=== PATIENT | male | born 1950 | race Caucasian/White ===

== ENCOUNTER 2017-05-07 06:57 | Outpatient (RCR) | payer MEDICARE, OTHER, SELFPAY | END 2017-05-07 23:59 | LOC: PT.CARL 06:57 | PROVIDERS: Referring Provider Orthopaedic Surgery; Visit Provider Orthopaedic Surgery | DX: M75.101 Unspecified rotator cuff tear or rupture of right shoulder, not specified as traumatic (principal) | CPT/HCPCS: G8990; G8991; G8992; 97014; 97110; 97165; G0283 ==

== ENCOUNTER → 2017-06-09 09:39 | Outpatient (CLI) | payer MEDICARE, OTHER, SELFPAY ==
--- NOTE | 2017-06-09 09:45 | XR_ITS ---
XR shoulder RT min 2V HISTORY: ITS.REASON: postoperative RT shoulder sx/ dos- 03/23/17 ORDERING PHYSICIAN: Nazario Najera MD PATIENT AGE: 66 years COMPARISON: 02/08/2017 FINDINGS: There are 2 anchor screws in the humeral head. There has been an osteotomy of the acromioclavicular bony spurs with minimal fragmentation noted at the distal clavicle. No evidence of acute fracture or dislocation. IMPRESSION: Postsurgical changes with osteotomy at the acromioclavicular joint and anchor screws at the humeral head
== END ==
PROVIDERS: PCP Family Medicine; Visit Provider Orthopaedic Surgery
DX: Z48.89 Encounter for other specified surgical aftercare (principal); M75.121 Complete rotator cuff tear or rupture of right shoulder, not specified as traumatic; M75.51 Bursitis of right shoulder; M75.21 Bicipital tendinitis, right shoulder; M19.019 Primary osteoarthritis, unspecified shoulder
CPT/HCPCS: 73030

== ENCOUNTER 2017-08-30 08:00 | Outpatient (RCR) | payer MEDICARE, OTHER, SELFPAY ==
--- NOTE | 2017-06-30 08:51 | HMH.RHREAS ---
Rehab Reassessment Rehab OP Re-assessment Start: 06/30/17 07:56 Freq: Status: Active Protocol: Document 06/30/17 07:57 TFRY (Rec: 06/30/17 08:50 TFRY [id number]) Electronically Signed By Mercedes Ortega OT 06/30/17 07:57 Rehab Re-assessment Subjective Subjective I'M NOT REALLY HAVING NOT PAIN IN SHOULDER. Objective Objective Notes RIGHT SHOULDER AROM - FLEXION - 0-150 ABDUCTION - 0-150 EXTERNAL ROTATION - 0-60 INTERNAL ROTATION- 0-60 RIGHT SHOULDER STRENGTH - FLEXION - 4-/5 ABDUCTION - 4-/5 INTERNAL ROTATION - 4-/5 EXTERNAL ROTATION- 4-/5 PAIN - 1 PATIENT REPORTS ABLE TO PERFORM ALL ADL'S, HOME CARE ACTIVITIES. DEMONSTRATES ABILITY TO REACH BEHIND BACK AND OVERHEAD. REPORTS NORMAL SLEEP PATTERN. Assessment Progress Assessment Progressing as Expected Assessment Notes PATIENT HAS IMPROVED ROM AND STRENGTH. Patient goals met 8 OUT OF 9 STGS AND 7 OUT OF 9 LTGS Goals Not Met STRENGTH GOAL AND ADVANCED HEP . Revised Goals NONE CONTINUE ON WORKING TOWARD UNMET GOALS OF STRENGTH AND ADVANCED HEP. Plan Plan CONTINUE WORKING TOWARD UNMET GOALS. Frequency of Therapy 1X PER WEEK Duration of therapy 4 WEEKS Time and Billing Re-Eval Time 5 Re-Eval Billing Units 0 PHYSICIAN CERTIFICATION: I certify the specified therapy services for Lion Dennison are required, authorized, and reviewed every 30 days.
--- NOTE | 2017-08-09 09:08 | HMH.RHREAS ---
Rehab Reassessment Rehab OP Re-assessment Start: 06/30/17 07:56 Freq: Status: Active Protocol: Document 08/09/17 08:12 [email or web address] (Rec: 08/09/17 09:07 TFRY [id number]) Electronically Signed By Mercedes Ortega OT 08/09/17 08:12 Rehab Re-assessment Subjective Subjective I HAVE SOME PAIN WHEN LIFTING HEAVY OBJECTS. Objective Objective Notes RIGHT SHOULDER - AROM - WFL IN ALL PLANES - STRENGTH - FLEXION - 4-/4/5 ABDUCTION - 4-/4/5 INTERNAL ROTATION - 4/5 EXTERNAL ROTATION - 4/5 PAIN - 8 ON 0-10 SCALE IN ONE SPOT Assessment Progress Assessment Progressing as Expected Assessment Notes INCREASING WITH STRENGTHENING EXERCISES Patient goals met 1 OUT OF 2 GOALS Goals Not Met 1 OUT OF 2 GOALS - STRENGTH GOALS Plan Plan CONTINUE TO WORK IMPROVING RIGHT SHOULDER STRENGTH Frequency of Therapy 2 Duration of therapy 6 Time and Billing Re-Eval Time 2 Re-Eval Billing Units 0 PHYSICIAN CERTIFICATION: I certify the specified therapy services for Lion Dennison are required, authorized, and reviewed every 30 days.
== END 2017-08-30 11:35 | disposition home or self-care (01) ==
LOC: OT 08:00
PROVIDERS: Family Provider Family Medicine; Visit Provider Orthopaedic Surgery
DX: Z48.89 Encounter for other specified surgical aftercare (principal); M75.121 Complete rotator cuff tear or rupture of right shoulder, not specified as traumatic
CPT/HCPCS: 97014; 97033; 97110; 97140; 97164; G0283

== ENCOUNTER → 2017-09-27 16:51 | Outpatient (CLI) | payer MEDICARE, OTHER, SELFPAY ==
--- NOTE | 2017-09-27 17:01 | XR_ITS ---
XR hip RT 2-3V w/pelvis HISTORY: ITS.REASON: RT. HIP PAIN ORDERING PHYSICIAN: Declan Izquierdo MD PATIENT AGE: 67 years FINDINGS: No fracture or dislocation is evident. There are mild osteoarthritic changes of the hips. No fracture or dislocation. No lytic or blastic change. IMPRESSION: Mild osteoarthritis, no acute finding
== END ==
PROVIDERS: PCP Family Medicine; Visit Provider Family Medicine
DX: M25.551 Pain in right hip (principal)
CPT/HCPCS: 73502

== ENCOUNTER 2017-10-28 09:00 | Outpatient (RCR) | payer MEDICARE, OTHER, SELFPAY | END 2017-11-29 11:04 | disposition home or self-care (01) | LOC: PT 09:00 | PROVIDERS: Family Provider Family Medicine; PCP Family Medicine; Visit Provider Family Medicine | DX: M51.36 Other intervertebral disc degeneration, lumbar region (principal); M16.11 Unilateral primary osteoarthritis, right hip; M54.31 Sciatica, right side | CPT/HCPCS: 97012; 97014; 97035; 97110; 97163; G0283 ==

== ENCOUNTER → 2018-02-14 11:22 | Outpatient (POV) | payer MEDICARE, OTHER, SELFPAY ==
[2018-02-14 11:45] VITALS: BP 157/98; PULSE 97; RESP 18; O2SAT 98
--- NOTE | 2018-02-14 12:11 | HMH.PMCON ---
Assessment and Plan (1) Lumbar radiculopathy Current visit: No Status: Chronic Category: Medical Code(s): M54.16 - Radiculopathy, lumbar region - Assessment and plan all Dx Assessment and Plan for all problems:: We will schedule an MRI of the lumbar spine. We will start him on diclofenac 75 mg 1 p.o. twice daily. We will follow-up with the patient after his MRI to move forward with the plan. This note was dictated using voice recognition software and may contain errors or omissions HPI - Data of Consult Consult date: 02/14/18 Requesting Physician: Marylou Aranda APRN Primary Care Provider: Declan Izquierdo MD Family Provider: Declan Izquierdo MD - Consult Narrative Reason for consult: Back pain History of present illness: Mr. Dennison is a 67 year old male in today for consultation in regards to his back and leg pain. Patient states that he woke up in October with back pain. Patient went to the hospital where he got x-rays and a steroid Dosepak along with some muscle relaxers. Patient states that these have not helped. Patient then followed up with his primary care and was sent to [facility] for right hip pain. Patient had an injection in his hip however that was not beneficial. Patient is currently on meloxicam. Patient states it does not help much. Patient's tried and failed physical therapy along with hip injections. He rates his pain a 10 out of 10. Patient has weakness in his right leg. Patient states standing for long periods of time increases his pain. CC: Marylou Aranda APRN [facility] History I have reviewed the patient's past medical history: Yes Medical History: Reports:: Diabetes Mellitus Type 2, Gastroesophageal Reflux Disease(GERD), Hyperlipidemia, Kidney Stones Denies:: Cancer, Diabetes Mellitus Type 1, MRSA Other Medical History: Reports: Arthritis, Other Laterality Cases: Bilateral: Arthroscopy Shoulder Amputation: No Fractures: No - *Social History Smoking Status: Never smoker Alcohol Intake: never Alcohol Intake Frequency:: other Substance Use Type: denies use Occupational Status: other Housing: house - Psychiatric History Expresses thoughts of harming self/others: None Suicide Plan Description: No Plan *Family Hx:: No significant family history Review of Systems - Review of Systems ROS General: no recent weight change, no fever, no sleep disturbances Respiratory: no cough, no shortness of air, no recurring pulmonary infections Cardiovascular/Peripheral Vascular: No chest pain, No palpitations, no edema, no shortness of breath. Gastrointestinal: no incontinence, normal bowel movements reported Genitourinary: no incontinence Musculoskeletal: Back pain, right leg pain Psychiatric: normal mood/ affect, Neurological: Weakness in right leg, [denies balance issues] Meds Home Medications Medication Instructions Recorded Confirmed Type atorvastatin 10 mg tablet 10 mg PO QDAY 06/09/17 10/13/17 History canagliflozin 300 mg tablet 300 mg PO QAM 06/09/17 10/13/17 History fenofibrate 150 mg capsule 150 mg PO ONCE 06/09/17 10/13/17 History glimepiride 4 mg tablet 4 mg PO QAM 06/09/17 10/13/17 History lancets 26 gauge See Dose Instructions .ROUTE 06/09/17 10/13/17 History .MEDSUPPLY #50 each meloxicam 15 mg tablet 15 mg PO QDAY 06/09/17 10/13/17 History metformin 1,000 mg tablet 1,000 mg PO BID 06/09/17 10/13/17 History omeprazole 20 mg capsule,delayed 20 mg PO QDAY 06/09/17 10/13/17 History release Levothyroxine Sodium 50 mcg PO DAILY 10/13/17 10/13/17 History [Levothyroxine 50mcg (0.05mg) Tab] Sitagliptin Phosphate [Januvia] 1 tab PO DAILY 10/13/17 10/13/17 History Allergies Allergy/AdvReac Type Severity Reaction Status Date / Time No Known Allergies Allergy Verified 01/31/18 15:20 Objective Vital signs: Pulse Resp BP Pulse Ox 97 H 18 157/98 H 98 02/14/18 11:45 02/14/18 11:45 02/14/18 11:45 02/14/18 11:45 Narrative:
--- NOTE | 2018-02-14 12:31 | P.CONS_ITS ---
Assessment and Plan (1) Lumbar radiculopathy Current visit: No Status: Chronic Category: Medical Code(s): M54.16 - Radiculopathy, lumbar region - Assessment and plan all Dx Assessment and Plan for all problems:: We will schedule an MRI of the lumbar spine. We will start him on diclofenac 75 mg 1 p.o. twice daily. We will follow-up with the patient after his MRI to move forward with the plan. This note was dictated using voice recognition software and may contain errors or omissions HPI - Data of Consult Consult date: 02/14/18 Requesting Physician: Marylou Aranda APRN Primary Care Provider: Declan Izquierdo MD Family Provider: Declan Izquierdo MD - Consult Narrative Reason for consult: Back pain History of present illness: Mr. Dennison is a 67 year old male in today for consultation in regards to his back and leg pain. Patient states that he woke up in October with back pain. Patient went to the hospital where he got x-rays and a steroid Dosepak along with some muscle relaxers. Patient states that these have not helped. Patient then followed up with his primary care and was sent to [facility] for right hip pain. Patient had an injection in his hip however that was not beneficial. Patient is currently on meloxicam. Patient states it does not help much. Patient's tried and failed physical therapy along with hip injections. He rates his pain a 10 out of 10. Patient has weakness in his right leg. Patient states standing for long periods of time increases his pain. CC: Marylou Aranda APRN [facility] History I have reviewed the patient's past medical history: Yes Medical History: Reports:: Diabetes Mellitus Type 2, Gastroesophageal Reflux Disease(GERD), Hyperlipidemia, Kidney Stones Denies:: Cancer, Diabetes Mellitus Type 1, MRSA Other Medical History: Reports: Arthritis, Other Laterality Cases: Bilateral: Arthroscopy Shoulder Amputation: No Fractures: No - *Social History Smoking Status: Never smoker Alcohol Intake: never Alcohol Intake Frequency:: other Substance Use Type: denies use Occupational Status: other Housing: house - Psychiatric History Expresses thoughts of harming self/others: None Suicide Plan Description: No Plan *Family Hx:: No significant family history Review of Systems - Review of Systems ROS General: no recent weight change, no fever, no sleep disturbances Respiratory: no cough, no shortness of air, no recurring pulmonary infections Cardiovascular/Peripheral Vascular: No chest pain, No palpitations, no edema, no shortness of breath. Gastrointestinal: no incontinence, normal bowel movements reported Genitourinary: no incontinence Musculoskeletal: Back pain, right leg pain Psychiatric: normal mood/ affect, Neurological: Weakness in right leg, [denies balance issues] Meds Home Medications Medication Instructions Recorded Confirmed Type atorvastatin 10 mg tablet 10 mg PO QDAY 06/09/17 10/13/17 History canagliflozin 300 mg tablet 300 mg PO QAM 06/09/17 10/13/17 History fenofibrate 150 mg capsule 150 mg PO ONCE 06/09/17 10/13/17 History glimepiride 4 mg tablet 4 mg PO QAM 06/09/17 10/13/17 History lancets 26 gauge See Dose Instructions .ROUTE 06/09/17 10/13/17 History .MEDSUPPLY #50 each meloxicam 15 mg tablet 15 mg PO QDAY 06/09/17 10/13/17 History metformin 1,000 mg tablet 1,000 mg PO BID 06/09/17 10/13/17 History omeprazole 20 mg capsule,delayed 20 mg
== END ==
PROVIDERS: Family Provider Family Medicine; PCP Family Medicine; Visit Provider Clinical Nurse Specialist Family Health
DX: M54.16 Radiculopathy, lumbar region (principal)
CPT/HCPCS: 99202

== ENCOUNTER → 2018-02-17 10:59 | Outpatient (CLI) | payer MEDICARE, OTHER, SELFPAY ==
--- NOTE | 2018-02-17 11:01 | MR_ITS ---
MR lumbar spine wo con, MR 3-d myelogram/MRCP HISTORY: LBP with RT sided and LT pain and numbness. [id number]. weakness in RT leg. ITS.REASON: BACK PAIN ORDERING PHYSICIAN: Marylou Aranda PATIENT AGE: 67 years Comparison: X-RAY 10-13-17 TECHNIQUE: Standard multiplanar multiecho sequences are performed without contrast. 3-D MIP and myelographic images are also rendered and reviewed FINDINGS: There is normal alignment. The spinal cord ends at the T12-L1 level. L1-L2: Unremarkable. L2-L3: Mild degenerative disc disease with minimal bulging disc along with facet and ligamentum flavum hypertrophy with mild bilateral lateral recess narrowing. There is moderate bulging of the disc anteriorly with anterior disc osteophyte complex. L3-L4: Mild concentric bulging disc along with facet and ligamentum flavum hypertrophy. The disc is somewhat eccentric toward the left with bilateral lateral recess narrowing and bilateral foraminal narrowing greater on the left. There is also prominent anterior bulging of the disc with disc osteophyte complex anteriorly. L4-L5: Concentric bulging disc along with moderate facet and ligamentum flavum hypertrophy. There is a small right paracentral disc protrusion/herniation causing compression upon the right L5 nerve root with right lateral recess narrowing and right foraminal narrowing. L5-S1: Small concentric bulging disc with small posterior annular fissure. IMPRESSION: 1. Multilevel disc bulges with facet and ligamentum flavum hypertrophy with lateral recess and foraminal narrowing. Please see above for detailed description at each level. 2. Small right paracentral disc protrusion/herniation at L4-L5 causing compression upon the right L5 nerve root with severe right lateral recess narrowing from the disc and facet hypertrophy. Left-sided lateral recess and foraminal narrowing also noted from facet and ligamentum flavum hypertrophy
== END ==
PROVIDERS: Family Provider Family Medicine; PCP Family Medicine; Visit Provider Clinical Nurse Specialist Family Health
DX: M54.5 Low back pain (principal)
CPT/HCPCS: 72148; 76376

== ENCOUNTER → 2018-03-07 13:11 | Outpatient (POV) | payer MEDICARE, OTHER, SELFPAY ==
[2018-03-07 13:44] VITALS: BP 148/86; PULSE 87; RESP 18; O2SAT 98; BMI 32.4
--- NOTE | 2018-03-07 14:13 | HMH.PAINSOAP ---
[facility] Pain Management SOAP Note Subjective:: Patient is a pleasant 67-year-old white male who presents today for follow-up after his most recent MRI. I will disc bulge with facet and ligamentum flavum hypertrophy. Patient states most of his pain today is in his low back radiating into his groin. Patient is interested in injections. Patient is continuing a home stretching program. Patient is on anti-inflammatories. Patient rates his pain a 6 out of 10 today. ROS General: no recent weight change, no fever, no sleep disturbances Respiratory: no cough, no shortness of air, no recurring pulmonary infections Cardiovascular/Peripheral Vascular: No chest pain, No palpitations, no edema, no shortness of breath. Gastrointestinal: no incontinence, normal bowel movements reported Genitourinary: no incontinence Musculoskeletal: SI joint pain Psychiatric: normal mood/ affect Neurological: [denies weakness in extremities], [denies balance issues] Objective:: Physical Exam General: Alert and oriented x3, no acute distress, pleasant and cooperative, [on room air] Lungs: Resps E/U, Symmetrical chest expansion, Eyes: PERRL Musculoskeletal: Flexion and extension of lumbar spine somewhat guarded secondary to pain, deep tendon reflexes normal, strength in upper and lower extremities [5/5], slightly antalgic gait noted, positive Yeimy's test bilaterally Neurological: speech clear, engineering instructor equal, no gross sensory deficits Assessment:: Sacroiliitis Plan:: We will schedule bilateral SI joint injections for the patient. Patient can continue on his anti-inflammatories and home stretching regimen. I will follow-up with the patient after his injection. This note was dictated using voice recognition software and may contain errors or omissions
== END ==
PROVIDERS: Family Provider Family Medicine; PCP Family Medicine; Visit Provider Clinical Nurse Specialist Family Health
DX: M46.1 Sacroiliitis, not elsewhere classified (principal)
CPT/HCPCS: 99213

== ENCOUNTER → 2018-04-12 10:52 | Outpatient (POV) | payer MEDICARE, OTHER, SELFPAY ==
[2018-04-12 10:59] VITALS: BP 128/84; PULSE 80; RESP 18; O2SAT 98; BMI 33.1
--- NOTE | 2018-04-12 11:06 | HMH.PAINSOAP ---
[facility] Pain Management SOAP Note Subjective:: Patient is a pleasant 67-year-old white male who presents today for up after bilateral SI joint injections. He is 80% better. Patient is doing well. Patient is wanting to repeat the injections given the efficacy. Patient is continuing a home stretching program and is on antiinflammatories. ROS General: no recent weight change, no fever, no sleep disturbances Respiratory: no cough, no shortness of air, no recurring pulmonary infections Cardiovascular/Peripheral Vascular: No chest pain, No palpitations, no edema, no shortness of breath. Gastrointestinal: no incontinence, normal bowel movements reported Genitourinary: no incontinence Musculoskeletal: Bilateral SI joint pain Psychiatric: normal mood/ affect Neurological: [denies weakness in extremities], [denies balance issues] Objective:: Physical Exam General: Alert and oriented x3, no acute distress, pleasant and cooperative, [on room air] Lungs: Resps E/U, Symmetrical chest expansion, Eyes: PERRL Musculoskeletal: Flexion and extension of lumbar spine somewhat guarded secondary to pain, deep tendon reflexes normal, strength in upper and lower extremities [5/5], slightly antalgic gait noted, positive Yeimy's test bilaterally Neurological: speech clear, trolley worker equal, no gross sensory deficits Assessment:: Sacroiliitis Plan:: We will schedule him for repeat SI joint injections given the efficacy of his last round. I will follow-up with him after these injections. This note was dictated using voice recognition software and may contain errors or omissions
== END ==
PROVIDERS: PCP Family Medicine; Visit Provider Clinical Nurse Specialist Family Health
DX: M46.1 Sacroiliitis, not elsewhere classified (principal)
CPT/HCPCS: 99213

== ENCOUNTER → 2018-05-24 08:48 | Outpatient (POV) | payer MEDICARE, OTHER, SELFPAY ==
--- NOTE | 2018-05-24 09:01 | P.CONS_ITS ---
[facility] Pain Management SOAP Note Subjective:: Patient is a pleasant 67-year-old white male who presents today for follow-up after his second round of bilateral SI joint injections. Patient states he has 100% relief of his symptoms. Patient denies any pain at this time. Patient is doing well and would like to follow-up as needed. ROS General: no recent weight change, no fever, no sleep disturbances Respiratory: no cough, no shortness of air, no recurring pulmonary infections Cardiovascular/Peripheral Vascular: No chest pain, No palpitations, no edema, no shortness of breath. Gastrointestinal: no incontinence, normal bowel movements reported Genitourinary: no incontinence Musculoskeletal: Back pain at times Psychiatric: normal mood/ affect Neurological: [denies weakness in extremities], [denies balance issues] Objective:: Physical Exam General: Alert and oriented x3, no acute distress, pleasant and cooperative, [on room air] Lungs: Resps E/U, Symmetrical chest expansion, Eyes: PERRL Musculoskeletal: Flexion and extension of lumbar spine somewhat guarded secondary to pain, deep tendon reflexes normal, strength in upper and lower extremities [5/5], slightly antalgic gait noted Neurological: speech clear, lump machine operator equal, no gross sensory deficits Assessment:: Sacroiliitis Plan:: We will follow-up with the patient on an as-needed basis. Patient's been instructed to call the office if he has any issues. This note was dictated using voice recognition software and may contain errors or omissions
[2018-05-24 09:06] VITALS: BP 132/92; PULSE 89; RESP 18; O2SAT 98; BMI 33.1
== END ==
PROVIDERS: PCP Family Medicine; Visit Provider Clinical Nurse Specialist Family Health
DX: M46.1 Sacroiliitis, not elsewhere classified (principal)
CPT/HCPCS: 99213

== ENCOUNTER → 2018-07-11 15:04 | Outpatient (CLI) | payer MEDICARE, OTHER, SELFPAY ==
--- NOTE | 2018-07-11 15:16 | XR_ITS ---
XR shoulder RT min 2V HISTORY: ITS.REASON: SHANTE SHOULDER PAIN ORDERING PHYSICIAN: Declan Izquierdo MD PATIENT AGE: 68 years Comparison: None FINDINGS: There are 2 anchor screws in the humeral head. There has been an osteotomy of the acromioclavicular bony spurs with minimal fragmentation noted at the distal clavicle. There are mild hypertrophic changes of the greater tuberosity. There is subacromial stenosis. No evidence of acute fracture or dislocation. IMPRESSION: Postsurgical changes with osteotomy at the acromioclavicular joint and anchor screws at the humeral head with mild osteoarthritic change. Overall no significant change from 06/09/2017
--- NOTE | 2018-07-11 15:16 | XR_ITS ---
XR shoulder LT min 2V HISTORY: Left shoulder pain ITS.REASON: SHANTE SHOULDER PAIN ORDERING PHYSICIAN: Declan Izquierdo MD PATIENT AGE: 68 years Comparison: None FINDINGS: There is prominence of the acromioclavicular joint space. Has the patient had prior osteotomy at the AC joint?. A small screw is present in the humeral head at the greater tuberosity region. There is subacromial stenosis with hypertrophic change of the acromion laterally along with mild hypertrophy of the greater tuberosity humerus. There are mild osteoarthritic changes of the glenohumeral joint. No acute fracture or dislocation. No lytic or blastic change. IMPRESSION: Osteoarthritis with subacromial stenosis, postsurgical change with prominence of the AC joint space
== END ==
PROVIDERS: PCP Family Medicine; Visit Provider Family Medicine
DX: M25.511 Pain in right shoulder (principal); M25.512 Pain in left shoulder
CPT/HCPCS: 73030

== ENCOUNTER 2018-08-03 08:57 | Outpatient (RCR) | payer MEDICARE, OTHER, SELFPAY ==
--- NOTE | 2018-08-03 09:33 | HMH.OTOPEV ---
OT Inpatient Evaluation Rehab OT Outpatient Eval Start: 08/03/18 09:17 Freq: Status: Active Protocol: Document 08/03/18 09:18 TFRY (Rec: 08/03/18 09:32 TFRY [id number]) Electronically Signed By Mercedes Ortega, OT 08/03/18 09:18 Outpatient Therapy Subjective History Subjective History This is a 68 year old right handed male referred to occupational therapy for bilateral shoulder pain; s/p rotator cuff repair; early DJD . Patient reports that he had last RTC repair on March 2017 on right shoulder but continued to have pain even post surgery. Chief Complaint Pain Symptom Type Sharp Symptoms Relieved By Nothing Symptoms Aggravated By Physical Activity Lifting Prior Functional Limitations None Current Functional Limitations Reaching Lifting Housework Desk Work/Reading Driving Sleeping Recreation Activity Symptom Description Constant but Variable Level of pain today (0-10) 7 Pain scale - at its best (0-10) 4 Pain scale - at its worst (0-10) 10 Shoulder/Elbow Eval Shoulder Objective Measurements Palpation Tenderness tenderness shoulder exam standard bilateral Shoulder Palpation Findings Tenderness Shoulder ROM Bilateral Shoulder Abduction Active Range of WFL Motion (degrees) Shoulder Flexion Active Range of Motion WFL (degrees) Query Text: Shoulder External Rotation Active Range WFL of Motion (degrees) Shoulder Internal Rotation Active Range WFL of Motion (degrees) Shoulder Extension Active Range of WFL Motion (degrees) pain with active ROM shoulder exam bilateral standard pain with passive ROM shoulder exam bilateral standard full ROM shoulder exam standard bilateral Shoulder MMT Shoulder Abduction Strength Grade 5 Normal Shoulder Extension Strength Grade 5 Normal Shoulder Flexion Strength Grade 5 Normal Shoulder Horizontal Abduction Strength 5 Normal Grade Shoulder Horizontal Adduction Strength 5 Normal Grade Shoulder External Rotation Strength 4 Good Grade Shoulder Internal Rotation Strength 4 Good Grade
== END 2018-08-03 09:10 | disposition home or self-care (01) ==
LOC: OT 08:57
PROVIDERS: Visit Provider Orthopaedic Surgery
DX: M25.511 Pain in right shoulder (principal); M25.512 Pain in left shoulder
CPT/HCPCS: 97165

== ENCOUNTER → 2018-08-22 10:56 | Outpatient (POV) | payer MEDICARE, OTHER, SELFPAY ==
--- NOTE | 2018-08-22 11:51 | HMH.PAINSOAP ---
[facility] Pain Management SOAP Note Subjective:: Patient is a very pleasant 68-year-old white male who presents today for follow-up after bilateral SI joint injections. Patient is having some burning in his legs. Patient does have an abnormal MRI. Patient is not on any anticoagulation therapy we discussed epidural injections he is interested in proceeding with this. Patient is continuing a home stretching therapy. He is currently on anti-inflammatories. ROS General: no recent weight change, no fever, no sleep disturbances Respiratory: no cough, no shortness of air, no recurring pulmonary infections Cardiovascular/Peripheral Vascular: No chest pain, No palpitations, no edema, no shortness of breath. Gastrointestinal: no incontinence, normal bowel movements reported Genitourinary: no incontinence Musculoskeletal: Back pain, leg pain Psychiatric: normal mood/ affect Neurological: [denies weakness in extremities], [denies balance issues] Objective:: Physical Exam General: Alert and oriented x3, no acute distress, pleasant and cooperative, [on room air] Lungs: Resps E/U, Symmetrical chest expansion, Eyes: PERRL Musculoskeletal: Flexion and extension of lumbar spine somewhat guarded secondary to pain, deep tendon reflexes normal, strength in upper and lower extremities [5/5], [abnormal gait noted] Neurological: speech clear, senior medical billing specialist equal, no gross sensory deficits Assessment:: Degenerative disc disease lumbar spine with lumbar radiculopathy Plan:: We will plan L4-L5 lumbar epidural steroid injection for the patient. We will also start him on gabapentin 3 mg at nighttime. Patient is been instructed to call the office if he has any issues prior to his next appointment. Dr. Galo has reviewed this note and agrees with this plan of care. This note was dictated using voice recognition software and may contain errors or omissions
--- NOTE | 2018-08-22 11:55 | P.CONS_ITS ---
[facility] Pain Management SOAP Note Subjective:: Patient is a very pleasant 68-year-old white male who presents today for follow- up after bilateral SI joint injections. Patient is having some burning in his legs. Patient does have an abnormal MRI. Patient is not on any anticoagulation therapy we discussed epidural injections he is interested in proceeding with this. Patient is continuing a home stretching therapy. He is currently on anti-inflammatories. ROS General: no recent weight change, no fever, no sleep disturbances Respiratory: no cough, no shortness of air, no recurring pulmonary infections Cardiovascular/Peripheral Vascular: No chest pain, No palpitations, no edema, no shortness of breath. Gastrointestinal: no incontinence, normal bowel movements reported Genitourinary: no incontinence Musculoskeletal: Back pain, leg pain Psychiatric: normal mood/ affect Neurological: [denies weakness in extremities], [denies balance issues] Objective:: Physical Exam General: Alert and oriented x3, no acute distress, pleasant and cooperative, [on room air] Lungs: Resps E/U, Symmetrical chest expansion, Eyes: PERRL Musculoskeletal: Flexion and extension of lumbar spine somewhat guarded secondary to pain, deep tendon reflexes normal, strength in upper and lower extremities [5/5], [abnormal gait noted] Neurological: speech clear, embossing calender operator equal, no gross sensory deficits Assessment:: Degenerative disc disease lumbar spine with lumbar radiculopathy Plan:: We will plan L4-L5 lumbar epidural steroid injection for the patient. We will also start him on gabapentin 3 mg at nighttime. Patient is been instructed to call the office if he has any issues prior to his next appointment. Dr. Galo has reviewed this note and agrees with this plan of care. This note was dictated using voice recognition software and may contain errors or amrita ssions
[2018-08-22 12:13] VITALS: BP 155/91; PULSE 74; RESP 18; O2SAT 98; BMI 33.1
== END ==
PROVIDERS: PCP Family Medicine; Visit Provider Clinical Nurse Specialist Family Health
DX: M51.16 Intervertebral disc disorders with radiculopathy, lumbar region (principal)
CPT/HCPCS: 99212

== ENCOUNTER → 2018-08-29 08:39 | Outpatient (CLI) | payer MEDICARE, OTHER, SELFPAY ==
--- NOTE | 2018-08-29 08:43 | XR_ITS ---
XR calcaneus LT min 2V CLINICAL INDICATION: Planar fasciitis ITS.REASON: pain ORDERING PHYSICIAN: Margaret Newton DPM PATIENT AGE: 68 years Comparison: None FINDINGS: There is a small calcaneal spur without erosive change. No abnormal calcification evident of the plantar fascial region. There is generalized vascular calcification. No acute bony anomalies. IMPRESSION: Small calcaneal spur
--- NOTE | 2018-08-29 08:43 | XR_ITS ---
XR foot wt bearing LT 3V HISTORY: ITS.REASON: pain ORDERING PHYSICIAN: Margaret Newton DPM PATIENT AGE: 68 years COMPARISON: None FINDINGS: No fracture or dislocation. No lytic or blastic change. There is normal mineralization.. The joint spaces are well-preserved. No significant degenerative/arthritic changes. No erosive changes evident. Small calcaneal spur noted. Mild vascular calcification. IMPRESSION: Negative, no acute finding
== END ==
PROVIDERS: PCP Family Medicine; Visit Provider Podiatrist
DX: M72.2 Plantar fascial fibromatosis (principal); M79.672 Pain in left foot
CPT/HCPCS: 73630; 73650

== ENCOUNTER → 2018-09-22 09:45 | Outpatient (CLI) | payer MEDICARE, OTHER, SELFPAY ==
[2018-09-22 11:22] LABS: Blood Urea Nitrogen 23 mg/dL (7-18); Creatinine,Serum 1.07 mg/dL (0.70-1.30); Estimated Glomerular Filt Rate 69 ml/min (>60); GFR (African American) 83 ML/MIN (>60)
== END ==
PROVIDERS: Visit Provider Family Medicine
DX: M72.2 Plantar fascial fibromatosis (principal)
CPT/HCPCS: 36415; 82565; 84520

== ENCOUNTER → 2018-09-23 08:38 | Outpatient (CLI) | payer MEDICARE, OTHER, SELFPAY ==
--- NOTE | 2018-09-23 08:43 | CT_ITS ---
CT abdomen pelvis w con CLINICAL INDICATION: Right lower quadrant pain, history of diverticulitis ITS.REASON: RT SIDED ABD PAIN ORDERING PHYSICIAN: Declan Izquierdo MD PATIENT AGE: 68 years COMPARISON: None TECHNIQUE: Axial images obtained with sagittal and coronal reformats. All CT scans at the facility use one or more dose reduction, viz: automated exposure control, ma/kV adjustment per patient size (including targeted exams where dose is matched to indication, i.e. head), or iterative reconstruction technique. PROCEDURE: Oral Contrast: Redicat IV Contrast: 75 mL Omnipaque 350. FINDINGS: No acute finding in the lung bases. There are coronary artery calcifications. Diffuse hepatic steatosis. No radio opaque gallstones. The spleen, adrenal glands, and pancreas have an unremarkable appearance No renal or ureteral calculi. 1 cm isodensity left kidney laterally consistent with a renal cyst. No intestinal obstruction or free air. Unremarkable appendix. Scattered colonic diverticula. No evidence of diverticulitis. Prostate is enlarged at 5 cm. No acute bony findings. No pelvic mass abnormal fluid collection or focal inflammatory change. IMPRESSION: 1. No acute abdominal or pelvic findings. 2. Colonic diverticulosis without diverticulitis
== END ==
PROVIDERS: PCP Family Medicine; Visit Provider Family Medicine
DX: R10.9 Unspecified abdominal pain (principal)
CPT/HCPCS: 74177

== ENCOUNTER → 2018-09-26 13:17 | Outpatient (POV) | payer MEDICARE, OTHER, SELFPAY ==
[2018-09-26 13:32] VITALS: BP 124/97; PULSE 100; RESP 18; O2SAT 98; BMI 33.1
--- NOTE | 2018-09-26 13:41 | P.CONS_ITS ---
[facility] Pain Management SOAP Note Subjective:: Patient is a very pleasant 68-year-old white male who presents today for follow- up after lumbar epidural steroid injection. He states he got significant relief up to 80% of his pain. He rates his pain a 4 out of 10. He is much more functional. Patient would like to repeat this. Patient has tried and failed other conservative measures. He is continuing a home stretching program. Patient is on anti-inflammatories. ROS General: no recent weight change, no fever, no sleep disturbances Respiratory: no cough, no shortness of air, no recurring pulmonary infections Cardiovascular/Peripheral Vascular: No chest pain, No palpitations, no edema, no shortness of breath. Gastrointestinal: no incontinence, normal bowel movements reported Genitourinary: no incontinence Musculoskeletal: Back pain, leg pain Psychiatric: normal mood/ affect Neurological: [denies weakness in extremities], [denies balance issues] Objective:: Physical Exam General: Alert and oriented x3, no acute distress, pleasant and cooperative, [on room air] Lungs: Resps E/U, Symmetrical chest expansion, Eyes: PERRL Musculoskeletal: Flexion and extension of lumbar spine somewhat guarded secondary to pain, deep tendon reflexes normal, strength in upper and lower extremities [5/5], [abnormal gait noted] Neurological: speech clear, quality assurance lab technician equal, no gross sensory deficits Assessment:: Degenerative disc disease lumbar spine with lumbar radiculopathy symptoms Plan:: We will set the patient up for repeat L4-L5 lumbar epidural steroid injection given the efficacy of the last one. I believe it would be beneficial. I will follow-up with the patient after his injection reassess his symptoms at that time. Dr. Galo has reviewed this note and agrees with this plan of care. This note was dictated using voice recognition software and may contain errors or omissions
== END ==
PROVIDERS: PCP Family Medicine; Visit Provider Clinical Nurse Specialist Family Health
DX: M51.16 Intervertebral disc disorders with radiculopathy, lumbar region (principal)
CPT/HCPCS: 99212

== ENCOUNTER 2018-10-11 07:00 | Outpatient (RCR) | payer MEDICARE, OTHER, SELFPAY ==
--- NOTE | 2018-09-13 10:08 | HMH.PTOPEV ---
PT Outpatient Evaluation Rehab PT Outpatient Evaluation Start: 09/12/18 15:49 Freq: Status: Active Protocol: Document 09/12/18 15:40 PDESEROUX (Rec: 09/13/18 10:07 [email or web address] [id number]) Electronically Signed By Abdon Crowell, PT 09/12/18 15:40 Outpatient Therapy Subjective History Subjective History Pt. is a 68 year old male who presents to outpatient PT for complaints of bilateral chronic medial plantar calcaneal/arch pain(L> R) of insidious onset 2 years ago. Pt. reports, my MD wants me to wear this boot til I see her again. Pt. reports not being able to get injections in bilateral ft. during his most recent MD visit d/t hyperglycemia. Pt. does report having injections in bilateral feet for same pathology in the past that did provide some symptom relief . Recent diagnostic imaging negative for a fracture nor dislocation pt. reports. See chart for current medications. PMH includes hypercholesterolemia and diabetes. Chief Complaint Pain,Stiff Symptom Type Sharp,Stabbing Symptoms Relieved By Rest/Positioning,Ice,Brace/ Support Symptoms Aggravated By Standing,Physical Activity, Walking Prior Functional Limitations None Current Functional Limitations Housework,Driving,Standing, Squatting,Recreation Activity, Walking,Stairs,Balance Symptom Description Constant but Variable Level of pain today (0-10) 4 Pain scale - at its best (0-10) 3 Pain scale - at its worst (0-10) 10 Ankle/Foot Eval Gait Observation General Gait Pattern Observation Antalgic Gait,Decrease Weight Bear (L),Decrease Stride Lngth (R) Assistive Device Ambulation Assistive Device None Palpation Tenderness bilateral Ankle/Foot Palpation Findings Tenderness Ankle/Foot Palpation Overall Comment grade 3 +TTP bilateral medial plantar fascia aspect calcaneal origination ATF TTP negative PTF TTP
== END 2018-11-01 09:37 | disposition home or self-care (01) ==
LOC: PT.CARL 07:00
PROVIDERS: Visit Provider Podiatrist
DX: M72.2 Plantar fascial fibromatosis (principal)
CPT/HCPCS: 97010; 97014; 97033; 97035; 97110; 97140; 97163; G0283

== ENCOUNTER 2018-10-14 21:28 | Emergency (ER) | payer MEDICARE, OTHER, SELFPAY ==
--- NOTE | 2018-10-14 21:44 | HMH.EDGENADL ---
ED Disposition Clinical Impression: Abdominal pain, Constipation Disposition: Home, Self-Care Condition on Discharge: Good Instructions: DI for Constipation Referrals: Declan Izquierdo MD [Primary Care Provider] - Time of Disposition: 00:32 - Critical Care Critical Care Time: No Attestation: On , the high probability of a clinically significant, sudden or life threatening deterioration of the following system(s) required my full and direct attention, intervention and personal management. The time I documented below is in addition to time spent performing reported procedures but includes the following listed in this critical care notation. Medical Decision Making - Medical Records Medical records reviewed: Yes: I reviewed the patient's medical records. - Arron Inquiry Pt receiving controlled substance: No Arron was queried for this patient: No Vital Signs: 10/14/18 21:56 Temperature 97.9 F Temperature Source Oral Pulse Rate [Right] 95 H Respiratory Rate 16 Blood Pressure [Right Arm] 120/93 H Blood Pressure Mean [Right Arm] 102 Blood Pressure Source [Right Arm] Automatic Cuff Blood Pressure Position [Right Arm] Sitting 02 Sat by Pulse Oximetry 94 L Oxygen Delivery Method Room Air - Lab Data Lab results reviewed: Yes: I reviewed the patient's lab results. Lab Results 10/14/18 22:18: WBC 6.3, RBC 4.90, Hgb 15.2, Hct 42.9, MCV 87.5, MCH 30.9, MCHC 35.3, RDW 13.6, Plt Count 199, MPV 9.2, Neut % (Auto) 55.4, Lymph % (Auto) 36.3, [place] % (Auto) 6.8, Eos % (Auto) 1.0, Baso % (Auto) 0.4, Neut # (Auto) 3.5, Lymph # (Auto) 2.3, [place] # (Auto) 0.4, Eos # (Auto) 0.1, Baso # (Auto) 0.0 10/14/18 22:18: Sodium 136, Potassium 3.9, Chloride 100, Carbon Dioxide 25, Anion Gap 14.9, BUN 19 H, Creatinine 1.06, Estimated Creat Clear 83, Estimated GFR 69, Est GFR ( Amer) 84, Glucose 285 H, Calcium 9.8, Total Bilirubin 0.4, AST 28, ALT 56, Alkaline Phosphatase 43 L, Total Protein 7.6, Albumin 3.9, Globulin 3.7 H, Albumin/Globulin Ratio 1.1, Lipase 332 Result diagrams: 10/14/18 22:18 10/14/18 22:18 Orders (Tests/Meds): ED MEDICATIONS Generic Name Dose Route Start Last Admin Trade Name Peter PRN Reason Stop Dose Admin Sodium Chloride 1,000 mls @ 999 mls/hr 10/14/18 22:15 10/14/18 22:19 Sod Chlor 0.9% 1000ml Bag IV 10/14/18 23:15 999 mls/hr .Q1H1M SWATHI Administration Discontinued Medications Generic Name Dose Route Start Last Admin Trade Name Peter PRN Reason Stop Dose Admin Famotidine 20 mg 10/14/18 22:02 10/14/18 22:19 Pepcid 20mg/2ml Vial IV 10/14/18 22:03 20 mg ONCE ONE Administration Ioversol 75 ml 10/15/18 00:27 10/15/18 00:29 Rad-Optiray 350 100ml Vial IV 10/15/18 00:28 75 ml ONCE ONE Administration Protocol Ketorolac Tromethamine 30 mg 10/14/18 21:51 10/14/18 22:19 Toradol 30mg/Ml Vial IV 10/14/18 21:52 30 mg ONCE ONE Administration Metoclopramide HCl 10 mg 10/14/18 22:02 10/14/18 22:19 Reglan 10mg/2ml Vial IVP 10/14/18 22:03 10 mg ONCE ONE Administration Sodium Chloride 10 ml 10/15/18 00:27 10/15/18 00:29 Rad-Saline Flush 10ml Syringe IV 10/15/18 00:28 10 ml ONCE ONE Administration ORDERS Category Date Time Status CT abdomen pelvis w con Stat Cat Scan 10/14/18 21:51 Taken UA [Urinalysis and Microscopic] Stat Lab 10/14/18 21:50 Ordered General Adult HPI - General Stated complaint: lower abd pain Time Seen by Provider: 10/14/18 21:44 Mode of Arrival: Ambulatory Source of Information: Patient Limitations: No Limitations - History of Present Illness HPI narrative: rlq pain x two weeks plus. Previously evaluated with CT by Dr. Izquierdo... no findings - Related Data Home Medications Medication Instructions Recorded Confirmed atorvastatin 10 mg tablet 10 mg PO QDAY 06/09/17 09/26/18 glimepiride 4 mg tablet 4 mg PO QAM 06/09/17 09/26/18 metformin 1,000 mg tablet 1,000 mg PO BID 06/09/17 09/26/18
--- NOTE | 2018-10-14 21:48 | ED_ITS ---
ED Disposition Clinical Impression: Abdominal pain, Constipation Disposition: Home, Self-Care Condition on Discharge: Good Instructions: DI for Constipation Referrals: Declan Izquierdo MD [Primary Care Provider] - Time of Disposition: 00:32 - Critical Care Critical Care Time: No Attestation: On , the high probability of a clinically significant, sudden or life threatening deterioration of the following system(s) required my full and direct attention, intervention and personal management. The time I documented below is in addition to time spent performing reported procedures but includes the following listed in this critical care notation. Medical Decision Making - Medical Records Medical records reviewed: Yes: I reviewed the patient's medical records. - Arron Inquiry Pt receiving controlled substance: No Arron was queried for this patient: No Vital Signs: 10/14/18 21:56 Temperature 97.9 F Temperature Source Oral Pulse Rate [Right] 95 H Respiratory Rate 16 Blood Pressure [Right Arm] 120/93 H Blood Pressure Mean [Right Arm] 102 Blood Pressure Source [Right Arm] Automatic Cuff Blood Pressure Position [Right Arm] Sitting 02 Sat by Pulse Oximetry 94 L Oxygen Delivery Method Room Air - Lab Data Lab results reviewed: Yes: I reviewed the patient's lab results. Lab Results 10/14/18 22:18: WBC 6.3, RBC 4.90, Hgb 15.2, Hct 42.9, MCV 87.5, MCH 30.9, MCHC 35.3, RDW 13.6, Plt Count 199, MPV 9.2, Neut % (Auto) 55.4, Lymph % (Auto) 36.3, [place] % (Auto) 6.8, Eos % (Auto) 1.0, Baso % (Auto) 0.4, Neut # (Auto) 3.5, Lymph # (Auto) 2.3, [place] # (Auto) 0.4, Eos # (Auto) 0.1, Baso # (Auto) 0.0 10/14/18 22:18: Sodium 136, Potassium 3.9, Chloride 100, Carbon Dioxide 25, Anion Gap 14.9, BUN 19 H, Creatinine 1.06, Estimated Creat Clear 83, Estimated GFR 69, Est GFR ( Amer) 84, Glucose 285 H, Calcium 9.8, Total Bilirubin 0.4, AST 28, ALT 56, Alkaline Phosphatase 43 L, Total Protein 7.6, Albumin 3.9, Globulin 3.7 H, Albumin/Globulin Ratio 1.1, Lipase 332 Result diagrams: 10/14/18 22:18 10/14/18 22:18 Orders (Tests/Meds): ED MEDICATIONS Generic Name Dose Route Start Last Admin Trade Name Freq PRN Reason Stop Dose Admin Sodium Chloride 1,000 mls @ 999 mls/hr 10/14/18 22:15 10/14/18 22:19 Sod Chlor 0.9% 1000ml Bag IV 10/14/18 23:15 999 mls/hr .Q1H1M SWATHI Administration Discontinued Medications Generic Name Dose Route Start Last Admin Trade Name Luigiq PRN Reason Stop Dose Admin Famotidine 20 mg 10/14/18 22:02 10/14/18 22:19 Pepcid 20mg/2ml Vial IV 10/14/18 22:03 20 mg ONCE ONE Administration Ioversol 75 ml 10/15/18 00:27 10/15/18 00:29 Rad-Optiray 350 100ml Vial IV 10/15/18 00:28 75 ml ONCE ONE Administration Protocol Ketorolac Tromethamine 30 mg 10/14/18 21:51 10/14/18 22:19 Toradol 30mg/Ml Vial IV 10/14/18 21:52 30 mg ONCE ONE Administration Metoclopramide HCl 10 mg 10/14/18 22:02 10/14/18 22:19 Reglan 10mg/2ml Vial IVP 10/14/18 22:03 10 mg ONCE ONE Administration Sodium Chloride 10 ml 10/15/18 00:27 10/15/18 00:29 Rad-Saline Flush 10ml Syringe IV 10/15/18
--- NOTE | 2018-10-14 21:51 | CT_ITS ---
CT abdomen pelvis w con CLINICAL INDICATION: Right lower quadrant pain ITS.REASON: abdomen pain ORDERING PHYSICIAN: Iban Andrews MD PATIENT AGE: 68 years COMPARISON: 12/03/2013 TECHNIQUE: Axial images obtained with sagittal and coronal reformats. All CT scans at the facility use one or more dose reduction, viz: automated exposure control, ma/kV adjustment per patient size (including targeted exams where dose is matched to indication, i.e. head), or iterative reconstruction technique. PROCEDURE: Oral Contrast: None IV Contrast: 75 mL's Optiray 350. FINDINGS: Lower thorax: No acute finding Fatty liver infiltration. The gallbladder, spleen, adrenal glands, pancreas, and kidneys have an unremarkable appearance. There is a 12 mm left renal cyst. Unremarkable appendix. Colonic diverticulosis without diverticulitis. Mildly enlarged prostate at 5 cm. Urinary bladder slightly distended. No intestinal obstruction or free air. No acute bony anomalies. There are small bilateral inguinal hernias containing fat. IMPRESSION: No acute abdominal or pelvic findings.
[2018-10-14 21:56] VITALS: BP 120/93; PULSE 95; RESP 16; TEMP 36.6; O2SAT 94; BMI 33.1
[2018-10-14 22:32] LABS: Basophils % 0.4 % (0.1-2.0); Eosinophils # 0.1 K/mm3 (0.0-0.4); Hematocrit 42.9 % (42.0-52.0); Hemoglobin 15.2 g/dL (14.1-18.0); Lymphocytes # 2.3 K/mm3 (0.7-4.5); Lymphocytes % 36.3 % (10-50); Mean Corpuscular HGB Conc 35.3 g/dL (31.8-35.4); Mean Corpuscular Hemoglobin 30.9 pg (27.0-31.2); Mean Corpuscular Volume 87.5 fl (80-94); Mean Platelet Volume 9.2 fl (7.4-10.4); Monocytes # 0.4 K/mm3 (0.1-1.0); Monocytes % 6.8 % (1.7-9.3); Neutrophils # 3.5 K/mm3 (1.8-7.8); Neutrophils % 55.4 % (37.0-80.0); Platelet Count 199 K/mm3 (142-424); Red Cell Distribution Width 13.6 % (11.5-17.5); White Blood Count 6.3 K/mm3 (4.8-10.8)
[2018-10-14 22:41] LABS: Alanine Aminotransferase 56 U/L (12-78); Albumin Level 3.9 gm/dL (3.4-5.0); Albumin/Globulin Ratio 1.1 (1.1-1.8); Alkaline Phosphatase 43 U/L (46-116); Anion Gap 14.9 mEq/L (5-15); Aspartate Amino Transferase 28 U/L (15-37); Bilirubin,Total 0.4 mg/dL (0.2-1.0); Blood Urea Nitrogen 19 mg/dL (7-18); Calcium 9.8 mg/dL (8.5-10.1); Carbon Dioxide 25 mmol/L (21.0-32.0); Chloride 100 mmol/L (98-107); Creatinine Clearance Estimated 83 mL/min (50-200); Creatinine,Serum 1.06 mg/dL (0.70-1.30); Estimated Glomerular Filt Rate 69 ml/min (>60); GFR (African American) 84 ML/MIN (>60); Globulin 3.7 gm/dl (1.3-3.2); Glucose 285 mg/dL (74-106); Lipase 332 u/L (73-393); Potassium 3.9 mmoL/L (3.5-5.1); Sodium 136 mmol/L (136-145); Total Protein,Serum 7.6 gm/dL (6.4-8.2)
[2018-10-15 00:59] VITALS: BP 126/88; PULSE 92; RESP 16; TEMP 36.6; O2SAT 97
== END 2018-10-15 01:04 | disposition home or self-care (01) ==
PROVIDERS: Emergency Provider Emergency Medicine; PCP Family Medicine
DX: K59.00 Constipation, unspecified (principal); E11.65 Type 2 diabetes mellitus with hyperglycemia; Z79.84 Long term (current) use of oral hypoglycemic drugs; K21.9 Gastro-esophageal reflux disease without esophagitis; E78.5 Hyperlipidemia, unspecified; Z79.899 Other long term (current) drug therapy
CPT/HCPCS: 74177; 80053; 83690; 85025; 96365; 96375; 99283; Q9967

== ENCOUNTER 2018-10-20 07:00 | Outpatient (RCR) | payer MEDICARE, OTHER, SELFPAY | END 2018-11-15 13:57 | disposition home or self-care (01) | LOC: PT.CARL 07:00 | PROVIDERS: Visit Provider Clinical Nurse Specialist Family Health | DX: M54.5 Low back pain (principal) | CPT/HCPCS: 97014; 97110; 97140; 97163; G0283 ==

== ENCOUNTER → 2018-10-25 13:27 | Outpatient (CLI) | payer MEDICARE, OTHER, SELFPAY ==
--- NOTE | 2018-10-25 13:31 | XR_ITS ---
XR hip LT 2-3V w/pelvis HISTORY: ITS.REASON: LT HIP PAIN ORDERING PHYSICIAN: Declan Izquierdo MD PATIENT AGE: 68 years COMPARISON: None FINDINGS: No fracture or dislocation is evident. No significant degenerative change. No lytic or blastic change. Unremarkable soft tissues IMPRESSION: Negative hip
== END ==
PROVIDERS: PCP Family Medicine; Visit Provider Family Medicine
DX: M25.552 Pain in left hip (principal)
CPT/HCPCS: 73502

== ENCOUNTER → 2018-10-31 10:02 | Outpatient (POV) | payer MEDICARE, OTHER, SELFPAY ==
[2018-10-31 10:25] VITALS: BP 163/98; PULSE 77; RESP 18; O2SAT 98; BMI 33.1
--- NOTE | 2018-10-31 12:35 | HMH.PAINSOAP ---
[facility] Pain Management SOAP Note Subjective:: Patient is a pleasant 68year-old white male who presents today for low back pain with lumbar radiculopathy. He is following up after a lumbar epidural steroid injection at L4 and L5. Patient has had epidural steroid injections in the past and reports that he had 80% relief. He states that his last injection lasted for about 5 days before his symptoms returned. He rates his pain an 8 out of 10 today. The patient does feel that he is more functional after the injections. He is continuing a home stretching program and antiinflammatories. ROS General: no recent weight change, no fever, no sleep disturbances Respiratory: no cough, no shortness of air, no recurring pulmonary infections Cardiovascular/Peripheral Vascular: No chest pain, No palpitations, no edema, no shortness of breath. Gastrointestinal: no incontinence, normal bowel movements reported Genitourinary: no incontinence Musculoskeletal: Back pain Psychiatric: normal mood/ affect, [denies depression], [denies anxiety] Neurological: [denies weakness in extremities], [denies balance issues] Objective:: Physical Exam General: Alert and oriented x3, no acute distress, pleasant and cooperative, [on room air] Lungs: Resps E/U, Symmetrical chest expansion, [CTA bilateral] Eyes: PERRL Musculoskeletal: Flexion and extension of lumbar spine somewhat guarded secondary to pain, deep tendon reflexes normal, strength in upper and lower extremities [5/5], [abnormal gait noted] Neurological: speech clear, exploration geologist equal, no gross sensory deficits Assessment:: Degenerative disc disease lumbar spine with lumbar radiculopathy Plan:: Given the relief the patient was received in the past with the lumbar epidural steroid injections, I think he would benefit again with an injection at L4 and L5. We will follow-up with patient after his injection and reassess his symptoms at that time. He is been instructed to call the office prior to his next appointment. The patient is not on any anticoagulation therapy. Dr. Galo has reviewed this note and agrees with this plan of care. This note was dictated using voice recognition software and may contain errors or omissions
--- NOTE | 2019-02-06 10:41 | PC.NURSE ---
GABAPENTIN 300MG PO QHS WITH 2 REFILLS FAXED TO [facility]INIC [facility]ARM[facility] PER PROVIDER ORDER
== END ==
PROVIDERS: PCP Family Medicine; Visit Provider Clinical Nurse Specialist Family Health
DX: M51.16 Intervertebral disc disorders with radiculopathy, lumbar region (principal)
CPT/HCPCS: 99212

== ENCOUNTER 2019-02-24 10:42 | Outpatient (CLI) | payer MEDICARE, OTHER, SELFPAY ==
[2019-02-24 11:15] VITALS: BP 141/90; PULSE 82; RESP 20; O2SAT 97
[2019-02-24 11:45] VITALS: BP 138/76; PULSE 89; RESP 18
[2019-02-24 12:15] VITALS: BP 132/68; PULSE 88; RESP 18
[2019-02-24 12:45] VITALS: BP 139/70; PULSE 85; RESP 18
[2019-02-24 13:15] VITALS: BP 135/69; PULSE 86; RESP 18
== END 2019-02-24 13:30 | disposition home or self-care (01) ==
LOC: INF 10:44
PROVIDERS: PCP Family Medicine; Visit Provider Family Medicine
DX: L03.114 Cellulitis of left upper limb (principal)
CPT/HCPCS: 96365; 96366; J3370

== ENCOUNTER → 2019-06-13 09:58 | Outpatient (POV) | payer MEDICARE, OTHER, SELFPAY ==
[2019-06-13 10:19] VITALS: BP 168/98; PULSE 87; RESP 18; O2SAT 98; BMI 32.1
--- NOTE | 2019-06-13 10:36 | P.CONS_ITS ---
[facility] Pain Management SOAP Note Subjective:: Patient is a pleasant 68-year-old white male who presents today for follow-up. Patient had an epidural injection about 8 months ago and did extremely well with it. However his pain in the last 3 weeks have begun to return he rates his pain a 10 out of 10 and would like to move forward with an injection. Patient's not on any anticoagulation therapy. Patient is continuing a home stretching therapy and is able to work on his cars when he is doing well with his injections. ROS General: no recent weight change, no fever, no sleep disturbances Respiratory: no cough, no shortness of air, no recurring pulmonary infections Cardiovascular/Peripheral Vascular: No chest pain, No palpitations, no edema, no shortness of breath. Gastrointestinal: no new onset incontinence, normal bowel movements reported Genitourinary: no new onset incontinence Musculoskeletal: Back pain, leg pain Psychiatric: normal mood/ affect Neurological: [denies new onset weakness in extremities], [denies new onset balance issues] Objective:: Physical Exam General: Alert and oriented x3, no acute distress, pleasant and cooperative, [on room air] Lungs: Resps E/U, Symmetrical chest expansion, Eyes: PERRL Musculoskeletal: Flexion and extension of lumbar spine somewhat guarded se condary to pain, deep tendon reflexes normal, strength in upper and lower extremities [5/5], [abnormal gait noted] Neurological: speech clear, railroader equal, no gross sensory deficits Assessment:: Degenerative disc disease lumbar spine with lumbar radiculopathy Plan:: We will schedule patient for an L4-L5 lumbar epidural steroid injection. Mir torres's been instructed to call the office if he has any issues prior to his next appointment. I will follow-up with him after his injection reassess his symptoms at that time. Dr. Galo has reviewed this note and agrees with this plan of care. This note was dictated using voice recognition software and may contain errors or omissions [facility] History I have reviewed the patient's past medical history: Yes Medical History: Reports:: Diabetes Mellitus Type 2, Gastroesophageal Reflux Disease(GERD), Hyperlipidemia, Kidney Stones Denies:: Cancer, Diabetes Mellitus Type 1, Internal Pacemaker, Lung Disease, MRSA, Seizures *Have you ever received a pneumonia vaccine?: Yes *Have you received a flu vaccine this season?: Yes Other Medical History: Reports: Arthritis, Hypothyroidism, Other. Denies: Blood Transfusion Reaction Laterality Cases: Right: Other, Bilateral: Arthroscopy Shoulder Other Surgeries: Yes: Other. No: Pacemaker Amputation: No Fractures: No - *Social History Smoking Status: Former smoker Alcohol Intake: never Alcohol Intake Frequency:: other Substance Use Type: denies use *Occupational Status:: other Housing: house Household Members: none *Travel in the last 8 weeks: None Family Hx:: Cancer, Coronary Artery Disease, Diabetes, Heart Attack, Hyperlipidemia, Hypertension, Stroke, Alcoholism
== END ==
PROVIDERS: PCP Family Medicine; Visit Provider Clinical Nurse Specialist Family Health
DX: M51.16 Intervertebral disc disorders with radiculopathy, lumbar region (principal); E11.9 Type 2 diabetes mellitus without complications; K21.9 Gastro-esophageal reflux disease without esophagitis; E78.5 Hyperlipidemia, unspecified; Z87.442 Personal history of urinary calculi
CPT/HCPCS: 99212

== ENCOUNTER → 2019-07-10 09:29 | Outpatient (POV) | payer MEDICARE, OTHER, SELFPAY ==
--- NOTE | 2019-07-10 09:56 | P.CONS_ITS ---
[facility] Pain Management SOAP Note Subjective:: Patient is a pleasant 69-year-old white male who presents today for follow-up after epidural steroid injection patient states it is worked extremely well however he is having left-sided leg pain. Stemming from his back patient and I discussed a left transforaminal injection he is interested in pursuing this. He is not on any anticoagulation therapy. He has pain radiating from his back to his left foot. He rates his pain today an 8 out of 10. ROS General: no recent weight change, no fever, no sleep disturbances Respiratory: no cough, no shortness of air, no recurring pulmonary infections Cardiovascular/Peripheral Vascular: No chest pain, No palpitations, no edema, no shortness of breath. Gastrointestinal: no new onset incontinence, normal bowel movements reported Genitourinary: no new onset incontinence Musculoskeletal: Back pain, leg pain Psychiatric: normal mood/ affect Neurological: [denies new onset weakness in extremities], [denies new onset balance issues] Objective:: Physical Exam General: Alert and oriented x3, no acute distress, pleasant and cooperative, [on room air] Lungs: Resps E/U, Symmetrical chest expansion, Eyes: PERRL Musculoskeletal: Flexion and extension of lumbar spine somewhat guarded secondary to pain, deep tendon reflexes normal, strength in upper and lower extremities [5/5], [abnormal gait noted] Neurological: speech clear, flat surfacer jewel equal, no gross sensory deficits Assessment:: Degenerative disc disease lumbar spine with lumbar radiculopathy Plan:: We will schedule an L4-L5 lumbar transforaminal epidural steroid injection. I will follow-up with the patient after his injection reassess his symptoms at that time. He has been instructed to call the office if he has any issues prior to his next appointment. Dr. Galo has reviewed this note and agrees with this plan of care. This note was dictated using voice recognition software and may contain errors or omissions [facility] History I have reviewed the patient's past medical history: Yes Medical History: Reports:: Diabetes Mellitus Type 2, Gastroesophageal Reflux Disease(GERD), Hyperlipidemia, Kidney Stones Denies:: Cancer, Diabetes Mellitus Type 1, Internal Pacemaker, Lung Disease, MRSA, Seizures *Have you ever received a pneumonia vaccine?: No (states he had in the last 3-4 years) *Have you received a flu vaccine this season?: Yes Other Medical History: Reports: Arthritis, Hypothyroidism, Other. Denies: Blood Transfusion Reaction Laterality Cases: Right: Other, Bilateral: Arthroscopy Shoulder Other Surgeries: Yes: Other. No: Pacemaker Amputation: No Fractures: No - *Social History Smoking Status: Former smoker Alcohol Intake: never Alcohol Intake Frequency:: other Substance Use Type: denies use *Occupational Status:: other Housing: house Household Members: none *Travel in the last 8 weeks: None Family Hx:: Cancer, Coronary Artery Disease, Diabetes, Heart Attack, Hyperlipidemia, Hypertension, Stroke, Alcoholism
[2019-07-10 10:43] VITALS: BP 159/87; PULSE 83; RESP 18; O2SAT 99; BMI 32.1
== END ==
PROVIDERS: PCP Family Medicine; Visit Provider Clinical Nurse Specialist Family Health
DX: M51.16 Intervertebral disc disorders with radiculopathy, lumbar region (principal)
CPT/HCPCS: 99212

== ENCOUNTER → 2019-08-07 09:14 | Outpatient (POV) | payer MEDICARE, SELFPAY ==
[2019-08-07 09:31] VITALS: BP 159/89; PULSE 86; RESP 18; O2SAT 99; BMI 31.7
--- NOTE | 2019-08-07 09:34 | P.CONS_ITS ---
[facility] Pain Management SOAP Note Subjective:: Patient is a pleasant 69-year-old white male who presents today for follow-up after a transforaminal epidural steroid injection. Overall patient doing well rating his pain a 5 out of 10. Patient is doing well on his gabapentin and needs no changes. We will follow-up with him in 3 months. ROS General: no recent weight change, no fever, no sleep disturbances Respiratory: no cough, no shortness of air, no recurring pulmonary infections Cardiovascular/Peripheral Vascular: No chest pain, No palpitations, no edema, no shortness of breath. Gastrointestinal: no new onset incontinence, normal bowel movements reported Genitourinary: no new onset incontinence Musculoskeletal: Back pain, leg pain Psychiatric: normal mood/ affect, Neurological: [denies new onset weakness in extremities], [denies new onset balance issues] Objective:: Physical Exam General: Alert and oriented x3, no acute distress, pleasant and cooperative, [on room air] Lungs: Resps E/U, Symmetrical chest expansion, Eyes: PERRL Musculoskeletal: Flexion and extension of lumbar spine somewhat guarded secondary to pain, deep tendon reflexes normal, strength in upper and lower extremities [5/5], slightly antalgic gait noted Neurological: 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 Dr. Galo has reviewed this note and agrees with this plan of care. This note was dictated using voice recognition software and may contain errors or omissions [facility] History I have reviewed the patient's past medical history: Yes Medical History: Reports:: Diabetes Mellitus Type 2, Gastroesophageal Reflux Disease(GERD), Hyperlipidemia, Kidney Stones Denies:: Cancer, Diabetes Mellitus Type 1, Internal Pacemaker, Lung Disease, MRSA, Seizures *Have you ever received a pneumonia vaccine?: Yes *Have you received a flu vaccine this season?: Yes Other Medical History: Reports: Arthritis, Hypothyroidism, Other. Denies: Blood Transfusion Reaction Laterality Cases: Right: Other, Bilateral: Arthroscopy Shoulder Other Surgeries: Yes: Other. No: Pacemaker Amputation: No Fractures: No - *Social History Smoking Status: Former smoker Alcohol Intake: never Alcohol Intake Frequency:: other Substance Use Type: denies use *Occupational Status:: other Housing: house Household Members: none *Travel in the last 8 weeks: None Family Hx:: Cancer, Coronary Artery Disease, Diabetes, Heart Attack, Hyperlipidemia, Hypertension, Stroke, Alcoholism
== END ==
PROVIDERS: PCP Family Medicine; Visit Provider Clinical Nurse Specialist Family Health
DX: M51.16 Intervertebral disc disorders with radiculopathy, lumbar region (principal)
CPT/HCPCS: 99212

== ENCOUNTER → 2019-09-14 14:51 | Outpatient (CLI) | payer MEDICARE, SELFPAY ==
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
== END ==
PROVIDERS: PCP Family Medicine; Visit Provider Physician Assistant
DX: S69.91XA Unspecified injury of right wrist, hand and finger(s), initial encounter (principal)
CPT/HCPCS: 73130

== ENCOUNTER 2019-11-06 09:09 | Outpatient (POV) | payer MEDICARE, SELFPAY ==
[2019-11-06 09:47] VITALS: BP 152/88; PULSE 101; RESP 18; TEMP 36.8; O2SAT 99; BMI 31.8
--- NOTE | 2019-11-06 09:57 | P.CONS_ITS ---
[facility] Pain Management SOAP Note Subjective:: Patient is a pleasant 69-year-old white male who presents today for follow-up. Patient had a transforaminal epidural injection over 6 months ago. He is doing extremely well he rates his pain a 0 out of 10. He is here for gabapentin refills he is currently on gabapentin 300 mg 1 p.o. daily. [facility] [place] #[id number] reviewed and appropriate. Overall patient is very stable with this dose. ROS General: no recent weight change, no fever, no sleep disturbances Respiratory: no cough, no shortness of air, no recurring pulmonary infections Cardiovascular/Peripheral Vascular: No chest pain, No palpitations, no edema, no shortness of breath. Gastrointestinal: no new onset incontinence, normal bowel movements reported Genitourinary: no new onset incontinence Musculoskeletal: Back pain at times Psychiatric: normal mood/ affect, Neurological: [denies new onset weakness in extremities], [denies new onset balance issues] Objective:: Physical Exam General: Alert and oriented x3, no acute distress, pleasant and cooperative, Lungs: Resps E/U, Symmetrical chest expansion, Eyes: PERRL Musculoskeletal: Flexion and extension of lumbar spine somewhat guarded secondary to pain, deep tendon reflexes normal, strength in upper and lower extremities [5/5], [abnormal gait noted] Neurological: speech clear, 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 daily we will give him several refills. We will follow-up with him in 6 months reassess him at that time. If he is having any exacerbations of pain he has been instructed to call the office. Overall patient doing well and stable. Dr. Galo has reviewed this note and agrees with this plan of care. This note was dictated using voice crescencio gnition software and may contain errors or omissions [facility] History I have reviewed the patient's past medical history: Yes Medical History: Reports:: Diabetes Mellitus Type 2, Gastroesophageal Reflux Disease(GERD), Hyperlipidemia, Kidney Stones Denies:: Cancer, Diabetes Mellitus Type 1, Internal Pacemaker, Lung Disease, MRSA, Seizures *Have you ever received a pneumonia vaccine?: Yes *Have you received a flu vaccine this season?: Yes Other Medical History: Reports: Arthritis, Hypothyroidism, Other. Denies: Blood Transfusion Reaction Laterality Cases: Right: Other, Bilateral: Arthroscopy Shoulder Other Surgeries: Yes: Other. No: Pacemaker Amputation: No Fractures: No - *Social History Smoking Status: Former smoker Alcohol Intake: never Alcohol Intake Frequency:: other Substance Use Type: denies use *Occupational Status:: other Housing: house Household Members: none *Travel in the last 8 weeks: None Family Hx:: Cancer, Coronary Artery Disease, Diabetes, Heart Attack, Hyperlipidemia, Hypertension, Stroke, Alcoholism
[2019-11-06 11:30] VITALS: BP 137/94; PULSE 97; RESP 18; TEMP 36.5; O2SAT 97
[2019-11-06 12:06] VITALS: BP 140/88; PULSE 98; RESP 18; O2SAT 98
[2019-11-06 12:36] VITALS: BP 145/81; PULSE 95; RESP 18; O2SAT 98
[2019-11-06 13:06] VITALS: BP 148/80; PULSE 97; RESP 18; O2SAT 97
[2019-11-06 13:35] VITALS: BP 152/87; PULSE 91; RESP 18; O2SAT 98
== END 2019-11-06 13:35 | disposition home or self-care (01) ==
LOC: SC.PAIN 09:10 → INF 11:10
PROVIDERS: PCP Family Medicine; Visit Provider Clinical Nurse Specialist Family Health
DX: M51.16 Intervertebral disc disorders with radiculopathy, lumbar region (principal); L03.114 Cellulitis of left upper limb
CPT/HCPCS: 96365; 96366; 99212; J3370

== ENCOUNTER → 2019-11-22 08:44 | Outpatient (CLI) | payer MEDICARE, SELFPAY ==
--- NOTE | 2019-11-22 08:46 | XR_ITS ---
PROCEDURE: XR ELBOW LT MIN 3V CLINICAL INDICATION: left elbow pain Elbow pain and swelling COMPARISON: No exams were available for comparison FINDINGS: Hypertrophic change noted at the lateral epicondylar region at along coronoid process of the ulna. Mildly prominent soft tissue swelling noted at the olecranon. No fracture or dislocation. No lytic or blastic change. IMPRESSION: Mild degenerative changes with olecranon bursitis Dictated by: J Luis Ireland MD 11/22/2019 15:37 Electronically signed by J Luis Ireland MD in [place] 11/22/2019 15:37
== END ==
PROVIDERS: PCP Family Medicine; Visit Provider Orthopaedic Surgery
DX: M25.522 Pain in left elbow (principal)
CPT/HCPCS: 73080

== ENCOUNTER 2020-02-06 14:06 | Emergency (ER) | payer MEDICARE, SELFPAY ==
[2020-02-06] VITALS (8 sets, daily range): BP systolic 113–171; BP diastolic 63–101; PULSE 79–100; RESP 16–22; TEMP 36.7; O2SAT 94–98; BMI 32.5
--- NOTE | 2020-02-06 14:07 | PC.NURSE ---
ER at BS performing ultrasound fast exam upon pt arrival.
--- NOTE | 2020-02-06 14:12 | XR_ITS ---
PROCEDURE: XR CHEST PORTABLE CLINICAL HISTORY: soa, trauma COMPARISON: CR CXR CHEST(2 VIEWS-NOT PORTABLE) from 11/17/2014 CR CXR CHEST(2 VIEWS-NOT PORTABLE) from 03/04/2017 FINDINGS: The cardiomediastinal silhouette and pulmonary vascularity are within normal limits. The lungs are clear without infiltrates, suspicious nodules, or pleural effusions. No acute bony abnormalities. IMPRESSION: No acute findings. Dictated by: J Luis Ireland MD 02/06/2020 16:00 J Luis Ireland MD in [place] 02/06/2020 16:00
--- NOTE | 2020-02-06 14:13 | XR_ITS ---
PROCEDURE: XR HAND RT MIN 3V CLINICAL INDICATION: fall, pain COMPARISON: CR XR HAND RT MIN 3V from 09/14/2019 FINDINGS: No fracture or dislocation. No lytic or blastic change. There is normal mineralization. There are mild osteoarthritic changes. There is an old avulsion fracture at the dorsal and proximal aspect of the distal phalanx of the 4th digit Other findings:None. IMPRESSION: No acute findings. Dictated by: J Luis Ireland MD 02/06/2020 15:59 J Luis Ireland MD in [place] 02/06/2020 15:59
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
--- NOTE | 2020-02-06 14:22 | PC.NURSE ---
rad notified of CT orders, spoke with dominique
[2020-02-06 14:23] LABS: Basophils # 0.1 K/mm3 (0-0.2); Basophils % 0.7 % (0.1-2.0); Eosinophils # 0.1 K/mm3 (0.0-0.4); Eosinophils % 1.1 % (0.1-12.0); Hematocrit 45.9 % (42.0-52.0); Hemoglobin 15.8 g/dL (14.1-18.0); Lymphocytes % 40.6 % (10-50); Mean Corpuscular HGB Conc 34.5 g/dL (31.8-35.4); Mean Corpuscular Hemoglobin 31.7 pg (27.0-31.2); Mean Platelet Volume 9.4 fl (7.4-10.4); Monocytes # 0.5 K/mm3 (0.1-1.0); Monocytes % 6.6 % (1.7-9.3); Neutrophils # 3.8 K/mm3 (1.8-7.8); Neutrophils % 51.1 % (37.0-80.0); Platelet Count 202 K/mm3 (142-424); Red Blood Count 4.99 M/mm3 (4.60-6.20); White Blood Count 7.4 K/mm3 (4.8-10.8)
--- NOTE | 2020-02-06 14:23 | PC.NURSE ---
radiology notified ER MD wants pt scanned as a trauma protocol, not waiting on lab work spoke with Van.
[2020-02-06 14:26] LABS: Chloride 104 mmol/L (98-107); Potassium 4.1 mmoL/L (3.5-5.1); Sodium 139 mmol/L (136-145)
[2020-02-06 14:28] LABS: Lipase 261 U/L (23-300)
[2020-02-06 14:29] LABS: Alanine Aminotransferase 56 U/L (12-78); Albumin Level 4.5 g/dl (3.5-5.0); Albumin/Globulin Ratio 1.5 (1.1-1.8); Alkaline Phosphatase 51 U/L (38-126); Anion Gap 15.1 mEq/L (5-15); Aspartate Amino Transferase 50 U/L (17-59); Bilirubin,Total 0.7 mg/dl (0.2-1.3); Blood Urea Nitrogen 19 mg/dl (9-20); Calcium 10.3 mg/dl (8.4-10.2); Carbon Dioxide 24 mmol/L (22.0-30.0); Creatinine Clearance Estimated 77 mL/min (50-200); Estimated Glomerular Filt Rate 66 ml/min (>60); GFR (African American) 80 ML/MIN (>60); Globulin 3.1 g/dL (1.3-3.2); Glucose 290 mg/dl (74-100); Total Protein,Serum 7.6 g/dl (6.3-8.2)
[2020-02-06 14:33] LABS: Activated Partial Thrombo Time 22.3 seconds (23.6-34.0); INR 1.05 (0.9-1.1); Prothrombin Time 10.8 seconds (9.4-11.8)
--- NOTE | 2020-02-06 14:34 | PC.NURSE ---
pt to CT
[2020-02-06 14:50] LABS: Lactic Acid 2.2 mmol/L (0.7-2.1)
--- NOTE | 2020-02-06 15:06 | PC.NURSE ---
pt return from radiology
--- NOTE | 2020-02-06 16:07 | PC.NURSE ---
contacting MDs for seo coordinator per ER MD request.
--- NOTE | 2020-02-06 16:10 | PC.NURSE ---
TOMEKA COLLINS speaking with Dr Braga at this time.
--- NOTE | 2020-02-06 16:11 | PC.NURSE ---
Dr Braga accepted pt.
--- NOTE | 2020-02-06 16:23 | PC.NURSE ---
notified [facility] of transfer of pt.
--- NOTE | 2020-02-06 16:33 | PC.NURSE ---
report called to Marielle Garcia RN at ER at this time.
[2020-02-06 16:43] LABS: Microscopic, Urine URINE MICROSCOPIC (MICROSCOPIC)
[2020-02-06 16:44] LABS: Appearance,Urine CLEAR (Clear); Bilirubin,Urine Negative (Negative); Blood, Urine Negative (Negative); Color,Urine YELLOW (Yellow); Glucose,Urine (UA) 3+ (Negative); Ketones,Urine TRACE (Negative); Leukocyte Esterase,Urine Negative (Negative); Nitrate,Urine Negative (Negative); PH,Urine 5.5 (5.0-8.5); Protein,Urine 1+ (Negative); Urobilinogen,Urine 0.2 EU/dl (0.2)
--- NOTE | 2020-02-06 16:53 | PC.NURSE ---
Tre at bedside
[2020-02-06 16:58] LABS: Bacteria,Urine 1+ /lpf
--- NOTE | 2020-02-06 16:58 | PC.NURSE ---
report given to [facility] at this time
[2020-02-06 18:40] LABS: Reflex Lactic Add Lactic Reflex
[2020-02-13 10:41] LABS: POC Glucose,Bedside 242 (70-110)
== END 2020-02-06 16:58 | disposition short-term general hospital (02) ==
PROVIDERS: Emergency Provider Emergency Medicine
DX: S39.91XA Unspecified injury of abdomen, initial encounter (principal); S36.899A Unspecified injury of other intra-abdominal organs, initial encounter; W22.09XA Striking against other stationary object, initial encounter; Y92.79 Other farm location as the place of occurrence of the external cause; E11.9 Type 2 diabetes mellitus without complications; K21.9 Gastro-esophageal reflux disease without esophagitis; E78.5 Hyperlipidemia, unspecified; Z87.442 Personal history of urinary calculi; Z87.891 Personal history of nicotine dependence; Z79.899 Other long term (current) drug therapy
CPT/HCPCS: 36415; 71045; 73130; 74177; 80053; 81001; 82962; 83605; 83690; 85025; 85610; 85730; 86850; 96374; 96375; 99284; J2405; Q9967

== ENCOUNTER → 2020-05-02 09:22 | Outpatient (POV) | payer MEDICARE, SELFPAY ==
[2020-05-02 09:40] VITALS: BP 157/92; PULSE 83; RESP 20; TEMP 36.4; O2SAT 93; BMI 32.5
--- NOTE | 2020-05-02 09:47 | HMH.PAINSOAP ---
[facility] Pain Management SOAP Note Subjective:: Patient is a pleasant 69-year-old white male who presents today for medication refill. He has been treated for chronic low back pain with lumbar radiculopathy symptoms. Patient did undergo a transforaminal epidural steroid injection nearly a year ago for which he says he got about 90% relief up until recently. He says his pain is slowly returning. He has a 9 out of 10 pain today. Patient is also managed with gabapentin 300 mg 1 tablet p.o. daily. He says gabapentin is helping him, however, his pain is worse about 12 hours following taking the medication. He has asked for an increase in the medication as well. He is continue with home stretching program. Review of Systems General: No recent weight changes, no fever, no sleep disturbances Respiratory: No cough, no shortness of air, no recurring pulmonary infections Cardiovascular/peripheral vascular: No chest pain, no palpitations, no edema, no shortness of breath Gastrointestinal: No new onset incontinence, normal bowel movements reported Genitourinary: No new onset incontinence Musculoskeletal: Low back pain with radiation into left leg and groin. 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 He is not on any anticoagulation therapy. He has had an epidural steroid injection approximately a year ago for which she got about 90% relief until recently. We will also increase his gabapentin to 300 mg 1 tablet p.o. three times daily. We will give the patient 6 months worth of medications on his gabapentin. We will see the patient back following his injection to reassess his symptoms. He has been instructed to contact clinic for his next appointment if he has any problems. Risks and benefits of the injection have been explained in detail to the patient. The patient would like to proceed with the injection. The patient and I specifically discussed risk factors for COVID19. These risks include, but are not limited to age greater than 60, heart or lung disease, diabetes, immunosuppression, and travel. We also discussed NSAIDs may worsen COVID19 infection or symptoms. Patient should not use NSAIDs to treat COVID19 signs or symptoms. Patient was also informed that any type of corticosteroid of any form (oral or injection) will decrease the patient's immune system response and may increase the likelihood of COVID19 infection [address] symptoms[address]. Galo has reviewed this note and agrees with this plan of care. This note was dictated using voice recognition software and make contain errors or omissions. [facility] History I have reviewed the patient's past medical history: Yes Medical History: Reports:: Diabetes Mellitus Type 2, Gastroesophageal Reflux Disease(GERD), Hyperlipidemia, Kidney Stones Denies:: Cancer, Diabetes Mellitus Type 1, Internal Pacemaker, Lung Disease, MRSA, Seizures *Have you ever received a pneumonia vaccine?: No *Have you received a flu vaccine this season?: No Other Medical History: Reports: Arthritis, Hypothyroidism, Other. Denies: Blood Transfusion Reaction Laterality Cases: Right: Other, Bilateral: Arthroscopy Shoulder Other Surgeries: Yes: Other. No: Pacemaker Amputation: No Fractures: No - *Social History Smoking Status: Former smoker Alcohol Intake: never
== END ==
PROVIDERS: PCP Family Medicine; Visit Provider Clinical Nurse Specialist Family Health
DX: M51.16 Intervertebral disc disorders with radiculopathy, lumbar region (principal)
CPT/HCPCS: 99212

== ENCOUNTER 2020-05-15 12:03 | Day surgery (SDC) | payer MEDICARE, SELFPAY ==
[2020-05-15 12:31] VITALS: BP 142/82; PULSE 83; RESP 18; TEMP 36.8; O2SAT 98; BMI 33.0
[2020-05-15 12:37] VITALS: BP 165/78; PULSE 91; RESP 18; O2SAT 98
[2020-05-15 12:40] VITALS: BP 162/77; PULSE 89; RESP 18; O2SAT 98
--- NOTE | 2020-05-15 12:51 | HMH.PMPROC ---
- Procedure Date: 05/15/20 Time: 12:51 Anesthesiologist:: Zeke Galo MD Complications:: None Pre-procedure Diagnosis:: Degenerative disc disease of lumbar spine with lumbar radiculopathy symptoms Post-procedure Diagnosis:: Same Indications for Procedure:: This patient is a pleasant 69-year-old white male who we have been treating for low back pain with lumbar radiculopathy symptoms. He had a transforaminal epidural steroid injection a year ago he did get significant relief. Pain started to return his back and down his legs. We will do lumbar epidural steroid injection today to see if this helps with his pain symptoms. Procedure Details:: Lumbar epidural steroid injection under fluoroscopy Informed consent was obtained and the risk and benefits of the procedure was explained to the patient. The patient was taken to the procedure room. The patient was placed prone on the procedure table. The patient was prepped and draped in sterile fashion. C-arm fluoroscopy was used to view the lumbar spine. Skin and subcutaneous tissues were anesthetized using lidocaine. I placed an 18-gauge epidural needle and advanced into the L4-L5 interspace using fluoroscopic guidance and [id number] to air. After confirmation of needle placement in the epidural space with dye I injected 2 mL of lidocaine 1.5% with Depo-Medrol 80 mg. Patient tolerated the procedure well with no complications. Plan and Disposition:: We will follow-up with this patient in 2 weeks. Will reevaluate symptoms at that time. If he does not get adequate relief with this injection we will plan on a L4-L5 and L5-S1 transforaminal epidural steroid injection on the residual side where he has symptoms.
[2020-05-15 13:00] VITALS: BP 150/96; PULSE 80; RESP 18; O2SAT 98
== END 2020-05-15 13:00 | disposition home or self-care (01) ==
LOC: SC.PAINP 12:05
PROVIDERS: PCP Family Medicine; Visit Provider Anesthesiology
DX: M51.16 Intervertebral disc disorders with radiculopathy, lumbar region (principal); I10 Essential (primary) hypertension; E78.5 Hyperlipidemia, unspecified; I25.10 Atherosclerotic heart disease of native coronary artery without angina pectoris; E03.9 Hypothyroidism, unspecified; E11.9 Type 2 diabetes mellitus without complications
CPT/HCPCS: 62323; J1040; Q9966

== ENCOUNTER → 2020-06-06 09:21 | Outpatient (POV) | payer MEDICARE, OTHER, SELFPAY ==
[2020-06-06 10:22] VITALS: BP 133/78; PULSE 74; RESP 18; TEMP 36.8; O2SAT 98; BMI 32.9
--- NOTE | 2020-06-06 15:51 | P.CONS_ITS ---
[facility] Pain Management SOAP Note Subjective:: Patient is an 69-year-old white male who presents today for follow-up after lumbar epidural steroid injection. Patient has had good relief with injections in the past however he did not get any relief with this injection he states his pain is different and worsening. Most of it is in his back and down his legs. Patient states that prior to this he got 90% relief for up to almost a year with injection therapy. He rates his pain an 8 out of 10. ROS General: no recent weight change, no fever, no sleep disturbances Respiratory: no cough, no shortness of air, no recurring pulmonary infections Cardiovascular/Peripheral Vascular: No chest pain, No palpitations, no edema, no shortness of breath. Gastrointestinal: no new onset incontinence, normal bowel movements reported Genitourinary: no new onset incontinence Musculoskeletal: Back pain, leg pain Psychiatric: normal mood/ affect Neurological: [denies new onset weakness in extremities], [denies new onset balance issues] Objective:: Physical Exam General: Alert and oriented x3, no acute distress, pleasant and cooperative, [on room air] Lungs: Resps E/U, Symmetrical chest expansion, Eyes: PERRL Musculoskeletal: Flexion and extension of lumbar spine somewhat guarded secondary to pain, deep tendon reflexes normal, strength in upper and lower extremities [5/5], [abnormal gait noted] Neurological: speech clear, 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 I will follow-up with him after this reassess his symptoms. He may need a surgical consultation. Patient's been instructed to call the office if he has any issues prior to his next appointment. Dr. Gaol has reviewed this note and agrees with this plan of care. This note was dictated using voice recognition software and may contain errors or omissions [facility] History I have reviewed the patient's past medical history: Yes Medical History: Reports:: Diabetes Mellitus Type 2, Gastroesophageal Reflux Disease(GERD), Hyperlipidemia, Hypertension, Kidney Stones Denies:: Cancer, Diabetes Mellitus Type 1, Internal Pacemaker, Lung Disease, MRSA, Seizures *Have you ever received a pneumonia vaccine?: Yes *Have you received a flu vaccine this season?: Yes Other Medical History: Reports: Arthritis, Hypothyroidism, Thyroid Disease, Other. Denies: Blood Transfusion Reaction Laterality Cases: Right: Other, Bilateral: Arthroscopy Shoulder Other Surgeries: Yes: Other. No: Pacemaker Amputation: No Fractures: No - *Social History Smoking Status: Former smoker Alcohol Intake: never Alcohol Intake Frequency:: other Substance Use Type: denies use *Occupational Status:: other Housing: house Household Members: none *Travel in the last 8 weeks: None Family Hx:: Cancer, Coronary Artery Disease, Diabetes, Heart Attack, Hyperlipidemia, Hypertension, Stroke, Alcoholism
== END ==
PROVIDERS: PCP Family Medicine; Visit Provider Clinical Nurse Specialist Family Health
DX: M51.16 Intervertebral disc disorders with radiculopathy, lumbar region (principal)
CPT/HCPCS: 99212; G0463

== ENCOUNTER → 2020-06-10 09:39 | Outpatient (CLI) | payer MEDICARE, OTHER, SELFPAY ==
--- NOTE | 2020-06-10 09:42 | MR_ITS ---
PROCEDURE: MR LUMBAR SPINE WO CON CLINICAL INDICATION: BACK PAIN BILATERAL LEG PAIN. NUMBNESS IN LT LEG. XYRS. NO INJURY. PRIOR MRI 02-17-18 COMPARISON: MR SPLUMBWO MR lumbar spine wo con from 02/17/2018 CR XR pain mgt inj from 08/02/2018 TECHNIQUE: Standard multiplanar multiecho sequences are performed without contrast. 3-D MIP and myelographic images are also rendered and reviewed FINDINGS: There is normal alignment. Spinal cord ends at the T12-L1 level. L1-L2: Unremarkable. L2-L3: Minimal bulging disc with mild facet and ligamentum hypertrophy with mild bilateral lateral recess narrowing not significantly changed. L3-L4: Minimal bulging disc with mild facet and ligamentum hypertrophy with mild bilateral lateral recess narrowing and mild bilateral foraminal narrowing not significantly changed. L4-5: Mild concentric bulging disc. There is a small broad-based central disc protrusion.. The previously noted right paracentral disc protrusion/herniation is no longer apparent. There is facet and ligamentum hypertrophy with bilateral lateral recess and foraminal narrowing L5-S1: Degenerative disc disease with bulging disc with facet and ligamentum hypertrophy with mild bilateral foraminal narrowing not significantly changed. Anterior disc bulges once again noted at L2-L3 L3-L4 and L4-5. IMPRESSION: 1. Mild multilevel lumbar spondylosis with bulging discs along with facet and ligamentum hypertrophy with lateral recess and foraminal narrowing. Please see above for detailed description at each level. 2. Previously noted right paracentral disc protrusion/herniation at L4-5 is no longer apparent. There is however a small broad-based central disc protrusion at L4-5 which was not present on the previous exam along with facet and ligamentum hypertrophy causing bilateral lateral recess and foraminal narrowing with narrowing of the canal. Dictated by: J Luis Ireland MD 06/11/2020 13:54 J Luis Ireland MD in [place] 06/11/2020 13:54
== END ==
PROVIDERS: PCP Family Medicine; Visit Provider Clinical Nurse Specialist Family Health
DX: M54.5 Low back pain (principal)
CPT/HCPCS: 72148; 76376

== ENCOUNTER → 2020-06-17 09:40 | Outpatient (POV) | payer MEDICARE, OTHER, SELFPAY ==
[2020-06-17 10:07] VITALS: BP 140/76; PULSE 88; RESP 18; TEMP 36.8; O2SAT 99; BMI 33.1
--- NOTE | 2020-06-17 10:18 | HMH.PAINSOAP ---
[facility] Pain Management SOAP Note Subjective:: Patient is a pleasant 70-year-old white male who presents today for follow-up after MRI. Patient does have some worsening pathology. Patient has done well with epidurals in the past however they have not been as effective lately. We will send him for neurosurgical evaluation. We will send him to Dr. Cash. He rates his pain today an 8 out of 10. He has pain radiating down his bilateral lower extremities. ROS General: no recent weight change, no fever, no sleep disturbances Respiratory: no cough, no shortness of air, no recurring pulmonary infections Cardiovascular/Peripheral Vascular: No chest pain, No palpitations, no edema, no shortness of breath. Gastrointestinal: no new onset incontinence, normal bowel movements reported Genitourinary: no new onset incontinence Musculoskeletal: Back pain, leg pain Psychiatric: normal mood/ affect Neurological: [denies new onset weakness in extremities], [denies new onset balance issues] Objective:: Physical Exam General: Alert and oriented x3, no acute distress, pleasant and cooperative, [on room air] Lungs: Resps E/U, Symmetrical chest expansion, Eyes: PERRL Musculoskeletal: Flexion and extension of lumbar spine somewhat guarded secondary to pain, deep tendon reflexes normal, strength in upper and lower extremities [5/5], [abnormal gait noted] Neurological: speech clear, locomotive engineer electric equal, no gross sensory deficits Assessment:: Degenerative disc disease lumbar spine lumbar radiculopathy Plan:: We will schedule the patient for neurosurgical evaluation with Dr. Cash. While he is waiting we will schedule L4-L5 lumbar epidural steroid injection for him. He is not on any anticoagulation therapy. I will follow-up with him after this and reassess his symptoms at that time. Dr. Galo has reviewed this note and agrees with this plan of care. This note was dictated using voice recognition software and may contain errors or omissions [facility] History I have reviewed the patient's past medical history: Yes Medical History: Reports:: Diabetes Mellitus Type 2, Gastroesophageal Reflux Disease(GERD), Hyperlipidemia, Hypertension, Kidney Stones Denies:: Cancer, Diabetes Mellitus Type 1, Internal Pacemaker, Lung Disease, MRSA, Seizures *Have you ever received a pneumonia vaccine?: Yes *Have you received a flu vaccine this season?: Yes Other Medical History: Reports: Arthritis, Hypothyroidism, Thyroid Disease, Other. Denies: Blood Transfusion Reaction Laterality Cases: Right: Other, Bilateral: Arthroscopy Shoulder Other Surgeries: Yes: Other. No: Pacemaker Amputation: No Fractures: No - *Social History Smoking Status: Former smoker Alcohol Intake: never Alcohol Intake Frequency:: other Substance Use Type: denies use *Occupational Status:: other Housing: house Household Members: none *Travel in the last 8 weeks: None Family Hx:: Cancer, Coronary Artery Disease, Diabetes, Heart Attack, Hyperlipidemia, Hypertension, Stroke, Alcoholism
== END ==
PROVIDERS: PCP Family Medicine; Visit Provider Clinical Nurse Specialist Family Health
DX: M51.16 Intervertebral disc disorders with radiculopathy, lumbar region (principal)
CPT/HCPCS: 99212; G0463

== ENCOUNTER 2020-06-21 08:47 | Day surgery (SDC) | payer MEDICARE, OTHER, SELFPAY ==
[2020-06-21 09:25] VITALS: BP 153/93; PULSE 84; RESP 18; TEMP 36.7; O2SAT 97; BMI 32.9
[2020-06-21 09:55] VITALS: BP 135/65; PULSE 74; RESP 18
[2020-06-21 09:56] VITALS: BP 140/74; PULSE 69; RESP 18; O2SAT 99
[2020-06-21 10:06] VITALS: BP 147/86; PULSE 82; RESP 20; O2SAT 97
--- NOTE | 2020-06-21 10:09 | HMH.PMPROC ---
- Procedure Date: 06/21/20 Time: 10:09 Anesthesiologist:: Zeke Galo MD Complications:: None Pre-procedure Diagnosis:: Degenerative disc disease of lumbar spine with lumbar radiculopathy symptoms Post-procedure Diagnosis:: Same Indications for Procedure:: This patient is a pleasant 70-year-old white male who we are treating for low back pain with lumbar radiculopathy symptoms. He is awaiting neurosurgical evaluation for his pain symptoms. While he is awaiting neurosurgical evaluation we will plan on lumbar epidural steroid injection at L4-5 to help him with his pain symptoms. Procedure Details:: Lumbar epidural steroid injection under fluoroscopy Informed consent was obtained and the risk and benefits of the procedure was explained to the patient. The patient was taken to the procedure room. The patient was placed prone on the procedure table. The patient was prepped and draped in sterile fashion. C-arm fluoroscopy was used to view the lumbar spine. Skin and subcutaneous tissues were anesthetized using lidocaine. I placed an 18-gauge epidural needle and advanced into the L4-L5 interspace using fluoroscopic guidance and [id number] to air. After confirmation of needle placement in the epidural space with dye I injected 2 mL of lidocaine 1.5% with Depo-Medrol 80 mg. Patient tolerated the procedure well with no complications. Plan and Disposition:: We will follow-up with him in 2 weeks. Will reevaluate his symptoms at that time
== END 2020-06-21 10:07 | disposition home or self-care (01) ==
LOC: SC.PAINP 08:52
PROVIDERS: PCP Family Medicine; Visit Provider Anesthesiology
DX: M51.16 Intervertebral disc disorders with radiculopathy, lumbar region (principal); I10 Essential (primary) hypertension; E78.5 Hyperlipidemia, unspecified; K21.9 Gastro-esophageal reflux disease without esophagitis; Z82.49 Family history of ischemic heart disease and other diseases of the circulatory system; Z87.442 Personal history of urinary calculi; E11.9 Type 2 diabetes mellitus without complications; Z79.84 Long term (current) use of oral hypoglycemic drugs; Z79.899 Other long term (current) drug therapy
CPT/HCPCS: 62323; J1040; Q9966

== ENCOUNTER → 2020-07-22 12:25 | Outpatient (CLI) | payer MEDICARE, OTHER, SELFPAY ==
[2020-07-22 12:50] LABS: Basophils % 0.5 % (0.1-2.0); Eosinophils # 0.2 K/mm3 (0.0-0.4); Eosinophils % 2.6 % (0.1-12.0); Hematocrit 43.3 % (42.0-52.0); Hemoglobin 14.5 g/dL (14.1-18.0); Lymphocytes # 1.9 K/mm3 (0.7-4.5); Lymphocytes % 27.9 % (10-50); Mean Corpuscular HGB Conc 33.5 g/dL (31.8-35.4); Mean Corpuscular Hemoglobin 31.2 pg (27.0-31.2); Monocytes # 0.5 K/mm3 (0.1-1.0); Neutrophils # 4.2 K/mm3 (1.8-7.8); Neutrophils % 62.1 % (37.0-80.0); Platelet Count 165 K/mm3 (142-424); Red Blood Count 4.66 M/mm3 (4.60-6.20); Red Cell Distribution Width 14.5 % (11.5-17.5); White Blood Count 6.8 K/mm3 (4.8-10.8)
== END ==
PROVIDERS: PCP Family Medicine; Visit Provider Family Medicine
DX: Z20.822 Contact with and (suspected) exposure to COVID-19 (principal); E13.9 Other specified diabetes mellitus without complications
CPT/HCPCS: 85025; U0003

== ENCOUNTER 2020-12-03 08:00 | Outpatient (RCR) | payer MEDICARE, OTHER, SELFPAY | END 2020-12-31 15:08 | disposition home or self-care (01) | LOC: PT.CARL 08:00 | PROVIDERS: PCP Family Medicine; Visit Provider Neurological Surgery | DX: M54.5 Low back pain (principal) | CPT/HCPCS: 97110; 97163 ==

== ENCOUNTER 2021-04-30 16:03 | Emergency (ER) | payer MEDICARE, OTHER, SELFPAY ==
[2021-04-30 16:04] VITALS: BP 163/97; PULSE 98; RESP 16; TEMP 36.8; O2SAT 98; BMI 30.9
--- NOTE | 2021-04-30 16:17 | PC.NURSE ---
MD at bedside. No cinged nasal hairs, no issues with oral cavity. Pt denies any SOA.
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
[2021-04-30 16:30] VITALS: BP 155/94; PULSE 100; RESP 16; O2SAT 97
[2021-04-30 17:00] VITALS: BP 165/96; PULSE 94; RESP 16; O2SAT 97
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
[2021-04-30 17:33] VITALS: BP 171/82; PULSE 94; RESP 15; O2SAT 97
[2021-04-30 17:56] VITALS: BP 168/74; PULSE 79; RESP 16; TEMP 36.8; O2SAT 96
--- NOTE | 2021-04-30 17:58 | PC.NURSE ---
Placed Bacitracin on arm, dressed with non stick adhesive and wrapped in kerlix
== END 2021-04-30 17:58 | disposition home or self-care (01) ==
PROVIDERS: Emergency Provider Student in an Organized Health Care Education/Training Program; PCP Family Medicine
DX: T59.811A Toxic effect of smoke, accidental (unintentional), initial encounter (principal); T22.111A Burn of first degree of right forearm, initial encounter; T20.16XA Burn of first degree of forehead and cheek, initial encounter; T20.17XA Burn of first degree of neck, initial encounter; X03.1XXA Exposure to smoke in controlled fire, not in building or structure, initial encounter; Y92.89 Other specified places as the place of occurrence of the external cause; I10 Essential (primary) hypertension; K21.9 Gastro-esophageal reflux disease without esophagitis; E03.9 Hypothyroidism, unspecified
CPT/HCPCS: 71045; 99282

== ENCOUNTER 2021-06-05 13:55 | Inpatient (IN) | payer MEDICARE, OTHER, SELFPAY ==
[2021-06-05] VITALS (14 sets, daily range): BP systolic 113–179; BP diastolic 62–87; PULSE 78–104; RESP 16–22; TEMP 36.6–37.5; O2SAT 90–98; BMI 32.5; BMI 31.8
--- NOTE | 2021-06-05 14:10 | ECG_ITS ---
APPROVED REPORT Exam: Resting ECG HR:94 bpm ECG Measurements Heart Rate 94 AXES OK 153 P 47 QRSd 101 QRS 267 QT 353 T 35 QTc 405 Conclusion SINUS RHYTHM PATTERN CONSISTENT WITH PULMONARY DISEASE INCOMPLETE RIGHT BUNDLE BRANCH BLOCK [90+ ms QRS DURATION, TERMINAL R IN V1/V2, 40+ ms S IN I/aVL/V4/V5/V6] RIGHT VENTRICULAR HYPERTROPHY [SOME/ALL OF: PROMINENT R IN V1, LATE TRANSITION, RAD, MOIRA, SSS] MODERATE ST DEPRESSION [0.05+ mV ST DEPRESSION] ABNORMAL ECG UNCONFIRMED REPORT Electronically signed by : Armen Bacon MD 06/05/2021 21:12:47
--- NOTE | 2021-06-05 14:27 | HMH.EDGENADL ---
ED Disposition Clinical Impression: Non-ST elevated myocardial infarction, COVID-19, Pneumonia due to COVID-19 virus Disposition: Admitted As Inpatient Condition on Discharge: Serious - Critical Care Critical Care Time: No Attestation: On 06/05/21, the high probability of a clinically significant, sudden or life threatening deterioration of the following system(s) required my full and direct attention, intervention and personal management. The time I documented below is in addition to time spent performing reported procedures but includes the following listed in this critical care notation. Medical Decision Making - Arron Inquiry Pt receiving controlled substance: No Vital Signs: 06/05/21 13:57 06/05/21 14:35 06/05/21 15:24 Temperature 99.5 F Temperature Source Oral Pulse Rate 78 104 H Pulse Rate [Right] 95 H Respiratory Rate 16 19 22 Blood Pressure 179/79 H 143/80 H Blood Pressure [Right Arm] 179/79 H Blood Pressure Mean [Right Arm] 112 Blood Pressure Source [Right Arm] Automatic Cuff Blood Pressure Position [Right Arm] Sitting 02 Sat by Pulse Oximetry 98 93 L 94 L Oxygen Delivery Method Room Air 06/05/21 16:24 Temperature 99.0 F Temperature Source Pulse Rate 88 Pulse Rate [Right] Respiratory Rate 16 Blood Pressure 150/87 H Blood Pressure [Right Arm] Blood Pressure Mean [Right Arm] Blood Pressure Source [Right Arm] Blood Pressure Position [Right Arm] 02 Sat by Pulse Oximetry Oxygen Delivery Method Room Air - Lab Data Lab Results 06/05/21 14:39: WBC 3.8 L, RBC 4.85, Hgb 14.9, Hct 45.8, MCV 94.5 H, MCH 30.7, MCHC 32.5, RDW 14.1, Plt Count 146, MPV 9.7, Neut % (Auto) 58.7, Lymph % (Auto) 33.6, Bremer % (Auto) 7.4, Eos % (Auto) 0.2, Baso % (Auto) 4.7 H, Neut # (Auto) 2.2, Lymph # (Auto) 1.3, Bremer # (Auto) 0.3, Eos # (Auto) 0.0, Baso # (Auto) 0.2 06/05/21 14:39: Sodium 139, Potassium 3.9, Chloride 104, Carbon Dioxide 26, Anion Gap 12.9, BUN 14, Creatinine 1.10, Estimated GFR 66, Est GFR ( Amer) 80, Glucose 76, Calcium 9.1, Total Bilirubin 0.4, AST 63 H, ALT 30, Alkaline Phosphatase 38, Troponin I 2.23 H, NT-Pro-B Natriuret Pep 266 H, Total Protein 7.6, Albumin 4.3, Globulin 3.3 H, Albumin/Globulin Ratio 1.3, Lipase 118 06/05/21 14:39: Lactate 0.8 06/05/21 14:39: SARS-CoV-2 (PCR) Detected A, Influenza A Untype (PCR) Not detected, Influenza Type B (PCR) Not detected 06/05/21 14:46: NT-Pro-B Natriuret Pep 262 H Result diagrams: 06/05/21 14:39 06/05/21 14:39 Orders (Tests/Meds): ED MEDICATIONS Generic Name Dose Route Start Last Admin Trade Name Freq PRN Reason Stop Dose Admin Acetaminophen 325 mg 06/05/21 16:52 Acetaminophen 325mg Tab PO 07/05/21 16:51 Q4HP PRN Mild Pain Acetaminophen 650 mg 06/05/21 16:52 Acetaminophen 325mg Tab PO 07/05/21 16:51 Q4HP PRN Mild to Moderate Pain Aspirin 81 mg 06/06/21 09:00 Aspirin Ec 81mg Tablet PO 07/06/21 08:59 DAILY [facility] Atorvastatin Calcium 40 mg 06/05/21 21:00 Atorvastatin 40mg Tablet PO 07/05/21 20:59 HS [facility] Carvedilol 3.125 mg 06/05/21 21:00 Carvedilol 3.125mg Tablet PO 07/05/21 20:59 BID [facility] Dexamethasone Sodium Phosphate 6 mg 06/05/21 16:15 Dexamethasone 4mg/Ml 1ml Vial IV 07/05/21 16:14 DAILY [facility] Fenofibrate 134 mg 06/06/21 09:00 Fenofibrate 134mg Capsule PO 07/06/21 08:59 DAILY [facility] Fentanyl Citrate 25 mcg 06/05/21 15:51 Fentanyl 100mcg/2ml Vial IV 06/06/21 15:51 Q3MINP PRN Moderate to Severe Pain Fentanyl Citrate 50 mcg 06/05/21 15:51 06/05/21 16:38 Fentanyl 100mcg/2ml Vial IV 06/06/21 15:51 100 mcg Q3MINP PRN Administration Moderate to Severe Pain Fentanyl Citrate 25 mcg 06/05/21 15:51 Fentanyl 250mcg/5ml Vial IV 06/06/21 15:51 Q3MINP PRN Moderate to Severe Pain Fentanyl Citrate 50 mcg 06/05/21 15:51 Fentanyl 250mcg/5ml Vial IV 06/06/21 15:51 Q3MINP PRN Moder
--- NOTE | 2021-06-05 14:50 | XR_ITS ---
FINAL REPORT CLINICAL HISTORY: cough, soa COMPARISON: April 30, 2021 FINDINGS: Two views of the chest were obtained. The heart size and pulmonary vascularity are within normal limits. The mediastinum is normal. There are new patchy bilateral pulmonary opacities consistent with bilateral pneumonia. There is no pneumothorax. There are postoperative changes in the right shoulder. IMPRESSION: New patchy bilateral pulmonary opacities consistent with bilateral pneumonia. Reviewed, Interpreted and Dictated by Dany Wade III, MD Transcribed by Ofelia Schneider Authenticated by Dany Wade III, MD on 06/05/2021 04:12:01 PM [facility]
--- NOTE | 2021-06-05 14:50 | CT_ITS ---
FINAL REPORT CLINICAL HISTORY: abdominal pain, n/v COMPARISON: February 06, 2020 FINDINGS: Technique: The patient was injected with intravenous contrast. Axial images through the abdomen and pelvis were performed. Abdomen: There are patchy bibasilar pulmonary opacities consistent with bilateral pneumonia. The liver is fatty infiltrated. The gallbladder is present. The spleen is borderline in size at 12.6 cm. The adrenals are normal. The pancreas is unremarkable. There are several left renal cysts which are stable. The aorta is normal in caliber. There is no free fluid or adenopathy. There is a small umbilical hernia containing fat. Pelvis: The appendix is normal. There are multiple sigmoid diverticula. There are multiple fluid-filled bowel loops in a nonspecific pattern. The urinary bladder is unremarkable. The prostate is diffusely enlarged. There is no free fluid or adenopathy. There are postoperative changes in the lower lumbar spine. IMPRESSION: Borderline size spleen at 12.6 cm. Fatty infiltrated liver. Multiple sigmoid diverticula. Multiple fluid-filled bowel loops in nonspecific pattern. Diffusely enlarged prostate. Reviewed, Interpreted and Dictated by Dany Wade III, MD Transcribed by Ofelia Schneider Authenticated by Dany Wade III, MD on 06/05/2021 04:11:59 PM [facility]
[2021-06-05 14:55] LABS: Influenza A, PCR Not Detected (NotDetected); Influenza B, PCR Not Detected (NotDetected)
[2021-06-05 15:03] LABS: Basophils # 0.2 K/mm3 (0-0.2); Basophils % 4.7 % (0.1-2.0); Eosinophils % 0.2 % (0.1-12.0); Hematocrit 45.8 % (42.0-52.0); Hemoglobin 14.9 g/dL (14.1-18.0); Lymphocytes # 1.3 K/mm3 (0.7-4.5); Lymphocytes % 33.6 % (10-50); Mean Corpuscular HGB Conc 32.5 g/dL (31.8-35.4); Mean Corpuscular Hemoglobin 30.7 pg (27.0-31.2); Mean Corpuscular Volume 94.5 fl (80-94); Mean Platelet Volume 9.7 fl (7.4-10.4); Monocytes # 0.3 K/mm3 (0.1-1.0); Monocytes % 7.4 % (1.7-9.3); Neutrophils # 2.2 K/mm3 (1.8-7.8); Neutrophils % 58.7 % (37.0-80.0); Platelet Count 146 K/mm3 (142-424); Red Blood Count 4.85 M/mm3 (4.60-6.20); Red Cell Distribution Width 14.1 % (11.5-17.5); White Blood Count 3.8 K/mm3 (4.8-10.8)
[2021-06-05 15:08] LABS: Chloride 104 mmol/L (98-107)
[2021-06-05 15:09] LABS: Potassium 3.9 mmoL/L (3.5-5.1); Sodium 139 mmol/L (136-145)
[2021-06-05 15:11] LABS: Alanine Aminotransferase 30 U/L (12-78); Alkaline Phosphatase 38 U/L (38-126); Anion Gap 12.9 mEq/L (5-15); Aspartate Amino Transferase 63 U/L (17-59); Bilirubin,Total 0.4 mg/dl (0.2-1.3); Blood Urea Nitrogen 14 mg/dl (9-20); Carbon Dioxide 26 mmol/L (22.0-30.0); Estimated Glomerular Filt Rate 66 ml/min (>60); GFR (African American) 80 ML/MIN (>60); Lipase 118 U/L (23-300)
[2021-06-05 15:12] LABS: Albumin Level 4.3 g/dl (3.5-5.0); Albumin/Globulin Ratio 1.3 (1.1-1.8); Calcium 9.1 mg/dl (8.4-10.2); Globulin 3.3 g/dL (1.3-3.2); Glucose 76 mg/dl (74-100); Lactic Acid 0.8 mmol/L (0.7-2.1); Total Protein,Serum 7.6 g/dl (6.3-8.2)
[2021-06-05 15:21] LABS: NT Pro Brain Natriuretic Pep. 266 pg/mL (0-125)
[2021-06-05 15:28] LABS: Troponin I 2.23 ng/ml (0.00-0.034)
--- NOTE | 2021-06-05 15:28 | PC.NURSE ---
Critical Trop called to ROJELIO Pringle is notified
--- NOTE | 2021-06-05 15:34 | PC.NURSE ---
and Leandro Shearer discussing patient at this time
--- NOTE | 2021-06-05 15:34 | PC.NURSE ---
Pt going over to rad
--- NOTE | 2021-06-05 15:47 | HMH.CNCARD ---
History of Present Illness Consult date: 06/05/21 Consult reason: chest pain Chief complaint: Abdominal pain, Abnormal EKG, elevated troponin Additional Medical History:: 1. T2DM, treated for 40 yrs 2. Remote tobacco use, stopped 50 yrs ago 3. Meniere's disease 4. COVID pneumonia, 06/05/21 5. GERD 6. HTN 7. HLD 8. History of pancreatitis History of present illness: Patient with multiple complaints. States that for the past 4 to 5 days his blood sugar has been dropping low, as low as 49. He has not had this problem before. He says that he called Dr. Izquierdo this morning and was advised to back off on his insulin and stop taking glimepiride. Also states that since yesterday he has abdominal pain, cough and congestion, shortness of breath, low-grade fever. Denies vomiting or diarrhea. No known exposure to any illnesses. States that he has been vaccinated against COVID-19. The above per Dr. Jordan Contacted due to elevated troponin of 2.23. In conjunction with ST abnormalities in the anterolateral leads on EKG, concerned for acute LA. Pt relates 2 days of intermittent bilateral arm pain in association with cough. No vomiting or diarrhea. Type 2 DM for 40 yrs Stopped smoking 50 yrs [address] Francois. Will take to nursery laborer for C urgently. [facility] History Medical History: Reports:: Diabetes Mellitus Type 2, Gastroesophageal Reflux Disease(GERD), Hyperlipidemia, Hypertension, Kidney Stones, Seizures Denies:: Cancer, Diabetes Mellitus Type 1, Internal Pacemaker, Lung Disease, MRSA *Have you ever received a pneumonia vaccine?: Yes *Have you received a flu vaccine this season?: Yes Other Medical History: Reports: Arthritis, Hypothyroidism, Thyroid Disease, Other. Denies: Blood Transfusion Reaction Laterality Cases: Right: Other, Bilateral: Arthroscopy Shoulder Other Surgeries: Yes: Other. No: Pacemaker Amputation: No Fractures: No - *Social History Smoking Status: Former smoker Alcohol Intake: never Alcohol Intake Frequency:: other Substance Use Type: denies use *Occupational Status:: retired Housing: house Household Members: none *Travel in the last 8 weeks: Inside the [facility] Family Hx:: Cancer, Coronary Artery Disease, Diabetes, Heart Attack, Hyperlipidemia, Hypertension, Stroke, Alcoholism Meds Home Medications Medication Instructions Recorded Confirmed Type atorvastatin 10 mg tablet 10 mg PO QDAY 06/09/17 06/05/21 History glimepiride 4 mg tablet 4 mg PO QAM 06/09/17 06/05/21 History omeprazole 20 mg capsule,delayed 20 mg PO QDAY 06/09/17 06/05/21 History release fenofibrate micronized 134 mg 134 mg PO DAILY 30 Days cap 08/29/18 06/05/21 History capsule Pioglitazone HCl 30 mg PO DAILY 06/13/19 06/05/21 History canagliflozin 300 mg tablet 300 mg PO DAILY 11/22/19 06/05/21 History lancets 30 gauge See Rx Instructions .ROUTE 11/22/19 06/05/21 History .MEDSUPPLY #25 each nabumetone 500 mg tablet 500 mg PO BID 11/22/19 06/05/21 History empagliflozin 25 mg tablet 25 mg PO DAILY tab 11/19/20 06/05/21 History levothyroxine 75 mcg tablet 75 mcg PO DAILY tab 11/19/20 06/05/21 History metformin 500 mg tablet,extended 500 mg PO DAILY tab 11/19/20 06/05/21 History release 24 hr Bacitracin [Bacitracin Opth] 1 gm OP Q8 06/05/21 06/05/21 History Allergies Allergy/AdvReac Type Severity Reaction Status Date / Time No Known Allergies Allergy Verified 02/26/21 08:16 Exam Vital signs and Labs for Last 24 Hours: Temp Pulse Resp BP Pulse Ox 99.5 F 104 H 22 143/80 H 94 L 06/05/21 13:57 06/05/21 15:24 06/05/21 15:24 06/05/21 15:24 06/05/21 15:24 Laboratory Results - last 24 hr 06/05/21 14:39: WBC 3.8 L, RBC 4.85, Hgb 14.9, Hct 45.8, MCV 94.5 H, MCH 30.7, MCHC 32.5, RDW 14.1, Plt Count 146, MPV 9.7, Neut % (Auto) 58.7, Lymph % (Auto) 33.6, [place] % (Auto) 7.4, Eos % (Auto) 0.2, Baso % (Auto) 4.7 H, Neut # (Auto) 2.2, Lymph # (Auto) 1.3, [place] # (Auto) 0.3, Eos # (Aut
[2021-06-05 15:54] LABS: NT Pro Brain Natriuretic Pep. 262 pg/mL (0-125)
[2021-06-05 15:57] LABS: Coronavirus 19, PCR Detected (NotDetected)
--- NOTE | 2021-06-05 16:10 | IR_ITS ---
APPROVED REPORT Patient Location: Emergent Tumbler Operator: MITCH Carrizales RT (R) PROCEDURES Selective coronary angiogram Drug-eluting stent deployment to the first obtuse marginal artery off the dominant circumflex artery Drug-eluting stent deployment to the second obtuse marginal artery of the dominant circumflex artery Drug-eluting stent placed to the distal LAD INDICATION Acute lateral ST elevation myocardial infarction, Coronary artery disease Informed consent was obtained prior to the procedure. COMPLICATIONS NONE Estimated Blood Loss: LESS THAN 10 ML TECHNIQUE One percent lidocaine used to anesthetize the right anterior aspect of the wrist. The right radial artery was accessed via the Seldinger technique. A 6 Tamazight sheath was placed in the right radial artery. 2.5 mg of verapamil, 800 mcg of nitroglycerin, 1mg Lidocaine and 5000 U Heparin were given through the arterial sheath. The Poppa catheter catheter followed by an EBU 3.75 guide catheter was also used to perform l selective coronary angiogram. Following the diagnostic angiogram therapeutic heparin was administered and a Choice PT extra-support wire was placed into the first obtuse marginal artery which was occluded. A 2.5 x 18 mm resolute Juvencio stent was deployed at 16 rosas reducing the 100% occlusion to 0%. GORAN I flow was present at the beginning of the procedure with GORAN-3 flow at the end of the procedure. Following this the wire was placed into the LAD where a 2.25 x 34 mm resolute Monroe stent was deployed at 20 rosas reducing this severe to critical stenosis to 0%. GORAN-3 flow was present before and after the procedure. Following this the wire was placed back into the second obtuse marginal artery where a 2.25 x 22 mm resolute Monroe stent was deployed at 20 rosas reducing the stenosis to 0%. GORAN-3 flow was present before and after the procedure patient had an extremely tortuous brachiocephalic artery where there was significant difficulty in traversing these vessels which required wire support a lot of manipulation in order to cannulate the left main artery. Because of the complexity of patient's anatomy it was felt complete revascularization involving the dominant vessels was most warranted at this time. At the end of the procedure the apparatus was removed the sheath was removed good hemostasis was achieved using TR banding patient was transferred to the postop putting in stable condition ANGIOGRAPHIC RESULTS The left main artery Normal The left anterior descending artery Has proximal 10 to 20% stenosis with a mid vessel to distal tandem 80 to 90% stenoses. The first diagonal artery is small to moderate and has proximal 50 to 60% stenosis The circumflex artery Is a dominant vessel and has proximal 10 to 20% stenoses with a 100% occlusion in the proximal large first obtuse marginal artery. Following stenting the vessel is widely patent. The second obtuse marginal artery which functions as a posterior descending artery has proximal tandem 80% stenoses The right coronary artery Is a nondominant vessel and has proximal 80 and mid vessel 90% stenosis The GALE ventriculogram reveals Not performed The left ventricular end-diastolic pressure Not measured IMPRESSION Acute lateral ST elevation myocardial infarction as described above with successful stenting of the first obtuse marginal artery 100% occlusion reduced to 0% with 1 drug-eluting stent Severe stenosis in the mid to distal LAD followed by drug-eluting stenting reducing the severe to critical disease to 0% Severe stenosis in a large second obtuse marginal artery functioning is a posterior descending artery reducing the severe stenosis to 0% Persistent severe stenosis
--- NOTE | 2021-06-05 16:15 | PC.NURSE ---
1540-Leandro reviewed EKG and called Dr. Francois. Dr. Francois advised he wanted to take the patient to catheter builder immediately and to notify the team. and go ahead and call PCP for admission 154-Notified House that I needed the cath team for an urgent patient in the ED 1547-MD spoke with Dr. Dorman for admission. agreeable for admission at this time 1600- Pt given 324mg of ASA per MD orders. Leandro advised no other medicines at this time. He went in and spoke with patient about condition. Pt understood POC and agreeable. Clothing removed, pt placed on zoll monitor, and groins were shaved. 1601-Consent explained to patient and signed at this time with myself as witness. 1610-Daughter at bedside. Explained POC to her. 1615- David from catheter builder arrived, report given and pt taken to cath, reported patient was covid positive. 1557-Covid swab positive. notified Leandro Shearer, and warehouse attendant.
[2021-06-05 17:49] LABS: CATHL Activated Clotting Time > 400 SEC (74-125)
[2021-06-05 17:49] LABS: CATHL Activated Clotting Time 237 SEC (74-125)
--- NOTE | 2021-06-05 17:50 | PC.NURSE ---
Pt arrived to the floor at this time
[2021-06-06] VITALS (9 sets, daily range): BP systolic 129–155; BP diastolic 64–84; PULSE 90–102; RESP 16–20; TEMP 36.8–37.5; O2SAT 93–97; BMI 31.6
--- NOTE | 2021-06-06 00:49 | PC.NURSE ---
1920 - pt sitting up in bed on the phone 1925 - removed 3ml of air from tracelet, no s/s of bleeding noted. 15ml of air remaining 1944 - removed 3ml of air from tracelet, no s/s of bleeding noted. 12ml of air remaining 2004 - removed 3ml of air from tracelet, no s/s of bleeding noted. 9ml of air remaining 2099 - removed 3ml of air from tracelet, no s/s of bleeding noted. 6ml of air remaining 2129 - removed 3ml of air from tracelet, no s/s of bleeding noted. 3ml of air remaining 2199 - removed 3ml of air from tracelet, no s/s of bleeding noted. 0ml of air remaining. Tracelet left in place incase bleeding starts at this time. 0 - tracelet removed at this time and t/t dressing applied. No s/s of hematoma or bleeding noted.
--- NOTE | 2021-06-06 01:09 | PC.NURSE ---
2099 - pt had a severe coughing fit. reported he was having trouble breathing afterwards, and can't quit coughing longing enough to catch my breath . Dr. Izquierdo paged at this time. pt also placed on 2l per nc of oxygen. 2109 - telephone orders per Dr. Izquierdo: Robitussin DM 1tsp PO Q4h PRN for cough, Tessalon Pearls 200mg PO Q8H prn for cough. Verbalized and read back. 2117 - both prn cough meds given at this time. pt states the oxygen is helping. 2199 - pt states his cough is slightly better, and the oxygen has definitely helped . will continue to monitor.
--- NOTE | 2021-06-06 03:42 | PC.NURSE ---
Addendum entered by Lily Patterson RN 06/06/21 03:49: Remains in airborne/contact isolation Original Note: Pt has rested off and on throughout the shift. C/o frequent coughing spells and shortness of air around 2100, was medication with robitussin dm and tessalon pearls, which he states has helped quite a bit. Pt also placed on 2LNC. Informed patient that he still needed to take big deep breaths, and move around in the room or use the IS. Pt is s/p heart cath, with stenting. Has denied any cp. LS with scattered rhonchi and diminished bases. ABD soft and non tender. NSR on telemery. Voids per bathroom with standby assistance with ambulating. T/T dressing to the right radial cath site, no s/s of bleeding or hematoma visible. VSS. No acute changes noted, will continue to monitor.
[2021-06-06 06:07] LABS: POC Glucose,Bedside 116 (70-110)
--- NOTE | 2021-06-06 07:11 | CA_ITS ---
APPROVED REPORT EXAM: Comprehensive 2D, Doppler, and color-flow Echocardiogram Rope Maker: Kady Villagran RT(R) Ht: 5 ft 4 in Wt: 190lbs BSA: 1.91 BP: 143/80 mmHg Indications: NSTEMI, GERD, COVID pneumonia, cardiac cath 06/05/21 with cardiac stents placed, HTN, hyperlipidemia, ex smoker, SOB, DM 2D Dimensions LVOT 2.02 cm (M/F) 1.5-2.5 LVEF (Long's) 49.40 % M: 52 - 72 LV Volume 77.50 mL M: 62 - 150 LV Volume Index 40.57 mL/m2 M: 34 - 74 LA Volume 13.50 mL LA Volume Index 7.06 mL/m2 (M/F) 16-34 M-Mode Dimensions RVDd 2.78 cm (0.9-2.6) LA Diam 3.09 cm (1.9-4.0) LVDd 4.82 cm (3.5-5.7) Ao Diam 2.62 cm (2.0-3.7) LVDs 3.92 cm (3.5-5.7) IVSd 0.64 cm (0.6-1.1) PWd 0.86 cm (0.6-1.1) EF (Teich) 38.60% FS 18.70% EDV (Teich) 108.60 mL ESV (Teich) 66.70 mL LV Diastology E Decel Time 173.00 (160-240 msec) E/A Ratio 0.7 MED E' 6.00 (< 7 cm/sec) E'/MED E' Ratio 12.15 (>14) LAT E' 6.50 (<10 cm/sec) E/LAT E' Ratio 11.22 (>14) Aortic Valve LVOT Max 121.00 (70-110 cm/s) LVOT VTI 19.15 cm AoV Peak Holger. 148.00 (50-130 cm/s) AO Peak GR. 8.80 mmHg AO Mean GR. 4.30 (<5 mmHg) AO VTI 23.07 (18-25 cm) MATT (VTI) 2.66 (2.5-4.5 cm2) Mitral Valve MV E Max Holger. 73.00 (40-130 cm/s) MV A Velocity 101.00 (40-130 cm/s) E/A Ratio 0.72 MV Decel. Time 173.00 (160-240 ms) MV PHT 51.00 ms Left Ventricle Atrium is mildly enlarged, left ventricle is normal size, mild concentric left ventricular hypertrophy, visually estimated ejection fraction 55% with no regional wall motion abnormality, grade 1 diastolic dysfunction seen without tissue Doppler evidence of raise left atrial pressure. Right Ventricle Right atrium and right ventricle are normal size and contractility. Aortic Valve Aortic valve is thickened and calcified morphology is not well visualized, aortic Doppler is not indicated valve aortic stenosis or aortic insufficiency. Mitral Valve Mitral valve leaflets are minimally thickened, there is mild mitral regurgitation. Tricuspid Valve Tricuspid valve grossly normal, there is mild tricuspid regurgitation, tricuspid regurgitation jet velocity is inadequate for calculation of the right ventricular systolic pressure. Pulmonic Valve Pulmonic valve is poorly visualized. Great Vessels Aortic root is normal size. Inferior vena cava is normal 7 normal inspiratory collapse. Pericardium No significant pericardial effusion noted. Conclusion 1. Mildly enlarged left atrium, normal left ventricular size, mild concentric left ventricular hypertrophy, visually estimated ejection fraction 55% with no regional wall motion abnormality, grade 1 diastolic dysfunction seen without tissue Doppler evidence of late left atrial pressure. 2. Thickened and calcified aortic valve without aortic stenosis or aortic insufficiency. 3. Mild mitral and tricuspid regurgitation. 4. No significant pericardial effusion. 5. Inferior vena cava is normal size with normal inspiratory collapse. Electronically signed by : German Woodruff MD 06/06/2021 13:14:44
--- NOTE | 2021-06-06 07:26 | HMH.PHAVTE ---
[facility] Pharmacy VTE Monitoring - Patient Demographics Admission date: 06/05/21 Report Date: 06/06/21 Time: 07:26 Allergies/Adverse Reactions: Patient Allergies No Known Allergies Allergy (Verified 02/26/21 08:16) Height: 1.63 m Weight: 84.028 kg Patient Problems: Current Active Problems Abdominal pain (Acute) Non-ST elevated myocardial infarction (Acute) Hyperlipidemia associated with type 2 diabetes mellitus (Acute) COVID-19 (Acute) Pneumonia due to COVID-19 virus (Acute) Diabetes mellitus (Acute) - VTE Risk Labs: VTE Related Lab Results Hgb 14.9 g/dL (14.1-18.0) 06/05/21 14:39 Hct 45.8 % (42.0-52.0) 06/05/21 14:39 Plt Count 146 K/mm3 (142-424) 06/05/21 14:39 BUN 14 mg/dl (9-20) 06/05/21 14:39 Creatinine 1.10 mg/dl (0.66-1.25) 06/05/21 14:39 Was VTE Risk Assessment Performed: Yes VTE Score: 4 VTE Risk Level: Low Risk - Prophylaxis VTE Prophylaxis Ordered?: Yes Types of VTE Prophylaxis: TEDS Knee High Location of Applied Device: Bilateral Lower Extremeties
[2021-06-06 07:52] LABS: POC Glucose,Bedside 67 (70-110)
--- NOTE | 2021-06-06 09:00 | HMH.HP ---
*Admission Date: 06/05/21 <Alice Doll 06/06/21 09:13> *Chief complaint: arm pain, cough, congestion <Alice Doll 06/06/21 09:13> *History of present illness: Mr. Dennison is a 70-year-old male who began having some pain down both arms last week with mild chest pain. He states this went away until a few days ago when he developed fever, cough, shortness of breath, and congestion. The pain in his arms then returned, but he never had further chest pain. He had also had episodes of blood sugar dropping as low as [address] Izquierdo had advised him to decrease his insulin and stop taking his glimepiride. He presented to the ER yesterday and his troponin was elevated at 2.23. He also had ST abnormalities on EKG and there was concern for acute MA. He also was COVID-positive. He was taken emergently to the [facility] and 3 stents were placed. This morning he has no further arm pain but has coughed all night and feels terrible. He did get the J&J vaccine in September but has not had a booster. <Alice Doll 06/06/21 09:13> [facility] History I have reviewed the patient's past medical history: Yes <Alice Doll 06/06/21 09:13> Medical History: Reports:: Diabetes Mellitus Type 2, Gastroesophageal Reflux Disease(GERD), Hyperlipidemia, Hypertension, Kidney Stones, Seizures Denies:: Cancer, Diabetes Mellitus Type 1, Internal Pacemaker, Lung Disease, MRSA <Alice Doll 06/06/21 09:13> *Have you ever received a pneumonia vaccine?: Yes <Alice Doll 06/06/21 09:13> *Have you received a flu vaccine this season?: Yes <Alice Doll 06/06/21 09:13> Other Medical History: Reports: Arthritis, Hypothyroidism, Thyroid Disease, Other (Gout, M?ni?re's disease, kidney stones). Denies: Blood Transfusion Reaction <Alice Doll 06/06/21 09:13> Laterality Cases: Right: Other, Bilateral: Arthroscopy Shoulder, Cataract <Alice Doll 06/06/21 09:13> Other Surgeries: Yes: Colonoscopy, Other (Bilateral ankle, left ring finger reattached, kidney stones removed). No: Pacemaker <Alice Doll 06/06/21 09:13> Amputation: No <Alice Doll 06/06/21 09:13> Fractures: No <Alice Doll 06/06/21 09:13> - *Social History Last grade of school completed: 7th or 8th <Alice Doll 06/06/21 09:13> Smoking Status: Former smoker <Alice Doll 06/06/21 09:13> Tobacco Type: cigarettes <Alice Doll 06/06/21 09:13> # Packs/Day (cigarettes): 1 <Alice Doll 06/06/21 09:13> Alcohol Intake: never <Alice Doll 06/06/21 09:13> Alcohol Intake Frequency:: other <Alice Doll 06/06/21 09:13> Substance Use Type: denies use <Alice Doll 06/06/21 09:13> *Occupational Status:: retired <Alice Doll 06/06/21 09:13> Housing: house <Alice Doll 06/06/21 09:13> Household Members: none <Alice Doll 06/06/21 09:13> *Travel in the last 8 weeks: Inside the [place] <Alice Doll 06/06/21 09:13> Family Hx:: Cancer, Coronary Artery Disease, Diabetes, Heart Attack, Hypertension, Stroke <Alice Doll 06/06/21 09:13> Review of Systems - Constitutional Reports chills, Reports fatigue, Reports fever(s), Reports weakness <Alice Doll 06/06/21 09:13> - Eyes Denies blurry vision, Denies double vision <Alice Doll 06/06/21 09:13> - ENT Reports nasal congestion, Reports sore throat <Alice Doll 06/06/21 09:13> - *Cardiovascular Reports chest pain, Reports shortness of breath <Alice Doll 06/06/21 09:13> - *Respiratory Reports chest congestion, Reports cough, Reports shortness of breath <Alice Doll 06/06/21 09:13> - *Gastrointestinal Reports abdominal pain, Denies loose stools, Denies nausea, Denies vomiting <Alice Doll 06/06/21 09:13> - *Genitourinary Denies difficulty urinating, Denies painful urination <Alice Doll 06/06/21 09:13> - *Musculoskeletal Reports body aches <Alice Doll 06/06/21 09:13> - *Neurologic Reports headache(s), Reports dizziness, Re
--- NOTE | 2021-06-06 10:39 | P.PN_ITS ---
Subjective Date: 06/06/21 Time: 10:39 Principal diagnosis: NSTEMI Interval history: 70-year-old white male in bed in no acute distress. Denies any chest pain, pressure or tightness. States he is feeling much better. Just trying to get over this COVID now . Results of cardiac cath including stenting discussed with the patient. Preliminary echocardiogram appears to show near normal EF. No arrhythmias noted on telemetry. Exam Vital signs and Labs for Last 24 Hours: Temp Pulse Resp BP Pulse Ox 98.2 F 99 H 18 133/84 94 L 06/06/21 07:57 06/06/21 07:57 06/06/21 07:57 06/06/21 07:57 06/06/21 07:57 Laboratory Results - last 24 hr 06/05/21 14:39: WBC 3.8 L, RBC 4.85, Hgb 14.9, Hct 45.8, MCV 94.5 H, MCH 30.7, MCHC 32.5, RDW 14.1, Plt Count 146, MPV 9.7, Neut % (Auto) 58.7, Lymph % (Auto) 33.6, [place] % (Auto) 7.4, Eos % (Auto) 0.2, Baso % (Auto) 4.7 H, Neut # (Auto) 2.2, Lymph # (Auto) 1.3, [place] # (Auto) 0.3, Eos # (Auto) 0.0, Baso # (Auto) 0.2 06/05/21 14:39: Sodium 139, Potassium 3.9, Chloride 104, Carbon Dioxide 26, Anion Gap 12.9, BUN 14, Creatinine 1.10, Estimated GFR 66, Est GFR ( A maria antonia) 80, Glucose 76, Calcium 9.1, Total Bilirubin 0.4, AST 63 H, ALT 30, Alkaline Phosphatase 38, Troponin I 2.23 H, NT-Pro-B Natriuret Pep 266 H, Total Protein 7.6, Albumin 4.3, Globulin 3.3 H, Albumin/Globulin Ratio 1.3, Lipase 118 06/05/21 14:39: Lactate 0.8 06/05/21 14:39: SARS-CoV-2 (PCR) Detected A, Influenza A Untype (PCR) Not detected, Influenza Type B (PCR) Not detected 06/05/21 14:46: NT-Pro-B Natriuret Pep 262 H 06/05/21 17:32: Activated Clotting Time > 400 H* 06/05/21 18:03: Activated Clotting Time 237 H* D 06/05/21 21:17: POC Glucose 116 H 06/06/21 06:02: POC Glucose 67 L I & O for Last 24 hours: Intake & Output 06/03/21 06/04/21 06/05/21 06/06/21 11:59 11:59 11:59 11:59 Intake Total 520 / 520 Output Total 500 / 500 Balance Weight 185 lb 4 oz - Constitutional no acute distress - *Routine Respiratory Exam Present: rhonchi, wheezes - *Routine Cardiovascular Exam Present: RRR Progress Note: A&P (1) Pneumonia due to COVID-19 virus Status: Acute (2) COVID-19 Status: Acute (3) Non-ST elevated myocardial infarction Status: Acute (4) Abdominal pain Status: Acute (5) Hyperlipidemia associated with type 2 diabetes mellitus Status: Acute (6) Type 2 diabetes mellitus Status: Chronic (7) Hypertension Status: Chronic (8) Hyperlipidemia Status: Chronic Assessment and Plan for All Diagnoses:: 1. COVID-pneumonia, per PCP 2. Non-ST elevation ID, status post coronary stenting to first and second OM along with LAD. Residual RCA disease in a small nondominant vessel to be treated medically. Continue aspirin 81 mg daily and Brilinta 90 mg twice daily. Continue to monitor for full 48 hours. Patient should be able to discharge from a cardiac standpoint tomorrow evening if he remains stable. 3. Hypertension, controlled on Coreg 6.25 mg BID and irbesartan 150 mg daily. 4. Hyperlipidemia, on atorvastatin 40 mg daily. 5. Type 2 diabetes mellitus, per PCP
--- NOTE | 2021-06-06 10:58 | HMH.PHAINT ---
MEDICATION RECONCILIATION COMPLETED ON PATIENT USING EXTERNAL FILL HISTORY FROM PHARMACY. -AHSAN MANJARREZ, LAURYND
[2021-06-06 11:50] LABS: POC Glucose,Bedside 125 (70-110)
[2021-06-06 11:54] LABS: Chol/HDL Ratio 5.2 (1-3.5); Cholesterol 161 mg/dl (140-200); HDL Cholesterol 31 mg/dl (40-60); Triglycerides 130 mg/dl (30-150); VLDL Cholesterol 26 mg/dL (0-40)
[2021-06-06 12:06] LABS: Direct LDL Cholesterol 100.59 mg/dL (100-129)
[2021-06-06 12:56] LABS: POC Glucose,Bedside 194 (70-110)
--- NOTE | 2021-06-06 17:03 | PC.NURSE ---
sptum cup at bedside, pt instructed how to use and cough.
--- NOTE | 2021-06-06 17:05 | PC.NURSE ---
pt instructed to cough and use sputum cup. sputum cup left at bedside.
[2021-06-06 20:47] LABS: POC Glucose,Bedside 303 (70-110)
[2021-06-06 21:21] LABS: POC Glucose,Bedside 251 (70-110)
[2021-06-07] VITALS: BP 123/64; PULSE 70; PULSE 82; RESP 20; TEMP 36.5; O2SAT 93
[2021-06-07 04:00] VITALS: BP 98/64; PULSE 70; PULSE 83; RESP 20; TEMP 36.7; O2SAT 96
--- NOTE | 2021-06-07 05:08 | PC.NURSE ---
Pt has slept well this shift. No acute changes from initial assessment. Has not requested any medication for cough this shift- cough noted to be less frequent. Remains on 2LNC. VSS. Right radial cath site shows no s/s of redness, bruising, or bleeding. Has voiced no complaints or concerns, no acute distress noted, will continue to monitor.
[2021-06-07 05:56] VITALS: BMI 31.1
[2021-06-07 06:54] LABS: Alanine Aminotransferase 28 U/L (12-78); Albumin Level 4.1 g/dl (3.5-5.0); Albumin/Globulin Ratio 1.4 (1.1-1.8); Alkaline Phosphatase 35 U/L (38-126); Anion Gap 11.8 mEq/L (5-15); Aspartate Amino Transferase 59 U/L (17-59); Bilirubin,Total 0.5 mg/dl (0.2-1.3); Blood Urea Nitrogen 19 mg/dl (9-20); Calcium 9.1 mg/dl (8.4-10.2); Carbon Dioxide 26 mmol/L (22.0-30.0); Chloride 105 mmol/L (98-107); Creatinine Clearance Estimated 80 mL/min (50-200); Estimated Glomerular Filt Rate 74 ml/min (>60); GFR (African American) 89 ML/MIN (>60); Glucose 124 mg/dl (74-100); Potassium 3.8 mmoL/L (3.5-5.1); Sodium 139 mmol/L (136-145); Total Protein,Serum 7.1 g/dl (6.3-8.2)
--- NOTE | 2021-06-07 07:41 | HMH.ACPN2 ---
Internal Medicine - PN: Subj *Date: 06/07/21 *Time: 07:41 Interval history: Patient feels a little better this morning. Cough has improved, he ate most of his breakfast. He is still receiving supplemental O2 per NC. Exam Vital signs and Labs for Last 24 Hours: Temp Pulse Resp BP Pulse Ox 98.1 F 83 20 98/64 L 96 06/07/21 04:00 06/07/21 04:00 06/07/21 04:00 06/07/21 04:00 06/07/21 04:00 Laboratory Results - last 24 hr 06/06/21 06:02: POC Glucose 67 L 06/06/21 08:31: POC Glucose 125 H 06/06/21 11:25: Triglycerides 130, Cholesterol 161, LDL Cholesterol Direct 100.59, VLDL Cholesterol 26, HDL Cholesterol 31 L, Cholesterol/HDL Ratio 5.2 H 06/06/21 12:24: POC Glucose 194 H 06/06/21 17:21: POC Glucose 303 H* 06/06/21 20:45: POC Glucose 251 H 06/07/21 06:26: Sodium 139, Potassium 3.8, Chloride 105, Carbon Dioxide 26, Anion Gap 11.8, BUN 19 D, Creatinine 1.00, Estimated Creat Clear 80, Estimated GFR 74, Est GFR ( Amer) 89, Glucose 124 H, Calcium 9.1, Total Bilirubin 0.5, AST 59, ALT 28, Alkaline Phosphatase 35 L, Total Protein 7.1, Albumin 4.1, Globulin 3.0, Albumin/Globulin Ratio 1.4 Vital Signs - 24 hr 06/06/21 07:57 06/06/21 08:00 06/06/21 11:29 Temperature 98.2 F 98.5 F Pulse Rate 102 H Pulse Rate [Right] 99 H 96 H 96 H Respiratory Rate 18 18 Blood Pressure [Left Arm] 155/82 H Blood Pressure [Right Arm] 133/84 02 Sat by Pulse Oximetry 94 L 94 L 94 L 06/06/21 12:00 06/06/21 14:59 06/06/21 16:00 Temperature 99.1 F Pulse Rate 97 H 91 H Pulse Rate [Right] 92 H Respiratory Rate 16 Blood Pressure [Left Arm] 131/64 Blood Pressure [Right Arm] 02 Sat by Pulse Oximetry 95 06/06/21 20:00 06/07/21 00:00 06/07/21 04:00 Temperature 98.3 F 97.7 F 98.1 F Pulse Rate 100 H 70 70 Pulse Rate [Right] 91 H 82 83 Respiratory Rate 19 20 20 Blood Pressure [Left Arm] 129/83 123/64 98/64 L Blood Pressure [Right Arm] 02 Sat by Pulse Oximetry 97 93 L 96 I & O for Last 24 hours: Intake & Output 06/04/21 06/05/21 06/06/21 06/07/21 23:59 23:59 23:59 23:59 Intake Total 280 / 280 840 / 840 Output Total 500 / 500 Balance 280 / -220 340 / 340 Weight 185 lb 4 oz 185 lb 3.013 oz 182 lb 6.4 oz - Constitutional no acute distress - *Routine HEENT Exam Head: Present: normocephalic Eye: Present: EOMI, PERRL ENT: Present: mucous membranes moist - *Routine Neck Exam Present: supple. Absent: lymphadenopathy - *Routine Respiratory Exam Present: crackles (rare, good air movement). Absent: wheezes - *Routine Cardiovascular Exam Present: RRR - *Routine Abdominal Exam Present: soft, normoactive bowel sounds. Absent: tenderness - *Routine Extremities Exam Absent: cyanosis, clubbing, edema - *Routine Skin Exam Present: warm. Absent: rash - *Routine Neurological Exam Present: alert, oriented X3 Assessment and Plan (1) Pneumonia due to COVID-19 virus Status: Acute Category: Medical Code(s): U07.1 - COVID-19; J12.82 - Pneumonia due to coronavirus disease 2019 (2) COVID-19 Status: Acute Category: Medical Code(s): U07.1 - COVID-19 (3) Non-ST elevated myocardial infarction Status: Acute Category: Medical Code(s): I21.4 - Non-ST elevation (NSTEMI) myocardial infarction (4) Abdominal pain Status: Acute Category: Medical Code(s): R10.9 - Unspecified abdominal pain (5) Hyperlipidemia associated with type 2 diabetes mellitus Status: Acute Category: Medical Code(s): E11.69 - Type 2 diabetes mellitus with other specified complication; E78.5 - Hyperlipidemia, unspecified (6) Type 2 diabetes mellitus Status: Chronic Category: Medical Code(s): E11.9 - Type 2 diabetes mellitus without complications (7) Hypertension Status: Chronic Category: Medical Code(s): I10 - Essential (primary) hypertension (8) Hyperlipidemia Status: Chronic Category: Medical Code(s): E78.5 - Hyperlipidemia, unspecified - Assessment a
--- NOTE | 2021-06-07 07:57 | PC.NURSE ---
Report given to Lux Lai RN
[2021-06-07 08:00] VITALS: BP 110/67; BP 112/68; PULSE 102; PULSE 82; PULSE 89; RESP 24; RESP 26; TEMP 36.3; TEMP 37.1; O2SAT 84; O2SAT 96
--- NOTE | 2021-06-07 08:02 | PC.NURSE ---
Report given to Lux Lai RN
[2021-06-07 16:00] VITALS: BP 119/72; BP 139/76; PULSE 102; PULSE 84; PULSE 88; RESP 20; RESP 22; TEMP 36.1; TEMP 37.2; O2SAT 84; O2SAT 95
--- NOTE | 2021-06-07 18:53 | PC.NURSE ---
Patient has been with no oxygen from 5436-5465 with O2 Sats 88% and above showing no s/s of respiratory distress. Will continue to monitor.
[2021-06-07 20:00] VITALS: BP 111/63; PULSE 80; PULSE 83; RESP 20; TEMP 36.6; O2SAT 93
[2021-06-08] VITALS: BP 102/56; PULSE 66; PULSE 80; RESP 20; TEMP 36.6; O2SAT 99
[2021-06-08 04:00] VITALS: BP 100/60; PULSE 68; PULSE 70; RESP 18; TEMP 36.5; O2SAT 94
[2021-06-08 05:00] VITALS: BMI 31.4
[2021-06-08 06:17] LABS: POC Glucose,Bedside 324 (70-110)
[2021-06-08 06:40] LABS: POC Glucose,Bedside 146 (70-110)
[2021-06-08 06:40] LABS: POC Glucose,Bedside 96 (70-110)
[2021-06-08 06:40] LABS: POC Glucose,Bedside 147 (70-110)
[2021-06-08 06:40] LABS: POC Glucose,Bedside 259 (70-110)
[2021-06-08 08:00] VITALS: BP 122/70; PULSE 78; PULSE 80; RESP 18; TEMP 36.6; O2SAT 93; O2SAT 94
[2021-06-08 09:07] LABS: Chloride 109 mmol/L (98-107); Potassium 3.5 mmoL/L (3.5-5.1); Sodium 140 mmol/L (136-145)
[2021-06-08 09:10] LABS: Alanine Aminotransferase 26 U/L (12-78); Albumin Level 3.4 g/dl (3.5-5.0); Albumin/Globulin Ratio 1.2 (1.1-1.8); Alkaline Phosphatase 35 U/L (38-126); Anion Gap 10.5 mEq/L (5-15); Aspartate Amino Transferase 43 U/L (17-59); Bilirubin,Total 0.3 mg/dl (0.2-1.3); Blood Urea Nitrogen 18 mg/dl (9-20); Carbon Dioxide 24 mmol/L (22.0-30.0); Creatinine Clearance Estimated 81 mL/min (50-200); Estimated Glomerular Filt Rate 83 ml/min (>60); GFR (African American) 101 ML/MIN (>60); Globulin 2.9 g/dL (1.3-3.2); Total Protein,Serum 6.3 g/dl (6.3-8.2)
[2021-06-08 09:11] LABS: Calcium 8.3 mg/dl (8.4-10.2); Glucose 218 mg/dl (74-100)
--- NOTE | 2021-06-08 10:17 | HMH.ACPN2 ---
Internal Medicine - PN: Subj *Date: 06/08/21 *Time: 10:19 Interval history: Patient feels better, no new complaints, cough has improved, he is anxious to go home. Exam Vital signs and Labs for Last 24 Hours: Temp Pulse Resp BP Pulse Ox 97.9 F 78 18 122/70 94 L 06/08/21 08:00 06/08/21 08:00 06/08/21 08:00 06/08/21 08:00 06/08/21 08:00 Laboratory Results - last 24 hr 06/07/21 06:04: POC Glucose 96 06/07/21 11:38: POC Glucose 147 H 06/07/21 16:53: POC Glucose 259 H 06/07/21 21:38: POC Glucose 324 H* 06/08/21 06:26: POC Glucose 146 H 06/08/21 08:35: Sodium 140, Potassium 3.5, Chloride 109 H, Carbon Dioxide 24, Anion Gap 10.5, BUN 18, Creatinine 0.90, Estimated Creat Clear 81, Estimated GFR 83, Est GFR ( Amer) 101, Glucose 218 H, Calcium 8.3 L, Total Bilirubin 0.3, AST 43 D, ALT 26, Alkaline Phosphatase 35 L, Total Protein 6.3, Albumin 3.4 L D, Globulin 2.9, Albumin/Globulin Ratio 1.2 Vital Signs - 24 hr 06/07/21 16:00 06/07/21 20:00 06/08/21 00:00 Temperature 98.9 F 97.9 F 97.8 F Pulse Rate 84 80 80 Pulse Rate [Right] 88 83 66 Respiratory Rate 20 20 20 Blood Pressure [Left Arm] 139/76 111/63 102/56 L 02 Sat by Pulse Oximetry 95 93 L 99 06/08/21 04:00 06/08/21 08:00 Temperature 97.7 F 97.9 F Pulse Rate 68 Pulse Rate [Right] 70 78 Respiratory Rate 18 18 Blood Pressure [Left Arm] 100/60 L 122/70 02 Sat by Pulse Oximetry 94 L 94 L I & O for Last 24 hours: Intake & Output 06/05/21 06/06/21 06/07/21 06/08/21 23:59 23:59 23:59 23:59 Intake Total 280 / 280 840 / 840 720 / 960 240 / 240 Output Total 500 / 500 Balance 280 / -220 340 / 340 720 / 960 240 / 240 Weight 185 lb 4 oz 185 lb 3.013 oz 182 lb 6.4 oz 184 lb 3.2 oz Microbiology Reports for the Last 24 Hours: Microbiology 06/05/21 14:39 Blood Blood Culture - Preliminary NO GROWTH AFTER 48 HOURS 06/05/21 14:39 Blood Blood Culture - Preliminary NO GROWTH AFTER 48 HOURS - Constitutional no acute distress - *Routine HEENT Exam Head: Present: normocephalic Eye: Present: EOMI, PERRL ENT: Present: mucous membranes moist - *Routine Neck Exam Present: supple. Absent: lymphadenopathy - *Routine Respiratory Exam Present: CTA bilaterally - *Routine Cardiovascular Exam Present: RRR - *Routine Abdominal Exam Present: soft, normoactive bowel sounds. Absent: tenderness - *Routine Extremities Exam Absent: cyanosis, clubbing, edema - *Routine Skin Exam Present: warm. Absent: rash - *Routine Neurological Exam Present: alert, oriented X3 Assessment and Plan (1) Pneumonia due to COVID-19 virus Status: Acute Category: Medical Code(s): U07.1 - COVID-19; J12.82 - Pneumonia due to coronavirus disease 2019 (2) COVID-19 Status: Acute Category: Medical Code(s): U07.1 - COVID-19 (3) Non-ST elevated myocardial infarction Status: Acute Category: Medical Code(s): I21.4 - Non-ST elevation (NSTEMI) myocardial infarction (4) Abdominal pain Status: Acute Category: Medical Code(s): R10.9 - Unspecified abdominal pain (5) Hyperlipidemia associated with type 2 diabetes mellitus Status: Acute Category: Medical Code(s): E11.69 - Type 2 diabetes mellitus with other specified complication; E78.5 - Hyperlipidemia, unspecified (6) Type 2 diabetes mellitus Status: Chronic Category: Medical Code(s): E11.9 - Type 2 diabetes mellitus without complications (7) Hypertension Status: Chronic Category: Medical Code(s): I10 - Essential (primary) hypertension (8) Hyperlipidemia Status: Chronic Category: Medical Code(s): E78.5 - Hyperlipidemia, unspecified - Assessment and plan all Dx Assessment and Plan for all problems:: OK for discharge today. See orders.
--- NOTE | 2021-06-08 11:09 | HMH.PHACLD ---
Lion Dennison has received discharge medication counseling on the following medications: BRILINTA (NEW) ASPIRIN (NEW) IRBESARTAN (NEW) CARVEDILOL (NEW) ATORVASTATIN ALL NEW PRESCRIPTIONS SENT TO [facility] [place]. -AHSAN MANJARREZ, PHARMD
[2021-06-08 12:00] VITALS: PULSE 70
--- NOTE | 2021-06-08 12:28 | PC.NURSE ---
patient given discharge instructions, stated understanding.
--- NOTE | 2021-06-09 15:56 | HMH.DCSUM ---
General - General Admission date:: 06/05/21 Discharge date: 06/08/21 HPI HPI: Mr. Dennison is a 70-year-old male who began having some pain down both arms last week with mild chest pain. He states this went away until a few days ago when he developed fever, cough, shortness of breath, and congestion. The pain in his arms then returned, but he never had further chest pain. He had also had episodes of blood sugar dropping as low as [address] Izquierdo had advised him to decrease his insulin and stop taking his glimepiride. He presented to the ER yesterday and his troponin was elevated at 2.23. He also had ST abnormalities on EKG and there was concern for acute MA. He also was COVID-positive. He was taken emergently to the [facility] and 3 stents were placed. The following morning he had experienced no further arm pain but had coughed all night and felt terrible. He did get the J&J vaccine in September but had not had a booster. Hospital Course Hospital Course: Patient was taken emergently to the [facility] with the following results: ANGIOGRAPHIC RESULTS The left main artery Normal The left anterior descending artery Has proximal 10 to 20% stenosis with a mid vessel to distal tandem 80 to 90% stenoses. The first diagonal artery is small to moderate and has proximal 50 to 60% stenosis The circumflex artery Is a dominant vessel and has proximal 10 to 20% stenoses with a 100% occlusion in the proximal large first obtuse marginal artery. Following stenting the vessel is widely patent. The second obtuse marginal artery which functions as a posterior descending artery has proximal tandem 80% stenoses The right coronary artery Is a nondominant vessel and has proximal 80 and mid vessel 90% stenosis The GALE ventriculogram reveals Not performed The left ventricular end-diastolic pressure Not measured IMPRESSION Acute lateral ST elevation myocardial infarction as described above with successful stenting of the first obtuse marginal artery 100% occlusion reduced to 0% with 1 drug-eluting stent Severe stenosis in the mid to distal LAD followed by drug-eluting stenting reducing the severe to critical disease to 0% Severe stenosis in a large second obtuse marginal artery functioning is a posterior descending artery reducing the severe stenosis to 0% Persistent severe stenosis in a small to medium size nondominant right coronary PLAN 1. Brilinta 90 twice daily plus aspirin 81 mg daily 2. LDL less than 55 3. Carvedilol and REED inhibitor's once hemodynamically stable 4. Supportive care for the next 48 hours with continuous telemetry monitoring 5. Avoidance of tobacco products 6. Medical management for the nondominant right coronary Electronically signed by : Lenin Francois MD 06/05/2021 17:20:10 He was noted to be Covid positive. He had a frequent cough and was felt to have a pneumonia. He was started on Covid protocol for the pneumonia. He gradually became better with cough improvement and was able to eat. Initially he had supplemental oxygen. By 06/08/2021 he had improved and was anxious to go home. His O2 sats were satisfactory on room air. He was to follow-up with Dr. Francois on 06/16/[address] Izquierdo in 2 weeks. Meds to include Brilinta and Covid meds. He was also to continue with carvedilol. See med reconciliation sheet. On this date he was discharged home. Objective Vital signs: Temp Pulse Resp BP Pulse Ox 97.9 F 70 18 122/70 93 L 06/08/21 08:00 06/08/21 12:00 06/08/21 08:00 06/08/21 08:00 06/08/21 08:00 Narrative: Exam Vital signs and Labs for Last 24 Hours: Temp Pulse Resp BP Pulse Ox 97.9 F 78 18 122/70 94 L 06/08/21 08:00 06/08/21 08:00 06/08/21 08:00 06/08/21 08:00 06/08/21 08:00 Laboratory Results - last 24 hr 06/07/21 06:04: POC Glucose 96 06/07/21 11:38: POC Glucose 147 H 06/07/21 16:53: POC Glucose 259 H 06/07/21 21:38: POC Glucose
== END 2021-06-08 12:34 | disposition home or self-care (01) | DRG 246 ==
LOC: ER 15:51 → CATHLAB 16:15 → 2ND 16:27
PROVIDERS: Internal Medicine; Physician Assistant; Admitting Provider Family Medicine; Emergency Provider Emergency Medicine; PCP Family Medicine; Visit Provider Family Medicine
PROC: 027236Z Dilation of Coronary Artery, Three Arteries with Three Drug-eluting Intraluminal Devices, Percutaneous Approach (ICD-10-PCS; principal; 2021-06-05 16:00)
DX: I21.4 Non-ST elevation (NSTEMI) myocardial infarction (principal); I25.10 Atherosclerotic heart disease of native coronary artery without angina pectoris; U07.1 COVID-19; J12.82 Pneumonia due to coronavirus disease 2019; Z87.891 Personal history of nicotine dependence; H81.09 Meniere's disease, unspecified ear; K21.9 Gastro-esophageal reflux disease without esophagitis; I10 Essential (primary) hypertension; Z87.442 Personal history of urinary calculi; R56.9 Unspecified convulsions; E11.69 Type 2 diabetes mellitus with other specified complication; E78.5 Hyperlipidemia, unspecified; Z71.6 Tobacco abuse counseling; E03.9 Hypothyroidism, unspecified
CPT/HCPCS: 36415; 71046; 74177; 80053; 80061; 82962; 83605; 83690; 83880; 84484; 85025; 85347; 87040; 92929; 92943; 93005; 93306; 93458; 99152; 99153; 99285; C1725; C1769; C1876; C9601; C9607; C9803; J0456; J0696; J1644; Q9967; U0003; U0005

== ENCOUNTER → 2021-06-16 09:35 | Outpatient (CLI) | payer MEDICARE, OTHER, SELFPAY ==
[2021-06-16 10:20] LABS: Basophils # 0.2 K/mm3 (0-0.2); Basophils % 3.1 % (0.1-2.0); Eosinophils # 0.1 K/mm3 (0.0-0.4); Eosinophils % 1.7 % (0.1-12.0); Hematocrit 44.5 % (42.0-52.0); Hemoglobin 14.6 g/dL (14.1-18.0); Lymphocytes # 2.1 K/mm3 (0.7-4.5); Lymphocytes % 32.5 % (10-50); Mean Corpuscular HGB Conc 32.8 g/dL (31.8-35.4); Mean Corpuscular Hemoglobin 30.4 pg (27.0-31.2); Mean Corpuscular Volume 92.9 fl (80-94); Mean Platelet Volume 8.4 fl (7.4-10.4); Monocytes # 0.4 K/mm3 (0.1-1.0); Monocytes % 6.7 % (1.7-9.3); Neutrophils # 3.5 K/mm3 (1.8-7.8); Platelet Count 391 K/mm3 (142-424); Red Blood Count 4.79 M/mm3 (4.60-6.20); Red Cell Distribution Width 13.9 % (11.5-17.5); White Blood Count 6.3 K/mm3 (4.8-10.8)
[2021-06-16 11:10] LABS: Anion Gap 13.3 mEq/L (5-15); Blood Urea Nitrogen 22 mg/dl (9-20); Calcium 9.5 mg/dl (8.4-10.2); Carbon Dioxide 26 mmol/L (22.0-30.0); Chloride 107 mmol/L (98-107); Estimated Glomerular Filt Rate 83 ml/min (>60); GFR (African American) 101 ML/MIN (>60); Glucose 192 mg/dl (74-100); Potassium 4.3 mmoL/L (3.5-5.1); Sodium 142 mmol/L (136-145)
== END ==
PROVIDERS: PCP Family Medicine; Visit Provider Internal Medicine
DX: I25.10 Atherosclerotic heart disease of native coronary artery without angina pectoris (principal)
CPT/HCPCS: 36415; 80048; 85025

== ENCOUNTER 2021-06-23 09:42 | Outpatient (RCR) | payer MEDICARE, OTHER, SELFPAY | END 2021-06-23 09:45 | disposition home or self-care (01) | LOC: PT 09:42 | PROVIDERS: Visit Provider Internal Medicine | DX: I25.10 Atherosclerotic heart disease of native coronary artery without angina pectoris (principal); Z95.5 Presence of coronary angioplasty implant and graft | CPT/HCPCS: 93798 ==

== ENCOUNTER 2021-07-26 22:51 | Observation (INO) | payer MEDICARE, OTHER, SELFPAY ==
[2021-07-26 22:51] VITALS: BP 179/94; PULSE 73; RESP 16; TEMP 36.7; O2SAT 99; BMI 32.1
--- NOTE | 2021-07-26 23:06 | XR_ITS ---
PROCEDURE INFORMATION: Exam: XR Chest Exam date and time: 07/26/2021 11:06 PM Age: 71 years old Clinical indication: Sternal or substernal pain; Additional info: Chest pain TECHNIQUE: Imaging protocol: XR of the chest. Views: 1 view. COMPARISON: CR XR CHEST 2V 06/05/2021 3:27 PM FINDINGS: Lungs: Patchy mid to lower lung opacities are favored to represent pulmonary scars. Stigmata of old granulomatous disease. Pleural spaces: Unremarkable. No pleural effusion. No pneumothorax. Heart/Mediastinum: Borderline cardiomegaly. Bones/joints: Bilateral humeral head bone anchors. IMPRESSION: Patchy mid to lower lung opacities are favored to represent pulmonary scars. Atypical infection is less likely, but possible in the appropriate clinical setting.
--- NOTE | 2021-07-26 23:06 | ECG_ITS ---
APPROVED REPORT Exam: Resting ECG HR:73 bpm ECG Measurements Heart Rate 73 AXES MN 159 P 57 QRSd 106 QRS -62 QT 416 T 32 QTc 442 Conclusion SINUS RHYTHM LEFT ANTERIOR FASCICULAR BLOCK [QRS AXIS <= -45, QR IN I, RS IN II] ABNORMAL ECG UNCONFIRMED REPORT Electronically signed by : Armen Bacon MD 07/27/2021 13:48:27
[2021-07-26 23:18] LABS: Basophils # 0.1 K/mm3 (0-0.2); Basophils % 1.1 % (0.1-2.0); Eosinophils # 0.1 K/mm3 (0.0-0.4); Eosinophils % 2.6 % (0.1-12.0); Hematocrit 44.3 % (42.0-52.0); Hemoglobin 13.9 g/dL (14.1-18.0); Lymphocytes # 2.4 K/mm3 (0.7-4.5); Lymphocytes % 47.4 % (10-50); Mean Corpuscular HGB Conc 31.5 g/dL (31.8-35.4); Mean Corpuscular Hemoglobin 30.1 pg (27.0-31.2); Mean Corpuscular Volume 95.5 fl (80-94); Mean Platelet Volume 9.7 fl (7.4-10.4); Monocytes # 0.3 K/mm3 (0.1-1.0); Monocytes % 6.7 % (1.7-9.3); Neutrophils # 2.2 K/mm3 (1.8-7.8); Neutrophils % 42.1 % (37.0-80.0); Platelet Count 206 K/mm3 (142-424); Red Blood Count 4.64 M/mm3 (4.60-6.20); Red Cell Distribution Width 14.6 % (11.5-17.5); White Blood Count 5.1 K/mm3 (4.8-10.8)
[2021-07-26 23:21] LABS: Alanine Aminotransferase 26 U/L (12-78); Albumin Level 4.4 g/dl (3.5-5.0); Albumin/Globulin Ratio 1.6 (1.1-1.8); Alkaline Phosphatase 34 U/L (38-126); Anion Gap 10.9 mEq/L (5-15); Aspartate Amino Transferase 36 U/L (17-59); Bilirubin,Total 0.5 mg/dl (0.2-1.3); Blood Urea Nitrogen 22 mg/dl (9-20); Calcium 9.6 mg/dl (8.4-10.2); Carbon Dioxide 26 mmol/L (22.0-30.0); Chloride 105 mmol/L (98-107); Creatinine Clearance Estimated 74 mL/min (50-200); Estimated Glomerular Filt Rate 66 ml/min (>60); GFR (African American) 80 ML/MIN (>60); Globulin 2.7 g/dL (1.3-3.2); Glucose 167 mg/dl (74-100); Potassium 3.9 mmoL/L (3.5-5.1); Sodium 138 mmol/L (136-145); Total Protein,Serum 7.1 g/dl (6.3-8.2)
[2021-07-26 23:38] LABS: Procalcitonin 0.052 ng/mL (0.0-2.0)
[2021-07-26 23:39] LABS: Troponin I < 0.01 ng/ml (0.00-0.034)
[2021-07-27] VITALS (12 sets, daily range): BP systolic 128–148; BP diastolic 61–86; PULSE 68–80; RESP 16–19; TEMP 36.4–36.9; O2SAT 94–97; BMI 31.3
--- NOTE | 2021-07-27 00:16 | PC.NURSE ---
COVID SWAB OBTAINED AND SENT TO LAB.
[2021-07-27 00:21] LABS: Coronavirus 19, PCR Not Detected (NotDetected); Influenza A, PCR Not Detected (NotDetected); Influenza B, PCR Not Detected (NotDetected)
--- NOTE | 2021-07-27 00:48 | HMH.EDGENADL ---
ED Disposition Clinical Impression: Chest pain Disposition: Admitted As Inpatient Condition on Discharge: Good - Critical Care Critical Care Time: Yes Attestation: On 07/26/21, the high probability of a clinically significant, sudden or life threatening deterioration of the following system(s) required my full and direct attention, intervention and personal management. The time I documented below is in addition to time spent performing reported procedures but includes the following listed in this critical care notation. Total Critical Care Time: 30 Vital system(s) involved:: Circulatory Failure My critical care processes included: Assessment & monitoring of V/S, Initial and Re-exams, Data Review/Interpretation, Coordinating Care Medical Decision Making - Medical Records Medical records reviewed: Yes: I reviewed the patient's medical records. - Arron Inquiry Pt receiving controlled substance: No Vital Signs: 07/26/21 22:51 Temperature 98.1 F Temperature Source Oral Pulse Rate [Left] 73 Respiratory Rate 16 Blood Pressure [Right Arm] 179/94 H Blood Pressure Mean [Right Arm] 122 02 Sat by Pulse Oximetry 99 Oxygen Delivery Method Room Air - Lab Data Lab results reviewed: Yes: I reviewed the patient's lab results. Lab Results 07/26/21 22:52: WBC 5.1, RBC 4.64, Hgb 13.9 L, Hct 44.3, MCV 95.5 H, MCH 30.1, MCHC 31.5 L, RDW 14.6, Plt Count 206, MPV 9.7, Neut % (Auto) 42.1, Lymph % (Auto) 47.4, Hettinger % (Auto) 6.7, Eos % (Auto) 2.6, Baso % (Auto) 1.1, Neut # (Auto) 2.2, Lymph # (Auto) 2.4, Hettinger # (Auto) 0.3, Eos # (Auto) 0.1, Baso # (Auto) 0.1 07/26/21 22:52: Sodium 138, Potassium 3.9, Chloride 105, Carbon Dioxide 26, Anion Gap 10.9, BUN 22 H, Creatinine 1.10, Estimated Creat Clear 74, Estimated GFR 66, Est GFR ( Amer) 80, Glucose 167 H, Calcium 9.6, Total Bilirubin 0.5, AST 36, ALT 26, Alkaline Phosphatase 34 L, Troponin I < 0.01, Total Protein 7.1, Albumin 4.4, Globulin 2.7, Albumin/Globulin Ratio 1.6 07/26/21 22:52: Procalcitonin 0.052 07/27/21 00:14: SARS-CoV-2 (PCR) Not detected, Influenza A Untype (PCR) Not detected, Influenza Type B (PCR) Not detected Result diagrams: 07/26/21 22:52 07/26/21 22:52 Orders (Tests/Meds): ED MEDICATIONS Generic Name Dose Route Start Last Admin Trade Name Freq PRN Reason Stop Dose Admin Sodium Chloride 1,000 mls @ 999 mls/hr 07/26/21 23:15 07/26/21 23:15 Sod Chlor 0.9% 1000ml Bag IV 07/27/21 00:15 999 mls/hr .Q1H1M SWATHI Administration Discontinued Medications Generic Name Dose Route Start Last Admin Trade Name Freq PRN Reason Stop Dose Admin Aspirin 243 mg 07/26/21 23:06 07/26/21 23:15 Aspirin 81mg Chewable Tablet PO 07/26/21 23:07 243 mg ONCE ONE Administration Heparin Sodium (Porcine) 5,000 unit 07/27/21 00:11 07/27/21 00:19 Heparin Sodium 5,000 Unit/Ml Vial IV 07/27/21 00:12 5,000 unit ONCE ONE Administration Morphine Sulfate 2 mg 07/26/21 23:06 07/26/21 23:14 Morphine 2mg/Ml Syringe IV 07/26/21 23:07 2 mg ONCE ONE Administration Ondansetron HCl 4 mg 07/26/21 23:06 07/26/21 23:14 Ondansetron 4mg/2ml Vial IV 07/26/21 23:07 4 mg ONCE ONE Administration ORDERS Category Date Time Status Troponin I Q3H Lab 07/27/21 03:15 Ordered Troponin I Q3H Lab 07/27/21 06:15 Ordered Urinalysis and Microscopic Routine Lab 07/27/21 Ordered Medical Decision Narrative: Mr. Dennison is a 71 yo male w/ PMH for multivessel stents 4 weeks prior and ECHO 55% (05/2021) and T2DM non insulin dependent, who presents to the ED for chest pain. Patient is afebrile and hemodynamically stable on arrival. Physical exam patient is well appearing systolic 150/80, HR 72. Patient given ASA on arrival. Differentials to consider but not limited to include: [place]/CAD, low suspicion for infectious as patient has no respiratory sx, low suspicion for PE given current clinical picture. Bedside ECG shows low voltage, but no obvious signs of
--- NOTE | 2021-07-27 03:25 | PC.NURSE ---
PT TRANSFER TO ROOM 1 AND A HOSPITAL BED WHILE HE WAITS FOR BED ON THE FLOOR. PT AWARE OF NPO STATUS UNTIL LABS ARE COMPLETE. FAMILY AT BEDSIDE. STACEY.
[2021-07-27 04:28] LABS: Troponin I < 0.01 ng/ml (0.00-0.034)
--- NOTE | 2021-07-27 04:54 | PC.NURSE ---
NO ACUTE DISTRESS NOTED. FAMILY AT BEDSIDE. WILL CONTINUE TO MONITOR.
--- NOTE | 2021-07-27 06:21 | PC.NURSE ---
BLOOD DRAWN. PT TOLERATED WELL. NO COMPLAINTS VOICED. DENIES PAIN. WCM.
[2021-07-27 06:51] LABS: Troponin I < 0.01 ng/ml (0.00-0.034)
--- NOTE | 2021-07-27 07:36 | PC.NURSE ---
report called to floor
[2021-07-27 08:36] LABS: Chloride 108 mmol/L (98-107); Sodium 135 mmol/L (136-145)
[2021-07-27 08:39] LABS: Blood Urea Nitrogen 20 mg/dl (9-20); Calcium 8.1 mg/dl (8.4-10.2); Carbon Dioxide 24 mmol/L (22.0-30.0); Creatinine Clearance Estimated 74 mL/min (50-200); Estimated Glomerular Filt Rate 66 ml/min (>60); GFR (African American) 80 ML/MIN (>60); Glucose 91 mg/dl (74-100)
[2021-07-27 08:41] LABS: Basophils % 0.9 % (0.1-2.0); Eosinophils # 0.1 K/mm3 (0.0-0.4); Eosinophils % 2.9 % (0.1-12.0); Hematocrit 41.9 % (42.0-52.0); Hemoglobin 13.4 g/dL (14.1-18.0); Lymphocytes # 1.9 K/mm3 (0.7-4.5); Lymphocytes % 40.5 % (10-50); Mean Corpuscular HGB Conc 31.9 g/dL (31.8-35.4); Mean Corpuscular Hemoglobin 30.5 pg (27.0-31.2); Mean Corpuscular Volume 95.6 fl (80-94); Monocytes # 0.4 K/mm3 (0.1-1.0); Neutrophils # 2.3 K/mm3 (1.8-7.8); Neutrophils % 47.8 % (37.0-80.0); Platelet Count 189 K/mm3 (142-424); Red Blood Count 4.39 M/mm3 (4.60-6.20); Red Cell Distribution Width 14.6 % (11.5-17.5); White Blood Count 4.8 K/mm3 (4.8-10.8)
[2021-07-27 08:54] LABS: Troponin I < 0.01 ng/ml (0.00-0.034)
--- NOTE | 2021-07-27 10:12 | HMH.HP ---
*Admission Date: 07/27/21 *Chief complaint: Chest pain *History of present illness: 71 year old male with a history of CAD and recent left heart cath with stents placed x 3, presented to [facility] ER last night complaining of a 9 hour history of non exertional left anterior chest pain that radiated to his left arm. Patient reported some dyspnea as well. He was unable to get relief from the pain, which he rated at 8/10 in intensity. He states this pain is similar to the pain he had prior to his recent heart attack. He denies PND, orthopnea and lower extremity edema. He states he has been taking his medication as prescribed and his diabetes has been under good control. [facility] History Medical History: Reports:: Coronary Artery Disease, Diabetes Mellitus Type 2, Gastroesophageal Reflux Disease(GERD), Hyperlipidemia, Hypertension, Kidney Stones, Myocardial Infarction, Seizures Denies:: Cancer, Diabetes Mellitus Type 1, Internal Pacemaker, Lung Disease, MRSA *Have you ever received a pneumonia vaccine?: No *Have you received a flu vaccine this season?: Yes Other Medical History: Reports: Arthritis, Hypothyroidism. Denies: Blood Transfusion Reaction Laterality Cases: Right: Other, Bilateral: Arthroscopy Shoulder Other Surgeries: Yes: Cardiac Catheterization, Colonoscopy, Other. No: Pacemaker Amputation: No Fractures: No Comment: Bilateral ankle, left ring finger reattached, kidney stones removed, Exp. laparotomy at after blunt force abd trauma. - *Social History Smoking Status: Former smoker Tobacco Type: cigarettes # Packs/Day (cigarettes): 1 Alcohol Intake: never Alcohol Intake Frequency:: other Substance Use Type: denies use *Occupational Status:: retired Housing: house Household Members: none *Travel in the last 8 weeks: None Family Hx:: Cancer, Coronary Artery Disease, Diabetes, Heart Attack, Hypertension, Stroke Review of Systems - Constitutional Denies chills, Denies fever(s) - Eyes Denies blurry vision - ENT Denies change in voice - *Cardiovascular Denies generalized swelling - *Respiratory Denies cough - *Gastrointestinal Denies bloating - *Genitourinary Denies painful urination - *Musculoskeletal Denies joint pain - Integumentary/Breasts Denies rash - *Neurologic Denies confusion - Psychiatric Denies anxiety - Endocrine Denies excessive sweating, Denies flushing Meds Home Medications Medication Instructions Recorded Confirmed Type fenofibrate micronized 134 mg 134 mg PO DAILY 30 Days cap 04/15/19 03/13/22 History capsule Pioglitazone HCl 30 mg PO DAILY 06/13/19 07/27/21 History empagliflozin 25 mg tablet 25 mg PO DAILY tab 11/19/20 07/27/21 History levothyroxine 75 mcg tablet 75 mcg PO DAILY tab 11/19/20 07/27/21 History metformin 500 mg tablet,extended 1,000 mg PO BID tab 11/19/20 07/27/21 History release 24 hr Insulin Glargine,Hum.rec.anlog 22 units SQ DAILY 06/06/21 07/27/21 History [Lantus Solostar 100 Units/mL 3mL flexpen] atorvastatin 10 mg tablet 10 mg PO HS #90 tab 06/16/21 07/27/21 Rx omeprazole 20 mg capsule,delayed 20 mg PO DAILY #90 cap 06/16/21 07/27/21 Rx release Aspirin [Aspirin 81mg EC Tab] 81 mg PO DAILY 07/27/21 07/27/21 History Irbesartan 75 mg PO DAILY 07/27/21 07/27/21 History Ticagrelor [Brilinta 90mg 90 mg PO BID 07/27/21 07/27/21 History Tablet] carvediloL [Carvedilol 6.25mg Tab] 6.25 mg PO BID 07/27/21 07/27/21 History Allergies Allergy/AdvReac Type Severity Reaction Status Date / Time No Known Allergies Allergy Verified 02/26/21 08:16 Exam Vital signs and Labs for Last 24 Hours: Temp Pulse Resp BP Pulse Ox 98 F 74 16 130/74 96 07/27/21 08:03 07/27/21 08:03 07/27/21 08:03 07/27/21 08:03 07/27/21 07:53 Laboratory Results - last 24 hr 07/26/21 22:52: WBC 5.1, RBC 4.64, Hgb 13.9 L, Hct 44.3, MCV 95.5 H, MCH 30.1, MCHC 31.5 L, RDW 14.6, Plt Count 206, MPV 9.7, Neut % (Auto) 42.1, Lymph % (Auto) 47.
--- NOTE | 2021-07-27 10:29 | CT_ITS ---
PROCEDURE INFORMATION: Exam: CTA Chest With Contrast Exam date and time: 07/27/2021 10:29 AM Age: 71 years old Clinical indication: Pain; Angina pectoris; Prior surgery; Surgery date: 1-6 months; Surgery type: Had heart attack and stents placed 5 weeks ago; Additional info: Chest pain// TECHNIQUE: Imaging protocol: Computed tomographic angiography of the chest with contrast. 3D rendering (Not supervised by radiologist): MIP and/or 3D reconstructed images were created by the technologist. Radiation optimization: All CT scans at this facility use at least one of these dose optimization techniques: automated exposure control; mA and/or kV adjustment per patient size (includes targeted exams where dose is matched to clinical indication); or iterative reconstruction. Contrast material: ISOVUE 370; Contrast volume: 70 ml; Contrast route: INTRAVENOUS (IV); COMPARISON: CR XR CHEST PORTABLE 07/26/2021 11:56 PM FINDINGS: Pulmonary arteries: Normal. No pulmonary emboli. Aorta: Unremarkable. No aortic aneurysm. No aortic dissection. Lungs: Patchy ground-glass opacities are noted in the lungs bilaterally in a subpleural location. Pleural spaces: Unremarkable. No pneumothorax. No pleural effusion. Heart: Heavy coronary artery calcification. Lymph nodes: Mildly prominent mediastinal lymph nodes are seen. Calcified right hilar lymph nodes. Spleen: Calcified splenic granulomas. Kidneys and ureters: Left renal cyst. Bones/joints: Unremarkable. No acute fracture. Soft tissues: Unremarkable. IMPRESSION: 1. No pulmonary emboli identified. 2. Patchy ground-glass opacities in the lungs bilaterally is suggestive of pneumonia. COMMENTS: Consistent with the [employer]'s Incidental Findings Committee white paper (J Am Bindu Radiol 2018): Any incidental renal lesion less than 1 cm or classified as too small to characterize, or any incidental cystic renal lesion characterized as simple-appearing, is likely benign. No follow-up imaging is recommended for these lesions per consensus recommendations based on imaging criteria.
[2021-07-27 10:54] LABS: PTT Heparin (inpatient only) 25.6 Seconds (23.6-34.0)
--- NOTE | 2021-07-27 10:57 | HMH.PHAHEP ---
[facility] Pharmacy Heparin Dosing - Demographic Data Admission date:: 07/27/21 Date: 07/27/21 Time: 10:57 Allergies/Adverse Reactions: Allergies Allergy/AdvReac Type Severity Reaction Status Date / Time No Known Allergies Allergy Verified 02/26/21 08:16 Height: 1.65 m Weight: 85.389 kg - Indication Medication therapy:: Heparin Current Indications:: UNSTABLE ANGINA Patient Problems: Current Active Problems Type 2 diabetes mellitus (Chronic) Hypertension (Chronic) Hyperlipidemia (Chronic) Chest pain (Acute) Unstable angina (Acute) Coronary artery disease (Chronic) Obesity, Class I, BMI 30-34.9 (Acute) CVA?: No Bleeding problem?: No Kidney disease?: No [place]?: Yes Desired PTT range:: Other (50-75 SECONDS) - Labs Anticoagulation Lab Results:: 07/26/21 07/27/21 22:52 08:19 Hgb 13.9 L 13.4 L Hct 44.3 41.9 L Plt Count 206 189 - Monitoring Dose Monitor 1 Date: 07/27/21 Time: 10:58 PTT Result:: BASELINE PTT: 25.6 Infusion Rate:: INITIATE HEPARIN DRIP AT A RATE OF 1000 UNITS/HOUR. PATIENT RECEIVED A ONE-TIME BOLUS DOSE IN THE ER OF 5000 UNITS HEPARIN IV. Dose Monitor 2 Date: 07/27/21 Time: 16:45 Infusion Rate:: 31.0 Comment:: INCREASE RATE BY 4 UNITS/KG/HOUR TO 1350 UNITS/HOUR = 27 ML/HOUR Dose Monitor 3 Date: 07/27/21 Time: 22:10 PTT Result:: 57.2 Infusion Rate:: CONTINUED CURRENT RATE OF 1350 UNITS/HOUR = 27 ML/HR Dose Monitor 4 Date: 07/28/21 Time: 05:15 PTT Result:: 50.8 Infusion Rate:: CONTINUED CURRENT RATE OF 1350 UNITS/HOUR = 27 ML/HR Dose Monitor 5 Date: 07/28/21 Time: 11:00 PTT Result:: 32.5 Infusion Rate:: PATIENT TAKEN TO LANDSCAPER, DRIP STOPPED. - Core Measures Is INR > or = 2 at discharge?: No Most Recent Labs:: Laboratory Results - last 24 hr 07/26/21 22:52: WBC 5.1, RBC 4.64, Hgb 13.9 L, Hct 44.3, MCV 95.5 H, MCH 30.1, MCHC 31.5 L, RDW 14.6, Plt Count 206, MPV 9.7, Neut % (Auto) 42.1, Lymph % (Auto) 47.4, [place] % (Auto) 6.7, Eos % (Auto) 2.6, Baso % (Auto) 1.1, Neut # (Auto) 2.2, Lymph # (Auto) 2.4, [place] # (Auto) 0.3, Eos # (Auto) 0.1, Baso # (Auto) 0.1 07/26/21 22:52: Sodium 138, Potassium 3.9, Chloride 105, Carbon Dioxide 26, Anion Gap 10.9, BUN 22 H, Creatinine 1.10, Estimated Creat Clear 74, Estimated GFR 66, Est GFR ( Amer) 80, Glucose 167 H, Calcium 9.6, Total Bilirubin 0.5, AST 36, ALT 26, Alkaline Phosphatase 34 L, Troponin I < 0.01, Total Protein 7.1, Albumin 4.4, Globulin 2.7, Albumin/Globulin Ratio 1.6 07/26/21 22:52: Procalcitonin 0.052 07/27/21 00:14: SARS-CoV-2 (PCR) Not detected, Influenza A Untype (PCR) Not detected, Influenza Type B (PCR) Not detected 07/27/21 03:18: Troponin I < 0.01 07/27/21 06:18: Troponin I < 0.01 07/27/21 08:19: WBC 4.8, RBC 4.39 L, Hgb 13.4 L, Hct 41.9 L, MCV 95.6 H, MCH 30.5, MCHC 31.9, RDW 14.6, Plt Count 189, MPV 10.0, Neut % (Auto) 47.8, Lymph % (Auto) 40.5, [place] % (Auto) 8.0, Eos % (Auto) 2.9, Baso % (Auto) 0.9, Neut # (Auto) 2.3, Lymph # (Auto) 1.9, [place] # (Auto) 0.4, Eos # (Auto) 0.1, Baso # (Auto) 0.0 07/27/21 08:19: Sodium 135 L, Potassium 4.0, Chloride 108 H, Carbon Dioxide 24, Anion Gap 7.0, BUN 20, Creatinine 1.10, Estimated Creat Clear 74, Estimated GFR 66, Est GFR ( Amer) 80, Glucose 91 D, Calcium 8.1 L 07/27/21 08:19: Troponin I < 0.01 07/27/21 10:30: APTT 25.6 Were Heparin and Warfarin started on the same day?: No If not, why?: ASPIRIN AND BRILINTA RESTARTED FROM HOME
--- NOTE | 2021-07-27 11:00 | HMH.PHAVTE ---
[facility] Pharmacy VTE Monitoring - Patient Demographics Admission date: 07/27/21 Report Date: 07/27/21 Time: 11:01 Allergies/Adverse Reactions: Patient Allergies No Known Allergies Allergy (Verified 02/26/21 08:16) Height: 1.65 m Weight: 85.389 kg Patient Problems: Current Active Problems Type 2 diabetes mellitus (Chronic) Hypertension (Chronic) Hyperlipidemia (Chronic) Chest pain (Acute) Coronary artery disease (Chronic) Obesity, Class I, BMI 30-34.9 (Acute) Diabetes mellitus (Acute) - VTE Risk Labs: VTE Related Lab Results Hgb 13.4 g/dL (14.1-18.0) L 07/27/21 08:19 Hct 41.9 % (42.0-52.0) L 07/27/21 08:19 Plt Count 189 K/mm3 (142-424) 07/27/21 08:19 APTT 25.6 Seconds (23.6-34.0) 07/27/21 10:30 BUN 20 mg/dl (9-20) 07/27/21 08:19 Creatinine 1.10 mg/dl (0.66-1.25) 07/27/21 08:19 Estimated Creat Clear 74 mL/min (50-200) 07/27/21 08:19 Was VTE Risk Assessment Performed: Yes VTE Score: 4 VTE Risk Level: Low Risk Clinical Trial Participant: No - Prophylaxis VTE Prophylaxis Ordered?: Yes Types of VTE Prophylaxis: TEDS Knee High, Pharmacological Location of Applied Device: Bilateral Lower Extremeties Pharmacologic Type: Heparin (STARTED ON HEPARIN DRIP FOR ACS/UNSTABLE ANGINA)
--- NOTE | 2021-07-27 11:09 | HMH.PHAINT ---
MEDICATION RECONCILIATION COMPLETE USING LIST FROM MOST RECENT CARDIOLOGY OFFICE VISIT AND EXTERNAL PHARMACY FILL HISTORY. PATIENT STATES HE TAKES 10 MG OF ATORVASTATIN, NOT 40 MG.
[2021-07-27 11:13] LABS: Troponin I < 0.01 ng/ml (0.00-0.034)
[2021-07-27 11:43] LABS: POC Glucose,Bedside 100 (70-110)
[2021-07-27 16:55] LABS: POC Glucose,Bedside 268 (70-110)
--- NOTE | 2021-07-27 21:29 | PC.NURSE ---
Contacted [facility] and Dr. Dorman about pts scheduled brillinta while on heparin gtt. Both pharmacist and MD recommend holding brillinta at this time. Brillinta held.
[2021-07-27 22:40] LABS: PTT Heparin (inpatient only) 57.2 Seconds (23.6-34.0)
--- NOTE | 2021-07-27 22:56 | PC.NURSE ---
Contacted Mala. Pharmacist at [facility] for heparin gtt and ptt results. Pts ptt is 57.2. No dosage change needed for heparin gtt at this time per pharmacist, order ptt draw at 0500.
[2021-07-28] VITALS (23 sets, daily range): BP systolic 110–184; BP diastolic 71–97; PULSE 66–90; RESP 12–21; TEMP 36.3–36.9; O2SAT 90–100; BMI 31.1
--- NOTE | 2021-07-28 | IR_ITS ---
APPROVED REPORT Patient Location: Inpatient PROCEDURES Left heart catheterization Left ventriculogram Selective coronary angiogram Drug-eluting stent deployment to the proximal mid and distal left anterior descending artery Attempted FFR to the LAD INDICATION Coronary artery disease, Recalcitrant angina pectoris Informed consent was obtained prior to the procedure. COMPLICATIONS None Estimated Blood Loss: Less than 10 ML TECHNIQUE One percent lidocaine used to anesthetize the right anterior aspect of the wrist. The right radial artery was accessed via the Seldinger technique. A 6 [place] sheath was placed in the right radial artery. 2.5 mg of verapamil, 800 mcg of nitroglycerin, 1mg Lidocaine and 5000 U Heparin were given through the arterial sheath. The papa catheter was also used to perform left heart catheterization, left ventriculogram and selective coronary angiogram. At the end the diagnostic angiogram therapeutic heparin was administered giving a therapeutic ACT. A nevus FFR wire was removed from the case and an attempted equalizing pressure was made. There were problems with the device therefore the transducer was changed out on the manifold. Despite changing of the transducer we were unable to equalize the FFR catheter. While I strongly believe this was an ischemic LAD I still wanted confirmatory FFR interrogation in the event someone else or an external reviewer questioned the severity of the stenosis. Despite all efforts of trying to perform an FFR it was decided to stent the vessel. 3 mm x 38 mm resolute Juvencio stent was placed proximally with some difficulty. There was difficulty in getting the stent in presumably due to the intravascular obstruction. Eventually the guide was deep-seated in the stent was advanced and deployed at 20 rosas. An additional 2.5 x 38 mm resolute Juvencio stent was placed distal to the first stent yet still overlapping it and then deployed at 20 rosas. The balloon was brought back and deployed at 28 rosas to mesh the stents. The balloon was then advanced further and deployed at 20 rosas. After achieving excellent angiographic results apparatus was removed the sheath was removed and hemostasis achieved using TR banding patient was transferred to the postop holding area stable condition. GORAN-3 flow was present before and after the procedure ANGIOGRAPHIC RESULTS The left main artery Normal The left anterior descending artery Has proximal 50 to 70% stenoses followed by stents in the distal portion of the mid segment and extending into the distal LAD. The stents are widely patent. First diagonal artery is moderate in size and has ostial 80% followed by a proximal 90% stenosis The circumflex artery Is a dominant vessel and is proximally normal. Stents in the first and second obtuse marginal artery are widely patent. There is excellent GORAN-3 flow down the widely patent stents within the circumflex artery and obtuse marginal artery The right coronary artery Is a nondominant vessel but does supply a scant amount of blood to the inferior wall. The vessel is proximally 2 mm to 2.25 mm in diameter. There is proximal and mid vessel 90% stenoses still accompanied by GORAN-3 flow The GALE ventriculogram reveals Not performed The left ventricular end-diastolic pressure Not measured IMPRESSION Severe disease in the LAD with successful percutaneous revascularization of the proximal to mid LAD as described above Persistent moderate to severe stenosis in the moderate sized first diagonal artery Persistent severe stenoses in a small nondominant right coronary PLAN 1. Dual antiplatelet therapy 2. Medical management for the diagonal artery and right coronary 3. Maximize antiangin
[2021-07-28 05:30] LABS: Basophils # 0.1 K/mm3 (0-0.2); Basophils % 1.8 % (0.1-2.0); Eosinophils # 0.1 K/mm3 (0.0-0.4); Hematocrit 39.2 % (42.0-52.0); Lymphocytes # 2.2 K/mm3 (0.7-4.5); Lymphocytes % 46.7 % (10-50); Mean Corpuscular HGB Conc 33.1 g/dL (31.8-35.4); Mean Corpuscular Volume 93.7 fl (80-94); Mean Platelet Volume 9.9 fl (7.4-10.4); Monocytes # 0.4 K/mm3 (0.1-1.0); Neutrophils # 1.9 K/mm3 (1.8-7.8); Neutrophils % 40.5 % (37.0-80.0); Platelet Count 173 K/mm3 (142-424); Red Blood Count 4.18 M/mm3 (4.60-6.20); Red Cell Distribution Width 14.6 % (11.5-17.5); White Blood Count 4.7 K/mm3 (4.8-10.8)
[2021-07-28 05:49] LABS: PTT Heparin (inpatient only) 50.8 Seconds (23.6-34.0)
--- NOTE | 2021-07-28 05:55 | PC.NURSE ---
Talked to Enrrique [facility]ist [facility] regarding pts PTT results. No dosage change needed at this time. According to [facility], since pt has had two PTTs in a row within therapeutic range, next PTT should be done tomorrow morning. Pharmacist states he will leave a note for pharmacy to follow up as well. Heparin still infusing at 1350 units/hr (27mls/hr).
[2021-07-28 06:19] LABS: POC Glucose,Bedside 105 (70-110)
[2021-07-28 06:19] LABS: POC Glucose,Bedside 85 (70-110)
[2021-07-28 07:46] LABS: Anion Gap 9.2 mEq/L (5-15); Blood Urea Nitrogen 16 mg/dl (9-20); Calcium 9.1 mg/dl (8.4-10.2); Carbon Dioxide 26 mmol/L (22.0-30.0); Chloride 105 mmol/L (98-107); Creatinine Clearance Estimated 81 mL/min (50-200); Estimated Glomerular Filt Rate 74 ml/min (>60); GFR (African American) 89 ML/MIN (>60); Glucose 83 mg/dl (74-100); Potassium 4.2 mmoL/L (3.5-5.1); Sodium 136 mmol/L (136-145)
--- NOTE | 2021-07-28 08:23 | HMH.ACPN2 ---
<Corin Kraft - Last Filed: 07/28/21 08:23> Internal Medicine - PN: Subj *Date: 07/28/21 *Time: 08:23 Interval history: Patient states he is better this morning. He does continue to have some left arm discomfort. He is eating without difficulty. He has been up to the bathroom without problems. He denies shortness of breath. Troponins have been negative. Blood chemistries are normal this morning. CBC with a hemoglobin of 13 and hematocrit of 39.2. White blood cell count is 4700. CTA of the chest shows no pulmonary emboli; Patchy groundglass opacities in the lungs bilaterally suggesting pneumonia. Exam Vital signs and Labs for Last 24 Hours: Temp Pulse Resp BP Pulse Ox 97.4 F L 73 16 126/76 98 07/28/21 04:00 07/28/21 04:00 07/28/21 04:00 07/28/21 04:00 07/28/21 04:00 Laboratory Results - last 24 hr 07/27/21 08:19: WBC 4.8, RBC 4.39 L, Hgb 13.4 L, Hct 41.9 L, MCV 95.6 H, MCH 30.5, MCHC 31.9, RDW 14.6, Plt Count 189, MPV 10.0, Neut % (Auto) 47.8, Lymph % (Auto) 40.5, [place] % (Auto) 8.0, Eos % (Auto) 2.9, Baso % (Auto) 0.9, Neut # (Auto) 2.3, Lymph # (Auto) 1.9, [place] # (Auto) 0.4, Eos # (Auto) 0.1, Baso # (Auto) 0.0 07/27/21 08:19: Sodium 135 L, Potassium 4.0, Chloride 108 H, Carbon Dioxide 24, Anion Gap 7.0, BUN 20, Creatinine 1.10, Estimated Creat Clear 74, Estimated GFR 66, Est GFR ( Amer) 80, Glucose 91 D, Calcium 8.1 L 07/27/21 08:19: Troponin I < 0.01 07/27/21 08:47: POC Glucose 100 07/27/21 10:30: Troponin I < 0.01 07/27/21 10:30: APTT 25.6 07/27/21 16:28: POC Glucose 268 H 07/27/21 16:45: APTT 31.0 07/27/21 21:32: POC Glucose 105 07/27/21 22:10: APTT 57.2 H* 07/28/21 05:15: WBC 4.7 L, RBC 4.18 L, Hgb 13.0 L, Hct 39.2 L, MCV 93.7, MCH 31.0, MCHC 33.1, RDW 14.6, Plt Count 173, MPV 9.9, Neut % (Auto) 40.5, Lymph % (Auto) 46.7, [place] % (Auto) 8.0, Eos % (Auto) 3.0, Baso % (Auto) 1.8, Neut # (Auto) 1.9, Lymph # (Auto) 2.2, [place] # (Auto) 0.4, Eos # (Auto) 0.1, Baso # (Auto) 0.1 07/28/21 05:15: Sodium 136, Potassium 4.2, Chloride 105, Carbon Dioxide 26, Anion Gap 9.2, BUN 16, Creatinine 1.00, Estimated Creat Clear 81, Estimated GFR 74, Est GFR ( Amer) 89, Glucose 83, Calcium 9.1 07/28/21 05:15: APTT 50.8 H* 07/28/21 06:12: POC Glucose 85 I & O for Last 24 hours: Intake & Output 07/25/21 07/26/21 07/27/21 07/28/21 10:59 10:59 11:59 11:59 Intake Total 840 / 840 Balance 840 / 840 Weight 187 lb 4.8 oz - Constitutional no acute distress Comments: Sitting up in the bed and appears comfortable - *Routine Respiratory Exam Present: CTA bilaterally (Anteriorly and posteriorly) - *Routine Cardiovascular Exam Present: RRR (Monitor showing sinus rhythm) - *Routine Abdominal Exam Present: soft, normoactive bowel sounds. Absent: tenderness, distended - *Routine Extremities Exam Absent: edema, calf tenderness - *Routine Neurological Exam Present: alert, oriented X3 Assessment and Plan (1) Chest pain Status: Acute Category: Medical Code(s): R07.9 - Chest pain, unspecified (2) Diabetes mellitus Status: Acute Qualifiers: Diabetes mellitus type: type 2 Diabetes mellitus custodial insulin use: without lobsterman use Diabetes mellitus complication status: with neurologic complications Diabetes mellitus complication detail: with polyneuropathy Qualified Code(s): E11.42 - Type 2 diabetes mellitus with diabetic polyneuropathy Category: Medical Code(s): E11.9 - Type 2 diabetes mellitus without complications (3) Obesity, Class I, BMI 30-34.9 Status: Acute Category: Medical Code(s): E66.9 - Obesity, unspecified (4) Coronary artery disease Status: Chronic Qualifiers: Coronary Disease-Associated Artery/Lesion type: [place] artery [place] vs. transplanted heart: [place] heart Associated angina: without angina Qualified Code(s): I25.10 - Atherosclerotic heart disease of [place] coronary artery without angina pectoris Category: Medical C
--- NOTE | 2021-07-28 10:06 | HMH.CNCARD ---
<Ruth Foster - Last Filed: 07/28/21 10:06> History of Present Illness Consult date: 07/28/21 Requesting physician: Declan Izquierdo Consult reason: chest pain Chief complaint: chest pain History of present illness: This is a 71-year-old white gentleman who admitted to the hospital for chest pain. The patient has a history of recent stenting to his coronary arteries with 3 stents placed in May 2021. The patient presented to the emergency department with a 9-hour history of left-sided chest pain. He states that this radiates to his left arm. The patient states that this is a pressure type sensation and is associated with shortness of breath and diaphoresis. He states that the pain is an 8 out of 10 in intensity. He states that this feels exactly like it did when he had his previous heart attack. It is worse with exertion and nothing was seeming to help improve the chest pain at home. It did improve once he got here to the hospital and was given medications. The patient states that the chest pain has improved since being in the hospital but has not resolved. He states that he is still having a lot of left arm pain this morning. His chest pain has eased up some but is still present. He denies any nausea or vomiting. The patient denies any fever, chills, nausea, vomiting, diarrhea, PND or orthopnea. [facility] History I have reviewed the patient's past medical history: Yes Medical History: Reports:: Atherosclerotic Heart Disease, Coronary Artery Disease, Diabetes Mellitus Type 2, Gastroesophageal Reflux Disease(GERD), Hyperlipidemia, Hypertension, Kidney Stones, Myocardial Infarction, Seizures Denies:: Cancer, Diabetes Mellitus Type 1, Internal Pacemaker, Lung Disease, MRSA *Have you ever received a pneumonia vaccine?: No *Have you received a flu vaccine this season?: Yes Other Medical History: Reports: Arthritis, Hypothyroidism, Thyroid Disease, Other. Denies: Blood Transfusion Reaction Laterality Cases: Right: Other, Bilateral: Arthroscopy Shoulder Other Surgeries: Yes: Cardiac Catheterization, Colonoscopy, Other. No: Pacemaker Amputation: No Fractures: No - *Social History Smoking Status: Former smoker Tobacco Type: cigarettes # Packs/Day (cigarettes): 1 Alcohol Intake: never Alcohol Intake Frequency:: other Substance Use Type: denies use *Occupational Status:: retired Housing: house Household Members: none *Travel in the last 8 weeks: None Family Hx:: Cancer, Coronary Artery Disease, Diabetes, Heart Attack, Hypertension, Stroke Meds Home Medications Medication Instructions Recorded Confirmed Type fenofibrate micronized 134 mg 134 mg PO DAILY 30 Days cap 08/29/18 07/27/21 History capsule Pioglitazone HCl 30 mg PO DAILYDM 06/13/19 07/27/21 History empagliflozin 25 mg tablet 25 mg PO DAILYDM tab 11/19/20 07/27/21 History levothyroxine 75 mcg tablet 75 mcg PO DAILYDM tab 11/19/20 07/27/21 History metformin 500 mg tablet,extended 1,000 mg PO BIDWMEAL tab 11/19/20 07/27/21 History release 24 hr Insulin Glargine,Hum.rec.anlog 22 units SQ DAILY 06/06/21 07/27/21 History [Lantus Solostar 100 Units/mL 3mL flexpen] atorvastatin 10 mg tablet 10 mg PO HS #90 tab 06/16/21 07/27/21 Rx omeprazole 20 mg capsule,delayed 20 mg PO DAILY #90 cap 06/16/21 07/27/21 Rx release Aspirin [Aspirin 81mg EC Tab] 81 mg PO DAILY 07/27/21 07/27/21 History Irbesartan 75 mg PO DAILY 07/27/21 07/27/21 History Ticagrelor [Brilinta 90mg 90 mg PO BID 07/27/21 07/27/21 History Tablet] carvediloL [Carvedilol 6.25mg Tab] 6.25 mg PO BID 07/27/21 07/27/21 History Allergies Allergy/AdvReac Type Severity Reaction Status Date / Time No Known Allergies Allergy Verified 02/26/21 08:16 Exam Vital signs and Labs for Last 24 Hours: Temp Pulse Resp BP Pulse Ox 97.9 F 84 16 154/77 H 95 07/28/21 08:00 07/28/21 08:00 07/28/21 08:00 07/28/21 08:00 07/28/21 08:00 Laboratory Results - last 24 hr 07/27/21 08:47
--- NOTE | 2021-07-28 10:29 | CA_ITS ---
APPROVED REPORT EXAM: Comprehensive 2D, Doppler, and color-flow Echocardiogram Container Crane Operator: Juliana Bishop CRT Ht: 5 ft 5 in Wt: 185lbs BSA: 1.91 BP: 130/74 mmHg Indications: Chest Pain R07.89, EF check 55% 06/05/21 and stents, ex smoker, HTN, DM,HLD, SOB, DNI, COVID M-Mode Dimensions RVDd 3.18 cm (0.9-2.6) LVDd 4.42 cm (3.5-5.7) LVDs 2.84 cm (3.5-5.7) IVSd 2.24 cm (0.6-1.1) PWd 0.57 cm (0.6-1.1) EF (Teich) 65.50% FS 35.70% EDV (Teich) 88.60 mL ESV (Teich) 30.60 mL Conclusion 1. Limited echocardiogram was obtained to evaluate left ventricular systolic function. 2. Normal left ventricular size, mild concentric left ventricular hypertrophy, estimated ejection fraction 55% with no regional wall motion abnormality. 3. No significant pericardial effusion noted. Electronically signed by : German Woodruff MD 07/28/2021 20:14:13
[2021-07-28 11:11] LABS: PTT Heparin (inpatient only) 32.5 Seconds (23.6-34.0)
[2021-07-28 11:16] LABS: POC Glucose,Bedside 167 (70-110)
[2021-07-28 15:29] LABS: CATHL Activated Clotting Time 264 SEC (74-125)
[2021-07-28 17:36] LABS: POC Glucose,Bedside 79 (70-110)
[2021-07-28 20:54] LABS: POC Glucose,Bedside 171 (70-110)
[2021-07-29] VITALS: BP 132/70; PULSE 80; PULSE 89; RESP 16; TEMP 36.4; O2SAT 94
[2021-07-29 04:00] VITALS: BP 143/79; PULSE 80; RESP 16; TEMP 36.8; O2SAT 97
[2021-07-29 04:37] VITALS: BMI 30.5
[2021-07-29 06:37] LABS: POC Glucose,Bedside 123 (70-110)
[2021-07-29 07:08] LABS: Alanine Aminotransferase 31 U/L (12-78); Albumin Level 4.3 g/dl (3.5-5.0); Alkaline Phosphatase 34 U/L (38-126); Anion Gap 10.9 mEq/L (5-15); Aspartate Amino Transferase 44 U/L (17-59); Bilirubin,Direct 0.1 mg/dl (0.0-0.4); Bilirubin,Indirect 0.4 mg/dL (0.0-0.9); Bilirubin,Total 0.5 mg/dl (0.2-1.3); Bilirubin,Unconjugated 0.4 mg/dL (0.0-1.1); Blood Urea Nitrogen 13 mg/dl (9-20); Calcium 8.9 mg/dl (8.4-10.2); Carbon Dioxide 24 mmol/L (22.0-30.0); Chloride 107 mmol/L (98-107); Chol/HDL Ratio 3.8 (1-3.5); Cholesterol 202 mg/dl (140-200); Creatinine Clearance Estimated 80 mL/min (50-200); Estimated Glomerular Filt Rate 83 ml/min (>60); GFR (African American) 101 ML/MIN (>60); Glucose 120 mg/dl (74-100); HDL Cholesterol 53 mg/dl (40-60); Potassium 3.9 mmoL/L (3.5-5.1); Sodium 138 mmol/L (136-145); Total Protein,Serum 7.1 g/dl (6.3-8.2); Triglycerides 149 mg/dl (30-150); VLDL Cholesterol 30 mg/dL (0-40)
[2021-07-29 07:10] LABS: Basophils % 0.5 % (0.1-2.0); Eosinophils # 0.1 K/mm3 (0.0-0.4); Eosinophils % 1.9 % (0.1-12.0); Hematocrit 43.5 % (42.0-52.0); Lymphocytes # 1.8 K/mm3 (0.7-4.5); Mean Corpuscular HGB Conc 32.3 g/dL (31.8-35.4); Mean Corpuscular Hemoglobin 30.5 pg (27.0-31.2); Mean Corpuscular Volume 94.4 fl (80-94); Mean Platelet Volume 9.4 fl (7.4-10.4); Monocytes # 0.5 K/mm3 (0.1-1.0); Monocytes % 8.6 % (1.7-9.3); Neutrophils # 3.7 K/mm3 (1.8-7.8); Neutrophils % 59.9 % (37.0-80.0); Platelet Count 193 K/mm3 (142-424); Red Cell Distribution Width 14.6 % (11.5-17.5); White Blood Count 6.2 K/mm3 (4.8-10.8)
[2021-07-29 07:19] LABS: Direct LDL Cholesterol 97.07 mg/dL (100-129)
--- NOTE | 2021-07-29 07:45 | HMH.ACPN2 ---
<Corin Kraft - Last Filed: 07/29/21 07:50> Internal Medicine - PN: Subj *Date: 07/29/21 *Time: 07:50 Interval history: Patient is feeling better this a.m. He has no further left arm pain and no chest pain or shortness of breath... He did sleep some during the night. He is eating without difficulty. He had a cardiac cath yesterday with the following results.: IMPRESSION Severe disease in the LAD with successful percutaneous revascularization of the proximal to mid LAD as described above Persistent moderate to severe stenosis in the moderate sized first diagonal artery Persistent severe stenoses in a small nondominant right coronary Exam Vital signs and Labs for Last 24 Hours: Temp Pulse Resp BP Pulse Ox 98.2 F 80 16 143/79 H 97 07/29/21 04:00 07/29/21 04:00 07/29/21 04:00 07/29/21 04:00 07/29/21 04:00 Laboratory Results - last 24 hr 07/28/21 05:15: Sodium 136, Potassium 4.2, Chloride 105, Carbon Dioxide 26, Anion Gap 9.2, BUN 16, Creatinine 1.00, Estimated Creat Clear 81, Estimated GFR 74, Est GFR ( Amer) 89, Glucose 83, Calcium 9.1 07/28/21 10:55: APTT 32.5 07/28/21 10:57: POC Glucose 167 H 07/28/21 13:42: Activated Clotting Time 264 H* 07/28/21 17:24: POC Glucose 79 07/28/21 19:45: POC Glucose 171 H 07/29/21 06:17: WBC 6.2 D, RBC 4.60, Hgb 14.0 L, Hct 43.5, MCV 94.4 H, MCH 30.5, MCHC 32.3, RDW 14.6, Plt Count 193, MPV 9.4, Neut % (Auto) 59.9, Lymph % (Auto) 29.0, [place] % (Auto) 8.6, Eos % (Auto) 1.9, Baso % (Auto) 0.5, Neut # (Auto) 3.7, Lymph # (Auto) 1.8, [place] # (Auto) 0.5, Eos # (Auto) 0.1, Baso # (Auto) 0.0 07/29/21 06:17: Sodium 138, Potassium 3.9, Chloride 107, Carbon Dioxide 24, Anion Gap 10.9, BUN 13, Creatinine 0.90, Estimated Creat Clear 80, Estimated GFR 83, Est GFR ( Amer) 101, Glucose 120 H, Calcium 8.9, Total Bilirubin 0.5, Direct Bilirubin 0.1, Conjugated Bilirubin 0.0, Indirect Bilirubin 0.4, Unconjugated Bilirubin 0.4, AST 44, ALT 31, Alkaline Phosphatase 34 L, Total Protein 7.1, Albumin 4.3, Triglycerides 149, Cholesterol 202 H, LDL Cholesterol Direct 97.07 L, VLDL Cholesterol 30, HDL Cholesterol 53, Cholesterol/HDL Ratio 3.8 H 07/29/21 06:30: POC Glucose 123 H I & O for Last 24 hours: Intake & Output 07/26/21 07/27/21 07/28/21 07/29/21 10:59 11:59 11:59 11:59 Intake Total 840 / 840 Output Total 600 / 600 Balance 240 / 240 Weight 187 lb 4.876 oz 183 lb 5 oz - Constitutional no acute distress - *Routine Respiratory Exam Present: CTA bilaterally (Anteriorly and posteriorly) - *Routine Cardiovascular Exam Present: RRR - *Routine Abdominal Exam Present: soft, normoactive bowel sounds. Absent: tenderness, distended - *Routine Extremities Exam Absent: edema - *Routine Neurological Exam Present: alert, oriented X3 Assessment and Plan (1) Coronary artery disease Status: Chronic Qualifiers: Coronary Disease-Associated Artery/Lesion type: [place] artery [place] vs. transplanted heart: [place] heart Associated angina: without angina Qualified Code(s): I25.10 - Atherosclerotic heart disease of [place] coronary artery without angina pectoris Category: Medical Code(s): I25.10 - Atherosclerotic heart disease of [place] coronary artery without angina pectoris (2) Hyperlipidemia Status: Chronic Qualifiers: Hyperlipidemia type: mixed hyperlipidemia Qualified Code(s): E78.2 - Mixed hyperlipidemia Category: Medical Code(s): E78.5 - Hyperlipidemia, unspecified (3) Hypertension Status: Chronic Qualifiers: Hypertension type: primary hypertension Qualified Code(s): I10 - Essential (primary) hypertension Category: Medical Code(s): I10 - Essential (primary) hypertension (4) Type 2 diabetes mellitus Status: Chronic Category: Medical Code(s): E11.9 - Type 2 diabetes mellitus without complications (5) Obesity, Class I, BMI 30-34.9 Status: Acute Category: Medical Code(s): E66.9 - Obesity, unspe
[2021-07-29 08:00] VITALS: BP 149/85; PULSE 80; PULSE 81; RESP 18; RESP 19; TEMP 36.7; O2SAT 96; O2SAT 97
--- NOTE | 2021-07-29 09:05 | HMH.PNCARD ---
Subjective Date: 07/29/21 Time: 08:15 Principal diagnosis: angina, CAD Interval history: This is a 71-year-old white gentleman who was admitted to the hospital for chest pain and angina. The patient was felt to have unstable angina underwent left cardiac catheterization yesterday. The patient had revascularization to the LAD with drug-eluting stents. He had persistent moderate to severe's disease noted to the first diagonal artery and nondominant right coronary artery. The patient will remain on Brilinta and aspirin for dual antiplatelet therapy. This morning the patient states that his chest pain and pressure have resolved. He states that his left arm pain has also resolved. He states that he is feeling much better. He denies any shortness of breath or edema. He denies any fever, chills, nausea, vomiting, diarrhea, PND or orthopnea. Exam Vital signs and Labs for Last 24 Hours: Temp Pulse Resp BP Pulse Ox 98.1 F 81 19 149/85 H 96 07/29/21 08:00 07/29/21 08:00 07/29/21 08:00 07/29/21 08:00 07/29/21 08:00 Laboratory Results - last 24 hr 07/28/21 10:55: APTT 32.5 07/28/21 10:57: POC Glucose 167 H 07/28/21 13:42: Activated Clotting Time 264 H* 07/28/21 17:24: POC Glucose 79 07/28/21 19:45: POC Glucose 171 H 07/29/21 06:17: WBC 6.2 D, RBC 4.60, Hgb 14.0 L, Hct 43.5, MCV 94.4 H, MCH 30.5, MCHC 32.3, RDW 14.6, Plt Count 193, MPV 9.4, Neut % (Auto) 59.9, Lymph % (Auto) 29.0, [place] % (Auto) 8.6, Eos % (Auto) 1.9, Baso % (Auto) 0.5, Neut # (Auto) 3.7, Lymph # (Auto) 1.8, [place] # (Auto) 0.5, Eos # (Auto) 0.1, Baso # (Auto) 0.0 07/29/21 06:17: Sodium 138, Potassium 3.9, Chloride 107, Carbon Dioxide 24, Anion Gap 10.9, BUN 13, Creatinine 0.90, Estimated Creat Clear 80, Estimated GFR 83, Est GFR ( Amer) 101, Glucose 120 H, Calcium 8.9, Total Bilirubin 0.5, Direct Bilirubin 0.1, Conjugated Bilirubin 0.0, Indirect Bilirubin 0.4, Unconjugated Bilirubin 0.4, AST 44, ALT 31, Alkaline Phosphatase 34 L, Total Protein 7.1, Albumin 4.3, Triglycerides 149, Cholesterol 202 H, LDL Cholesterol Direct 97.07 L, VLDL Cholesterol 30, HDL Cholesterol 53, Cholesterol/HDL Ratio 3.8 H 07/29/21 06:30: POC Glucose 123 H I & O for Last 24 hours: Intake & Output 07/26/21 07/27/21 07/28/21 07/29/21 22:59 23:59 23:59 23:59 Intake Total 240 / 240 Output Total 600 / 600 0 / 0 Balance -600 / -600 240 / 240 Weight 187 lb 4.876 oz 183 lb 5 oz Narrative: [facility] shows: The left main artery Normal The left anterior descending artery Has proximal 50 to 70% stenoses followed by stents in the distal portion of the mid segment and extending into the distal LAD. The stents are widely patent. First diagonal artery is moderate in size and has ostial 80% followed by a proximal 90% stenosis The circumflex artery Is a dominant vessel and is proximally normal. Stents in the first and second obtuse marginal artery are widely patent. There is excellent GORAN-3 flow down the widely patent stents within the circumflex artery and obtuse marginal artery The right coronary artery Is a nondominant vessel but does supply a scant amount of blood to the inferior wall. The vessel is proximally 2 mm to 2.25 mm in diameter. There is proximal and mid vessel 90% stenoses still accompanied by GORAN-3 flow The GALE ventriculogram reveals Not performed The left ventricular end-diastolic pressure Not measured IMPRESSION Severe disease in the LAD with successful percutaneous revascularization of the proximal to mid LAD as described above Persistent moderate to severe stenosis in the moderate sized first diagonal artery Persistent severe stenoses in a small nondominant right coronary PLAN 1. Dual antiplatelet therapy 2. Medical management for the diagonal artery and right coronary 3. Maximize antianginal medication 4. Should patient experience recalcitrant angina only then would I consider revascularizing the first diagonal artery and right coronary artery
--- NOTE | 2021-07-29 10:18 | HMH.PHACLD ---
Lion Dennison has received discharge medication counseling on the following medications: Aspirin, Atorvastatin, Carvedilol, Irbesartan, Brilinta, Isosorbide
--- NOTE | 2021-07-30 08:20 | HMH.DCSUM ---
General - General Admission date:: 07/27/21 <Declan Izquierdo - 07/30/21 08:43> 07/27/21 <SharmilaAlice - 07/30/21 08:26> Discharge date: 07/29/21 <SharmilaAlice - 07/30/21 08:26> HPI HPI: 71 year old male with a history of CAD and recent left heart cath with stents placed x 3, presented to [facility] ER last night complaining of a 9 hour history of non exertional left anterior chest pain that radiated to his left arm. Patient reported some dyspnea as well. He was unable to get relief from the pain, which he rated at 8/10 in intensity. He states this pain is similar to the pain he had prior to his recent heart attack. He denies PND, orthopnea and lower extremity edema. He states he has been taking his medication as prescribed and his diabetes has been under good control. <Alice Doll - 07/30/21 08:26> Hospital Course Hospital Course: The patient was admitted for further evaluation and treatment. He was given 1 dose of heparin in the ER but was not started on a continuous infusion. His troponins were negative x4. A CTA of the chest was ordered to evaluate for PE and he was started on IV heparin drip. An echo was ordered as well. His chest CTA showed no pulmonary emboli but did show patchy groundglass opacities in the lungs suggesting pneumonia. The patient was taken to the [facility] and had severe disease in the LAD with successful revascularization of the proximal to mid LAD. There was persistent moderate to severe stenosis in the moderate-sized first diagonal artery and persistent severe stenosis in a small nondominant right coronary. The patient was started on dual antiplatelet therapy and his antianginal medication was maximized. The patient's echo showed an EF of 55%. By 07/29/2021, he did begin feeling better and had no further left arm pain and no chest pain. He was able to sleep and eat without difficulty. Cardiology felt he was stable to discharge home. They increased his irbesartan to 250 mg daily for better blood pressure control and his carvedilol was increased the day prior. He will follow-up with cardiology in 1 to 2 weeks. <Alice Doll - 07/30/21 08:26> Objective Vital signs: Temp Pulse Resp BP Pulse Ox 98.1 F 80 18 149/85 H 97 07/29/21 08:00 07/29/21 08:00 07/29/21 08:00 07/29/21 08:00 07/29/21 08:00 <Declan Izquierdo - 07/30/21 08:43> Temp Pulse Resp BP Pulse Ox 98.1 F 80 18 149/85 H 97 07/29/21 08:00 07/29/21 08:00 07/29/21 08:00 07/29/21 08:00 07/29/21 08:00 <Alice Doll - 07/30/21 08:26> Narrative: - Constitutional no acute distress - *Routine HEENT Exam Head: Present: normocephalic Eye: Present: EOMI, PERRL ENT: Present: mucous membranes moist - *Routine Neck Exam Present: supple. Absent: lymphadenopathy - *Routine Respiratory Exam Present: CTA bilaterally - *Routine Cardiovascular Exam Present: RRR - *Routine Abdominal Exam Present: soft, normoactive bowel sounds. Absent: tenderness - *Routine Rectal Exam Rectal:: deferred - *Routine Genitalia Exam Genitalia:: deferred - *Routine Extremities Exam Absent: cyanosis, clubbing, edema - *Routine Skin Exam Present: warm. Absent: rash - *Routine Neurological Exam Present: alert, oriented X3 <Alice Doll - 07/30/21 08:26> DS: Diagnosis - Discharge Diagnosis (1) Coronary artery disease Status: Chronic (2) Hyperlipidemia Status: Chronic (3) Hypertension Status: Chronic (4) Type 2 diabetes mellitus Status: Chronic (5) Obesity, Class I, BMI 30-34.9 Status: Acute (6) Unstable angina Status: Resolved (7) Stented coronary artery Status: Acute <Declan Izquierdo - 07/30/21 08:43> (1) Coronary artery disease Status: Chronic (2) Hyperlipidemia Status: Chronic (3) Hypertension Status: Chronic (4) Type 2 diabetes mellitus Status: Chronic (5) Obesity, Class I, BMI 30-34.9 Status: Acute (6) Unsta
--- NOTE | 2021-07-30 14:56 | CARE MANAGER ---
CM spoke with patient to discuss post discharge status. Patient stated that he was having a little pain r/t the air in his abdomen due to appendectomy. Patient was able to pickling grader pain medication from pharmacy and states that he has been ambulating to try and reduce the air. He had some questions r/t bathing, and was advised to not soak in a tub and to keep incisions clean and dry. No known needs at this time.
--- NOTE | 2021-07-30 15:03 | CARE MANAGER ---
CM called and spoke with patient to discuss post discharge status. Patient states that he is taking medication as prescribed and is feeling well. He has no known needs at this time.
== END 2021-07-29 11:08 | disposition home or self-care (01) ==
LOC: ER 22:57 → 2ND 07-27 00:26
PROVIDERS: Internal Medicine; Nurse Practitioner Family; Admitting Provider Family Medicine; Emergency Provider Student in an Organized Health Care Education/Training Program; PCP Family Medicine; Visit Provider Family Medicine
DX: I25.110 Atherosclerotic heart disease of native coronary artery with unstable angina pectoris (principal); E11.9 Type 2 diabetes mellitus without complications; Z79.4 Long term (current) use of insulin; E03.9 Hypothyroidism, unspecified; Z79.899 Other long term (current) drug therapy; Z20.822 Contact with and (suspected) exposure to COVID-19; I10 Essential (primary) hypertension; K21.9 Gastro-esophageal reflux disease without esophagitis; I25.2 Old myocardial infarction; Z79.01 Long term (current) use of anticoagulants
CPT/HCPCS: G0378; 36415; 71045; 71275; 80048; 80053; 80061; 80076; 82962; 84145; 84484; 85025; 85347; 85730; 92928; 93005; 93308; 93458; 96365; 96375; 99152; 99153; 99285; C1725; C1769; C1876; C9600; C9803; J1644; J2405; Q9967; U0003; U0005

== ENCOUNTER → 2021-08-05 08:30 | Outpatient (CLI) | payer MEDICARE, OTHER, SELFPAY ==
[2021-08-05 08:53] LABS: Hematocrit 43.9 % (42.0-52.0); Hemoglobin 14.2 g/dL (14.1-18.0)
[2021-08-05 09:01] LABS: Blood Urea Nitrogen 19 mg/dl (9-20); Estimated Glomerular Filt Rate 74 ml/min (>60); GFR (African American) 89 ML/MIN (>60)
== END ==
PROVIDERS: Visit Provider Internal Medicine
DX: I10 Essential (primary) hypertension (principal)
CPT/HCPCS: 36415; 82565; 84520; 85014; 85018

== ENCOUNTER → 2021-08-21 08:20 | Outpatient (CLI) | payer MEDICARE, OTHER, SELFPAY ==
[2021-08-21 09:25] LABS: Troponin I < 0.01 ng/ml (0.00-0.034)
== END ==
PROVIDERS: Visit Provider Family Medicine
DX: R06.02 Shortness of breath (principal); I25.10 Atherosclerotic heart disease of native coronary artery without angina pectoris
CPT/HCPCS: 36415; 84484

== ENCOUNTER → 2021-11-13 06:09 | Outpatient (CLI) | payer MEDICARE, OTHER, SELFPAY ==
--- NOTE | 2021-11-13 06:10 | CA_ITS ---
APPROVED REPORT Exam: Exercise Treadmill Technologist: Claudia Negrete, Ht: 5 ft 4 in Wt: 194 lbs BSA: 1.93 m2 HR: 68 bpm BP: 131/70 mmHg Rhythm: NSR, CANNOT R/O OLD INFERIOR CO Medical History Medical History: HTN, Hyperlipidemia, Diabetes Medications: Amlodipine,,,,, Omeprazole,,,,, Irbesartan,,,,, Levothyroxine,,,,, Aspirin,,,,, Metformin,,,,, Pioglitazone,,,,, INSULIN,,,,, Lipitor,,,,, CloPIdogrel,,,,, BisOPROLOL Fumerate,,,,, SarDIANCE,,,,, Allergies: ISOSORBIDE Cardiac Risk Factors: HTN, Hyperlipidemia, Diabetes Stress Test Details Test: Manual Treadmill, Exercise stress testing was performed using a Stone protocol. HR Resting HR: 73 bpm Max Heart Rate (APMHR): 149.105536 bpm Max HR Achieved: 119 bpm Target HR (85% APMHR): 126.189733 bpm % of APMHR: 79.87 Recovery HR: 78 bpm BP Resting BP: 131/70 mmHg Max BP: 154/72 mmHg Recovery BP: 140.0/75.0 mmHg ECG Resting ECG: NSR, CANNOT R/O OLD INFERIOR CO Clinical Exercise duration: 07:01 min Highest Stage Achieved: Exercise capacity: 7.7 METs Stress ECG Conclusion MAX HR: 115 % OF PM: 77% MAX BP: 154/72 METS: 7.7 TEST STOPPED DUE TO: SOA, FATIGUE PT EXERCISED 7:00 COMPLETING 2 STAGES OF STONE PROTOCOL PLUS ONE ADDITIONAL MINUTE IN MANUAL PROTOCOL. MAX SPEED 3 MPH AND MAX GRADE 12%. PT HAD DYSPNEA, AND MILD CHEST TIGHTNESS. NO ARM/PAIN DISCOMFORT. OCC FUSION BEAT. NS T WAVE CHANGES NOTED IN THE ANTERIOR LEADS IN STAGE I. 0.[address] DEPRESSION IN LATERAL LEADS IS NOTED IN EARLY RECOVERY. WITHIN NORMAL STRESS EKGS WITH MILD CHEST TIGHTNESS FOR THE HR ACHIEVED. BLUNTED HR RESPONSE ON BETA BARBARA. Test Summary REST . . . . . . . Standing REST . . . . . . . Sitting REST 06:02 0.0 0.0 73 . 131/ 70 . . Stage 1 01:00 10.0 1.7 86 . . . . Stage 1 02:00 10.0 1.7 93 . . . . Stage 1 03:00 10.0 1.7 99 . 140/ 60 . . Stage 2 01:00 12.0 2.5 103 . . . . Stage 2 02:00 12.0 2.5 108 . . . . Stage 2 . . . . . . . Stage held Stage 2 03:00 12.0 2.5 111 . 150/ 60 . . Stage 2 . . . . . . . Protocol changed to Manual Treadmill Stage 2 04:00 12.0 3.0 118 . 150/ 60 . . Stage 2 . . . . . . . Stage resumed Stage 2 04:01 12.0 3.0 119 . 150/ 60 . Stop exercise at 07:01 RECOVERY 01:00 0.0 0.0 104 . . . . RECOVERY 02:00 0.0 0.0 88 . . . . RECOVERY 03:00 0.0 0.0 85 . 154/ 72 . . RECOVERY 04:00 0.0 0.0 80 . 138/ 72 . . RECOVERY 05:00 0.0 0.0 77 . 140/ 75 . . RECOVERY 05:15 0.0 0.0 78 . 140/ 75 . . Electronically signed by : German Woodruff MD 11/14/2021 09:19:32
--- NOTE | 2021-11-13 06:10 | NM_ITS ---
APPROVED REPORT Exam: Nuclear Stress Test Indication: chest pain..short of breath..fatigue Patient Location: Outpatient Stress Tech: Claudia Negrete MI Tech:MITCH Newberry RT(R)(N) Ht: 5 ft 4 in Wt: 190 lbs HR: 73 bpm BP: 131/70 mmHg BSA: 1.91 m2 TID: 1.12 BMI: 32.6 History: chest pain..short of breath..fatigue Procedure: Patient exercised on Stone protocol 7:01 minutes and sec, resting heart rate 73 bpm, resting blood pressure 131/70 mmHg, with exercise maximum heart rate achived was 119 bpm which is 80 % of the maximum predicted heart rate and blood pressure was 154/72 mmHg. Test was stopped due to fatigue. Patient denied any complaint of chest pain. Patient has Adequate exercise capacity, achieved 7.7 METs of workload on treadmill, the blood pressure response to exercise was Adequate. Electrocardiogram Resting electrocardiogram shows sinus rhythm, with exercise there is less than 1.[address] segment depression noted from the baseline EKG. The EKG portion of the exercise Myoview is nondiagnostic as patient did not achieve the target heart rate. Cardiac Stress and Resting SPECT Images: Cardiac Stress and Resting SPECT images were obtained using technetium 99m Myoview 31.3 mCi stress and 10.08 mCi at rest. Gated SPECT for analysis of segmental wall motion and calculation of the ejection fraction also done. Prone images were also obtained. Cardiac stress and resting SPECT images show uniform myocardial activity without segmental perfusion abnormality, computer derived ejection fraction is 66% with no regional wall motion abnormality, right ventricle is normal size and contractility. Conclusion: 1. The EKG portion of the exercise Myoview is nondiagnostic as patient did not achieve the target heart rate, the patient has adequate exercise capacity achieved 7.7 METS of workload on treadmill, the blood pressure response to exercise was adequate, patient complained of chest tightness with exercise. 2. No scintigraphic evidence of reversible ischemia seen at this level of exercise, compared to ejection fraction is 66% with no regional wall motion abnormality, right ventricle is normal size and contractility. Electronically signed by : German Woodruff MD 11/14/2021 09:30:54
== END ==
PROVIDERS: PCP Family Medicine; Visit Provider Nurse Practitioner Family
DX: E11.69 Type 2 diabetes mellitus with other specified complication (principal); E78.2 Mixed hyperlipidemia; I10 Essential (primary) hypertension; I25.10 Atherosclerotic heart disease of native coronary artery without angina pectoris; R07.89 Other chest pain; Z95.5 Presence of coronary angioplasty implant and graft; Z79.4 Long term (current) use of insulin
CPT/HCPCS: 78452; 93017; A9502

== ENCOUNTER → 2021-11-24 09:08 | Outpatient (CLI) | payer MEDICARE, OTHER, SELFPAY ==
[2021-11-24 09:45] LABS: Basophils # 0.1 K/mm3 (0-0.2); Basophils % 1.4 % (0.1-2.0); Eosinophils # 0.1 K/mm3 (0.0-0.4); Eosinophils % 1.8 % (0.1-12.0); Hematocrit 43.9 % (42.0-52.0); Hemoglobin 14.3 g/dL (14.1-18.0); Lymphocytes # 1.9 K/mm3 (0.7-4.5); Lymphocytes % 37.9 % (10-50); Mean Corpuscular HGB Conc 32.5 g/dL (31.8-35.4); Mean Corpuscular Hemoglobin 31.6 pg (27.0-31.2); Mean Corpuscular Volume 97.3 fl (80-94); Mean Platelet Volume 9.6 fl (7.4-10.4); Monocytes # 0.4 K/mm3 (0.1-1.0); Monocytes % 7.3 % (1.7-9.3); Neutrophils # 2.5 K/mm3 (1.8-7.8); Neutrophils % 51.6 % (37.0-80.0); Platelet Count 199 K/mm3 (142-424); Red Blood Count 4.51 M/mm3 (4.60-6.20); Red Cell Distribution Width 14.3 % (11.5-17.5); White Blood Count 4.9 K/mm3 (4.8-10.8)
[2021-11-24 10:13] LABS: Blood Urea Nitrogen 22 mg/dl (9-20); Calcium 9.8 mg/dl (8.4-10.2); Carbon Dioxide 24 mmol/L (22.0-30.0); Chloride 102 mmol/L (98-107); Estimated Glomerular Filt Rate 60 ml/min (>60); GFR (African American) 72 ML/MIN (>60); Glucose 223 mg/dl (74-100); Sodium 136 mmol/L (136-145)
== END ==
PROVIDERS: PCP Family Medicine; Visit Provider Nurse Practitioner Family
DX: Z01.812 Encounter for preprocedural laboratory examination; Z20.822 Contact with and (suspected) exposure to COVID-19; I20.8 Other forms of angina pectoris; I10 Essential (primary) hypertension; E11.69 Type 2 diabetes mellitus with other specified complication; E66.9 Obesity, unspecified; E78.2 Mixed hyperlipidemia; E78.5 Hyperlipidemia, unspecified; Z95.5 Presence of coronary angioplasty implant and graft; Z79.4 Long term (current) use of insulin
CPT/HCPCS: 36415; 80048; 85025; C9803; U0003; U0005

== ENCOUNTER 2021-11-25 08:39 | Day surgery (SDC) | payer MEDICARE, OTHER, SELFPAY ==
[2021-11-25] VITALS (14 sets, daily range): BP systolic 91–162; BP diastolic 59–89; PULSE 59–67; RESP 18; O2SAT 92–98; BMI 33.1
--- NOTE | 2021-11-25 07:07 | IR_ITS ---
APPROVED REPORT Patient Location: Outpatient PROCEDURES Left heart catheterization Left ventriculogram Selective coronary angiogram FFR to the LAD Drug-eluting stent deployment to the mid LAD Drug-eluting stent deployment to the left main artery extending into the proximal LAD in a noncontiguous manner Drug-eluting stent deployment to the ostial proximal circumflex artery INDICATION Coronary artery disease, Accelerated angina pectoris, Incongruence between angiography and clinical symptoms, Informed consent was obtained prior to the procedure. COMPLICATIONS NONE Estimated Blood Loss: LESS THAN 10 ML TECHNIQUE One percent lidocaine used to anesthetize the right anterior aspect of the wrist. The right radial artery was accessed via the Seldinger technique. A 6 Romanian sheath was placed in the right radial artery. 2.5 mg of verapamil, 800 mcg of nitroglycerin, 1mg Lidocaine and 5000 U Heparin were given through the arterial sheath. The papa catheter was also used to perform left heart catheterization, left ventriculogram and selective coronary angiogram. At the end the diagnostic angiogram therapeutic heparin was administered giving a therapeutic ACT and the guide catheter was placed in the left main artery followed by wire was placed into the LAD. Intravascular ultrasound probe was used due to GORAN II flow down the LAD. Of interest the intravascular ultrasound probe was getting snagged at the very proximal portion of the LAD. The images which were obtained did demonstrate a severe stenosis. At this point predilatation was made with multiple balloons which allowed passage of a 3 mm x 38 mm resolute Juvencio stent to be deployed in the mid LAD at 24 rosas reducing multiple stenoses. Eventually a 4 mm x 22 mm resolute [place] stent was placed in the mid left main artery extending the proximal LAD and deployed at 20 and then 24 rosas. Repeat IVUS demonstrated there were residual stenotic lesions. Additional balloons were used to dilate the mid LAD in the proximal LAD up to 24 rosas each time using intravascular ultrasound to verify appropriate dilatation and expansion. A 4.5 x 15 mm noncompliant balloon was deployed at 24 rosas in the left main artery as well as the proximal LAD. Excellent angiographic results were eventually obtained where there was easy passage of balloons and stents throughout the left main artery proximal LAD and mid LAD. A guide liner was used for support and delivery of the above stents and balloons repeat angiography demonstrated there was significant jailing and calcification of the circumflex artery. A Choice PT extra-support wire was placed in the circumflex artery where a 2.5 x 12 mm balloon was used to predilate the stenosis followed by a 3 mm balloon used to predilate the stenosis. A 4 mm x 12 mm resolute Juvencio stent was then placed in the ostial portion of the circumflex artery and deployed at 20 and then 24 rosas giving excellent angiographic results. At the end of the procedure there was wide patency of the left main artery LAD and circumflex artery with GORAN-3 flow down all 3 vessels at the end of the procedure. In the procedure the apparatus was removed the sheath was removed and hemostasis was achieved using TR banding patient was transferred to the postop putting in stable addition ANGIOGRAPHIC RESULTS The left main artery Is widely patent with a stent in the mid segment which extends into the LAD The left anterior descending artery Is ostially patent with stents of the left main artery. The stents are angiographically wide open. The mid LAD then has what appears to be an eccentric possible thrombus versus eccentric stenosis followed by additional 40 and 50% stenoses. The circumf
--- NOTE | 2021-11-25 14:17 | HMH.PHACLD ---
Lion Dennison has received discharge medication counseling on the following medications: -PLAVIX - ALREADY TAKING -ASPIRIN - ALREADY TAKING -BISOPROLOL - ALREADY TAKING -ATORVASTATIN - ALREADY TAKING -IRBESARTAN - ALREADY TAKING -METFORMIN - HOLD UNTIL WEDNESDAY -IMDUR - FOR CHEST PAIN, TAKE AT BEDTIME, MAY CAUSE DIZZINESS, LIGHTHEADEDNESS, LOW BLOOD PRESSURE, HEADACHE.
[2021-11-25 15:26] LABS: CATHL Activated Clotting Time 268 SEC (74-125)
[2021-11-25 15:26] LABS: CATHL Activated Clotting Time > 400 SEC (74-125)
== END 2021-11-25 15:35 | disposition home or self-care (01) ==
LOC: CATHLAB 08:41
PROVIDERS: PCP Family Medicine; Visit Provider Internal Medicine
DX: E11.69 Type 2 diabetes mellitus with other specified complication (principal); E66.01 Morbid (severe) obesity due to excess calories; E78.2 Mixed hyperlipidemia; E78.5 Hyperlipidemia, unspecified; I10 Essential (primary) hypertension; I25.118 Atherosclerotic heart disease of native coronary artery with other forms of angina pectoris; Z95.5 Presence of coronary angioplasty implant and graft; Z79.4 Long term (current) use of insulin; E03.9 Hypothyroidism, unspecified; Z87.891 Personal history of nicotine dependence; Z68.33 Body mass index [BMI] 33.0-33.9, adult; Z79.899 Other long term (current) drug therapy
CPT/HCPCS: 85347; 92928; 92978; 93458; 93571; 99152; 99153; C1725; C1769; C1874; C1876; C9600; J1644; J2405; Q9967

== ENCOUNTER → 2021-12-03 08:21 | Outpatient (CLI) | payer MEDICARE, OTHER, SELFPAY ==
[2021-12-03 09:12] LABS: Basophils % 0.4 % (0.1-2.0); Eosinophils # 0.1 K/mm3 (0.0-0.4); Eosinophils % 2.1 % (0.1-12.0); Hematocrit 36.1 % (42.0-52.0); Lymphocytes # 1.8 K/mm3 (0.7-4.5); Lymphocytes % 33.4 % (10-50); Mean Corpuscular HGB Conc 33.2 g/dL (31.8-35.4); Mean Corpuscular Volume 93.4 fl (80-94); Mean Platelet Volume 9.2 fl (7.4-10.4); Monocytes # 0.3 K/mm3 (0.1-1.0); Monocytes % 6.3 % (1.7-9.3); Neutrophils # 3.1 K/mm3 (1.8-7.8); Neutrophils % 57.7 % (37.0-80.0); Platelet Count 186 K/mm3 (142-424); Red Blood Count 3.86 M/mm3 (4.60-6.20); Red Cell Distribution Width 14.1 % (11.5-17.5); White Blood Count 5.4 K/mm3 (4.8-10.8)
[2021-12-03 09:49] LABS: Anion Gap 13.1 mEq/L (5-15); Blood Urea Nitrogen 19 mg/dl (9-20); Calcium 9.2 mg/dl (8.4-10.2); Carbon Dioxide 24 mmol/L (22.0-30.0); Chloride 106 mmol/L (98-107); Estimated Glomerular Filt Rate 66 ml/min (>60); GFR (African American) 80 ML/MIN (>60); Glucose 130 mg/dl (74-100); Potassium 4.1 mmoL/L (3.5-5.1); Sodium 139 mmol/L (136-145)
== END ==
PROVIDERS: PCP Family Medicine; Visit Provider Internal Medicine
DX: Z48.812 Encounter for surgical aftercare following surgery on the circulatory system (principal)
CPT/HCPCS: 36415; 80048; 85025

== ENCOUNTER → 2021-12-09 08:24 | Outpatient (CLI) | payer MEDICARE, OTHER, SELFPAY ==
[2021-12-09 09:40] LABS: Anion Gap 8.2 mEq/L (5-15); Blood Urea Nitrogen 16 mg/dl (9-20); Calcium 9.6 mg/dl (8.4-10.2); Carbon Dioxide 29 mmol/L (22.0-30.0); Chloride 103 mmol/L (98-107); Estimated Glomerular Filt Rate 74 ml/min (>60); GFR (African American) 89 ML/MIN (>60); Glucose 143 mg/dl (74-100); Potassium 4.2 mmoL/L (3.5-5.1); Sodium 136 mmol/L (136-145)
== END ==
PROVIDERS: PCP Family Medicine; Visit Provider Physician Assistant
DX: E11.69 Type 2 diabetes mellitus with other specified complication (principal); E78.2 Mixed hyperlipidemia; I10 Essential (primary) hypertension; I25.118 Atherosclerotic heart disease of native coronary artery with other forms of angina pectoris; R06.00 Dyspnea, unspecified; R07.89 Other chest pain; Z95.5 Presence of coronary angioplasty implant and graft; Z79.84 Long term (current) use of oral hypoglycemic drugs
CPT/HCPCS: 36415; 80048

== ENCOUNTER 2021-12-10 10:37 | Outpatient (RCR) | payer MEDICARE, OTHER, SELFPAY | END 2022-01-30 12:00 | disposition home or self-care (01) | LOC: PT 10:37 | PROVIDERS: Visit Provider Internal Medicine | DX: I25.10 Atherosclerotic heart disease of native coronary artery without angina pectoris (principal); Z95.5 Presence of coronary angioplasty implant and graft | CPT/HCPCS: 93798 ==

== ENCOUNTER → 2022-01-23 13:57 | Outpatient (CLI) | payer MEDICARE, OTHER, SELFPAY ==
--- NOTE | 2022-01-23 14:04 | CA_ITS ---
FINAL REPORT TECHNIQUE: Color Doppler, duplex Doppler and compression sonography of the left lower extremity deep venous systems was performed. CLINICAL HISTORY: SWELLING LLE X 1 WEEK,PT DROVE TO [place] AND BACK LAST WEEK,PT ON BLOODTHINER,DM FINDINGS: There is no evidence of deep venous thrombosis from the level of the groin to the calf. The veins are patent and compressible. IMPRESSION: No evidence of deep venous thrombosis left lower extremity. Reviewed, Interpreted and Dictated by Dany Wade III, MD Transcribed by Sully Mondragon Authenticated and . [facility]
== END ==
PROVIDERS: PCP Family Medicine; Visit Provider Family Medicine
DX: R60.0 Localized edema (principal); M79.662 Pain in left lower leg
CPT/HCPCS: 93971

== ENCOUNTER → 2022-05-22 12:32 | Outpatient (CLI) | payer MEDICARE, OTHER, SELFPAY ==
[2022-05-22 14:02] LABS: Blood Urea Nitrogen 35 mg/dl (9-20); Estimated Glomerular Filt Rate 46 ml/min (>60); GFR (African American) 56 ML/MIN (>60)
== END ==
PROVIDERS: Physician Assistant; PCP Family Medicine; Visit Provider Internal Medicine
DX: I25.118 Atherosclerotic heart disease of native coronary artery with other forms of angina pectoris (principal); R06.09 Other forms of dyspnea; Z95.5 Presence of coronary angioplasty implant and graft
CPT/HCPCS: 36415; 82565; 84520

== ENCOUNTER → 2022-05-25 12:45 | Outpatient (CLI) | payer MEDICARE, OTHER, SELFPAY ==
[2022-05-25 13:25] VITALS: PULSE 88; PULSE 90
--- NOTE | 2022-05-25 13:53 | CT_ITS ---
FINAL REPORT TECHNIQUE: Thin section axial CT images were obtained from the lung apices to the upper abdomen. IV contrast was administered. MIP 3-D reformats were obtained. This study was performed with techniques to keep radiation doses as low as reasonably achievable (ALARA). Individualized dose reduction techniques using automated exposure control or adjustment of mA and/or kV according to the patient's size were employed. CLINICAL HISTORY: dyspnea FINDINGS: There is suboptimal contrast bolus timing. There is no large or central pulmonary embolism. The heart size is normal. There is no adenopathy. There is no aortic aneurysm or dissection. There is no pericardial effusion. There are several calcified granulomas. There is mild scarring in the lungs. There is right posterior pleural calcifications. No pleural effusion. Limited images of the upper abdomen demonstrate mild fatty infiltration of the liver. IMPRESSION: Suboptimal contrast bolus timing. No large or central pulmonary embolism. Reviewed, Interpreted and Dictated by Dany Wdae III, MD Transcribed by Forrest Strauss Authenticated and [facility]
== END ==
PROVIDERS: PCP Family Medicine; Visit Provider Nurse Practitioner Family
DX: I25.118 Atherosclerotic heart disease of native coronary artery with other forms of angina pectoris (principal); R06.09 Other forms of dyspnea
CPT/HCPCS: 71275; 94060; 94640; 94727; 94729; Q9967

== ENCOUNTER → 2022-06-03 08:51 | Outpatient (CLI) | payer MEDICARE, OTHER, SELFPAY ==
--- NOTE | 2022-06-03 08:55 | CT_ITS ---
FINAL REPORT TECHNIQUE: Thin section axial images were obtained through the abdomen after intravenous contrast. Reconstruction images were obtained from the axial data. Exam was performed using dose reduction techniques. CLINICAL HISTORY: lower ABDOMINAL PAIN COMPARISON: 06/05/2021 FINDINGS: The lung bases are clear. There is a diffuse fatty liver with no focal lesion identified. There may be small layering stones within the gallbladder. The spleen, adrenal glands, and pancreas are unremarkable. There is a stable left renal cyst. There is no hydronephrosis. There is stable nonspecific perinephric stranding. Abdominal GI tract is without acute abnormality. There is no evidence of small-bowel obstruction or focal small bowel wall thickening. There is no abdominal lymphadenopathy or ascites. The prostate is enlarged. There is a moderate-large amount of retained stool. The pelvic portions of the GI tract, including the appendix, are without acute abnormality. There is no pelvic lymphadenopathy or ascites. No acute osseous abnormalities identified. IMPRESSION: 1. No acute intra-abdominal or intrapelvic abnormality. 2. Fatty liver. 3. Constipation. 4. Enlarged prostate. Reviewed, Interpreted and Dictated by Chela Blanco MD Transcribed by Ofelia Schneider Authenticated and [facility]
== END ==
PROVIDERS: PCP Family Medicine; Visit Provider Family Medicine
DX: R10.84 Generalized abdominal pain (principal)
CPT/HCPCS: 74177; Q9967

== ENCOUNTER 2022-06-17 10:20 | Emergency (ER) | payer MEDICARE, OTHER, SELFPAY ==
[2022-06-17 10:40] VITALS: BP 120/67; PULSE 107; RESP 20; TEMP 36.7; O2SAT 99; BMI 34.3
--- NOTE | 2022-06-17 10:48 | EXP.UTC ---
Discharge Plan Disposition Patient Disposition: Home, Self-Care Condition: Good Prescriptions Prescriptions: New azithromycin [Zithromax] 250 mg tablet 250 mg PO UD DOSE PK Qty: 6 0RF Rx Instructions: Take two (2) tablets today, then one (1) tablet days #2 thru #5 benzonatate [benzonatate] 100 mg capsule 100 mg PO TIDP PRN (Reason: Cough) Qty: 30 0RF methylprednisolone 4 mg Tablets,Dose Pack 4 mg PO DIRECTED Qty: 21 0RF Paxlovid (EUA) 300 mg (150 mg x 2)-100 mg tablet See Rx Instructions .ROUTE .COMPLEX Qty: 30 0RF Rx Instructions: take TWO 150 mg tablets of nirmatrelvir with ONE 100 mg tablet of ritonavir twice daily for 5 days No Action metformin 500 mg tablet extended release 24 hr 1,000 mg PO BIDWMEAL levothyroxine 75 mcg tablet 75 mcg PO DAILYDM Jardiance 25 mg tablet 25 mg PO DAILYDM Label Comments: TAKE ONE TABLET BY MOUTH EVERY DAY IN THE MORNING isosorbide mononitrate 60 mg tablet extended release 24 hr 60 mg PO DAILY Qty: 30 5RF rosuvastatin 40 mg tablet 40 mg PO DAILY irbesartan 150 mg tablet 150 mg PO DAILY Qty: 30 2RF amlodipine [Norvasc] 10 mg tablet 10 mg PO DAILY Qty: 30 2RF fenofibrate micronized 134 mg capsule 134 mg PO DAILY 30 Days Label Comments: TAKE 1 CAPSULE BY MOUTH EVERY DAY aspirin 81 mg tablet,delayed release (DR/EC) 81 mg PO DAILY Qty: 90 3RF clopidogrel 75 mg tablet 75 mg PO DAILY glimepiride 4 mg tablet 4 mg PO DAILY nitroglycerin 0.4 mg tablet, sublingual 0.4 mg sublingual Q5M PRN (Reason: chest pain) Qty: 25 0RF Rx Instructions: do not exceed 3 doses per episode pantoprazole [Protonix] 40 mg tablet,delayed release (DR/EC) 40 mg PO DAILY Qty: 90 3RF hydrochlorothiazide 25 mg tablet 25 mg PO DAILY Qty: 90 3RF ranolazine 1,000 mg tablet extended release 12 hr See Rx Instructions .ROUTE .COMPLEX Qty: 60 5RF Dose Instruction: TAKE ONE TABLET BY MOUTH TWICE DAILY Rx Instructions: TAKE ONE TABLET BY MOUTH TWICE DAILY atorvastatin 40 MG tablet 40 mg PO DAILY bisoprolol fumarate 10 MG tablet 10 mg PO DAILY pioglitazone 30 MG tablet 30 mg PO DAILYDM Label Comments: TAKE ONE TABLET BY MOUTH EVERY DAY insulin glargine 100 UNIT/ML insulin pen 22 units SQ DAILY Label Comments: INJECT 22 units SUBCUTANEOUSLY ONCE daily Referrals Follow up/Referrals: Declan Izquierdo MD [Primary Care Provider] - See instructions Activity Restrictions/Add. Instructions Additional Instructions/Restrictions: Drink plenty of fluids. Take tylenol or ibuprofen for pain or fever. Take the medications as directed. Follow up with your regular doctor. GO TO THE ER FOR ANY WORSENING SYMPTOMS Clinical Impressions Clinical Impression: Acute viral syndrome, Exposure to 2019 novel coronavirus, Bronchitis Instructions Patient Instructions: DI for Acute Bronchitis, Coronavirus Disease 2019, Preventing the Spread of Coronavirus Discharge Instructions Discharge ED Provider: Ho Amaro [facility] General Stated complaint: Cough drainage flu/covid test Time Seen by Provider: 06/17/22 10:48 History of Present Illness Provider Complaint: He states that for the past 2 days he has felt bad. He has had a productive cough and sinus congestion. His tested positive for covid-19 3 days ago. Related Data Home Medications Medication Instructions Recorded Confirmed fenofibrate micronized 134 mg 134 mg PO DAILY Cholesterol 30 days 08/29/18 05/21/22 capsule pioglitazone 30 mg tablet 30 mg PO DAILYDM Diabetes 06/13/19 05/21/22 empagliflozin 25 mg tablet 25 mg PO DAILYDM Diabetes 11/19/20 05/21/22 (Jardiance) levothyroxine 75 mcg tablet 75 mcg PO DAILYDM thyroid 11/19/20 05/21/22 metformin 500 mg tablet,extended 1,000 mg PO BIDWMEAL Diabetes 11/19/20 05/21/22 release 24 hr insulin glargine 100 u
[2022-06-17 11:20] VITALS: BP 120/67; PULSE 107; RESP 20; TEMP 36.7; O2SAT 99
== END 2022-06-17 11:20 | disposition home or self-care (01) ==
PROVIDERS: Emergency Provider Nurse Practitioner Family; PCP Family Medicine
DX: J20.9 Acute bronchitis, unspecified (principal)
CPT/HCPCS: 99212; 99213; C9803; G0463; U0003; U0005

== ENCOUNTER → 2022-07-23 09:18 | Outpatient (CLI) | payer MEDICARE, OTHER, SELFPAY | PROVIDERS: PCP Family Medicine; Visit Provider Nurse Practitioner Family | DX: I25.118 Atherosclerotic heart disease of native coronary artery with other forms of angina pectoris (principal); R00.0 Tachycardia, unspecified; R06.09 Other forms of dyspnea; R94.31 Abnormal electrocardiogram [ECG] [EKG] | CPT/HCPCS: 93270 ==

== ENCOUNTER → 2022-08-27 09:10 | Outpatient (CLI) | payer MEDICARE, OTHER, SELFPAY ==
[2022-08-27 10:04] LABS: Basophils % 0.5 % (0.1-2.0); Eosinophils # 0.1 K/mm3 (0.0-0.4); Hematocrit 40.5 % (42.0-52.0); Hemoglobin 13.8 g/dL (14.1-18.0); Lymphocytes % 35.3 % (10-50); Mean Corpuscular Hemoglobin 30.9 pg (27.0-31.2); Mean Corpuscular Volume 90.9 fl (80-94); Mean Platelet Volume 10.3 fl (7.4-10.4); Monocytes # 0.5 K/mm3 (0.1-1.0); Monocytes % 9.5 % (1.7-9.3); Neutrophils % 53.6 % (37.0-80.0); Platelet Count 175 K/mm3 (142-424); Red Blood Count 4.45 M/mm3 (4.60-6.20); Red Cell Distribution Width 14.1 % (11.5-17.5); White Blood Count 5.5 K/mm3 (4.8-10.8)
[2022-08-27 10:50] LABS: Alanine Aminotransferase 47 U/L (12-78); Albumin Level 4.1 g/dl (3.5-5.0); Alkaline Phosphatase 41 U/L (38-126); Anion Gap 6.3 mEq/L (5-15); Aspartate Amino Transferase 41 U/L (17-59); Bilirubin,Indirect 0.5 mg/dL (0.0-0.9); Bilirubin,Total 0.5 mg/dl (0.2-1.3); Bilirubin,Unconjugated 0.5 mg/dL (0.0-1.1); Blood Urea Nitrogen 22 mg/dl (9-20); Calcium 9.3 mg/dl (8.4-10.2); Carbon Dioxide 28 mmol/L (22.0-30.0); Chloride 102 mmol/L (98-107); Chol/HDL Ratio 3.8 (1-3.5); Cholesterol 149 mg/dl (140-200); Estimated Glomerular Filt Rate 83 ml/min (>60); GFR (African American) 100 ML/MIN (>60); Glucose 147 mg/dl (74-100); HDL Cholesterol 39 mg/dl (40-60); Magnesium 1.4 mg/dl (1.6-2.3); Potassium 4.3 mmoL/L (3.5-5.1); Sodium 132 mmol/L (136-145); Total Protein,Serum 6.5 g/dl (6.3-8.2); Triglycerides 231 mg/dl (30-150); VLDL Cholesterol 46 mg/dL (0-40)
[2022-08-27 11:06] LABS: Free T4 (Free Thyroxine) 2.39 ng/dl (0.78-2.19)
[2022-08-27 11:21] LABS: Thyroid Stimulating Hormone < 0.02 uIU/mL (0.465-4.68)
== END ==
PROVIDERS: PCP Family Medicine; Visit Provider Physician Assistant
DX: I20.8 Other forms of angina pectoris; E78.2 Mixed hyperlipidemia; I10 Essential (primary) hypertension; I51.89 Other ill-defined heart diseases; R00.2 Palpitations; Z95.5 Presence of coronary angioplasty implant and graft
CPT/HCPCS: 36415; 80048; 80061; 80076; 83735; 84439; 84443; 85025

== ENCOUNTER 2022-08-27 16:29 | Observation (INO) | payer MEDICARE, OTHER, SELFPAY ==
[2022-08-27] VITALS (17 sets, daily range): BP systolic 98–138; BP diastolic 61–89; PULSE 63–75; RESP 16–18; TEMP 36.5–36.6; O2SAT 90–97; BMI 33.1; BMI 31.9
--- NOTE | 2022-08-27 | IR_ITS ---
APPROVED REPORT Patient Location: Outpatient PROCEDURES Left heart catheterization Left ventriculogram Selective coronary angiogram Bilateral nonselective renal angiography INDICATION Coronary artery disease, Unstable angina, Malignant hypertension, SPECT renovascular hypertension, Informed consent was obtained prior to the procedure. COMPLICATIONS NONE Estimated Blood Loss: LESS THAN 10 ML TECHNIQUE One percent lidocaine used to anesthetize the right anterior aspect of the wrist. The right radial artery was accessed via the Seldinger technique. A 6 Kiswahili sheath was placed in the right radial artery. 150 mg magnesium sulfate, 800 mcg of nitroglycerin, 1mg Lidocaine and 5000 U Heparin were given through the arterial sheath. The papa catheter was also used to perform left heart catheterization, left ventriculogram and selective coronary angiogram. The same catheter was used to perform nonselective bilateral renal angiography. At the end of procedure the apparatus was removed the sheath was removed good hemostasis was achieved using TR banding patient was transferred to the postop already in stable condition ANGIOGRAPHIC RESULTS The left main artery Has a stent in the mid to distal segment which has severe concentric in-stent restenosis in the distal portion The left anterior descending artery Has ostial proximal mid and distal stents. The proximal portion has mild in-stent restenosis while the mid vessels have 3 tandem 80% concentric stenoses The circumflex artery Large dominant with an ostial 30 to 40% stenosis and diffuse 10% luminal irregularities The right coronary artery Small nondominant with severe calcified 80 to 90% proximal and mid vessel stenoses. The GALE ventriculogram reveals Normal 65% The left ventricular end-diastolic pressure Severely elevated at 35 to 40 mmHg Left renal artery singular normal Right renal artery singular with proximal concentric 10 to 20% stenosis IMPRESSION Severe to critical coronary artery disease as described above Normal ejection fraction Severely elevated LVEDP consistent with diastolic dysfunction likely ischemic in etiology Nonflow limiting renal artery stenosis Incidental finding is hyperthyroidism on labs today PLAN 1. Discontinue Plavix while continuing aspirin 81 mg daily 2. Patient requires surgical revascularization. Patient will be transferred [facility] this evening or would be admitted to the hospital with plans to place on a heparin drip over the weekend while Plavix is wearing off. Anticipate surgical revascularization Wednesday or Wednesday of next week however will defer exact timing to [facility] 3. Patient is hyperthyroid recommend endocrinology evaluation. Patient is also having malignant bouts of hypertension which is most likely secondary to the above described ischemia however it may be reasonable to do full evaluation for malignancy given the hyperthyroidism 4. LDL less than 55 to be achieved with high intensity statin 5. Patient was discussed with Dr. Hurd at [facility] Electronically signed by : Lenin Francois MD 08/27/2022 14:11:29
--- NOTE | 2022-08-27 14:00 | SUR.PHASEII ---
Dr. Francois went out and spoke with patients regarding need for CABG and admission/transfer.
--- NOTE | 2022-08-27 14:26 | SUR.PHASEII ---
spoke with Eun in case management regarding admission.
--- NOTE | 2022-08-27 16:35 | SUR.PHASEII ---
lab at bedside to draw ptt. spoke with Garth in pharmacy who will dose Heparin drip.
--- NOTE | 2022-08-27 16:46 | SUR.PHASEII ---
Report given to Ana Fernandez RN
[2022-08-27 17:06] LABS: Activated Partial Thrombo Time 24.7 seconds (22.8-30.6)
[2022-08-27 21:14] LABS: PTT Heparin (inpatient only) 29.2 Seconds (23.6-34.0)
[2022-08-27 21:21] LABS: POC Glucose,Bedside 223 (70-110)
--- NOTE | 2022-08-27 22:36 | HMH.PHAINT ---
[id number] Maryam with [facility] called with ptt result 29.2, note orders entered per pharm d for heparin dosing, heparin drip increased to 26ml/hr 1300 units/hr, 4000 unit bolus iv given, repeat ptt in 6 hours repeated and verified.
[2022-08-28] VITALS (9 sets, daily range): BP systolic 124–165; BP diastolic 54–85; PULSE 65–85; RESP 16–18; TEMP 36.5–36.8; O2SAT 93–97; BMI 31.9
[2022-08-28 03:38] LABS: PTT Heparin (inpatient only) 50.8 Seconds (23.6-34.0)
--- NOTE | 2022-08-28 04:12 | HMH.PHAINT ---
viola with [facility] called with PTT results 50.8, no changes to heparin at this time, continue drip at current rate of 1300units/26ml/hr, recheck ptt in 6 hours repeated and verified.
--- NOTE | 2022-08-28 04:52 | PC.NURSE ---
Addendum entered by Mindy Diaz RN 08/28/22 05:12: telemetry reveals NSR Original Note: pt rested well through the night, no complaints, vital signs stable, no acute distress, heparin drip infusing per protocol, pt denies chest pain, right radial cath site cdi, no oher issues noted at this time.
[2022-08-28 06:36] LABS: POC Glucose,Bedside 160 (70-110)
--- NOTE | 2022-08-28 07:28 | P.CONPHA_ITS ---
[facility] Pharmacy Heparin Dosing Demographic Data Admission date:: 08/27/22 Date: 08/28/22 Time: 07:28 Allergies Allergy/AdvReac Type Severity Reaction Status Date / Time isosorbide Allergy Mild headache Verified 08/27/22 08:29 Height: 1.65 m Weight: 87.09 kg Indication Medication therapy:: Heparin Current Active Problems (Updated 08/28/22 @ 08:54 by REESE Dykes) Stenosis of coronary stent (Acute) Type 2 diabetes mellitus (Chronic) Hyperlipidemia (Chronic) Hypertension (Chronic) History of coronary artery stent placement (Chronic) Coronary artery disease (Chronic) Diastolic dysfunction (Acute) CVA?: No Bleeding problem?: No Kidney disease?: No PA?: No Desired PTT range:: 50-75 seconds Monitoring Dose Monitor 1: Date: 08/27/22 Time: 16:45 PTT Result:: 24.7 (BASELINE) Infusion Rate:: 1,000 UNITS/HR Comment:: 5,000 UNIT BOLUS GIVEN IN INTERIOR DESIGN ASSISTANT @ APPROXIMATELY 1300 Dose Monitor 2: Date: 08/27/22 Time: 20:25 PTT Result:: 29.2 Infusion Rate:: INCREASE RATE TO 1,300 UNITS/HR Comment:: 4,000 UNIT BOLUS Dose Monitor 3: Date: 08/28/22 Time: 03:05 PTT Result:: 50.8 Infusion Rate:: 1,300 UNITS/HR Dose Monitor 4: Date: 08/28/22 Time: 08:45 PTT Result:: 42.7 Infusion Rate:: INCREASE RATE TO 1,500 UNITS/HR Comment:: 3,000 UNIT BOLUS Dose Monitor 5: Date: 08/28/22 Time: 15:00 PTT Result:: 43.0 Infusion Rate:: INCREASE RATE TO 1,650 UNITS/HR Comment:: 3000 UNIT BOLUS Core Measures Is INR > or = 2 at discharge?: No Most Recent Labs:: Laboratory Results - last 24 hr 08/27/22 16:40: APTT 24.7 08/27/22 20:25: APTT 29.2 08/27/22 21:04: POC Glucose 223 H 08/28/22 03:05: APTT 50.8 H* 08/28/22 06:28: POC Glucose 160 H Were Heparin and Warfarin started on the same day?: No If not, why?: PATIENT TRANSFERRED
--- NOTE | 2022-08-28 08:42 | EXP.HP ---
History of Present Illness *Admission Date: 08/27/22 *Reason for visit:: CAD *History of present illness: Mr. Dennison is a 72-year-old male who had a heart cath yesterday which showed severe to critical coronary disease, severely elevated LVEDP consistent with diastolic dysfunction likely ischemic in etiology, and nonflow limiting renal artery stenosis. It was felt the patient would require surgical revascularization and would need to be transferred to the [facility]. He was accepted by but no beds were available. He was therefore admitted to [facility] with plans to place him on a heparin drip over the weekend while his Plavix was wearing off. Cardiology anticipated surgical revascularization Wednesday or Wednesday of next week. [facility] Disclaimer: The information contained in this section may have been updated after the patient was seen, as this information can be updated by other users. Medical History (Updated 08/28/22 @ 08:54 by REESE Dykes) Abnormal EKG Atypical angina Atypical angina Coronary artery disease Diastolic dysfunction Dyspnea Hyperlipidemia Hyperlipidemia associated with type 2 diabetes mellitus Hypertension Non-ST elevated myocardial infarction Palpitations Sinus tachycardia Type 2 diabetes mellitus Surgical History (Updated 08/28/22 @ 08:51 by REESE Dykes) History of colonoscopy History of coronary artery stent placement Family History (Updated 08/28/22 @ 08:50 by REESE Dykes) Diabetes Coronary artery disease Heart attack Cancer Hypertension Stroke Social History Smoking Status: Former smoker alcohol intake: never substance use type: denies use current occupational status: retired Travel in the last 8 weeks: Inside the [place] household members: none housing: house 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 current occupational exposures/hazards: No caffeine: No Review of Systems Constitutional Constitutional: Denies fatigue, Denies headache(s) and Denies weakness Eyes Eyes: Denies blurry vision and Denies diplopia ENT Ears, Nose, Mouth, and Throat: Denies headache(s), Denies nasal congestion, Denies sore throat and Denies vertigo *Cardiovascular Cardiovascular: Denies chest pain, Reports dyspnea on exertion and Denies leg edema *Respiratory Respiratory: Denies cough and Reports dyspnea on exertion *Gastrointestinal Gastrointestinal: Denies abdominal pain, Denies loose stools, Denies nausea and Denies vomiting *Genitourinary Genitourinary: Denies difficulty urinating and Denies dysuria *Musculoskeletal Musculoskeletal: Denies arthralgias and Denies myalgias *Neurologic Neurologic: Denies headache(s), Denies vertigo and Denies weakness Endocrine Endocrine: Denies fatigue Meds Home Medications and Allergies Home Medications Medication Instructions Recorded Confirmed Type fenofibrate micronized 134 mg 134 mg PO DAILY TRIGLYCERIDES 30 08/29/18 08/27/22 History capsule days pioglitazone 30 mg tablet 30 mg PO DAILYDM Diabetes 06/13/19 08/27/22 History metformin 500 mg tablet,extended 1,000 mg PO BIDWMEAL Diabetes 11/19/20 08/27/22 History release 24 hr insulin glargine 100 unit/mL (3 22 units SQ DAILY Diabetes 06/06/21 08/27/22 History mL) subcutaneous pen clopidogrel 75 mg tablet 75 mg PO DAILY PLATELET INHIBITOR 08/26/21 08/27/22 History glimepiride 4 mg tablet 8 mg PO DAILY Diabetes 01/28/22 08/28/22 History nitroglycerin 0.4 mg sublingual 0.4 mg sublingual Q5M PRN chest 06/26/22 08/27/22 Rx tablet pain #25 tabs amlodipine 10 mg tablet 10 mg PO DAILY Hypertension 08/27/22 08/27/22 History hydrochlorothiazide 25 mg tablet 25 mg PO DAILY Fluid 08/27/22 08/27/22 History irbesartan 150 mg tablet 150 mg PO DAILY Hypertension 08/27/22 08/28/22 History pantoprazole 40 mg tablet,delayed 40 mg PO DAILY Acid reflux 08/27/22 08/27/22 History release (Protonix) ranol
[2022-08-28 09:11] LABS: PTT Heparin (inpatient only) 42.7 Seconds (23.6-34.0)
--- NOTE | 2022-08-28 09:13 | PC.NURSE ---
AL WITH PHARMACY CALLED WITH PTT AND GAVE ORDERS TO INCREASE RATE TO 30mL PER PTT RESULTS. HEPARIN IV INFUSION ADJUSTED AT THIS TIME. PT TOLERATED WELL. IV INTACT. CALL LIGHT WITHIN REACH. BED IN LOWEST POSITION. PT ALSO GIVEN HEPARIN BOLUS PER AL.
[2022-08-28 10:05] LABS: POC Glucose,Bedside 274 (70-110)
--- NOTE | 2022-08-28 10:12 | PC.NURSE ---
courtesy tech note; rounded on pt, brought ice water at pts request. pt denied need for restroom or need to reposition at this time. call light within reach, no further requests at this time. blanca talley, srna
--- NOTE | 2022-08-28 10:43 | HMH.PHAINT1 ---
Pharmacy Intervention Comments: MEDICATION RECONCILIATION COMPLETED ON PATIENT USING EXTERNAL FILL HISTORY FROM PHARMACY AND PATIENT INTERVIEW. -AHSAN MANJARREZ, LAURYND
[2022-08-28 11:24] LABS: Coronavirus 19, PCR Not Detected (NotDetected); Influenza A, PCR Not Detected (NotDetected); Influenza B, PCR Not Detected (NotDetected)
[2022-08-28 11:25] LABS: POC Glucose,Bedside 302 (70-110)
--- NOTE | 2022-08-28 15:43 | PC.NURSE ---
courtesy tech note; 0300 rounded on pt, pt denied need to void, need for drink, and need to reposition. call light within reach, no further requests at this time. Felicia Diaz, SRNA
--- NOTE | 2022-08-28 16:16 | PC.NURSE ---
A&OX4. ABDOMEN SOFT AND DISTENDED. NO TENDERNESS NOTED. NO BM REPORTED THIS SHIFT. VOIDS PER BATHROOM INDEPENDENTLY. STEADY GAIT NOTED. RESPIRATIONS REGULAR AND UNLABORED. LUNG SOUNDS CLEAR THROUGHOUT. ETCHER APPRENTICE ON. NSR NOTED. +2 PULSES NOTED THROUGHOUT. NO EDEMA NOTED. DRESSING NOTED TO R RADIAL SITE. DRESSING CDI. HEPARIN DRIP INFUSING AND ADJUSTED PER PHARMACY. PT TOLERATING WELL. NO REPORTS OF PAIN THUS FAR. [facility] CALLED THIS MORNING BUT DIDN'T HAVE A BED ASSIGNMENT. WILL CALL BACK WHEN A BED IS AVAILABLE. THIS NURSE HAS KEPT THE PT UPDATED. INSULIN GIVEN PER SLIDING SCALE PROTOCOL. BS NOTED AT 302 AT LUNCH. 8 UNITS GIVEN. PT RECEIVED A SHOWER THIS SHIFT AND LINENS CHANGED BY LINE PILOT. BED IN LOWEST POSITION. CALL LIGHT WITHIN REACH. NO QUESTIONS OR CONCERNS VOICED. WILL CONTINUE TO MONITOR.
[2022-08-28 16:53] LABS: POC Glucose,Bedside 239 (70-110)
--- NOTE | 2022-08-28 18:17 | PC.NURSE ---
called and stated pt has a bed. pav A [phone]. number to call report . Dr Izquierdo notified and verbal consent given for us to put discharge order in.
--- NOTE | 2022-08-28 18:37 | PC.NURSE ---
verbal telephone order from Dr Izquierdo. unable to enter order in comp, order entered per request.
--- NOTE | 2022-08-28 18:49 | PC.NURSE ---
ATTEMPTED TO CALL REPORT TO [facility] AND THEY STATED ROOM WILL NOT BE READY UNTIL AFTER SHIFT CHANGE. THEY WILL CALL US WHEN ROOM IS READY.
--- NOTE | 2022-08-28 19:44 | PC.NURSE ---
Called report to Mikki SERRATO AT .
--- NOTE | 2022-08-28 19:48 | PC.NURSE ---
CALLED [facility] TO TRANSPORT PT.
--- NOTE | 2022-08-28 20:19 | PC.NURSE ---
Pt left with [facility] ambulance to @ this time.
--- NOTE | 2022-08-28 20:34 | PC.NURSE ---
REPORT GIVEN TO [facility] AT 2014. PATIENT TRANSFERED TO [facility] AT 2024.
--- NOTE | 2022-09-03 08:53 | EXP.DC.SUM ---
General Admission date:: 08/27/22 Discharge date: 08/28/22 HPI HPI HPI: Mr. Dennison is a 72-year-old male who had a heart cath yesterday which showed severe to critical coronary disease, severely elevated LVEDP consistent with diastolic dysfunction likely ischemic in etiology, and nonflow limiting renal artery stenosis. It was felt the patient would require surgical revascularization and would need to be transferred to the [facility]. He was accepted by but no beds were available. He was therefore admitted to [facility] with plans to place him on a heparin drip over the weekend while his Plavix was wearing off. Cardiology anticipated surgical revascularization Wednesday or Wednesday of next week. Hospital Course Hospital Course Hospital Course: The patient's heart cath showed severe to critical coronary artery disease with a severely elevated LVEDP consistent with diastolic dysfunction likely ischemic in etiology. The patient was admitted while awaiting transfer to the [facility]. He was placed on a heparin drip with anticipation of surgical revascularization at . His labs did show hyperthyroidism and cardiology recommended an endocrinology evaluation. The patient was transferred to on 08/28/2022. Exam Data for Last 24 hours Vital signs and Labs for Last 24 Hours: Temp Pulse Resp BP Pulse Ox 98.1 F 81 16 132/79 96 08/28/22 20:00 08/28/22 20:00 08/28/22 20:00 08/28/22 20:00 08/28/22 20:00 Narrative: Constitutional Constitutional: no acute distress *Routine HEENT Exam Head: Present normocephalic and atraumatic Eye: Present EOMI and PERRL ENT: Present mucous membranes moist *Routine Neck Exam Neck: Present supple and full ROM *Routine Respiratory Exam Respiratory: Present CTA bilaterally *Routine Cardiovascular Exam Cardiovascular: Present RRR *Routine Abdominal Exam Abdominal: Present soft and normoactive bowel sounds; Absent tenderness *Routine Rectal Exam Rectal:: deferred *Routine Genitalia Exam Genitalia:: deferred *Routine Extremities Exam Extremities: Absent cyanosis, clubbing or edema *Routine Skin Exam Skin: Present intact; Absent erythema *Routine Neurological Exam Neurological: Present alert and oriented X3 DS: Diagnosis Discharge Diagnosis (1) Stenosis of coronary stent: Status: Acute (2) Diastolic dysfunction: Status: Acute (3) Type 2 diabetes mellitus: Status: Chronic (4) Hyperlipidemia: Status: Chronic (5) Hypertension: Status: Chronic (6) History of coronary artery stent placement: Status: Chronic (7) Coronary artery disease: Status: Chronic Problem details: NOVEMBER-2021 Severe ostial LAD disease as described above Successful stenting of left main artery stent in the proximal LAD Successful stenting of the mid LAD in a noncontiguous manner Successful stent to the ostial proximal dominant circumflex artery JULY 2021-Severe disease in the LAD with successful percutaneous revascularization of the proximal to mid LAD as described above Persistent moderate to severe stenosis in the moderate sized first diagonal artery Persistent severe stenoses in a small nondominant right coronary Meds Home Medications and Allergies Home Medications Medication Instructions Recorded Confirmed Type fenofibrate micronized 134 mg 134 mg PO DAILY TRIGLYCERIDES 30 08/29/18 08/27/22 History capsule days pioglitazone 30 mg tablet 30 mg PO DAILYDM Diabetes 06/13/19 08/27/22 History metformin 500 mg tablet,extended 1,000 mg PO BIDWMEAL Diabetes 11/19/20 08/27/22 History release 24 hr clopidogrel 75 mg tablet 75 mg PO DAILY PLATELET INHIBITOR 08/26/21 08/27/22 History glimepiride 4 mg tablet 8 mg PO DAILY Diabetes 01/28/22 08/28/22 History nitroglycerin 0.4 mg sublingual 0.4 mg sublingual Q5M PRN chest 06/26/22 08/27/22 Rx tablet pain #25 tabs amlodipine 10 mg tablet 10 mg PO DAILY Hypertension
== END 2022-08-28 20:20 | disposition short-term general hospital (02) ==
LOC: 2ND 16:30
PROVIDERS: Internal Medicine; Admitting Provider Family Medicine; PCP Family Medicine; Visit Provider Family Medicine
DX: E78.2 Mixed hyperlipidemia (principal); I10 Essential (primary) hypertension; I25.118 Atherosclerotic heart disease of native coronary artery with other forms of angina pectoris; R00.0 Tachycardia, unspecified; R00.2 Palpitations; R06.09 Other forms of dyspnea; R94.31 Abnormal electrocardiogram [ECG] [EKG]; I15.0 Renovascular hypertension; T82.855A Stenosis of coronary artery stent, initial encounter; I70.1 Atherosclerosis of renal artery; I25.2 Old myocardial infarction; E11.9 Type 2 diabetes mellitus without complications; Z87.891 Personal history of nicotine dependence; Z79.84 Long term (current) use of oral hypoglycemic drugs; Z79.02 Long term (current) use of antithrombotics/antiplatelets; Z79.899 Other long term (current) drug therapy; Z20.822 Contact with and (suspected) exposure to COVID-19
CPT/HCPCS: G0378; G0379; 36252; 36415; 80048; 80061; 80076; 82962; 83735; 84439; 84443; 85025; 85730; 93458; 99152; C1725; C1769; C9803; J1644; Q9967; U0003; U0005

== ENCOUNTER 2022-11-04 09:39 | Outpatient (RCR) | payer MEDICARE, OTHER, SELFPAY | END 2023-01-05 10:25 | disposition home or self-care (01) | LOC: PT 09:39 | PROVIDERS: Visit Provider Physician Assistant | DX: I25.118 Atherosclerotic heart disease of native coronary artery with other forms of angina pectoris (principal); T82.855A Stenosis of coronary artery stent, initial encounter; Z95.5 Presence of coronary angioplasty implant and graft | CPT/HCPCS: 93798 ==

== ENCOUNTER → 2022-11-12 11:20 | Outpatient (CLI) | payer MEDICARE, OTHER, SELFPAY ==
--- NOTE | 2022-11-12 11:27 | XR_ITS ---
FINAL REPORT CLINICAL HISTORY: Left shoulder pain COMPARISON: None FINDINGS: LEFT SHOULDER 3 views demonstrate no acute fracture or dislocation. Mild AC joint and mild glenohumeral joint degenerative change. The visualized bony structures are well aligned. No soft tissue abnormality is seen. There are postoperative changes in the humeral head. IMPRESSION: No acute process. Reviewed, Interpreted and Dictated by Dany Wade III, MD Transcribed by Constance Salcido Authenticated and [facility]
== END ==
PROVIDERS: PCP Family Medicine; Visit Provider Orthopaedic Surgery
DX: M25.512 Pain in left shoulder (principal)
CPT/HCPCS: 73030

== ENCOUNTER → 2022-12-21 07:51 | Outpatient (CLI) | payer MEDICARE, OTHER, SELFPAY ==
--- NOTE | 2022-12-21 07:54 | CA_ITS ---
APPROVED REPORT EXAM: Comprehensive 2D, Doppler, and color-flow Echocardiogram Touring Production Manager: Kady Villagran RT(R) Ht: 5 ft 5 in Wt: 189lbs BSA: 1.93 BP: 134/81 mmHg Indications: SOB, CP, ex smoker, recent CABG x 4 (08/2022), edema, HTN, CAD, DM, hyperlipidemia, hx NSTEMI (2021), GERD, cardiac stents. 2D Dimensions LVOT 2.08 cm (M/F) 1.5-2.5 LVEF (Long's) 55.70 % M: 52 - 72 LV Volume 90.70 mL M: 62 - 150 LV Volume Index 46.99 mL/m2 M: 34 - 74 LA Volume 45.40 mL LA Volume Index 23.52 mL/m2 (M/F) 16-34 M-Mode Dimensions RVDd 3.21 cm (0.9-2.6) LA Diam 4.36 cm (1.9-4.0) LVDd 4.65 cm (3.5-5.7) Ao Diam 2.26 cm (2.0-3.7) LVDs 3.73 cm (3.5-5.7) IVSd 0.80 cm (0.6-1.1) PWd 0.96 cm (0.6-1.1) EF (Teich) 40.60% FS 19.80% EDV (Teich) 99.80 mL ESV (Teich) 59.30 mL LV Diastology E Decel Time 150.00 (160-240 msec) E/A Ratio 1.5 MED E' 6.20 (< 7 cm/sec) E'/MED E' Ratio 14.61 (>14) LAT E' 11.00 (<10 cm/sec) E/LAT E' Ratio 8.24 (>14) Aortic Valve LVOT Max 97.00 (70-110 cm/s) LVOT VTI 21.21 cm AoV Peak Holger. 173.00 (50-130 cm/s) AO Peak GR. 12.00 mmHg AO Mean GR. 5.90 (<5 mmHg) AO VTI 34.73 (18-25 cm) MATT (VTI) 2.08 (2.5-4.5 cm2) Mitral Valve MV E Max Holger. 91.00 (40-130 cm/s) MV A Velocity 60.00 (40-130 cm/s) E/A Ratio 1.52 MV Decel. Time 150.00 (160-240 ms) MV PHT 44.00 ms Left Ventricle The left ventricle is normal size. The left ventricular systolic function is normal. The left ventricular ejection fraction is within the normal range. There is increased LV wall thickness. There is normal LV segmental wall motion. The left ventricular diastolic function is normal. LVEF is 60%. Right Ventricle The right ventricle is mildly dilated. The right ventricular systolic function is normal. There is increased RV wall thickness. Atria The left atrium size is normal. The right atrium size is normal. Aortic Valve The aortic valve appears moderately thickened. There is restricted motion and partial fusion of the AV cusps. There is no evidence of aortic stenosis. Peak veocity 1.7 cm2. Mean AV gradient 7 mmHg. Peak AV gradient 11 mmHg. SVi=36 mL/m2. DI=0.5. Trace aortic regurgitation. Mitral Valve There is mild mitral annular calcification. The mitral valve leaflets are mildly thickened. No evidence of mitral valve stenosis. Trace mitral regurgitation. Tricuspid Valve The tricuspid valve leaflets are thin and pliable. Trace tricuspid regurgitation. There is insufficient TR jet to estimate RVSP. Pulmonic Valve The pulmonary valve is normal in structure. Trace pulmonic regurgitation. Great Vessels The aortic root is normal in size. The ascending aorta is normal in size. The IVC is not well visualized. Pericardium There is no pericardial effusion. Other Information Study Quality: Fair Conclusion Normal biventricular systolic function. Mild RV dilation. Moderately thickened AV leaflets. No . Trace AI. Electronically signed by : Marleen Vanessa, 12/21/2022 13:08:27
== END ==
PROVIDERS: PCP Family Medicine; Visit Provider Nurse Practitioner
DX: E11.9 Type 2 diabetes mellitus without complications (principal); E78.5 Hyperlipidemia, unspecified; I10 Essential (primary) hypertension; R06.00 Dyspnea, unspecified; R60.0 Localized edema; T82.855A Stenosis of coronary artery stent, initial encounter; Z95.1 Presence of aortocoronary bypass graft; Z95.5 Presence of coronary angioplasty implant and graft; I20.8 Other forms of angina pectoris; Z79.4 Long term (current) use of insulin
CPT/HCPCS: 93306

== ENCOUNTER → 2022-12-30 10:45 | Outpatient (CLI) | payer MEDICARE, OTHER, SELFPAY ==
[2022-12-30 11:23] LABS: Basophils % 0.4 % (0.1-2.0); Eosinophils # 0.1 K/mm3 (0.0-0.4); Eosinophils % 1.4 % (0.1-12.0); Hematocrit 39.5 % (42.0-52.0); Hemoglobin 12.2 g/dL (14.1-18.0); Lymphocytes # 1.7 K/mm3 (0.7-4.5); Lymphocytes % 30.3 % (10-50); Mean Corpuscular HGB Conc 30.9 g/dL (31.8-35.4); Mean Corpuscular Hemoglobin 23.5 pg (27.0-31.2); Mean Platelet Volume 10.4 fl (7.4-10.4); Monocytes # 0.4 K/mm3 (0.1-1.0); Monocytes % 7.2 % (1.7-9.3); Neutrophils # 3.4 K/mm3 (1.8-7.8); Neutrophils % 60.6 % (37.0-80.0); Platelet Count 193 K/mm3 (142-424); Red Blood Count 5.19 M/mm3 (4.60-6.20); Red Cell Distribution Width 18.2 % (11.5-17.5); White Blood Count 5.5 K/mm3 (4.8-10.8)
[2022-12-30 11:43] LABS: Alanine Aminotransferase 28 U/L (12-78); Albumin Level 4.3 g/dl (3.5-5.0); Alkaline Phosphatase 41 U/L (38-126); Anion Gap 14.6 mEq/L (5-15); Aspartate Amino Transferase 33 U/L (17-59); Bilirubin,Indirect 0.4 mg/dL (0.0-0.9); Bilirubin,Total 0.4 mg/dl (0.2-1.3); Bilirubin,Unconjugated 0.5 mg/dL (0.0-1.1); Blood Urea Nitrogen 20 mg/dl (9-20); Calcium 9.8 mg/dl (8.4-10.2); Carbon Dioxide 27 mmol/L (22.0-30.0); Chloride 103 mmol/L (98-107); Chol/HDL Ratio 3.4 (1-3.5); Cholesterol 173 mg/dl (140-200); Estimated Glomerular Filt Rate 60 ml/min (>60); GFR (African American) 72 ML/MIN (>60); Glucose 159 mg/dl (74-100); HDL Cholesterol 51 mg/dl (40-60); Potassium 4.6 mmoL/L (3.5-5.1); Sodium 140 mmol/L (136-145); Total Protein,Serum 7.1 g/dl (6.3-8.2); Triglycerides 243 mg/dl (30-150); VLDL Cholesterol 49 mg/dL (0-40)
[2022-12-30 11:54] LABS: Direct LDL Cholesterol 85.47 mg/dL (100-129)
[2022-12-30 12:14] LABS: Thyroid Stimulating Hormone 3.01 uIU/mL (0.465-4.68)
== END ==
PROVIDERS: PCP Family Medicine; Visit Provider Nurse Practitioner
DX: E11.9 Type 2 diabetes mellitus without complications (principal); E78.5 Hyperlipidemia, unspecified; I11.9 Hypertensive heart disease without heart failure; R06.00 Dyspnea, unspecified; R60.0 Localized edema; Z95.1 Presence of aortocoronary bypass graft; Z95.5 Presence of coronary angioplasty implant and graft; I63.9 Cerebral infarction, unspecified; I20.8 Other forms of angina pectoris; Z79.4 Long term (current) use of insulin
CPT/HCPCS: 36415; 80048; 80061; 80076; 84439; 84443; 85025

== ENCOUNTER 2023-01-17 23:11 | Observation (INO) | payer MEDICARE, OTHER, SELFPAY ==
[2023-01-17 23:11] VITALS: BP 193/99; PULSE 108; RESP 16; TEMP 36.7; O2SAT 96; BMI 30.4
--- NOTE | 2023-01-17 23:15 | PC.NURSE ---
Aspirin deferred per attending
--- NOTE | 2023-01-17 23:17 | XR_ITS ---
PROCEDURE INFORMATION: Exam: XR Chest Exam date and time: 01/17/2023 11:16 PM Age: 72 years old Clinical indication: Pain; Chest pressure; Additional info: Cp TECHNIQUE: Imaging protocol: Radiologic exam of the chest. Views: 1 view. COMPARISON: CT ANGIO CHEST PE PROTOCOL 05/25/2022 2:18 PM FINDINGS: Lungs: Unremarkable. No consolidation. Pleural spaces: Unremarkable. No pleural effusion. No pneumothorax. Heart/Mediastinum: Unremarkable. No cardiomegaly. Bones/joints: Sternotomy wires remain in place. IMPRESSION: No acute disease
--- NOTE | 2023-01-17 23:17 | ECG_ITS ---
APPROVED REPORT Exam: Resting ECG HR:71 bpm ECG Measurements Heart Rate 71 AXES [place] 162 P 60 QRSd 96 QRS 10 QT 415 T 93 QTc 437 Conclusion SINUS RHYTHM INFERIOR MYOCARDIAL INFARCTION , OF INDETERMINATE AGE [40+ ms Q WAVE AND/OR ST/T ABNORMALITY IN II/aVF] MODERATE T-WAVE ABNORMALITY, CONSIDER ANTERIOR ISCHEMIA [-0.1+ mV T-WAVE IN V3/V4] ABNORMAL ECG UNCONFIRMED REPORT Electronically signed by : Armen Bacon MD 01/18/2023 15:49:37
[2023-01-17 23:30] VITALS: BP 176/89; PULSE 103; RESP 16; O2SAT 92
[2023-01-17 23:40] LABS: Basophils % 0.2 % (0.1-2.0); Eosinophils % 0.7 % (0.1-12.0); Hematocrit 41.3 % (42.0-52.0); Lymphocytes % 37.9 % (10-50); Mean Corpuscular HGB Conc 31.5 g/dL (31.8-35.4); Mean Corpuscular Hemoglobin 24.2 pg (27.0-31.2); Mean Corpuscular Volume 77.1 fl (80-94); Mean Platelet Volume 9.8 fl (7.4-10.4); Monocytes # 0.5 K/mm3 (0.1-1.0); Monocytes % 9.1 % (1.7-9.3); Neutrophils # 2.7 K/mm3 (1.8-7.8); Neutrophils % 52.1 % (37.0-80.0); Platelet Count 211 K/mm3 (142-424); Red Blood Count 5.35 M/mm3 (4.60-6.20); Red Cell Distribution Width 18.7 % (11.5-17.5); White Blood Count 5.2 K/mm3 (4.8-10.8)
[2023-01-17 23:41] LABS: Chloride 98 mmol/L (98-107); Sodium 133 mmol/L (136-145)
[2023-01-17 23:42] LABS: Potassium 5.2 mmoL/L (3.5-5.1)
[2023-01-17 23:44] LABS: Alanine Aminotransferase 35 U/L (12-78); Alkaline Phosphatase 39 U/L (38-126); Aspartate Amino Transferase 53 U/L (17-59); Bilirubin,Total 0.7 mg/dl (0.2-1.3); Blood Urea Nitrogen 22 mg/dl (9-20); Creatinine Clearance Estimated 63 mL/min (50-200); Estimated Glomerular Filt Rate 60 ml/min (>60); GFR (African American) 72 ML/MIN (>60)
[2023-01-17 23:45] LABS: Albumin Level 4.3 g/dl (3.5-5.0); Albumin/Globulin Ratio 1.4 (1.1-1.8); Anion Gap 16.2 mEq/L (5-15); Calcium 10.8 mg/dl (8.4-10.2); Carbon Dioxide 24 mmol/L (22.0-30.0); Globulin 3.1 g/dL (1.3-3.2); Total Protein,Serum 7.4 g/dl (6.3-8.2)
[2023-01-17 23:47] LABS: Glucose 453 mg/dl (74-100)
--- NOTE | 2023-01-17 23:50 | PC.NURSE ---
CRITICAL GLUCOSE CALLED BY SURINDER FROM [facility] [id number] BANKS ORDERS AT THIS TIME
[2023-01-17 23:57] LABS: Troponin I 0.02 ng/ml (0.00-0.034)
[2023-01-18] VITALS (25 sets, daily range): BP systolic 120–188; BP diastolic 59–94; PULSE 67–108; RESP 13–23; TEMP 36.3–36.7; O2SAT 93–99; BMI 31.4
--- NOTE | 2023-01-18 | ECG_ITS ---
APPROVED REPORT Exam: Resting ECG HR:82 bpm ECG Measurements Heart Rate 82 AXES [place] 171 P 53 QRSd 89 QRS -9 QT 387 T 95 QTc 425 Conclusion SINUS RHYTHM INDETERMINATE AXIS PATTERN CONSISTENT WITH PULMONARY DISEASE INFERIOR MYOCARDIAL INFARCTION , OF INDETERMINATE AGE [40+ ms Q WAVE AND/OR ST/T ABNORMALITY IN II/aVF] MODERATE T-WAVE ABNORMALITY, CONSIDER ANTERIOR ISCHEMIA [-0.1+ mV T-WAVE IN V3/V4] ABNORMAL ECG UNCONFIRMED REPORT Electronically signed by : Armen Bacon MD 01/18/2023 15:49:47
--- NOTE | 2023-01-18 00:06 | HMH.EDGENADL ---
Discharge Plan Disposition Patient Disposition: Admitted Condition: Fair Clinical Impressions Clinical Impression: Angina pectoris, unstable, Coronary artery disease, Abnormal EKG, S/P CABG (coronary artery bypass graft), Hyperglycemia due to diabetes mellitus, Hypomagnesemia, Sleep related hypoxia Discharge ED Provider: Wilner Ludwig General Adult HPI General Chief complaint: Chest Pain Stated complaint: Chest Pain Time Seen by Provider: 01/18/23 00:01 Mode of Arrival: Ambulatory Source of Information: Patient Limitations: No Limitations Description of Symptoms (Recalled from ER Triage Doc. by RN): pt c/o chest tightness that started @ 8pm pt took 1 nitro SL @ 9pm with no relief. History of Present Illness HPI narrative: 72-year-old male history of CABG in August at [facility], numerous cardiac stents, insulin-dependent diabetes, chronic chest pain presents with acute worsening of chest pain not responsive to nitroglycerin at home. Reports that it is centrally located, radiating to the left shoulder. Relatively severe in nature. Reports that his chest is tender but also hurts more deeply. No back pain. Intermittent mild shortness of breath. He has been evaluated by cardiology in clinic multiple times recently for chest pain. Most recently had a normal echo last month. Related Data Home Medications Medication Instructions Recorded Confirmed amlodipine 5 mg tablet 5 mg PO DAILY High Blood Pressure 01/18/23 01/18/23 aspirin 81 mg chewable tablet 81 mg PO DAILY Heart Disease 01/18/23 01/18/23 bisoprolol fumarate 10 mg tablet 10 mg PO BID High Blood Pressure 01/18/23 01/18/23 clopidogrel 75 mg tablet 75 mg PO DAILY Antiplatelet 01/18/23 01/18/23 fenofibrate micronized 134 mg 134 mg PO DAILY High triglyceride 01/18/23 01/18/23 capsule furosemide 20 mg tablet 20 mg PO DAILY Fluid 01/18/23 01/18/23 insulin aspart U-100 100 unit/mL 14 unit SQ TID Diabetes 01/18/23 01/18/23 (3 mL) subcutaneous pen (Novolog FlexPen U-100 Insulin aspart) irbesartan 150 mg tablet 150 mg PO DAILY High Blood Pressure 01/18/23 01/18/23 levothyroxine 75 mcg tablet 75 mcg PO DAILY Thyroid 01/18/23 01/18/23 metformin 500 mg tablet,extended 1,000 mg PO BID Diabetes 01/18/23 01/18/23 release 24 hr pantoprazole 40 mg tablet,delayed 40 mg PO DAILY Acid Reflux 01/18/23 01/18/23 release ranolazine 1,000 mg 1,000 mg PO BID Angina 01/18/23 01/18/23 tablet,extended release,12 hr rosuvastatin 40 mg tablet 40 mg PO DAILY High Cholesterol 01/18/23 01/18/23 Allergies Allergy/AdvReac Type Severity Reaction Status Date / Time isosorbide Allergy Mild headache Verified 12/30/22 10:13 [facility] Disclaimer: The information contained in this section may have been updated after the patient was seen, as this information can be updated by other users. Medical History Abnormal EKG Atypical angina Atypical angina Coronary artery disease NOVEMBER-2021 Severe ostial LAD disease as described above Successful stenting of left main artery stent in the proximal LAD Successful stenting of the mid LAD in a noncontiguous manner Successful stent to the ostial proximal dominant circumflex artery JULY 2021-Severe disease in the LAD with successful percutaneous revascularization of the proximal to mid LAD as described above Persistent moderate to severe stenosis in the moderate sized first diagonal artery Persistent severe stenoses in a small nondominant right coronary Diastolic dysfunction Dyspnea Edema of both lower extremities Hyperlipidemia Hyperlipidemia associated with type 2 diabetes mellitus Hypertension Non-ST elevated myocardial infarction Palpitations Sinus tachycardia Type 2 diabetes mellitus Surgical History History of colonoscopy History of coronary artery stent placement Family History (Reviewed 12/30/22 @ 10:13 by
[2023-01-18 00:07] LABS: Acetone, Serum (Rapid) None Detected (None Detect)
[2023-01-18 00:11] LABS: Magnesium 1.1 mg/dl (1.6-2.3); Phosphorous 3.9 mg/dl (2.5-4.5)
--- NOTE | 2023-01-18 01:48 | PC.NURSE ---
Rounded on patient, no concerns at this time.
--- NOTE | 2023-01-18 02:38 | PC.NURSE ---
Md @ bedside for re evaluation
[2023-01-18 02:51] LABS: D-Dimer 1.03 ug/mL (0.0-0.5)
[2023-01-18 03:02] LABS: Troponin I < 0.01 ng/ml (0.00-0.034)
--- NOTE | 2023-01-18 03:26 | CT_ITS ---
PROCEDURE INFORMATION: Exam: CTA Chest With Contrast Exam date and time: 01/18/2023 3:51 AM Age: 72 years old Clinical indication: Shortness of breath; Additional info: SOA, cp, elevated dimer TECHNIQUE: Imaging protocol: Computed tomographic angiography of the chest with contrast. Exam focused on the arteries. 3D rendering (Not supervised by radiologist): MIP and/or 3D reconstructed images were created by the technologist. Radiation optimization: All CT scans at this facility use at least one of these dose optimization techniques: automated exposure control; mA and/or kV adjustment per patient size (includes targeted exams where dose is matched to clinical indication); or iterative reconstruction. Contrast material: ISOVUE; Contrast volume: 70 ml; Contrast route: INTRAVENOUS (IV); REPORTING DATA: Count of CT and Cardiac NM exams in prior 12 months: This patient has received 2 known CTs and 0 known cardiac nuclear medicine studies in the 12 months prior to the current study. COMPARISON: CT ANGIO CHEST PE PROTOCOL 05/25/2022 2:18 PM FINDINGS: Pulmonary arteries: Limitation due to motion artifact without major pulmonary embolism. Aorta: See Other arteries finding. Other arteries: Atherosclerotic calcifications. No thoracic aortic aneurysm. Lungs: Predominantly bibasilar probable scarring/atelectasis. Few small calcified pulmonary granulomas. Pleural spaces: Several partially calcified pleural plaques superiorly, nonspecific, possibly sequela of asbestos exposure. Heart: No pericardial effusion. Coronary arteries: coronary artery calcifications. Mediastinal space: Postsurgical changes in the mediastinum. Lymph nodes: Prominent size and number intrathoracic lymph nodes, many are partially calcified, nonspecific. Gallbladder and bile ducts: Cholelithiasis. Spleen: Multiple calcified granulomas in the spleen. Kidneys and ureters: Incompletely visualized probable cyst in the left kidney. Bones/joints: Median sternotomy. Soft tissues: No discreet soft tissue mass. IMPRESSION: 1. Limitation due to motion artifact without major pulmonary embolism. 2. Several partially calcified pleural plaques superiorly, nonspecific, possibly sequela of asbestos exposure. Further evaluation as clinically indicated. COMMENTS: Consistent with the [employer]'s Incidental Findings Committee white paper (J Am Bindu Radiol 2018): Any incidental renal lesion less than 1 cm or classified as too small to characterize, or any incidental cystic renal lesion characterized as simple-appearing, is likely benign. No follow-up imaging is recommended for these lesions per consensus recommendations based on imaging criteria.
--- NOTE | 2023-01-18 04:20 | PC.NURSE ---
paged dr estrada
--- NOTE | 2023-01-18 04:25 | PC.NURSE ---
on phone with dr estrada
--- NOTE | 2023-01-18 04:28 | PC.NURSE ---
notified charhouse worker of admission
--- NOTE | 2023-01-18 04:32 | PC.NURSE ---
observation admission to 203 with dx of unstable angina to service of Dr. Izquierdo.
[2023-01-18 04:54] LABS: POC Glucose,Bedside 359 (70-110)
--- NOTE | 2023-01-18 04:59 | PC.NURSE ---
pt arrived to floor via wheelchair @4:52am
[2023-01-18 05:23] LABS: POC Glucose,Bedside 347 (70-110)
--- NOTE | 2023-01-18 07:37 | PC.NURSE ---
pt asked if he brought home medications with him, stated he did not, and that last time he was unable to use them, educated on use of home medications with medicare admissions
--- NOTE | 2023-01-18 08:42 | HMH.PHAINT1 ---
Pharmacy Intervention Comments: Medication history complete, medications verified with fill history. - Yanelis Kaufman, PharmD Candidate 2023
[2023-01-18 08:52] LABS: Troponin I < 0.01 ng/ml (0.00-0.034)
--- NOTE | 2023-01-18 09:23 | EXP.HP ---
History of Present Illness *Admission Date: 01/18/23 *Reason for visit:: Chest pain *History of present illness: Mr. Dennison is a 72 year old patient of [facility], with a long standing history of coronary artery disease, who presented to [facility] ER last night complaining of severe left sided chest pain. He states he attended a picnic yesterday out of town and the ride home began feeling chest pain. He states the pain was 9/10 in intensity. He took a NTG tablet but got no relief. Once home he took a couple of more doses with no improvement of symptoms so he came to the ER for an evaluation. He states over the past few months hew has had chest pain on a near daily basis. He thinks pain is made worse by eating, symptoms have not been exertional. He states he saw cardiology at [facility] last month and had an echo and labs drawn. As far as he knows all of the results her normal. He has actually lost a few pounds and has not had any leg swelling. He has been taking all of his medications as prescribed. He is a type 2 diabetic and takes insulin daily. He reports his blood sugar has been just under fair control. [facility] Disclaimer: The information contained in this section may have been updated after the patient was seen, as this information can be updated by other users. Medical History (Updated 01/18/23 @ 09:41 by Declan Izquierdo MD) Abnormal EKG Atypical angina Cataracts, bilateral Colon polyps Coronary artery disease Diastolic dysfunction Diverticulosis of colon Dyspnea Fusion of lumbar spine GERD (gastroesophageal reflux disease) Gout Hyperlipidemia Hyperlipidemia associated with type 2 diabetes mellitus Hypertension Hypertriglyceridemia Kidney stones Low back pain Lumbar disc disease Menieres disease Non-ST elevated myocardial infarction Palpitations Type 2 diabetes mellitus Surgical History (Updated 01/18/23 @ 09:37 by Declan Izquierdo MD) H/O cataract removal with insertion of prosthetic lens H/O exploratory laparotomy History of colonoscopy History of coronary artery stent placement History of extraction of renal calculus S/P CABG (coronary artery bypass graft) S/P lumbar fusion S/P rotator cuff repair Family History Other Cancer Coronary artery disease Diabetes Heart attack Hypertension Stroke Social History Smoking Status: Former smoker alcohol intake: never substance use type: denies use current occupational status: retired Travel in the last 8 weeks: Inside the [place] household members: none housing: house 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 current occupational exposures/hazards: No caffeine: No Review of Systems Constitutional Constitutional: Denies chills, Denies fever(s) and Denies frequent falls Eyes Eyes: Denies change in vision ENT Ears, Nose, Mouth, and Throat: Denies nasal congestion *Cardiovascular Cardiovascular: Reports as per HPI *Respiratory Respiratory: Denies cough *Gastrointestinal Gastrointestinal: Denies abdominal pain *Genitourinary Genitourinary: Denies difficulty urinating *Musculoskeletal Musculoskeletal: Denies arthralgias Integumentary/Breasts Skin/Breast: Denies rash *Neurologic Neurologic: Denies localized weakness and Denies frequent falls Meds Home Medications and Allergies Home Medications Medication Instructions Recorded Confirmed Type amlodipine 5 mg tablet 5 mg PO DAILY High Blood Pressure 01/18/23 01/18/23 History aspirin 81 mg chewable tablet 81 mg PO DAILY Heart Disease 01/18/23 01/18/23 History bisoprolol fumarate 10 mg tablet 10 mg PO BID High Blood Pressure 01/18/23 01/18/23 History clopidogrel 75 mg tablet 75 mg PO DAILY Antiplatelet 01/18/23 01/18/23 History fenofibrate micronized 134 mg 134 mg PO DAILY High triglyceride 01/18/23 01/18/23 History capsule furosemide 20 mg tablet 20 mg PO DAILY Fluid
[2023-01-18 11:18] LABS: POC Glucose,Bedside 358 (70-110)
[2023-01-18 16:20] LABS: POC Glucose,Bedside 385 (70-110)
--- NOTE | 2023-01-18 18:07 | PC.NURSE ---
Pt glucose remained elevated T/O shift, insulin given per JUL, Pt denies chest pain or SOA, Pt ambulatory in room several times to bathroom for elimination and daily care, Pt up to chair at this time visiting with family member.
[2023-01-18 20:45] LABS: POC Glucose,Bedside 346 (70-110)
[2023-01-19] VITALS (15 sets, daily range): BP systolic 104–131; BP diastolic 61–81; PULSE 56–85; RESP 14–19; TEMP 36.4–36.8; O2SAT 92–100; BMI 31.0
--- NOTE | 2023-01-19 | IR_ITS ---
APPROVED REPORT Patient Location: Inpatient Fortune Cookie Maker: MITCH Mosquera RT (R) PROCEDURES Left heart catheterization Left ventriculogram Selective coronary angiogram Left internal mammary angiography Selective engagement of the saphenous vein graft to the diagonal artery Selective engagement of saphenous vein graft to the first obtuse marginal artery Selective engagement of the saphenous vein graft to the posterior descending artery INDICATION Coronary artery disease, History of coronary bypass surgery, Unstable angina Informed consent was obtained prior to the procedure. COMPLICATIONS None Estimated Blood Loss: Less than 10 ml TECHNIQUE One percent lidocaine used to anesthetize the right groin. The right femoral artery was accessed via the Seldinger technique and a 5 Latvian sheath was placed in the right femoral artery. A JL 4, JR4 catheter were used to perform left heart catheterization, left ventriculogram selective coronary angiography as well as selective engagement of the 3 vein grafts and the left internal mammary artery. At the end of the procedure the patient was transferred to the postop holding area in stable condition for sheath removal. ANGIOGRAPHIC RESULTS The left main artery Has a distal concentric 80% stenosis representing in-stent restenosis The left anterior descending artery Is proximally patent and then has a mid vessel concentric 90% stenosis with an additional tandem 80% and 90% mid vessel stenoses. The first diagonal artery is small and has an ostial 90% stenosis The circumflex artery Is codominant and has an ostial 70 to 80% stenosis. Competitive flow is identified in the first obtuse marginal artery The right coronary artery Is codominant and subtotally occluded at mid vessel. Competitive flow is present in a small distal posterior descending artery The GALE ventriculogram reveals Slight left ventricular dilatation global hypokinesis estimate ejection fraction 40 to 45% The left ventricular end-diastolic pressure 10 mmHg Left subclavian artery has a tortuous bend. The left internal mammary artery is patent and has flow to the distal LAD Saphenous vein graft to a small diagonal artery is patent with the vein graft itself being a small caliber vessel consistent with 1 mm size diagonal artery Saphenous vein graft to the right coronary artery's posterior descending artery is patent Saphenous vein graft to the first obtuse marginal artery is widely patent and nicely backfills the second obtuse marginal artery IMPRESSION Adequate surgical revascularization as described above Mildly reduced ejection fraction 40 to 45% with global hypokinesis Normal left ventricular end-diastolic pressure PLAN 1. Continue medical management for ischemic heart disease Electronically signed by : Lenin Francois MD 01/19/2023 12:48:28
--- NOTE | 2023-01-19 05:03 | PC.NURSE ---
pt did report mild chest discomfort 05/26 under left breast, went away without intervention, nsr on monitor, rested well
[2023-01-19 06:06] LABS: POC Glucose,Bedside 167 (70-110)
[2023-01-19 06:33] LABS: Basophils % 0.4 % (0.1-2.0); Eosinophils # 0.1 K/mm3 (0.0-0.4); Eosinophils % 1.4 % (0.1-12.0); Hematocrit 41.2 % (42.0-52.0); Hemoglobin 13.1 g/dL (14.1-18.0); Lymphocytes # 1.8 K/mm3 (0.7-4.5); Lymphocytes % 31.8 % (10-50); Mean Corpuscular HGB Conc 31.8 g/dL (31.8-35.4); Mean Corpuscular Hemoglobin 24.3 pg (27.0-31.2); Mean Corpuscular Volume 76.4 fl (80-94); Mean Platelet Volume 9.9 fl (7.4-10.4); Monocytes # 0.5 K/mm3 (0.1-1.0); Monocytes % 8.2 % (1.7-9.3); Neutrophils # 3.3 K/mm3 (1.8-7.8); Neutrophils % 58.2 % (37.0-80.0); Platelet Count 186 K/mm3 (142-424); Red Blood Count 5.39 M/mm3 (4.60-6.20); Red Cell Distribution Width 18.7 % (11.5-17.5); White Blood Count 5.7 K/mm3 (4.8-10.8)
[2023-01-19 06:42] LABS: Anion Gap 13.1 mEq/L (5-15); Blood Urea Nitrogen 15 mg/dl (9-20); Calcium 8.8 mg/dl (8.4-10.2); Carbon Dioxide 25 mmol/L (22.0-30.0); Chloride 103 mmol/L (98-107); Creatinine Clearance Estimated 78 mL/min (50-200); Estimated Glomerular Filt Rate 73 ml/min (>60); GFR (African American) 89 ML/MIN (>60); Glucose 178 mg/dl (74-100); Potassium 4.1 mmoL/L (3.5-5.1); Sodium 137 mmol/L (136-145)
[2023-01-19 06:53] LABS: Magnesium 1.3 mg/dl (1.6-2.3)
--- NOTE | 2023-01-19 07:53 | EXP.ACUTE.PN ---
Subjective *Date: 01/19/23 *Time: 08:38 Interval history: Patient states he did sleep some last night. He did have some sharp chest discomfort about 630 this morning. It lasted 1 to 2 minutes. There was no associated nausea or shortness of breath or palpitations. He continues with ongoing chest pressure. He has ambulated in the room without difficulty. He describes abdominal bloating which is better today. He has a lot of gas but minimal belching. He denies any reflux. Bowels are moving. He is voiding QS. Blood pressure is much improved. Blood sugars have also improved With a 167 this AM. Electrolytes are normal. Kidney function is normal. Medical Exam Vital signs and Labs for Last 24 Hours: Vital Signs Temp Pulse Pulse Resp BP Pulse Ox O2 Del Method 01/19/23 07:36 98.3 F 68 17 125/81 98 Room Air 01/19/23 05:00 Room Air 01/19/23 04:43 62 01/19/23 04:00 97.6 F 63 18 105/68 L 97 Room Air 01/19/23 03:00 Room Air 01/19/23 01:00 Room Air 01/19/23 00:00 63 01/18/23 20:00 68 01/19/23 00:00 97.6 F 66 19 131/73 98 Room Air 01/18/23 23:00 Room Air 01/18/23 21:00 Room Air 01/18/23 20:00 Room Air 01/18/23 20:00 98.1 F 71 18 140/73 96 Room Air 01/18/23 18:40 Room Air 01/18/23 16:00 70 01/18/23 17:00 Room Air 01/18/23 15:52 98.1 F 67 19 120/67 98 01/18/23 15:45 70 01/18/23 14:57 Room Air 01/18/23 13:43 71 19 123/59 L 98 Room Air 01/18/23 13:00 Room Air 01/18/23 11:00 Room Air 01/18/23 09:00 Room Air 01/18/23 08:08 80 01/18/23 08:00 Room Air Intake and Output 01/18/23 01/19/23 01/19/23 19:59 03:59 11:59 Intake Total 720 / 720 470 / 1190 Output Total 0 / 0 0 / 0 0 / 0 Balance 720 / 720 0 / 720 470 / 1190 Intake: Intake, Oral Amount 720 / 720 470 / 1190 Output: Output, Urine Amount 0 / 0 0 / 0 0 / 0 Other: Number of Voids 2 Number of Unmeasured Voids 2 1 1 Number of Bowel Movements 1 Weight 181 lb 9.6 oz Patient Weight 01/19/23 11:59 Weight 181 lb 9.6 oz Laboratory Results - last 24 hr 01/18/23 06:15: Troponin I < 0.01 01/18/23 11:08: POC Glucose 358 H* 01/18/23 16:10: POC Glucose 385 H* 01/18/23 20:34: POC Glucose 346 H* 01/19/23 05:50: POC Glucose 167 H 01/19/23 06:12: WBC 5.7, RBC 5.39, Hgb 13.1 L, Hct 41.2 L, MCV 76.4 L, MCH 24.3 L, MCHC 31.8, RDW 18.7 H, Plt Count 186, MPV 9.9, Neut % (Auto) 58.2, Lymph % (Auto) 31.8, Mills % (Auto) 8.2, Eos % (Auto) 1.4, Baso % (Auto) 0.4, Neut # (Auto) 3.3, Lymph # (Auto) 1.8, Mills # (Auto) 0.5, Eos # (Auto) 0.1, Baso # (Auto) 0.0, Sodium 137, Potassium 4.1 D, Chloride 103, Carbon Dioxide 25, Anion Gap 13.1, BUN 15 D, Creatinine 1.00, Estimated Creat Clear 78, Estimated GFR 73, Est GFR ( Amer) 89 D, Glucose 178 H, Calcium 8.8, Magnesium 1.3 L D I & O for Labs for Last 24 Hours: Intake & Output 01/16/23 01/17/23 01/18/23 01/19/23 11:59 11:59 11:59 11:59 Intake Total 120 / 120 1190 / 1190 Output Total 0 / 0 0 / 0 Balance 120 / 120 1190 / 1190 Weight 184 lb 1.6 oz 181 lb 9.6 oz Constitutional: Present no acute distress Comment:: Lying comfortably in the bed. Respiratory: Present CTA bilaterally (Anteriorly and posteriorly) Cardiac: Present Reg Rate and Rhythm (Monitor showing sinus rhythm in the 70s) GI: Present soft, distention and hyperactive bowel sounds; Absent tenderness, guarding or organomegaly Extremities: Present normal inspection (Good pedal pulses); Absent edema or calf tenderness Neuro: Present alert and oriented x 3 Assessment and Plan *Assessment and plan (1) Hypertensive urgency: Status: Acute Category: Medical Code(s): I16.0 - Hypertensive urgency (2) Hypertension: Status: Chronic Qualifiers: Hypertension type: primary hypertension Qualified Code(s): I10 - Essential (primary) hype
--- NOTE | 2023-01-19 09:56 | EXP.CARD.CON ---
History of Present Illness History of Present Illness Consult date: 01/19/23 Requesting physician: Declan Izquierdo Consult reason: chest pain Chief complaint: chest pain History of present illness: This is a 72-year-old white gentleman who presented to the emergency department complaints of chest pain. The patient has a known history of coronary artery disease status post recent coronary artery bypass grafting, hypertension, hyperlipidemia and diabetes. The patient states that he had attended in [facility] out of town and he was driving home when he had sudden onset of chest pain. He states that this is a tight sensation in the substernal aspect of his chest and then radiates across the entire chest with a sharp sensation. It radiates up to his neck and down both of his arms and causes bilateral hand numbness. He states that it is associated with shortness of breath. He rates this pain a 9 out of 10 in intensity. The patient states that he took a nitroglycerin tablet and had no relief. He got home and took another dose of nitroglycerin with no improvement of his symptoms. The patient then decided to come to the emergency department for further evaluation. The patient states that he was given multiple doses of nitroglycerin in the emergency department. After the second dose of nitroglycerin he did have some slight improvement in his chest pain. However, he then got up to walk to the bathroom and had recurrence of his chest pain and was treated with 2 more doses of nitroglycerin without resolution of the pain. The patient reports having the substernal tightness this morning radiating up to his neck. He states that it is milder this morning than it has been but has not completely resolved. He states that he does notice that this gets worse after eating. He denies any fever, chills, nausea, vomiting, diarrhea, PND or orthopnea. [facility] Disclaimer: The information contained in this section may have been updated after the patient was seen, as this information can be updated by other users. Medical History (Updated 01/19/23 @ 12:02 by Ruth Foster APRN) Abnormal EKG Angina pectoris Atypical angina Cataracts, bilateral Colon polyps Coronary artery disease Diastolic dysfunction Diverticulosis of colon Dyspnea Fusion of lumbar spine GERD (gastroesophageal reflux disease) Gout Hyperlipidemia Hyperlipidemia associated with type 2 diabetes mellitus Hypertension Hypertriglyceridemia Kidney stones Low back pain Lumbar disc disease Menieres disease Non-ST elevated myocardial infarction Palpitations Type 2 diabetes mellitus Unstable angina Surgical History (Updated 01/18/23 @ 09:37 by Declan Izquierdo MD) H/O cataract removal with insertion of prosthetic lens H/O exploratory laparotomy History of colonoscopy History of coronary artery stent placement History of extraction of renal calculus S/P CABG (coronary artery bypass graft) S/P lumbar fusion S/P rotator cuff repair Family History Other Cancer Coronary artery disease Diabetes Heart attack Hypertension Stroke Social History Smoking Status: Former smoker alcohol intake: never substance use type: denies use current occupational status: retired Travel in the last 8 weeks: Inside the [place] household members: none housing: house 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
[2023-01-19 11:44] LABS: POC Glucose,Bedside 334 (70-110)
[2023-01-19 17:15] LABS: POC Glucose,Bedside 228 (70-110)
--- NOTE | 2023-01-20 15:43 | CARE MANAGER ---
Spoke with patient for post-discharge phone interview, no issues noted.
--- NOTE | 2023-01-26 22:20 | EXP.DC.SUM ---
General Admission date:: 01/18/23 Discharge date: 01/19/23 HPI HPI HPI: Mr. Dennison is a 72 year old patient of [facility], with a long standing history of coronary artery disease, who presented to [facility] last night complaining of severe left sided chest pain. He states he attended a picnic yesterday out of town and the ride home began feeling chest pain. He states the pain was 9/10 in intensity. He took a NTG tablet but got no relief. Once home he took a couple of more doses with no improvement of symptoms so he came to the ER for an evaluation. He states over the past few months hew has had chest pain on a near daily basis. He thinks pain is made worse by eating, symptoms have not been exertional. He states he saw cardiology at [facility] last month and had an echo and labs drawn. As far as he knows all of the results her normal. He has actually lost a few pounds and has not had any leg swelling. He has been taking all of his medications as prescribed. He is a type 2 diabetic and takes insulin daily. He reports his blood sugar has been just under fair control. Hospital Course Hospital Course Hospital Course: The patient was admitted for evaluation and management of his chest pain. He had EKG changes that did not appear to be associated with active ischemia. His blood pressure was very elevated. He was having GI symptoms as well. His BP medication was increased and GI medications were started. Lovenox was also starated. He was seen in consultation by cardiology and given his unstable angina, they wanted to proceed with a left heart cath. The CTA of the chest showed no PE. 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 Cardiology felt he would need to see pulmonology on an outpatient basis. The patient's blood pressure improved with medication. His magnesium was low and improved with 4 g of IV magnesium. He had a heart cath and there was adequate surgical revascularization and a mildly active reduced ejection fraction of 40 to 45%. Cardiology recommended continuing medical management. The patient was stable to be discharged home. Exam Data for Last 24 hours Vital signs and Labs for Last 24 Hours: Temp Pulse Resp BP Pulse Ox O2 Del Method O2 Flow Rate 97.6 F 56 L 16 104/68 L 97 Room Air 2 01/19/23 16:00 01/19/23 16:00 01/19/23 16:00 01/19/23 16:00 01/19/23 16:00 01/19/23 16:00 01/18/23 05:00 Narrative: Constitutional Constitutional: no acute distress *Routine HEENT Exam Head: Present normocephalic Eye: Present EOMI and PERRL ENT: Present mucous membranes moist *Routine Neck Exam Neck: Present supple; Absent lymphadenopathy *Routine Respiratory Exam Respiratory: Present CTA bilaterally *Routine Cardiovascular Exam Cardiovascular: Present RRR *Routine Abdominal Exam Abdominal: Present soft and normoactive bowel sounds; Absent tenderness *Routine Rectal Exam Rectal:: deferred *Routine Genitalia Exam Genitalia:: deferred *Routine Extremities Exam Extremities: Absent cyanosis, clubbing or edema *Routine Skin Exam Skin: Present warm; Absent rash *Routine Neurological Exam Neurological: Present alert and oriented X3 DS: Diagnosis Discharge Diagnosis (1) Unstable angina: Status: Resolved Code(s): I20.0 - Unstable angina (2) Coronary artery disease: Status: Chronic Code(s): I25.10 - Atherosclerotic heart disease of [place] coronary artery without angina pectoris Qualifiers: Coronary Disease-Associated Artery/Lesion type: [place] artery [place] vs. transplanted heart: [place] heart Associated angina: unspecified whether angina present Qualified Code(s): I25.10 - Atherosclerotic heart disease of [place] coronary artery without angina pectoris Problem details: NOVEMBER-2021 Severe ostial LAD disease as described above Successful stenting of left main artery stent in the proximal LAD Successful stenting of the mid LAD in
== END 2023-01-19 17:36 | disposition home or self-care (01) ==
LOC: ER 01-18 04:34 → 2ND 01-18 04:53
PROVIDERS: Internal Medicine; Admitting Provider Family Medicine; Emergency Provider Emergency Medicine; PCP Family Medicine; Visit Provider Family Medicine
DX: I16.0 Hypertensive urgency (principal); I10 Essential (primary) hypertension; I20.8 Other forms of angina pectoris; I25.110 Atherosclerotic heart disease of native coronary artery with unstable angina pectoris; E11.65 Type 2 diabetes mellitus with hyperglycemia; E11.69 Type 2 diabetes mellitus with other specified complication; E83.42 Hypomagnesemia; Z95.1 Presence of aortocoronary bypass graft; E78.2 Mixed hyperlipidemia; R94.31 Abnormal electrocardiogram [ECG] [EKG]; K21.9 Gastro-esophageal reflux disease without esophagitis; Z95.5 Presence of coronary angioplasty implant and graft; Z79.4 Long term (current) use of insulin; I25.2 Old myocardial infarction
CPT/HCPCS: 36415; 71045; 71275; 80048; 80053; 82009; 82962; 83735; 84100; 84484; 85025; 85378; 93005; 93459; 99152; 99285; C1725; C1769; C1894; G0378; J1644; J3475; Q9967

== ENCOUNTER 2023-04-30 07:04 | Day surgery (SDC) | payer MEDICARE, OTHER, SELFPAY ==
[2023-04-30] VITALS (14 sets, daily range): BP systolic 102–150; BP diastolic 59–78; PULSE 58–63; RESP 16–20; TEMP 36.9; O2SAT 94–99; BMI 31.0
--- NOTE | 2023-04-30 07:09 | IR_ITS ---
APPROVED REPORT Patient Location: Outpatient Clam Treader: MITCH Dia RT (R) PROCEDURES Left heart catheterization Left ventriculogram Selective coronary angiogram Left internal mammary angiography Selective engagement of saphenous vein graft to the diagonal artery Selective engagement of saphenous vein graft to the right coronary Selective engagement of saphenous vein graft to the circumflex artery INDICATION Angina pectoris class IV, Coronary artery disease, History of coronary bypass surgery, Informed consent was obtained prior to the procedure. COMPLICATIONS NONE Estimated Blood Loss: LESS THAN 10 ML TECHNIQUE One percent lidocaine used to anesthetize the right groin. The right femoral artery was accessed via the Seldinger technique and a 5 Persian sheath was placed in the right femoral artery. A JL 4, JR4 catheter were used to perform left heart catheterization, left ventriculogram selective coronary angiography as well as selective engagement of the 3 vein grafts and the left internal mammary artery. At the end the diagnostic angiogram therapeutic Was administered and the 5 Persian sheath was exchanged for a 6 Persian sheath. Initial plan was to stent the distal left main artery going into the circumflex artery however after further angiographic evaluation the terminal obtuse marginal artery appeared to have excellent retrograde filling from the saphenous vein graft to the first obtuse marginal artery. At this point it was decided not to perform percutaneous intervention. This point the apparatus was removed the groin is reprepped closure change sheath was removed and hemostasis was achieved using Angio-Seal patient was transferred to the postop holding in stable condition ANGIOGRAPHIC RESULTS The left main artery Has distal mostly eccentric 40% stenosis The left anterior descending artery Has stents which are original for left main artery and supply a subtotally occluded LAD. There are minimal sidebranches from a mostly occluded LAD The circumflex artery Is a dominant vessel and has stents originating off the left main artery. There is an ostial 60 to 70% stenosis. There is competitive flow in the first obtuse marginal artery. A large second obtuse marginal artery has a mid vessel 40 to 50% nonflow limiting stenosis. The right coronary artery Is nondominant has severe proximal 90% stenoses with mid vessel distal 90% stenoses. The GALE ventriculogram reveals Normal 65% The left ventricular end-diastolic pressure 15 mmHg Left subclavian artery has an anatomical kink which does not create a hemodynamic gradient upon pullback with a 5 Persian JR 4 catheter. Left internal mammary artery is patent to the LAD however the flow down the HSIEH graft into the LAD is slow Saphenous to first diagonal artery small but patent Saphenous to right coronary artery small but patent Saphenous vein graft to first obtuse marginal artery widely patent IMPRESSION Coronary disease as described above Normal ejection fraction Normal LVEDP PLAN 1. Maximize antianginal medications 2. Patient is able to tolerate sublingual nitroglycerin. Imdur 30 mg a day will be given 3. Aggressive risk factor modification Electronically signed by : Leinn Francois MD 04/30/2023 12:46:48
[2023-04-30 07:47] LABS: Basophils % 0.5 % (0.1-2.0); Eosinophils # 0.1 K/mm3 (0.0-0.4); Eosinophils % 1.8 % (0.1-12.0); Hematocrit 43.7 % (42.0-52.0); Hemoglobin 14.4 g/dL (14.1-18.0); Lymphocytes # 2.1 K/mm3 (0.7-4.5); Mean Corpuscular HGB Conc 32.9 g/dL (31.8-35.4); Mean Corpuscular Hemoglobin 29.1 pg (27.0-31.2); Mean Corpuscular Volume 88.5 fl (80-94); Mean Platelet Volume 11.6 fl (7.4-10.4); Monocytes # 0.6 K/mm3 (0.1-1.0); Monocytes % 10.6 % (1.7-9.3); Neutrophils # 2.9 K/mm3 (1.8-7.8); Neutrophils % 50.1 % (37.0-80.0); Platelet Count 197 K/mm3 (142-424); Red Blood Count 4.94 M/mm3 (4.60-6.20); Red Cell Distribution Width 15.2 % (11.5-17.5); White Blood Count 5.7 K/mm3 (4.8-10.8)
[2023-04-30 08:33] LABS: Chloride 98 mmol/L (98-107); Potassium 4.4 mmoL/L (3.5-5.1); Sodium 132 mmol/L (136-145)
[2023-04-30 08:36] LABS: Anion Gap 9.4 mEq/L (5-15); Blood Urea Nitrogen 21 mg/dl (9-20); Carbon Dioxide 29 mmol/L (22.0-30.0); Creatinine Clearance Estimated 65 mL/min (50-200); Estimated Glomerular Filt Rate 60 ml/min (>60); GFR (African American) 72 ML/MIN (>60); Glucose 372 mg/dl (74-100)
== END 2023-04-30 13:38 | disposition home or self-care (01) ==
PROVIDERS: PCP Family Medicine; Visit Provider Internal Medicine
DX: I25.110 Atherosclerotic heart disease of native coronary artery with unstable angina pectoris; R06.00 Dyspnea, unspecified; Z95.1 Presence of aortocoronary bypass graft; Z79.02 Long term (current) use of antithrombotics/antiplatelets; Z79.4 Long term (current) use of insulin; E11.9 Type 2 diabetes mellitus without complications; I10 Essential (primary) hypertension; E78.5 Hyperlipidemia, unspecified; I25.2 Old myocardial infarction; Z95.5 Presence of coronary angioplasty implant and graft; E03.9 Hypothyroidism, unspecified; I77.1 Stricture of artery
CPT/HCPCS: 36415; 80048; 85025; 93459; 99152; 99153; C1725; C1760; C1769; C1894; J1644; Q9967

== ENCOUNTER → 2023-05-13 07:12 | Outpatient (CLI) | payer MEDICARE, OTHER, SELFPAY ==
--- NOTE | 2023-05-13 07:15 | US_ITS ---
FINAL REPORT CLINICAL HISTORY: Right upper quadrant pain FINDINGS: ULTRASOUND RIGHT UPPER QUADRANT Sonographic imaging of the right upper quadrant was obtained. The pancreas is partially obscured. The liver fatty infiltrated. There is sludge in the gallbladder. There is no gallbladder wall thickening. There is no biliary ductal dilatation. The common duct is normal at 4 mm. Limited images of the right kidney are unremarkable. IMPRESSION: Fatty liver. Sludge in the gallbladder. Reviewed, Interpreted and Dictated by Emanuel Villalba MD Transcribed by Rachel Wilson Authenticated and [facility]
== END ==
LOC: RAD 07:12
PROVIDERS: PCP Family Medicine; Visit Provider Family Medicine
DX: R10.11 Right upper quadrant pain (principal)
CPT/HCPCS: 76705

== ENCOUNTER 2023-05-31 10:00 | Outpatient (CLI) | payer MEDICARE, OTHER, SELFPAY ==
--- NOTE | 2023-05-31 10:06 | NM_ITS ---
FINAL REPORT CLINICAL HISTORY: ABD PAIN, SLUDGE IN GALLBLADDER 10:20am 8.66 mci tc choletec 1.6 mcg cck no pain with cck COMPARISON: None FINDINGS: Sequential anterior projection images of the abdomen were obtained after the intravenous injection of 8.66 mCi technetium 99m Choletec. There is normal uptake of radiotracer by the liver. The bile ducts or not visualized by 60 minutes, until after CCK injection. Gallbladder activity is seen by 5 minutes. Bowel activity is noted by 5 minutes. After 1 hour, 1.6 ?g of CCK was injected intravenously for calculation of gallbladder ejection fraction. The gallbladder ejection fraction is 72%, which is within normal limits. IMPRESSION: No evidence of cystic duct or bile duct obstruction. Normal gallbladder ejection fraction of 50%. No pain or discomfort was elicited after CCK injection. Reviewed, Interpreted and Dictated by Dany Wade III, MD Transcribed by Noris Hines Authenticated and [facility]
[2023-05-31] MEDS: SINCALIDE 1.6 MCG in 0.9 % SODIUM CHLORIDE 50 ML 100 MCG IV (12:31)
[2023-05-31] MEDS: ISOTOPE CHOLETECH;1 DOSE (UP TO 15 MCI) IV (12:31)
[2023-05-31] MEDS: SODIUM CHLORIDE 0.9% 10ML SYR (RAD ONLY) 10 ML IV (12:31)
== END 2023-05-31 23:59 ==
LOC: RAD 10:01
PROVIDERS: PCP Family Medicine; Visit Provider Family Medicine
DX: R10.11 Right upper quadrant pain (principal); K82.8 Other specified diseases of gallbladder
CPT/HCPCS: 78227; A9537; J2805

== ENCOUNTER 2023-06-27 14:40 | Emergency (ER) | payer MEDICARE, OTHER, SELFPAY ==
[2023-06-27 14:41] VITALS: BP 155/81; PULSE 80; RESP 18; TEMP 36.6; O2SAT 99
--- NOTE | 2023-06-27 15:14 | XR_ITS ---
PROCEDURE INFORMATION: Exam: XR Left Shoulder Exam date and time: 06/27/2023 3:18 PM Age: 73 years old Clinical indication: Pain; Shoulder; Left; Prior surgery; Surgery date: 6+ months; Surgery type: Rot cuff repair 2002 TECHNIQUE: Imaging protocol: Radiologic exam of the left shoulder. Views: 2 or more views. COMPARISON: CR XR SHOULDER LT MIN 2V 11/12/2022 11:32 AM FINDINGS: Bones/joints: No acute fracture or dislocation. Considerable spurring/heterotopic calcification seen at the caudal aspect of the acromion. Additional spurring at the caudal margins of the glenohumeral joint. Solitary anchor within the lateral aspect of the humeral head. Visualized ribs are unremarkable. Prior distal clavicular resection versus osteolysis. Soft tissues: Normal. IMPRESSION: 1. Degenerative changes. 2. 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
--- NOTE | 2023-06-27 15:25 | PC.NURSE ---
DR PHILLIPS SPEAKING WITH DR ROSS
--- NOTE | 2023-06-27 15:28 | HMH.EDGENADL ---
Discharge Plan Disposition Patient Disposition: Home, Self-Care Prescriptions Prescriptions: No Action ranolazine 1,000 mg tablet extended release 12 hr 1,000 mg PO BID Qty: 60 5RF insulin glargine [Lantus U-100 Insulin] 100 unit/mL solution 40 unit SQ DAILY amlodipine 5 mg tablet 5 mg PO DAILY Qty: 30 2RF irbesartan 150 mg tablet 150 mg PO DAILY Qty: 30 2RF furosemide 20 mg tablet See Rx Instructions .ROUTE .COMPLEX Qty: 90 4RF Dose Instruction: TAKE ONE TABLET BY MOUTH EVERY DAY Rx Instructions: TAKE ONE TABLET BY MOUTH EVERY DAY bisoprolol fumarate 10 mg tablet See Rx Instructions .ROUTE .COMPLEX Qty: 60 5RF Dose Instruction: TAKE ONE TABLET BY MOUTH TWICE DAILY Rx Instructions: TAKE ONE TABLET BY MOUTH TWICE DAILY clopidogrel 75 mg tablet 75 mg PO DAILY fenofibrate micronized 134 mg capsule 134 mg PO DAILY Patient Comments: TAKE ONE CAPSULE BY MOUTH EVERY DAY levothyroxine 75 mcg tablet 75 mcg PO DAILY pantoprazole 40 mg tablet,delayed release (DR/EC) 40 mg PO DAILY Patient Comments: TAKE ONE TABLET BY MOUTH EVERY DAY metformin 500 mg tablet extended release 24 hr 1,000 mg PO BID Patient Comments: TAKE TWO TABLETS BY MOUTH TWICE DAILY insulin aspart U-100 [Novolog FlexPen U-100 Insulin] 100 unit/mL (3 mL) insulin pen 14 unit SQ TID Patient Comments: INJECT 14 UNITS SUBCUTANEOUSLY THREE TIMES DAILY rosuvastatin 40 mg tablet 40 mg PO DAILY Patient Comments: TAKE ONE TABLET BY MOUTH EVERY DAY FOR cholesterol aspirin 81 mg Tablet,Delayed Release (Dr/Ec) 81 mg PO DAILY Qty: 30 0RF famotidine 20 mg Tablet 20 mg PO BID 60 Days Qty: 120 0RF isosorbide mononitrate 30 mg Tablet Extended Release 24 Hr 30 mg PO DAILY Qty: 30 3RF Referrals Follow up/Referrals: Declan Izquierdo MD [Primary Care Provider] - See instructions Activity Restrictions/Add. Instructions Additional Instructions/Restrictions: At this time it was felt you are safe to be discharged home. If new or worsening symptoms please do not hesitate to return the emergency department. Please call and schedule an appointment tomorrow with Dr. Olson for Wednesday, tell the schedulers that you were seen in the emergency department Dr. Olson recommended he be seen on Wednesday in his clinic. Clinical Impressions Clinical Impression: Left shoulder pain Discharge ED Provider: Dino Molina General Adult HPI General Chief complaint: PAIN Stated complaint: AO Pain in Ledt shoulder Time Seen by Provider: 06/27/23 15:16 Mode of Arrival: Ambulatory Source of Information: Patient Limitations: No Limitations Description of Symptoms (Recalled from ER Triage Doc. by RN): PT C/O LEFT SHOULDER PAIN AFTER LIFTING BLOCKS AND PULLING ELECTRICAL WIRE ON WEDNESDAY. HAS HAD SURGERY [facility] ABOUT 20 YEARS AGO History of Present Illness HPI narrative: Patient is a 73-year-old with past medical history of chronic shoulder pain status post surgical intervention who presents emergency department for evaluation of shoulder pain. History is obtained by patient at bedside. He states that he has had chronic shoulder pain on his left for many years, he has been evaluated by orthopedics here and has had some response to the intra-articular injection. He called the hospital today and was relayed that intra-articular injection is possible today. He attributes worsening of his pain due to laying down some PVC pipe earlier in the week. No trauma. Patient is right-handed. No other acute complaints at this time. Related Data Home Medications Medication Instructions Recorded Confirmed clopidogrel 75 mg tablet 75 mg PO DAILY Antiplatelet 01/18/23 05/20/23 fenofibrate micronized 134 mg 134 mg PO DAILY High triglyceride 01/18/23 05/20/23 capsule insulin aspart U-100 100 unit/mL 14 unit SQ TID Diabetes 01/18/23 05/20/23 (3 mL) subcutaneous pen (Novolog FlexPen U-100 Insulin aspart) levothyroxine 75 mcg tablet 75 mcg PO DAILY Thyroid 01/18/23 05/20/23 metformin 500 mg tablet,extended 1,000 mg PO BID Diabetes 01/18/23 05/20/23 release 24 hr pantoprazole 40 mg tablet,delayed 40 mg PO DAILY Acid Reflux 01/18/23 05/20/23 release rosuvastatin 40 mg tablet 40 mg PO DAILY High Cholesterol 01/18/23 05/20/23 insulin glargine 100 unit/mL 40 unit SQ DAILY 02/26/23 05/20/23 subcutaneous solution (Lantus U-100 Insulin) Previous Rx's Medication Instructions Recorded aspirin 81 mg tablet,delayed 81 mg PO DAILY #30 tabs 01/19/23 release famotidine 20 mg tablet 20 mg PO BID 60 days #120 tabs 01/19/23 ranolazine 1,000 mg 1,000 mg PO BID Angina #60 tabs 01/27/23 tablet,extended release,12 hr furosemide 20 mg tablet See Rx Instructions .Route 04/05/23 .COMPLEX #90 tabs isosorbide mononitrate 30 mg 30 mg PO DAILY #30 tabs 04/30/23 tablet,extended release 24 hr bisoprolol fumarate 10 mg tablet See Rx Instructions .Route 05/18/23 .COMPLEX #60 tabs amlodipine 5 mg tablet 5 mg PO DAILY #30 tabs 05/20/23 irbesartan 150 mg tablet 150 mg PO DAILY #30 tabs 05/20/23 Allergies Allergy/AdvReac Type Severity Reaction Status Date / Time isosorbide Allergy Mild headache Verified 05/20/23 09:06 [facility] Disclaimer: The information contained in this section may have been updated after the patient was seen, as this information can be updated by other users. 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 Cataracts, bilateral Colon polyps Coronary artery disease NOVEMBER-2021 Severe ostial LAD disease as described above Successful stenting of left main artery stent in the proximal LAD Successful stenting of the mid LAD in a noncontiguous manner Successful stent to the ostial proximal dominant circumflex artery JULY 2021-Severe disease in the LAD with successful percutaneous revascularization of the proximal to mid LAD as described above Persistent moderate to severe stenosis in the moderate sized first diagonal artery Persistent severe stenoses in a small nondominant right coronary Diastolic dysfunction Diverticulosis of colon Dyspnea Fusion of lumbar spine GERD (gastroesophageal reflux disease) Gout Hyperlipidemia Hyperlipidemia associated with type 2 diabetes mellitus Hypertension Hypertriglyceridemia Kidney stones Low back pain Lumbar disc disease Lumbar radiculopathy Menieres disease Non-ST elevated myocardial infarction Palpitations Pleural calcification Type 2 diabetes mellitus Unstable angina Worsening angina Surgical History H/O cataract removal with insertion of prosthetic lens H/O exploratory laparotomy History of colonoscopy History of coronary artery stent placement History of extraction of renal calculus Hx of CABG S/P CABG (coronary artery bypass graft) S/P lumbar fusion S/P rotator cuff repair Stented coronary artery Family History Other Cancer Coronary artery disease Diabetes Heart attack Hypertension Stroke Social History (Updated 06/15/23 @ 13:48 by Lore Castillo RN) Smoking Status: Former smoker tobacco type: cigarettes packs per day: 1 alcohol intake: never substance use type: denies use current occupational status: retired Travel in the last 8 weeks: None household members: none housing: house 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 current occupational exposures/hazards: No caffeine: No ROS Obtained: Yes Systems reviewed as appropriate & no additional complaints except as documented Physical Exam General General appearance: alert and in no apparent distress Head Head exam: atraumatic and normocephalic Eye Eye exam: Present PERRL ENT ENT exam: Present mucous membranes moist Neck Neck exam: Present normal inspection Chest Chest inspection: Present normal inspection and symmetric chest wall rise Respiratory Respiratory exam: Absent respiratory distress Cardiovascular Cardiovascular exam: Present regular rate and normal rhythm Abdominal Exam Abdominal exam: Present soft Extremities Exam Extremities exam: Present other (Well-healed surgical scar left shoulder, diffuse tenderness left shoulder, limited active range of motion of the shoulder secondary to pain. Palpable left dorsal pedal pulse, sensation intact to light touch.) Neurological Exam Neurological exam: Present alert Psychiatric Psychiatric exam: Present normal affect Skin Skin exam: Present warm and dry Medical Decision Making Arron Inquiry Pt receiving controlled substance: No Vital Signs: 06/27/23 14:41 Temperature 97.9 F Temperature Source Oral Pulse Rate [Radial] 80 Respiratory Rate 18 Blood Pressure [Right Arm] 155/81 H Blood Pressure Mean [Right Arm] 105 Blood Pressure Source [Right Arm] Automatic Cuff Blood Pressure Position [Right Arm] Sitting 02 Sat by Pulse Oximetry 99 Oxygen Delivery Method Room Air Orders (Tests/Meds): ED MEDICATIONS Discontinued Medications Generic Name Dose Route Start Last Admin Trade Name Freq PRN Reason Stop Dose Admin Ketorolac Tromethamine 30 mg 06/27/23 15:27 06/27/23 15:35 Ketorolac 30mg/Ml Vial IM 06/27/23 15:28 30 mg ONCE ONE Administration Oxycodone HCl 5 mg 06/27/23 15:27 06/27/23 15:34 Oxycodone 5mg Immediate Release Tablet PO 06/27/23 15:28 5 mg ONCE ONE Administration ORDERS Category Date Time Status XR shoulder LT min 2V Stat Exams 06/27/23 15:14 Taken Medical Decision Narrative: In summary patient is a 73-year-old male with past medical history described above who presents emergency department for evaluation of atraumatic left shoulder pain. Patient is hemodynamically stable and nontoxic-appearing upon arrival. History is strongly consistent with an acute exacerbation of his muscular tenderness pain of his left shoulder with physical exertion. Plain films will be obtained to screen for fracture. Unfortunately intra-articular injection is not possible in the emergency department. Dr. Olson was contacted who recommends follow-up outpatient on Wednesday, I agree with this. Initial interventions will be conducted with IM Toradol given normal creatinine baseline as well as single dose oxycodone. X-ray informally interpreted by me, no acute significantly displaced fracture or dislocation. Given this patient is appropriate for discharge at this time we will follow-up with Dr. Olson on outpatient basis. Critical Care Critical Care Time Critical Care Time: No
--- NOTE | 2023-06-27 15:30 | PC.NURSE ---
PT RETURNED FROM XR
[2023-06-27] MEDS: OXYCODONE 5MG IMMEDIATE RELEASE TABLET 5 MG PO (15:34)
[2023-06-27] MEDS: KETOROLAC 30MG/ML VIAL 30 MG IM (15:35)
[2023-06-27 16:14] VITALS: BP 146/82; PULSE 78; RESP 18; TEMP 36.6; O2SAT 99
[2023-06-27 16:29] VITALS: BP 140/80; PULSE 76; RESP 16; TEMP 36.9; O2SAT 99
--- NOTE | 2023-06-28 01:17 | PC.NURSE ---
pt chart accessed for ortho paperwork
== END 2023-06-27 16:29 | disposition home or self-care (01) ==
PROVIDERS: Emergency Provider Emergency Medicine; PCP Family Medicine
DX: M25.512 Pain in left shoulder (principal); I25.110 Atherosclerotic heart disease of native coronary artery with unstable angina pectoris; K21.9 Gastro-esophageal reflux disease without esophagitis; E11.9 Type 2 diabetes mellitus without complications; E78.5 Hyperlipidemia, unspecified; I10 Essential (primary) hypertension; I25.2 Old myocardial infarction; Z87.891 Personal history of nicotine dependence; X50.0XXA Overexertion from strenuous movement or load, initial encounter
CPT/HCPCS: 73030; 96372; 99283

== ENCOUNTER 2023-07-07 10:34 | Day surgery (SDC) | payer MEDICARE, OTHER, SELFPAY ==
[2023-06-15 13:48] VITALS: BMI 29.1
[2023-07-07] MEDS: LACTATED RINGERS 1000ML 1,000 ML 25 ML IV (11:06)
[2023-07-07 11:09] VITALS: BP 158/72; PULSE 62; RESP 18; TEMP 36.2; O2SAT 98
[2023-07-07 11:17] LABS: POC Glucose,Bedside 208 (70-110)
[2023-07-07 12:05] VITALS: O2SAT 98
--- NOTE | 2023-07-07 12:19 | HMH.SCOPE ---
Procedure: Date: 07/07/23 Patient Date of :: 1950 Procedure Performed:: EGD Indications:: The patient is a 73-year-old who presents for EGD evaluation of noncardiac chest pain. Patient denies dysphagia symptom. Performing Provider:: Fredi De Guzman MD Referring Provider:: Declan Izquierdo MD Sedation:: See RN record Procedure:: The gastroscope was gently passed through the incisoral orifice into the oral cavity and under direct visualization the esophagus was intubated. The endoscope was passed down the esophagus, through the stomach, and into the duodenum. Color, texture, mucosa, and anatomy of the esophagus, stomach, and duodenum were carefully examined with the scope. Findings:: The upper and mid esophagus appeared normal. In the distal esophagus just above the Z-line there was an island of salmon-colored mucosa. The Z-line was irregular and was measured at 36 cm. There was a tongue of salmon-colored mucosa at least 1 cm in length and suspicious for De Guzman's esophagus. Biopsies were obtained with a cold forceps for histology. Biopsies were also obtained of the mid esophagus. There was mild inflammation in the distal esophagus and erosions. Biopsies were obtained with cold forceps there was also mild inflammation noted in the gastric body. Biopsies were obtained with cold forceps. The examined duodenum was normal Recommendations:: Await pathology result Continue pantoprazole 40 mg as directed Patient can try famotidine 20 to 40 mg, 1-2 times a day as needed Complications:: None Estimated blood obtained (mL): 0 Colonoscopy Component Colonoscopy Component Was a colonoscopy performed during today's procedure?: No
[2023-07-07 12:21] VITALS: BP 117/70; PULSE 61; RESP 16; TEMP 36.4; O2SAT 97
[2023-07-07 12:31] VITALS: BP 104/65; PULSE 62; RESP 16; O2SAT 97
[2023-07-07 12:41] VITALS: BP 119/88; PULSE 62; RESP 18; O2SAT 98
--- NOTE | 2023-07-07 12:43 | P.PNANES_ITS ---
[facility] Disclaimer: The information contained in this section may have been updated after the patient was seen, as this information can be updated by other users. 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 Cataracts, bilateral Colon polyps Coronary artery disease NOVEMBER-2021 Severe ostial LAD disease as described above Successful stenting of left main artery stent in the proximal LAD Successful stenting of the mid LAD in a noncontiguous manner Successful stent to the ostial proximal dominant circumflex artery JULY 2021-Severe disease in the LAD with successful percutaneous revascularization of the proximal to mid LAD as described above Persistent moderate to severe stenosis in the moderate sized first diagonal artery Persistent severe stenoses in a small nondominant right coronary Diastolic dysfunction Diverticulosis of colon Dyspnea Fusion of lumbar spine GERD (gastroesophageal reflux disease) Gout Hyperlipidemia Hyperlipidemia associated with type 2 diabetes mellitus Hypertension Hypertriglyceridemia Kidney stones Low back pain Lumbar disc disease Lumbar radiculopathy Menieres disease Non-ST elevated myocardial infarction Palpitations Pleural calcification Type 2 diabetes mellitus Unstable angina Worsening angina Surgical History H/O cataract removal with insertion of prosthetic lens H/O exploratory laparotomy History of colonoscopy History of coronary artery stent placement History of extraction of renal calculus Hx of CABG S/P CABG (coronary artery bypass graft) S/P lumbar fusion S/P rotator cuff repair Stented coronary artery Family History Other Cancer Coronary artery disease Diabetes Heart attack Hypertension Stroke Social History Smoking Status: Former smoker tobacco type: cigarettes packs per day: 1 alcohol intake: never substance use type: denies use current occupational status: retired Travel in the last 8 weeks: None household members: none housing: house 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 current occupational exposures/hazards: No caffeine: No H Anesthesia Checklist Patient Identification Patient Identification: Arm Band and Family Structural Data Admitted From: Home Planned Operative Procedure/s: EGD Consent for Planned Operative Procedure(s) Verified: Yes Verified Documents: Surgical Consent and History and Physical NPO Status Verified Time NPO: 00:00 Additional verifications Patient : No Anesthesia Reactions: No Hx Blood Transfusions: No Blood Transfusion Reaction: No Cephalosporin Allergy: No Previous Colonoscopy: Yes Airway Assessment Mallampati Score:: Class II TMJ Mobility Assessed: Yes Dentition: Poor Dentition Neurological Assessment Level of Consciousness: Awake, Alert, Appropriate and Follows Commands Hx Seizures: No Numbness or tingling in extremities: No Anesthesia Plan Anesthesia Risk discussed: Yes ASA Class: III Anesthesia Type: MAC Preoperative Comments Pre-Operative Comments: Hypertension. CABG August. NIDDM. GERD. Colectomy. Stents.
== END 2023-07-07 12:54 | disposition home or self-care (01) ==
PROVIDERS: PCP Family Medicine; Visit Provider Internal Medicine
PROC: 0DJ08ZZ Inspection of Upper Intestinal Tract, Via Natural or Artificial Opening Endoscopic (ICD-10-PCS; CPT 43235; principal; 2023-07-07 12:00)
DX: K31.89 Other diseases of stomach and duodenum (principal); R07.89 Other chest pain; K22.70 Barrett's esophagus without dysplasia; K20.90 Esophagitis, unspecified without bleeding; E11.9 Type 2 diabetes mellitus without complications
CPT/HCPCS: 43239; 82962; 88305; 88312; J2405

== ENCOUNTER 2024-02-03 11:04 | Outpatient (CLI) | payer MEDICARE, OTHER, SELFPAY ==
--- NOTE | 2024-02-03 11:08 | NM_ITS ---
APPROVED REPORT Exam: Nuclear Stress Test Indication: Chest pain, SOB, CAD, Hx of ME, CABG, HTN, DM, High cholesterol, Family history Patient Location: Outpatient Stress Tech: Alessandra Uribe IN Tech:Joann Alvarez, ARRT RT(R)(N) Ht: 5 ft 5 in Wt: 198 lbs HR: 57 bpm BP: 143/69 mmHg BSA: 1.97 m2 TID: 1.33 BMI: 32.9 History: Chest pain, SOB, CAD, Hx of ME, CABG, HTN, DM, High cholesterol, Family history Procedure: Patient received 0.4 mg of intravenous Lexiscan, resting heart rate 57 bpm, resting blood pressure 143/69 mmHg, with Lexiscan maximum heart rate achieved was 74 bpm which is % of the maximum predicted heart rate and blood pressure was 143/69 mmHg. With Lexiscan, patient denied any complaint of chest pain. Cardiac Stress and Resting SPECT Images: Cardiac Stress and Resting SPECT images were obtained using technetium 99m Myoview 32.7 mCi stress and 10.15 mCi at rest. Resting and stress imaging in supine and prone positions demonstrate no evidence of focal fixed or reversible perfusion defects. There is increase in transit ischemic dilatation ratio (TID 1.33), suggestive of possible multivessel disease or balanced ischemia. Gated imaging demonstrates normal global and regional LV systolic function. LVEF is calculated at 59%. Conclusion: No evidence of focal fixed or reversible perfusion defects. There is increase in transit ischemic dilatation ratio (TID 1.33), suggestive of possible multivessel disease or balanced ischemia. Gated imaging demonstrates normal global and regional LV systolic function. LVEF is calculated at 59%. Electronically signed by : Marleen Vanessa MD 02/06/2024 21:48:39
--- NOTE | 2024-02-03 13:36 | CA_ITS ---
APPROVED REPORT EXAM: Comprehensive 2D, Doppler, and color-flow Echocardiogram [employer] Architect: Nancy Harris, MIKI, RVS Ht: 5 ft 4 in Wt: 198lbs BSA: 1.95 BP: 136/79 mmHg Indications: Angina, HTN, DM, Ex-smoker, CAD- CABG 08/2022 2D Dimensions IVSd 1.26 cm M: 0.6-1.2 LVEF (Visual) 64.10 % PWd 1.09 cm M: 0.6 - 1.2 LA Volume 76.50 mL LVDd 4.30 cm M: 4.2 - 5.9 LA Volume Index 39.23 mL/m2 (M/F) 16-34 LVDs 2.81 cm M: 2.5 - 4.0 EF AP4 47.00 % Aortic Root 3.57 cm M: 3.1 - 3.7 GL Strain -16.3 % Left Atrium 3.16 cm M: 3.0 - 4.0 RVID Base (AP4) 4.16 cm (M/F) 2.5-4.1 LVOT 1.99 cm (M/F) 1.5-2.5 M-Mode Dimensions RVDd 2.16 cm (0.9-2.6) LVDd 4.30 cm (3.5-5.7) Ao Diam 3.20 cm (2.0-3.7) LVDs 2.70 cm (3.5-5.7) IVSd 1.29 cm (0.6-1.1) PWd 1.04 cm (0.6-1.1) EF (Teich) 74.10% EPSs 0.23 cm FS 40.23% EDV (Teich) 104.40 mL TAPSE 0.89 (<1.7) ESV (Teich) 27.00 mL LV Diastology E Decel Time 192 (160-240 msec) E/A Ratio 1.3 MED E' 6.3 (>= 7 cm/sec) MED A' 9.40 cm/s E'/MED E' Ratio 12.40 (<= 14) LAT E' 8.9 (>= 10 cm/sec) LAT A' 10.40 cm/s E/LAT E' Ratio 8.78 (<= 14) Aortic Valve LVOT Max 123.0 (70-110 cm/s) MATT Index 0.92 cm2/m2 LVOT VTI 27.28 cm AoV Peak Holger. 194.0 (50-130 cm/s) AO Mean GR. 8.20 (<5 mmHg) AO VTI 47.0 (18-25 cm) MATT (VTI) 1.80 (2.5-4.5 cm2) Mitral Valve MV E Max Holger. 78.0 (40-130 cm/s) MV A Velocity 61.0 (40-130 cm/s) E/A Ratio 1.28 MV Decel. Time 192 (160-240 ms) Tricuspid Valve TR P. Velocity 259.00 cm/s RAP Estimate 10.00 mmHg RVSP 36.90 mmHg Left Ventricle The left ventricle is normal size. The left ventricular systolic function is normal. The left ventricular ejection fraction is within the normal range. There is increased LV wall thickness. There is normal LV segmental wall motion. The left ventricular diastolic function is normal. LVEF is 55%. Right Ventricle Right ventricle is mildly dilated. The right ventricular systolic function is normal. Atria Left atrium is mildly dilated. Right atrium is mildly dilated. There is no Doppler evidence of interatrial shunt. Aortic Valve The aortic valve is moderately thickened. Mild aortic stenosis. MATT by continuity equation is 1.8 cm per. Peak velocity 2.1 m/s. Mean AV gradient 7 mmHg. Max AV gradient 15 mmHg. Mild aortic regurgitation. Mitral Valve Mild mitral annular calcification. The mitral valve leaflets are mildly thickened. Mild mitral regurgitation. No evidence of mitral valve stenosis. Tricuspid Valve The tricuspid valve leaflets are thin and pliable. Mild tricuspid regurgitation. RVSP is 25-30 mmHg. Pulmonic Valve The pulmonary valve is normal in structure. Mild pulmonic regurgitation. Great Vessels The aortic root is normal in size. The ascending aorta is not well-visualized. IVC is normal in size and collapses >50% with inspiration. Other Information Study Quality: Fair Conclusion Normal biventricular systolic function. Mild RV dilation. Biatrial dilation. Mild (MATT by continuity equation is 1.8 cm per. Peak velocity 2.1 m/s. Mean AV gradient 7 mmHg. Max AV gradient 15 mmHg). Mild AI, mild MR, mild TR, mild PI. Electronically signed by : Marleen Vanessa MD 02/06/2024 21:31:49
[2024-02-03] MEDS: REGADENOSON 0.4MG/5ML SYRINGE 0.4 MG IV (13:48)
[2024-02-03] MEDS: SODIUM CHLORIDE 0.9% 10ML SYR (RAD ONLY) 10 ML IV ×2 (13:48)
[2024-02-03] MEDS: ISOTOPE MYOVIEW (PER STUDY) 1 DOSE IV (13:48)
--- NOTE | 2024-02-03 14:19 | CA_ITS ---
APPROVED REPORT Exam: Pharmacologic Technologist: Alessandra Winter, Ht: 5 ft 4 in Wt: 198 lbs BSA: 1.95 m2 HR: 60 bpm BP: 143/69 mmHg Rhythm: NSR Medical History Medications: Amlodipine,,,,, Irbesartan,,,,, Levothyroxine,,,,, Aspirin,,,,, Pantoprazole,,,,, CloPIdogrel,,,,, Famotidine,,,,, BisOPROLOL Fumarate,,,,, LanTUS,,,,, NovOLOG,,,,, RoSUVASTATIN,,,,, FeNOfibrate Micronized,,,,, Stress Test Details Test: LEXISCAN Reason for pharmacologic stress test: physical limitation. HR Resting HR: 57 bpm Max Heart Rate (APMHR): 147 bpm Max HR Achieved: 74 bpm Target HR (85% APMHR): 125 bpm % of APMHR: 50 Recovery HR: 68 bpm BP Resting BP: 143.0/69.0 mmHg Max BP: 143.0/69.0 mmHg Recovery BP: 134.0/70.0 mmHg ECG Resting ECG: SR Stress ECG: No significant ST changes Arrhythmia: None Clinical Exercise duration: 04:00 min Highest Stage Achieved: Stress ECG Conclusion Symptoms: None. Arrhythmias/Ectopy: None. ST-T Changes: unremarkable with Lexiscan infusion. Myoview images reported separately. Test Summary REST . . . . . . . Resting REST 06:34 . . 57 . 143/ 69 . . Stage 1 . . . . . . . Cardiolite injected Stage 1 01:00 . . 66 . . . . Stage 2 01:00 . . 72 . 124/ 64 . . Stage 3 01:00 . . 70 . 126/ 63 . . Stage 4 01:00 . . 68 . 125/ 65 . Stop exercise at 04:00 RECOVERY 01:00 . . 71 . 128/ 68 . . RECOVERY 02:00 . . 68 . 134/ 70 . . RECOVERY 02:02 . . 68 . 134/ 70 . . Electronically signed by : Marleen Vanessa MD 02/06/2024 21:47:20
== END 2024-02-03 23:59 | disposition home or self-care (01) ==
LOC: RAD 11:04
PROVIDERS: PCP Family Medicine; Visit Provider Internal Medicine
DX: R07.89 Other chest pain (principal); R06.09 Other forms of dyspnea; Z01.818 Encounter for other preprocedural examination; I51.7 Cardiomegaly
CPT/HCPCS: 78452; 93017; 93018; 93306; A9502; J2785

== ENCOUNTER 2024-02-21 07:52 | Day surgery (SDC) | payer MEDICARE, OTHER, SELFPAY ==
[2024-02-21] VITALS (10 sets, daily range): BP systolic 109–135; BP diastolic 55–81; PULSE 52–67; RESP 18–20; O2SAT 90–95; BMI 34.1
--- NOTE | 2024-02-21 07:04 | IR_ITS ---
APPROVED REPORT Patient Location: Outpatient Counterintelligence Specialist: MITCH Mosquera RT (R) PROCEDURES Left heart catheterization Left ventriculogram Selective coronary angiogram Left internal mammary angiography Selective engage in the saphenous vein graft to the diagonal artery Selective engagement of saphenous vein graft to the circumflex/obtuse marginal artery Selective engagement of the saphenous vein graft to the posterior descending artery off the right coronary Drug-eluting stent deployment to the mid left main artery extending into the proximal LAD Drug-eluting stent deployment to the mid and distal left anterior sending artery INDICATION Coronary artery disease, History of coronary bypass surgery, Accelerated angina pectoris, Abnormal Myoview, Interval loss of the HSIEH graft to the LAD since bypass surgery Informed consent was obtained prior to the procedure. COMPLICATIONS none Estimated Blood Loss: less than 10ml TECHNIQUE One percent lidocaine used to anesthetize the right groin. The right femoral artery was accessed via the Seldinger technique and a 5 Swedish sheath was placed in the right femoral artery. A JL 4, JR4 catheter were used to perform left heart catheterization, left ventriculogram selective coronary angiography as well as selective engagement of the 3 vein grafts and the left internal mammary artery. At the end of the diagnostic angiogram therapeutic heparin was administered giving a therapeutic ACT a 5 Swedish sheath exchanged for a 6 Swedish sheath and a JL 4 guide catheter was used to intubate the left main artery. A Choice PT extra-support wire was placed into the LAD. A 4 mm x 15 mm Juvencio frontier stent was placed in the mid left main artery extending into the proximal LAD and deployed at 24 rosas. An additional 3.5 x 26 mm Juvencio frontier stent was placed in the mid LAD and deployed at 24 rosas reducing the stenosis. There was additional stenosis distally therefore an additional 3 mm x 30 mm [place] frontier stent was placed distal to the for stent yet still overlapping and deployed at 20 rosas. The balloon was brought back slightly and deployed at 24 rosas to further post dilate. GORAN II flow was present at the beginning the procedure with GORAN-3 flow at the end of the procedure. At the end procedure the apparatus was removed the groin is reprepped closure change sheath was removed hemostasis was achieved using Angio-Seal device patient was transferred to the postop putting in stable condition ANGIOGRAPHIC RESULTS The left main artery Has a distal concentric 50% stenosis which extends into the ostium of the LAD The left anterior descending artery Is proximally patent inside a stent and then has a concentric 80 to 90% stenosis after the first diagonal artery and first septal rn gyn. There is an additional 70% followed by an additional long 70% stenosis in the mid to distal LAD. A scant amount of competitive flow is identified from the distal insertion of the left internal mammary artery The circumflex artery Is a large dominant vessel and has an ostial 70% stenosis. Competitive flow is identified in the first obtuse marginal artery from a vein graft The right coronary artery Is nondominant has proximal to mid vessel concentric 90% stenosis. There is a distal marginal branch which has competitive flow The GALE ventriculogram reveals Not performed The left ventricular end-diastolic pressure Not measured HSIEH to LAD is physiologically occluded with scant slow flow down the graft Saphenous to diagonal 1 is patent Saphenous to OM1 is patent this backfills the large second obtuse marginal artery Saphenous to posterior descending artery off the right coronary is patent IMPRESSION Coronary disease as described above Physiologically occluded HSIEH graft to the LAD Successful stenting of the mid left main artery extending to the proximal ID severe disease reduced to 0% with 1 drug-eluting stent Successful stenting of the mid to distal LAD severe disease reduced to 0% with 2 contiguous drug-eluting stents PLAN 1. Dual antiplatelet therapy 2. Cardiac rehabilitation 3. Avoidance of tobacco products 4. Risk factor modification 5. LDL less than 55 to achieve that high intensity statin Electronically signed by : Lenin Francois MD 02/21/2024 12:20:28
[2024-02-21 08:36] LABS: Basophils % 0.5 % (0.1-2.0); Eosinophils # 0.1 K/mm3 (0.0-0.4); Hemoglobin 14.7 g/dL (14.1-18.0); Lymphocytes % 34.1 % (10-50); Mean Corpuscular HGB Conc 34.2 g/dL (31.8-35.4); Mean Corpuscular Hemoglobin 31.1 pg (27.0-31.2); Mean Corpuscular Volume 90.8 fl (80-94); Mean Platelet Volume 10.3 fl (7.4-10.4); Monocytes # 0.5 K/mm3 (0.1-1.0); Monocytes % 7.7 % (1.7-9.3); Neutrophils # 3.3 K/mm3 (1.8-7.8); Neutrophils % 55.6 % (37.0-80.0); Platelet Count 176 K/mm3 (142-424); Red Blood Count 4.73 M/mm3 (4.60-6.20); Red Cell Distribution Width 14.8 % (11.5-17.5); White Blood Count 5.9 K/mm3 (4.8-10.8)
[2024-02-21 08:54] LABS: Chloride 102 mmol/L (98-107); Potassium 3.8 mmoL/L (3.5-5.1); Sodium 136 mmol/L (136-145)
[2024-02-21 08:57] LABS: Anion Gap 14.8 mEq/L (5-15); Blood Urea Nitrogen 19 mg/dl (9-20); Carbon Dioxide 23 mmol/L (22.0-30.0); Creatinine Clearance Estimated 76 mL/min (50-200); Estimated Glomerular Filt Rate 66 ml/min (>60); GFR (African American) 79 ML/MIN (>60)
[2024-02-21 08:58] LABS: Calcium 9.6 mg/dl (8.4-10.2); Glucose 344 mg/dl (74-100)
[2024-02-21] MEDS: HEPARIN 1,000 UNITS/500ML NS (CATH LAB) 3000 UNIT IV (11:08)
[2024-02-21] MEDS: 0.9 % SODIUM CHLORIDE 500 ML 25 ML IV (11:08)
[2024-02-21] MEDS: diphenhydrAMINE 50MG/ML VIAL 50 MG IV (11:09)
[2024-02-21] MEDS: LIDOCAINE 1% 10ML MDV 20 ML IJ (11:09)
[2024-02-21] MEDS: MIDAZOLAM HCL 1MG/1ML 5ML VIAL 1 MG IV (11:09)
[2024-02-21] MEDS: FENTANYL 100MCG/2ML VIAL 50 MCG IV (11:09)
[2024-02-21] MEDS: HEPARIN 1,000 UNITS/ML 10ML VIAL (CATH LAB) 10000 UNIT IV (11:58)
[2024-02-21] MEDS: IOPAMIDOL-370 (76%);100ML BOTTLE 150 ML IV (15:42)
[2024-02-22 09:33] LABS: CATHL Activated Clotting Time 226 SEC (74-125)
== END 2024-02-21 15:31 | disposition home or self-care (01) ==
PROVIDERS: PCP Family Medicine; Visit Provider Internal Medicine
DX: R93.1 Abnormal findings on diagnostic imaging of heart and coronary circulation (principal); R07.89 Other chest pain; Z95.1 Presence of aortocoronary bypass graft; Z79.899 Other long term (current) drug therapy; Z79.4 Long term (current) use of insulin; I25.110 Atherosclerotic heart disease of native coronary artery with unstable angina pectoris; I10 Essential (primary) hypertension; Z87.891 Personal history of nicotine dependence; E11.9 Type 2 diabetes mellitus without complications
CPT/HCPCS: 80048; 85025; 85347; 92928; 93459; 99152; 99153; C1725; C1760; C1769; C1874; C1894; C9600; J1200; J1644; J2250; J3010; Q9967

== ENCOUNTER 2024-02-24 08:41 | Outpatient (CLI) | payer MEDICARE, OTHER, SELFPAY ==
[2024-02-24 09:53] LABS: Blood Urea Nitrogen 13 mg/dl (9-20); Calcium 9.5 mg/dl (8.4-10.2); Carbon Dioxide 24 mmol/L (22.0-30.0); Chloride 107 mmol/L (98-107); Estimated Glomerular Filt Rate 83 ml/min (>60); GFR (African American) 100 ML/MIN (>60); Glucose 307 mg/dl (74-100); Sodium 136 mmol/L (136-145)
[2024-02-24 10:36] LABS: Basophils % 0.7 % (0.1-2.0); Eosinophils # 0.1 K/mm3 (0.0-0.4); Eosinophils % 2.2 % (0.1-12.0); Hematocrit 40.8 % (42.0-52.0); Hemoglobin 13.7 g/dL (14.1-18.0); Lymphocytes % 38.2 % (10-50); Mean Corpuscular HGB Conc 33.5 g/dL (31.8-35.4); Mean Corpuscular Hemoglobin 30.5 pg (27.0-31.2); Mean Corpuscular Volume 91.2 fl (80-94); Mean Platelet Volume 10.8 fl (7.4-10.4); Monocytes # 0.5 K/mm3 (0.1-1.0); Monocytes % 9.7 % (1.7-9.3); Neutrophils # 2.6 K/mm3 (1.8-7.8); Neutrophils % 49.2 % (37.0-80.0); Platelet Count 155 K/mm3 (142-424); Red Blood Count 4.48 M/mm3 (4.60-6.20); Red Cell Distribution Width 14.9 % (11.5-17.5); White Blood Count 5.3 K/mm3 (4.8-10.8)
== END 2024-02-24 23:59 | disposition home or self-care (01) ==
LOC: LAB 08:42
PROVIDERS: PCP Family Medicine; Visit Provider Internal Medicine
DX: I25.10 Atherosclerotic heart disease of native coronary artery without angina pectoris (principal)
CPT/HCPCS: 36415; 80048; 85025

== ENCOUNTER 2024-03-13 09:31 | Outpatient (CLI) | payer MEDICARE, OTHER, SELFPAY ==
[2024-03-13] VITALS (11 sets, daily range): BP systolic 89–149; BP diastolic 54–92; PULSE 53–62; RESP 17–20; O2SAT 92–99; BMI 39.6
[2024-03-13 10:13] LABS: Chloride 103 mmol/L (98-107); Sodium 136 mmol/L (136-145)
[2024-03-13 10:14] LABS: Potassium 4.1 mmoL/L (3.5-5.1)
[2024-03-13 10:17] LABS: Anion Gap 15.1 mEq/L (5-15); Blood Urea Nitrogen 19 mg/dl (9-20); Carbon Dioxide 22 mmol/L (22.0-30.0); Estimated Glomerular Filt Rate 66 ml/min (>60); GFR (African American) 79 ML/MIN (>60); Glucose 269 mg/dl (74-100)
--- NOTE | 2024-03-13 10:17 | IR_ITS ---
APPROVED REPORT Patient Location: Outpatient PROCEDURES Selective coronary angiogram Selective engagement of the saphenous vein graft to the diagonal artery Selective engagement of the saphenous vein graft to circumflex artery Selective engage in the saphenous vein graft to the posterior descending artery INDICATION Coronary artery disease, History of coronary bypass surgery, Recalcitrant and recurrent angina pectoris, Informed consent was obtained prior to the procedure. COMPLICATIONS NONE Estimated Blood Loss: LESS THAN 10 ML TECHNIQUE One percent lidocaine used to anesthetize the right anterior aspect of the wrist. The right radial artery was accessed via the Seldinger technique. A 6 Bolivian sheath was placed in the right radial artery. 2.5 mg of Verapamil, 800 mcg of nitroglycerin, 1mg Lidocaine and 5000 U Heparin were given through the arterial sheath. The 6 Bolivian J L4 guide catheter was used to perform selective coronary angiogram. Same catheter was used to perform selective engagement of the saphenous vein graft to the diagonal artery saphenous vein graft to the obtuse marginal artery and saphenous vein graft to the posterior descending artery. The HSIEH was known to be occluded therefore left internal mammary angiography was not performed at the end of the procedure the sheath was removed good hemostasis was achieved using Traclet band, patient was transferred to the postop holding area in stable condition. ANGIOGRAPHIC RESULTS The left main artery Has a stent in its mid to distal segment which is widely patent free of in-stent restenosis with excellent transitioning. The left anterior descending artery Stent originates from the left main artery and extends through the proximal mid and distal portion. The stent is widely patent free of in-stent restenosis or thrombosis and has excellent distal transitioning. There is scant competitive flow from a known subtotally occluded to poorly functioning left internal mammary graft The circumflex artery Has a stent in the ostial proximal segment. The stent has 40 to 50% ostial narrowing. Competitive flow is identified from the saphenous vein graft supplying the large first obtuse marginal artery. There is antegrade and retrograde flow into a large second obtuse marginal artery The right coronary artery Proximally occluded The GALE ventriculogram reveals Not performed The left ventricular end-diastolic pressure Not measured HSIEH graft is known to be subtotally occluded with scant physiologic antegrade flow Saphenous to small diagonal artery patent Saphenous to large first obtuse marginal artery is patent. This graft retrograde fills the large second obtuse marginal artery Saphenous to small PDA is patent IMPRESSION Adequate coronary revascularization as described above PLAN 1. 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 Recommend continue medical management with intermittent as needed usage of sublingual nitroglycerin 2. Imdur can also be increased 2 or 3 fold 3. Aggressive risk factor modification Electronically signed by : Lenin Francois MD 03/14/2024 14:26:04
[2024-03-13 10:28] LABS: Troponin I < 0.01 ng/ml (0.00-0.034)
[2024-03-13 10:29] LABS: Basophils % 0.4 % (0.1-2.0); Eosinophils # 0.1 K/mm3 (0.0-0.4); Eosinophils % 1.4 % (0.1-12.0); Hematocrit 40.1 % (42.0-52.0); Lymphocytes # 1.9 K/mm3 (0.7-4.5); Lymphocytes % 32.4 % (10-50); Mean Corpuscular HGB Conc 34.8 g/dL (31.8-35.4); Mean Corpuscular Hemoglobin 30.8 pg (27.0-31.2); Mean Corpuscular Volume 88.3 fl (80-94); Mean Platelet Volume 10.2 fl (7.4-10.4); Monocytes # 0.4 K/mm3 (0.1-1.0); Monocytes % 6.6 % (1.7-9.3); Neutrophils # 3.5 K/mm3 (1.8-7.8); Neutrophils % 59.2 % (37.0-80.0); Platelet Count 169 K/mm3 (142-424); Red Blood Count 4.54 M/mm3 (4.60-6.20); Red Cell Distribution Width 14.7 % (11.5-17.5); White Blood Count 5.9 K/mm3 (4.8-10.8)
[2024-03-13] MEDS: LIDOCAINE 1% 10ML MDV 20 ML IJ (11:24)
[2024-03-13] MEDS: HEPARIN 1,000 UNITS/ML 10ML VIAL (CATH LAB) 10000 UNIT IV (11:24)
[2024-03-13] MEDS: VERAPAMIL 2.5MG/ML 2ML VIAL 2.5 MG IV (11:25)
[2024-03-13] MEDS: HEPARIN 1,000 UNITS/500ML NS (CATH LAB) 3000 UNIT IV (11:25)
[2024-03-13] MEDS: 0.9 % SODIUM CHLORIDE 500 ML 25 ML IV (11:26)
[2024-03-13] MEDS: FENTANYL 100MCG/2ML VIAL 50 MCG IV (11:26)
[2024-03-13] MEDS: MIDAZOLAM HCL 1MG/ML 5ML VIAL 1 MG IV (11:26)
[2024-03-13 11:27] LABS: Hemoglobin A1C 10.5 % (4.0-6.0)
[2024-03-13] MEDS: diphenhydrAMINE 50MG/ML VIAL 50 MG IV (11:28)
[2024-03-13] MEDS: IOPAMIDOL-370 (76%);100ML BOTTLE 90 ML IV (12:58)
== END 2024-03-13 14:41 | disposition home or self-care (01) ==
LOC: LAB 10:13 → CATHLAB 10:15
PROVIDERS: Physician Assistant; PCP Family Medicine; Visit Provider Internal Medicine
DX: I25.110 Atherosclerotic heart disease of native coronary artery with unstable angina pectoris (principal); R07.89 Other chest pain; R93.1 Abnormal findings on diagnostic imaging of heart and coronary circulation; Z95.1 Presence of aortocoronary bypass graft; R94.31 Abnormal electrocardiogram [ECG] [EKG]; E11.9 Type 2 diabetes mellitus without complications; Z79.4 Long term (current) use of insulin; Z79.85 Long-term (current) use of injectable non-insulin antidiabetic drugs; Z79.899 Other long term (current) drug therapy; Z95.5 Presence of coronary angioplasty implant and graft; I10 Essential (primary) hypertension; E78.5 Hyperlipidemia, unspecified; I25.2 Old myocardial infarction; Z87.891 Personal history of nicotine dependence; I51.7 Cardiomegaly
CPT/HCPCS: 36415; 80048; 83036; 84484; 85025; 93459; 99152; 99153; C1725; C1769; J1200; J1644; J2250; J3010; Q9967

== ENCOUNTER 2024-06-15 07:43 | Day surgery (SDC) | payer MEDICARE, OTHER, SELFPAY ==
[2024-06-15] VITALS (11 sets, daily range): BP systolic 92–141; BP diastolic 60–86; PULSE 69–77; RESP 15–20; O2SAT 91–97; BMI 32.1
--- NOTE | 2024-06-15 | IR_ITS ---
APPROVED REPORT Patient Location: Outpatient PROCEDURES Left heart catheterization Left ventriculogram Selective coronary angiogram Selective engagement of saphenous vein graft to the posterior sending artery of the right coronary Documentation the saphenous vein graft to the diagonal artery Selective engagement of the saphenous vein graft to the circumflex artery INDICATION Coronary artery disease, History of coronary bypass surgery, Angina pectoris Informed consent was obtained prior to the procedure. COMPLICATIONS none Estimated Blood Loss: less than 10ml TECHNIQUE One percent lidocaine used to anesthetize the right anterior aspect of the wrist. The right radial artery was accessed via the Seldinger technique. A 6 Sudanese sheath was placed in the right radial artery. 2.5 mg of Verapamil, 800 mcg of nitroglycerin, 1mg Lidocaine and 5000 U Heparin were given through the arterial sheath. The 6 Sudanese JL 3 catheter AR-2 catheter and then an Amplatz 1 catheter were used to perform left heart catheterization, left ventriculogram and selective coronary angiogram. At the end of the procedure the sheath was removed good hemostasis was achieved using Traclet band, patient was transferred to the postop holding area in stable condition. ANGIOGRAPHIC RESULTS The left main artery Has a stent in the ostial segment which extends throughout its course and into the LAD. The stent is widely patent with minimal in-stent restenosis The left anterior descending artery Has a stent originating from the left main artery extending into the mid LAD which is widely patent. The mid LAD has mostly eccentric 50% stenosis in the mid to distal portion. Distally the LAD has additional 40 and 50% stenosis The circumflex artery Large and dominant and has an ostial 40% stenosis. A large first obtuse marginal artery has competitive flow from a large vein graft. There is antegrade flow supplying the large second obtuse marginal artery as well as retrograde flow from the saphenous vein graft. The right coronary artery Known to be ostially occluded The GALE ventriculogram reveals Preserved The left ventricular end-diastolic pressure 15 mmHg Saphenous to small diagonal artery patent Saphenous to first obtuse marginal artery widely patent Saphenous to small posterior descending artery off the right coronary arteries widely patent which then backfills a small posterior lateral branch IMPRESSION Adequate coronary revascularization as described above PLAN 1. Treatment of ischemic heart disease 2. Maximize antianginal medications 3. Consider treatment of noncardiac chest pain Electronically signed by : Lenin Francois MD 06/15/2024 13:37:47
[2024-06-15 08:18] LABS: Basophils % 0.5 % (0.1-2.0); Eosinophils # 0.1 K/mm3 (0.0-0.4); Eosinophils % 1.4 % (0.1-12.0); Hematocrit 42.1 % (42.0-52.0); Hemoglobin 14.3 g/dL (14.1-18.0); Lymphocytes % 24.8 % (10-50); Mean Corpuscular Hemoglobin 29.4 pg (27.0-31.2); Mean Corpuscular Volume 86.6 fl (80-94); Mean Platelet Volume 11.7 fl (7.4-10.4); Monocytes # 0.8 K/mm3 (0.1-1.0); Monocytes % 9.3 % (1.7-9.3); Neutrophils # 5.1 K/mm3 (1.8-7.8); Neutrophils % 63.1 % (37.0-80.0); Platelet Count 223 K/mm3 (142-424); Red Blood Count 4.86 M/mm3 (4.60-6.20); White Blood Count 8.1 K/mm3 (4.8-10.8)
[2024-06-15 08:27] LABS: Anion Gap 14.3 mEq/L (5-15); Blood Urea Nitrogen 15 mg/dl (9-20); Calcium 9.8 mg/dl (8.4-10.2); Carbon Dioxide 26 mmol/L (22.0-30.0); Chloride 100 mmol/L (98-107); Creatinine Clearance Estimated 78 mL/min (50-200); Estimated Glomerular Filt Rate 73 ml/min (>60); GFR (African American) 88 ML/MIN (>60); Potassium 4.3 mmoL/L (3.5-5.1); Sodium 136 mmol/L (136-145)
[2024-06-15 08:30] LABS: Glucose 413 mg/dl (74-100)
[2024-06-15] MEDS: humaLOG 100 UNITS/ML 10ML VIAL (SSI) 10 UNIT SUBCUT (09:36)
[2024-06-15] MEDS: diphenhydrAMINE 50MG/ML VIAL 50 MG IV (10:12)
[2024-06-15] MEDS: LIDOCAINE 1% 10ML MDV 20 ML IJ (10:12)
[2024-06-15] MEDS: VERAPAMIL 2.5MG/ML 2ML VIAL 2.5 MG IV (10:12)
[2024-06-15] MEDS: HEPARIN 1,000 UNITS/ML 10ML VIAL (CATH LAB) 10000 UNIT IV (10:13)
[2024-06-15] MEDS: NITROGLYCERIN 800MCG/8ML SYR (CATH LAB) 800 MCG IA (10:13)
[2024-06-15] MEDS: MIDAZOLAM HCL 1MG/ML 5ML VIAL 1 MG IV (10:13)
[2024-06-15] MEDS: HEPARIN 1,000 UNITS/500ML NS (CATH LAB) 3000 UNIT IV (10:14)
[2024-06-15] MEDS: FENTANYL 100MCG/2ML VIAL 50 MCG IV (10:14)
[2024-06-15] MEDS: 0.9 % SODIUM CHLORIDE 500 ML 25 ML IV (10:15)
[2024-06-15] MEDS: IOPAMIDOL-370 (76%);100ML BOTTLE 180 ML IV (11:45)
== END 2024-06-15 14:05 | disposition home or self-care (01) ==
PROVIDERS: PCP Family Medicine; Visit Provider Internal Medicine
DX: I25.118 Atherosclerotic heart disease of native coronary artery with other forms of angina pectoris (principal); Z95.1 Presence of aortocoronary bypass graft; E11.9 Type 2 diabetes mellitus without complications; I25.2 Old myocardial infarction; I51.7 Cardiomegaly; E03.9 Hypothyroidism, unspecified; Z79.4 Long term (current) use of insulin; Z79.85 Long-term (current) use of injectable non-insulin antidiabetic drugs; Z79.899 Other long term (current) drug therapy; I11.9 Hypertensive heart disease without heart failure
CPT/HCPCS: 80048; 85025; 93459; 99152; 99153; C1725; C1769; J1200; J1644; J2250; J3010; Q9967

== ENCOUNTER 2024-06-22 14:18 | Outpatient (CLI) | payer MEDICARE, OTHER, SELFPAY ==
[2024-06-22 15:13] LABS: Basophils % 0.5 % (0.1-2.0); Eosinophils # 0.1 K/mm3 (0.0-0.4); Eosinophils % 1.3 % (0.1-12.0); Hematocrit 41.9 % (42.0-52.0); Hemoglobin 13.9 g/dL (14.1-18.0); Lymphocytes # 1.7 K/mm3 (0.7-4.5); Lymphocytes % 27.6 % (10-50); Mean Corpuscular HGB Conc 33.2 g/dL (31.8-35.4); Mean Corpuscular Hemoglobin 29.4 pg (27.0-31.2); Mean Corpuscular Volume 88.6 fl (80-94); Mean Platelet Volume 11.9 fl (7.4-10.4); Monocytes # 0.5 K/mm3 (0.1-1.0); Monocytes % 7.7 % (1.7-9.3); Neutrophils # 3.9 K/mm3 (1.8-7.8); Neutrophils % 62.4 % (37.0-80.0); Platelet Count 190 K/mm3 (142-424); Red Blood Count 4.73 M/mm3 (4.60-6.20); Red Cell Distribution Width 13.3 % (11.5-17.5); White Blood Count 6.3 K/mm3 (4.8-10.8)
[2024-06-22 15:53] LABS: Chloride 97 mmol/L (98-107); Potassium 5.3 mmoL/L (3.5-5.1); Sodium 133 mmol/L (136-145)
[2024-06-22 15:56] LABS: Anion Gap 17.3 mEq/L (5-15); Blood Urea Nitrogen 23 mg/dl (9-20); Carbon Dioxide 24 mmol/L (22.0-30.0); Estimated Glomerular Filt Rate 73 ml/min (>60); GFR (African American) 88 ML/MIN (>60)
[2024-06-22 16:18] LABS: Glucose 600 mg/dl (74-100)
== END 2024-06-22 23:59 | disposition home or self-care (01) ==
LOC: LAB 14:19
PROVIDERS: PCP Family Medicine; Visit Provider Internal Medicine
DX: E78.5 Hyperlipidemia, unspecified (principal); I25.89 Other forms of chronic ischemic heart disease; I10 Essential (primary) hypertension
CPT/HCPCS: 36415; 80048; 85025

== ENCOUNTER 2024-06-22 16:46 | Observation (INO) | payer MEDICARE, OTHER, SELFPAY ==
[2024-06-22] VITALS (15 sets, daily range): BP systolic 117–172; BP diastolic 68–111; PULSE 62–80; RESP 14–20; TEMP 36.5–36.7; O2SAT 93–98; BMI 30.6; BMI 31.2
--- NOTE | 2024-06-22 16:48 | ED_ITS ---
<Statement entered by Shelia Nieves DO - 06/23/24 00:20> I was consulted by the DAVINA, and we discussed the complexity of the problems being addressed. I approved the treatment and management plan for this patient's care in the emergency department, thus performing a substantive portion of the medical decision making. 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 Patient had a routine cardiology follow-up today and it was noted on his laboratory work that his sugar was over 600. On arrival patient himself denies any chest pain shortness of breath fever chills hemoptysis hematochezia melena nausea vomiting diarrhea abdominal pain polyuria polydipsia. He is an insulin-dependent type 2 diabetic and has recently been using a Dexcom as well as had a recent change of his insulin to 70/30. He did have lab work done at his PCPs office today that showed he had a hemoglobin A1c of 15. Related Data Home Medications ?Medication ?Instructions ?Recorded ?Confirmed clopidogrel 75 mg tablet 75 mg PO DAILY Antiplatelet 01/18/23 06/22/24 fenofibrate micronized 134 mg 134 mg PO DAILY High triglyceride 01/18/23 06/22/24 capsule levothyroxine 75 mcg tablet 75 mcg PO DAILY Thyroid 01/18/23 06/22/24 metformin 500 mg tablet,extended 1,000 mg PO BID Diabetes 01/18/23 06/22/24 release 24 hr rosuvastatin 40 mg tablet 40 mg PO DAILY 03/13/24 06/22/24 semaglutide 0.25 mg or 0.5 mg (2 0.25 mg SQ QWEEK 06/12/24 06/22/24 mg/3 mL) subcutaneous pen injector (Ozempic) insulin NPH-regular 70-30 U-100 SQ 06/22/24 06/22/24 insulin 100 unit/mL subcutaneous pen (Novolin 70-30 FlexPen U-100 Insulin) Previous Rx's ?Medication ?Instructions ?Recorded aspirin 81 mg tablet,delayed 81 mg PO DAILY #30 tabs 01/19/23 release famotidine 20 mg tablet 20 mg PO BID 60 days #120 tabs 01/19/23 ranolazine 1,000 mg 1,000 mg PO BID Angina #60 tabs 01/27/23 tablet,extended release,12 hr irbesartan 150 mg tablet See Rx Instructions .Route 11/22/23 .COMPLEX #90 tabs sodium,potassium,mag sulfates 17.5 See Rx Instructions PO .COMPLEX 01/27/24 gram-3.13 gram-1.6 gram oral soln #354 mL (Suprep Bowel Prep Kit) bisoprolol fumarate 10 mg tablet See Rx Instructions .Route 01/28/24 .COMPLEX #60 tabs pantoprazole 40 mg tablet,delayed See Rx Instructions .Route 02/29/24 release .COMPLEX #90 tabs furosemide 20 mg tablet See Rx Instructions .Route 04/17/24 .COMPLEX #90 tabs isosorbide mononitrate 120 mg 120 mg PO BID #60 tabs 04/20/24 tablet,extended release 24 hr amlodipine 10 mg tablet 10 mg PO DAILY #90 tabs 06/12/24 Allergies Allergy/AdvReac Type Severity Reaction Status Date / Time No Known Allergies Allergy Verified 06/22/24 13:38 [facility] Disclaimer: The information contained in this section may have been updated after the patient was seen, as this information can be updated by other users. 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 Unstable angina Angina pectoris Fusion of lumbar spine Lumbar disc disease Low back pain Cataracts, bilateral Menieres disease Gout Kidney stones Diverticulosis of colon Colon polyps Hypertriglyceridemia GERD (gastroesophageal reflux disease) Biceps tendinitis of left shoulder Atypical angina Palpitations Abnormal EKG Diastolic dysfunction Dyspnea Coronary artery disease Hyperlipidemia Hypertension Type 2 diabetes mellitus Hyperlipidemia associated with type 2 diabetes mellitus Non-ST elevated myocardial infarction Lumbar radiculopathy Surgical History Hx of CABG H/O exploratory laparotomy History of extraction of renal calculus S/P rotator cuff repair H/O cataract removal with insertion of prosthetic lens S/P lumbar fusion S/P CABG (coronary artery bypass graft) History of colonoscopy History of coronary artery stent placement Stented coronary artery Family History Other Cancer Coronary artery disease Diabetes Heart attack Hypertension Stroke Social History Smoking Status: Never smoker alcohol intake: never substance use type: denies use current occupational status: retired Travel in the last 8 weeks: Inside the [place] household members: none housing: house 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 current occupational exposures/hazards: No caffeine: No Have you lived/traveled outside [place] in past 30 days?: No Contact w/someone who lives/traveled outside US past 30 days?: No Exposure to someone with infectious disease in past 14 days?: No Do you have a fever (greater than 100.4 F or 38 C)?: No Have you tested positive for COVID-19: No Exposed to someone with COVID-19 in past 14 days?: No Do you have a sore throat?: No Do you have a cough?: No Do you have any weakness?: No Do you have any diarrhea?: No Are you experiencing any unusual bleeding?: No Do you have any muscle aches/pain?: No Do you have any abdominal pain?: No Are you experiencing loss of taste or smell?: No Other Medical History Have you received the Flu Vaccine for this season: No Have you received the Pneumonia Vaccine: Yes ROS Obtained: Yes Systems reviewed as appropriate & no additional complaints except as documented Physical Exam General General appearance: alert and in no apparent distress Respiratory Respiratory exam: Present normal lung sounds bilaterally Cardiovascular Cardiovascular exam: Present regular rate Neurological Exam Neurological exam: Present alert and oriented X3 Medical Decision Making Medical Records Medical records reviewed: Yes I reviewed the patient's medical records. Screening: Per USPSTF and CDC recommendations, given the prevalence of disease in our region, it is our hospital?s policy to screen for HIV and viral Hepatitis for all patients aged 18 and over and those with ongoing risk factors. Arron Inquiry Pt receiving controlled substance: No Vital Signs: 06/22/24 16:48 06/22/24 16:53 06/22/24 16:55 Temperature 98.1 F Temperature Source Oral Pulse Rate 62 79 Pulse Rate [Radial] 76 Respiratory Rate 16 Blood Pressure 172/111 H 168/89 H Blood Pressure [Right Arm] 168/89 H Blood Pressure Mean [Right Arm] 115 Blood Pressure Source [Right Arm] Automatic Cuff Blood Pressure Position [Right Arm] Sitting 02 Sat by Pulse Oximetry 98 97 98 Oxygen Delivery Method Room Air Room Air Room Air 06/22/24 17:00 06/22/24 17:30 06/22/24 18:00 Temperature Temperature Source Pulse Rate 80 75 77 Pulse Rate [Radial] Respiratory Rate Blood Pressure 144/91 H 136/83 145/84 H Blood Pressure [Right Arm] Blood Pressure Mean [Right Arm] Blood Pressure Source [Right Arm] Blood Pressure Position [Right Arm] 02 Sat by Pulse Oximetry 98 98 98 Oxygen Delivery Method Room Air Room Air Room Air 06/22/24 18:30 Temperature Temperature Source Pulse Rate 76 Pulse Rate [Radial] Respiratory Rate Blood Pressure 154/88 H Blood Pressure [Right Arm] Blood Pressure Mean [Right Arm] Blood Pressure Source [Right Arm] Blood Pressure Position [Right Arm] 02 Sat by Pulse Oximetry 96 Oxygen Delivery Method Room Air Lab Data Lab results reviewed: Yes I reviewed the patient's lab results. Lab Results 06/22/24 16:52: VBG pH 7.33, VBG pCO2 42.6, VBG pO2 32.9, VBG HCO3 21.7 L, VBG Total CO2 23.0, VBG O2 Saturation 58.7, VBG Base Excess -4.3 L, VBG Lactic Acid 2.2 H 06/22/24 17:00: Sodium 130 L, Potassium 4.5, Chloride 95 L, Carbon Dioxide 24, A nion Gap 15.5 H, BUN 22 H, Creatinine 0.90, Estimated Creat Clear 77, Estimated GFR 82, Est GFR ( Amer) 100, Glucose 614 H*, Hemoglobin A1c 13.9 H D, Calcium 9.9, Phosphorus 3.2, Magnesium 1.3 L, Procalcitonin 0.054, Acetone Level Small, HCV Ab OMAR w/Rflx PCR Qn Negative, HIV Ag/Ab Combo Qual Negative 06/22/24 18:55: Sodium 130 L, Potassium 5.8 H D, Chloride 108 H, Carbon Dioxide 15 L, Anion Gap 12.8, BUN 16 D, Creatinine 0.60 L D, Estimated Creat Clear 77, Estimated GFR 132, Est GFR ( Amer) 159 D, Glucose 336 H D, Calcium 6.8 L , Phosphorus 2.0 L D, Magnesium 3.3 H D 06/22/24 18:55 Orders (Tests/Meds): ED MEDICATIONS Generic Name Dose Route Start Last Admin Trade Name Peter PRN Reason Stop Dose Admin Dextrose 50 ml 06/22/24 18:44 Dextrose 50% 50ml Syringe (Crash Cart) IVP 07/22/24 18:43 NEEDED PRN Per Dka Protocol for FSBS </= 50 Insulin Human Regular 100 unit 101 mls @ 5.05 mls/hr 06/22/24 18:45 06/22/24 19:06 / Sodium Chloride IV 07/22/24 18:44 5 unit/hr .Q20H SWATHI 5.05 mls/hr Administration Protocol 5 UNIT/HR Sodium Chloride 1,000 mls @ 150 mls/hr 06/22/24 18:45 06/22/24 19:07 Sod Chlor 0.9% 1000ml Bag IV 07/22/24 18:44 150 mls/hr .Q6H40M SWATHI Administration Insulin Human Lispro 0 unit 06/22/24 18:45 Humalog 100 Units/Ml 10ml Vial (Ssi) SUBCUT 07/22/24 18:44 Q6H SWATHI Protocol Discontinued Medications Generic Name Dose Route Start Last Admin Trade Name Peter PRN Reason Stop Dose Admin Sodium Chloride 1,000 mls @ 999 mls/hr 06/22/24 16:51 06/22/24 17:05 Sod Chlor 0.9% 1000ml Bag IV 06/22/24 17:51 999 mls/hr .Q1H1M ONE Administration Magnesium Sulfate 2 gm in 50 mls @ 50 mls/hr 06/22/24 17:50 06/22/24 18:18 Magnesium Sulfate 2gm/50ml Premix IV 06/22/24 18:49 50 mls/hr ONCE ONE Administration Insulin Human Regular 15 unit 06/22/24 17:50 06/22/24 18:18 Insulin Human Regular 100 Units/Ml 10ml Vial IVP 06/22/24 17:51 15 unit ONCE ONE Administration Magnesium Oxide 800 mg 06/22/24 17:50 06/22/24 18:18 Magnesium Oxide 400mg Tablet PO 06/22/24 17:51 800 mg ONCE ONE Administration ORDERS Category Date Time Status Nutrition Consult [CONS] Routine Cons 06/22/24 18:44 Active Acetone, Serum (Rapid) Stat Lab 06/22/24 17:00 Completed BMP [Basic Metabolic Panel] Stat Lab 06/22/24 17:00 Completed Basic Metabolic Panel Q4H Lab 06/22/24 18:55 Completed Basic Metabolic Panel Q4H Lab 06/22/24 22:45 Ordered Basic Metabolic Panel Q4H Lab 06/23/24 02:45 Ordered Basic Metabolic Panel Q4H Lab 06/23/24 06:45 Ordered Basic Metabolic Panel Q4H Lab 06/23/24 10:45 Ordered Basic Metabolic Panel Q4H Lab 06/23/24 14:45 Ordered HIV Combo Stat Lab 06/22/24 17:00 Completed Hemoglobin A1C Stat Lab 06/22/24 17:00 Completed Hepatitis C Ab Qual. W/ RFX Stat Lab 06/22/24 17:00 Completed Magnesium Q4H Lab 06/22/24 18:55 Completed Magnesium Q4H Lab 06/22/24 22:45 Ordered Magnesium Q4H Lab 06/23/24 02:45 Ordered Magnesium Q4H Lab 06/23/24 06:45 Ordered Magnesium Q4H Lab 06/23/24 10:45 Ordered Magnesium Q4H Lab 06/23/24 14:45 Ordered Magnesium Stat Lab 06/22/24 17:00 Completed Phosphorous Q4H Lab 06/22/24 18:55 Completed Phosphorous Q4H Lab 06/22/24 22:45 Ordered Phosphorous Q4H Lab 06/23/24 02:45 Ordered Phosphorous Q4H Lab 06/23/24 06:45 Ordered Phosphorous Q4H Lab 06/23/24 10:45 Ordered Phosphorous Q4H Lab 06/23/24 14:45 Ordered Phosphorous Stat Lab 06/22/24 17:00 Completed Procalcitonin Stat Lab 06/22/24 17:00 Completed VBG [Venous Blood Gas] Stat RT 06/22/24 16:52 Completed Medical Decision Narrative: In summary patient is a 74-year-old gentleman who presents to the emergency department for evaluation of hyperglycemia and IDDM 2. Patient is hemodynamically stable with a blood pressure of 168/89 pulse 76 with normal sinus rhythm on the bedside monitor respiratory rate 16 satting at 98% on room air upon arrival, afebrile at 98.1. Zickel exam is unremarkable and nonfocal including normal oral mucosa that appears moist, clear breath sounds without any adventitious sounds, normal heart sounds, [place] Coma Score is 15 patient is awake alert and oriented person place and circumstance. Differential diagnosis includes hyperglycemia and type 2 diabetes mellitus versus HHS versus DKA versus occult infection. Initial workup will be conducted with hematologic labs. Initial interventions include crystalloid bolus and 15 units IV push regular insulin. Initial workup reviewed by me shows that patient's white count is normal normal H&H with no neutrophilic shift, VBG shows a pH of 7.33 with a VBG lactic acid of 2.2, chemistry significant for sodium of 130 potassium 5.8 chloride of 108 CO2 of 15 anion gap of 12.8 BUN of 16 creatinine of 0.60 with a GFR of 132 glucose of 600 a calcium of 6.8 phosphorus of 2 magnesium of 3.3 procalcitonin of 0.054 small amount of acetone . Upon repeat evaluation patient's fingerstick blood sugar only came down to 591. Given this I have initiated the patient on an insulin drip and had an interactive discussion with Dr. Pham who is production administrative assistant for Dr. Izquierdo about patient presentation findings and REYES and patient management and he will be admitted to the ICU for further evaluation and care. Critical Care Critical Care Time Critical Care Time: Yes Attestation: On 06/22/24, the high probability of a clinically significant, sudden or life threatening deterioration of the following system(s) required my full and direct attention, intervention and personal management. The time I documented below is in addition to time spent performing reported procedures but includes the following listed in this critical care notation. Total Time Total Critical Care Time: 35
[2024-06-22] MEDS: 0.9 % SODIUM CHLORIDE 1000ML 1,000 ML 999 ML IV (17:05)
[2024-06-22 17:09] LABS: Lactate Venous 2.2 mmol/L (0.4-2.0); VBG Base Excess -4.3 mmol/L (-2.4-2.3); VBG HCO3 21.7 mmol/L (23-30); VBG Oxygen Saturation 58.7 % (50-70); VBG PCO2 42.6 mmol/L (35-51); VBG PH 7.33 mmol/L (7.31-7.41); VBG PO2 32.9 mmol/L (28-40)
--- NOTE | 2024-06-22 17:11 | PC.NURSE ---
REESE GARRETT AT BS
[2024-06-22 17:13] LABS: Chloride 95 mmol/L (98-107)
[2024-06-22 17:14] LABS: Potassium 4.5 mmoL/L (3.5-5.1); Sodium 130 mmol/L (136-145)
[2024-06-22 17:17] LABS: Anion Gap 15.5 mEq/L (5-15); Blood Urea Nitrogen 22 mg/dl (9-20); Carbon Dioxide 24 mmol/L (22.0-30.0); Creatinine Clearance Estimated 77 mL/min (50-200); Estimated Glomerular Filt Rate 82 ml/min (>60); GFR (African American) 100 ML/MIN (>60)
[2024-06-22 17:28] LABS: Calcium 9.9 mg/dl (8.4-10.2); Magnesium 1.3 mg/dl (1.6-2.3); Phosphorous 3.2 mg/dl (2.5-4.5)
[2024-06-22 17:34] LABS: Glucose 614 mg/dl (74-100)
[2024-06-22 17:45] LABS: Procalcitonin 0.054 ng/mL (0.0-2.0)
[2024-06-22 17:53] LABS: Hemoglobin A1C 13.9 % (4.0-6.0)
[2024-06-22 17:56] LABS: Acetone, Serum (Rapid) Small (None Detect)
[2024-06-22] MEDS: INSULIN HUMAN REGULAR 100 UNITS/ML 10ML VIAL 15 UNIT IVP (18:18)
[2024-06-22] MEDS: MAGNESIUM SULFATE IN WATER 2 GM/50 ML PIGGYBACK IV (18:18)
[2024-06-22] MEDS: MAGNESIUM OXIDE 400MG TABLET 800 MG PO (18:18)
[2024-06-22 18:45] LABS: HIV Combo NEGATIVE (Negative)
[2024-06-22 18:54] LABS: Hepatitis C Ab Qual. W/ RFX NEGATIVE (Negative)
[2024-06-22] MEDS: INSULIN REGULAR, HUMAN 100 UNIT in 0.9 % SODIUM CHLORIDE 100 ML 5.05 UNIT IV (19:06)
[2024-06-22] MEDS: 0.9 % SODIUM CHLORIDE 1000ML 1,000 ML 150 ML IV (19:07)
[2024-06-22 19:16] LABS: Chloride 108 mmol/L (98-107); Potassium 5.8 mmoL/L (3.5-5.1); Sodium 130 mmol/L (136-145)
[2024-06-22 19:19] LABS: Anion Gap 12.8 mEq/L (5-15); Blood Urea Nitrogen 16 mg/dl (9-20); Calcium 6.8 mg/dl (8.4-10.2); Carbon Dioxide 15 mmol/L (22.0-30.0); Creatinine Clearance Estimated 77 mL/min (50-200); Estimated Glomerular Filt Rate 132 ml/min (>60); GFR (African American) 159 ML/MIN (>60); Glucose 336 mg/dl (74-100); Magnesium 3.3 mg/dl (1.6-2.3)
--- NOTE | 2024-06-22 19:31 | PC.NURSE ---
Pt awake alert and oriented Skin pink warm and dry Resp full and easy Speech clear and appropriate. IV's infusing without difficulty. Pt aware of plans for admission. at bedside
--- NOTE | 2024-06-22 19:34 | PC.NURSE ---
Report received from Gifty SERRATO
--- NOTE | 2024-06-22 19:44 | PC.NURSE ---
REport called to Feliz SERRATO. Pt transported to floor via stretcher with IV's and monitor by medic
--- NOTE | 2024-06-22 20:13 | PC.NURSE ---
Patient arrived to ICU unit via wheelchair @19:50
[2024-06-22 20:18] LABS: POC Glucose,Bedside 339 (70-110)
[2024-06-22 21:09] LABS: Reflex Lactic Add Lactic Reflex
[2024-06-22 21:17] LABS: POC Glucose,Bedside 296 (70-110)
[2024-06-22 21:36] LABS: Lactate Venous 1.7 mmol/L (0.4-2.0); VBG Base Excess -4.3 mmol/L (-2.4-2.3); VBG HCO3 19.2 mmol/L (23-30); VBG Oxygen Saturation 99.1 % (50-70); VBG PCO2 26.5 mmol/L (35-51); VBG PH 7.48 mmol/L (7.31-7.41); VBG PO2 159.9 mmol/L (28-40); VBG Total CO2 20.1 mmol/L (23-27)
[2024-06-22 21:44] LABS: Lactic Acid Follow Up (RFLX 1) 1.4 mmol/L (0.7-2.1)
[2024-06-22 22:10] LABS: POC Glucose,Bedside 230 (70-110)
[2024-06-22] MEDS: RANOLAZINE 500MG ER TABLET 1000 MG PO (22:20)
[2024-06-22] MEDS: ATORVASTATIN 40MG TABLET 40 MG PO (22:20)
[2024-06-22 22:36] LABS: Appearance,Urine CLEAR (Clear); Bilirubin,Urine Negative (Negative); Blood, Urine Negative (Negative); Color,Urine YELLOW (Yellow); Glucose,Urine (UA) 3+ (Negative); Ketones,Urine Negative (Negative); Leukocyte Esterase,Urine Negative (Negative); Microscopic, Urine URINE MICROSCOPIC (MICROSCOPIC); Nitrate,Urine Negative (Negative); Protein,Urine Negative (Negative); Urobilinogen,Urine 0.2 EU/dl (0.2)
[2024-06-22 22:58] LABS: Bacteria,Urine 1+ /lpf; RBC,Urine Occasional #/hpf (0-3); Yeast,Urine 1+ /lpf
[2024-06-22 23:09] LABS: POC Glucose,Bedside 181 (70-110)
[2024-06-22 23:09] LABS: Blood Urea Nitrogen 16 mg/dl (9-20); Calcium 8.6 mg/dl (8.4-10.2); Carbon Dioxide 25 mmol/L (22.0-30.0); Chloride 101 mmol/L (98-107); Creatinine Clearance Estimated 78 mL/min (50-200); Estimated Glomerular Filt Rate 94 ml/min (>60); GFR (African American) 114 ML/MIN (>60); Glucose 189 mg/dl (74-100); Magnesium 1.6 mg/dl (1.6-2.3); Phosphorous 2.3 mg/dl (2.5-4.5); Sodium 136 mmol/L (136-145)
[2024-06-22] MEDS: 0.9% NaCl w/20mEq KCL 1,000 ML 150 ML IV (23:54)
[2024-06-23] VITALS (16 sets, daily range): BP systolic 125–144; BP diastolic 52–79; PULSE 69–78; RESP 11–23; TEMP 36.9–37; O2SAT 92–96; BMI 31.2
[2024-06-23 00:05] LABS: POC Glucose,Bedside 152 (70-110)
[2024-06-23] MEDS: D5W/0.9% NaCl w/20mEq KCL 1,000 ML 75 ML IV (01:36)
[2024-06-23 02:41] LABS: POC Glucose,Bedside 109 (70-110)
[2024-06-23 03:18] LABS: Blood Urea Nitrogen 14 mg/dl (9-20); Calcium 8.4 mg/dl (8.4-10.2); Carbon Dioxide 24 mmol/L (22.0-30.0); Chloride 104 mmol/L (98-107); Creatinine Clearance Estimated 78 mL/min (50-200); Estimated Glomerular Filt Rate 110 ml/min (>60); GFR (African American) 133 ML/MIN (>60); Glucose 108 mg/dl (74-100); Magnesium 1.6 mg/dl (1.6-2.3); Phosphorous 2.4 mg/dl (2.5-4.5); Sodium 137 mmol/L (136-145)
[2024-06-23 03:22] LABS: POC Glucose,Bedside 116 (70-110)
[2024-06-23 04:21] LABS: POC Glucose,Bedside 119 (70-110)
[2024-06-23 05:25] LABS: POC Glucose,Bedside 134 (70-110)
[2024-06-23 05:48] LABS: Chloride 107 mmol/L (98-107); Potassium 3.6 mmoL/L (3.5-5.1); Sodium 136 mmol/L (136-145)
[2024-06-23 05:51] LABS: Anion Gap 10.6 mEq/L (5-15); Blood Urea Nitrogen 12 mg/dl (9-20); Carbon Dioxide 22 mmol/L (22.0-30.0); Creatinine Clearance Estimated 78 mL/min (50-200); Estimated Glomerular Filt Rate 110 ml/min (>60); GFR (African American) 133 ML/MIN (>60); Glucose 129 mg/dl (74-100); Phosphorous 2.5 mg/dl (2.5-4.5)
[2024-06-23 05:52] LABS: Magnesium 1.6 mg/dl (1.6-2.3)
--- NOTE | 2024-06-23 06:35 | PC.NURSE ---
0659- just spoke with Dr perez on the phone and got orders to turn off the insulin gtt and keep fluids going ([id number] 20meq KCL), start a moderate sliding scale for his gap being closed per protocol and bg being 156. will wait for orders to continue before completing these actions.------- Ragini Briceno RN
[2024-06-23] MEDS: humaLOG 100 UNITS/ML 10ML VIAL (SSI) SUBCUT ×2 (06:50→10:48)
[2024-06-23 07:44] LABS: POC Glucose,Bedside 153 (70-110)
[2024-06-23 08:10] LABS: POC Glucose,Bedside 192 (70-110)
[2024-06-23] MEDS: LEVOTHYROXINE 75MCG (0.075MG) TAB 75 MCG PO (08:38)
[2024-06-23] MEDS: ISOSORBIDE MONO 60MG TAB.ER.24H 120 MG PO (08:38)
[2024-06-23] MEDS: BISOPROLOL 5MG TABLET 10 MG PO (08:38)
[2024-06-23] MEDS: IRBESARTAN 150MG TAB 150 MG PO (08:38)
[2024-06-23] MEDS: AMLODIPINE 10MG TABLET 10 MG PO (08:39)
[2024-06-23] MEDS: RANOLAZINE 500MG ER TABLET 1000 MG PO (08:39)
[2024-06-23] MEDS: CLOPIDOGREL 75MG TAB 75 MG PO (08:39)
[2024-06-23] MEDS: METFORMIN 500MG TABLET 1000 MG PO (08:39)
--- NOTE | 2024-06-23 10:28 | DIET.NUTRFU ---
Consulted for diabetic teaching, met with patient and and reviewed their daily meal intakes and made suggests to improve BS. Patient has A1c of 15, on dexcom/ozempic and insulin. He drinks 12 D.MtDew daily along with water. Eats lazaro/eggs in morning sometimes skips lunch and then eats high carb dinner. recommended to balance out meals better, increase fiber intake. Check labels and everything. Provided multiple handouts and contact information for future concerns, also gave him instructions to meet as outpatient as needed.
[2024-06-23 10:43] LABS: POC Glucose,Bedside 289 (70-110)
[2024-06-23 11:07] LABS: Chloride 105 mmol/L (98-107); Potassium 4.4 mmoL/L (3.5-5.1); Sodium 132 mmol/L (136-145)
[2024-06-23 11:09] LABS: Blood Urea Nitrogen 12 mg/dl (9-20); Creatinine Clearance Estimated 78 mL/min (50-200); Estimated Glomerular Filt Rate 110 ml/min (>60); GFR (African American) 133 ML/MIN (>60)
[2024-06-23 11:10] LABS: Anion Gap 9.4 mEq/L (5-15); Carbon Dioxide 22 mmol/L (22.0-30.0); Phosphorous 2.6 mg/dl (2.5-4.5)
[2024-06-23 11:11] LABS: Calcium 8.4 mg/dl (8.4-10.2); Glucose 271 mg/dl (74-100); Magnesium 1.5 mg/dl (1.6-2.3)
--- NOTE | 2024-06-23 12:29 | EXP.HPDC ---
General Admission date:: 06/22/24 Discharge date: 06/23/24 *Admission Date: 06/22/24 *Chief complaint: elevated glucose *History of present illness: Mr. Dennison is a 74-year-old male who was seen in the office of [facility] yesterday by Dr. Izquierdo. He had been started on Ozempic on 05/29/2024 and was advised to continue Lantus and NovoLog, but due to cost he had only been taking his Ozempic and had stopped his insulin. His A1c was 14.6 and his sugar was 412. He was started on Novolin 70/30 in the office and was told to continue his Ozempic. He states he then had a cardiology appointment and they checked labs and called him telling him to go emergently to the ER as his glucose was over 600. He presented to the emergency room and his glucose was 614. His lactic acid was mildly elevated at 2.2. He had a small amount of acetone and his pH was normal. He was admitted and started on insulin drip. [facility] Disclaimer: The information contained in this section may have been updated after the patient was seen, as this information can be updated by other users. 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 Unstable angina Angina pectoris Fusion of lumbar spine Lumbar disc disease Low back pain Cataracts, bilateral Menieres disease Gout Kidney stones Diverticulosis of colon Colon polyps Hypertriglyceridemia GERD (gastroesophageal reflux disease) Biceps tendinitis of left shoulder Atypical angina Palpitations Abnormal EKG Diastolic dysfunction Dyspnea Coronary artery disease Hyperlipidemia Hypertension Type 2 diabetes mellitus Hyperlipidemia associated with type 2 diabetes mellitus Non-ST elevated myocardial infarction Lumbar radiculopathy Surgical History Hx of CABG H/O exploratory laparotomy History of extraction of renal calculus S/P rotator cuff repair H/O cataract removal with insertion of prosthetic lens S/P lumbar fusion S/P CABG (coronary artery bypass graft) History of colonoscopy History of coronary artery stent placement Stented coronary artery Family History Diabetes Coronary artery disease Heart attack Cancer Hypertension Stroke Social History Smoking Status: Never smoker alcohol intake: never substance use type: denies use current occupational status: retired Travel in the last 8 weeks: Inside the [place] household members: none housing: house 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 current occupational exposures/hazards: No caffeine: No Have you lived/traveled outside [place] in past 30 days?: No Contact w/someone who lives/traveled outside US past 30 days?: No Exposure to someone with infectious disease in past 14 days?: No Do you have a fever (greater than 100.4 F or 38 C)?: No Have you tested positive for COVID-19: No Exposed to someone with COVID-19 in past 14 days?: No Do you have a sore throat?: No Do you have a cough?: No Do you have any weakness?: No Do you have any diarrhea?: No Are you experiencing any unusual bleeding?: No Do you have any muscle aches/pain?: No Do you have any abdominal pain?: No Are you experiencing loss of taste or smell?: No Other Medical History Have you received the Flu Vaccine for this season: No Have you received the Pneumonia Vaccine: No Review of Systems Constitutional Constitutional: Denies body ache(s), Denies chills, Denies fever(s) and Denies headache(s) Eyes Eyes: Denies blurry vision and Denies diplopia ENT Ears, Nose, Mouth, and Throat: Denies headache(s), Denies nasal congestion, Denies sore throat and Reports vertigo *Cardiovascular Cardiovascular: Reports chest pain and Reports dyspnea *Respiratory Respiratory: Denies cough and Reports dyspnea *Gastrointestinal Gastrointestinal: Denies abdominal pain, Denies loose stools, Reports nausea and Reports vomiting *Genitourinary Genitourinary: Denies difficulty urinating and Denies dysuria *Musculoskeletal Musculoskeletal: Denies arthralgias and Denies myalgias *Neurologic Neurologic: Denies headache(s) and Reports vertigo Exam Data for Last 24 hours Vital signs and Labs for Last 24 Hours: Temp Pulse Resp BP Pulse Ox O2 Del Method O2 Flow Rate 98.4 F 78 11 L 134/52 L 95 Room Air 5 06/23/24 04:00 06/23/24 10:06/23/24 10:01 06/23/24 10:01 06/23/24 10:01 06/23/24 11:05 06/23/24 04:00 Laboratory Results - last 24 hr 06/22/24 16:52: VBG pH 7.33, VBG pCO2 42.6, VBG pO2 32.9, VBG HCO3 21.7 L, VBG Total CO2 23.0, VBG O2 Saturation 58.7, VBG Base Excess -4.3 L, VBG Lactic Acid 2.2 H 06/22/24 17:00: Sodium 130 L, Potassium 4.5, Chloride 95 L, Carbon Dioxide 24, Anion Gap 15.5 H, BUN 22 H, Creatinine 0.90, Estimated Creat Clear 77, Estimated GFR 82, Est GFR ( Amer) 100, Glucose 614 H*, Hemoglobin A1c 13.9 H D, Calcium 9.9, Phosphorus 3.2, Magnesium 1.3 L, Procalcitonin 0.054, Acetone Level Small, HCV Ab OMAR w/Rflx PCR Qn Negative, HIV Ag/Ab Combo Qual Negative 06/22/24 18:55: Sodium 130 L, Potassium 5.8 H D, Chloride 108 H, Carbon Dioxide 15 L, Anion Gap 12.8, BUN 16 D, Creatinine 0.60 L D, Estimated Creat Clear 77, Estimated GFR 132, Est GFR ( Amer) 159 D, Glucose 336 H D, Calcium 6.8 L, Phosphorus 2.0 L D, Magnesium 3.3 H D 06/22/24 20:10: POC Glucose 339 H* 06/22/24 21:08: POC Glucose 296 H 06/22/24 21:10: VBG pH 7.48 H, VBG pCO2 26.5 L, VBG pO2 159.9 H, VBG HCO3 19.2 L, VBG Total CO2 20.1 L, VBG O2 Saturation 99.1 H, VBG Base Excess -4.3 L, VBG Lactic Acid 1.7 06/22/24 21:27: Lactate 1.4 06/22/24 22:04: POC Glucose 230 H 06/22/24 22:28: Urine Color Yellow, Urine Appearance Clear, Urine pH 7.0, Ur Specific [place] 1.020, Urine Protein Negative, Urine Glucose (UA) 3+, Urine Ketones Negative, Urine Blood Negative, Urine Nitrate Negative, Urine Bilirubin Negative, Urine Urobilinogen 0.2, Ur Leukocyte Esterase Negative, Urine RBC Occasional, Urine WBC 3-5, Ur Squamous Epith Cells 3-5, Urine Bacteria 1+, Urine Yeast 1+ 06/22/24 22:53: Sodium 136, Potassium 4.0 D, Chloride 101, Carbon Dioxide 25, Anion Gap 14.0, BUN 16, Creatinine 0.80 D, Estimated Creat Clear 78, Estimated GFR 94, Est GFR ( Amer) 114 D, Glucose 189 H D, Calcium 8.6, Phosphorus 2.3 L, Magnesium 1.6 D 06/22/24 23:02: POC Glucose 181 H 06/22/24 23:58: POC Glucose 152 H 06/23/24 02:34: POC Glucose 109 06/23/24 02:50: Sodium 137, Potassium 4.0, Chloride 104, Carbon Dioxide 24, Anion Gap 13.0, BUN 14, Creatinine 0.70, Estimated Creat Clear 78, Estimated GFR 110, Est GFR ( Amer) 133, Glucose 108 H D, Calcium 8.4, Phosphorus 2.4 L, Magnesium 1.6 06/23/24 03:14: POC Glucose 116 H 06/23/24 04:05: POC Glucose 119 H 06/23/24 05:18: POC Glucose 134 H 06/23/24 05:20: Sodium 136, Potassium 3.6, Chloride 107, Carbon Dioxide 22, Anion Gap 10.6, BUN 12, Creatinine 0.70, Estimated Creat Clear 78, Estimated GFR 110, Est GFR ( Amer) 133, Glucose 129 H, Calcium 8.0 L, Phosphorus 2.5, Magnesium 1.6 06/23/24 06:18: POC Glucose 153 H 06/23/24 08:01: POC Glucose 192 H 06/23/24 10:36: POC Glucose 289 H 06/23/24 10:51: Sodium 132 L, Potassium 4.4 D, Chloride 105, Carbon Dioxide 22, Anion Gap 9.4, BUN 12, Creatinine 0.70, Estimated Creat Clear 78, Estimated GFR 110, Est GFR ( Amer) 133, Glucose 271 H D, Calcium 8.4, Phosphorus 2.6, Magnesium 1.5 L I & O for Last 24 hours: Intake & Output 06/21/24 06/22/24 06/23/24 06/24/24 11:59 11:59 11:59 11:59 Intake Total 1029.021 / 1029.021 Output Total 1800 / 1800 Balance -770.979 / -770.979 Weight 187 lb 6.392 oz Constitutional Constitutional: no acute distress *Routine HEENT Exam Head: Present normocephalic and atraumatic Eye: Present EOMI and PERRL ENT: Present mucous membranes moist *Routine Neck Exam Neck: Present supple and full ROM *Routine Respiratory Exam Respiratory: Present CTA bilaterally *Routine Cardiovascular Exam Cardiovascular: Present RRR *Routine Abdominal Exam Abdominal: Present soft and normoactive bowel sounds; Absent tenderness *Routine Rectal Exam Rectal:: deferred *Routine Genitalia Exam Genitalia:: deferred *Routine Extremities Exam Extremities: Absent cyanosis, clubbing or edema *Routine Skin Exam Skin: Present intact; Absent erythema *Routine Neurological Exam Neurological: Present alert and oriented X3 Meds Home Medications and Allergies Home Medications ?Medication ?Instructions ?Recorded ?Confirmed ?Type clopidogrel 75 mg tablet 75 mg PO DAILY Antiplatelet 01/18/23 06/23/24 History fenofibrate micronized 134 mg 134 mg PO DAILY High triglyceride 01/18/23 06/23/24 History capsule levothyroxine 75 mcg tablet 75 mcg PO DAILY Thyroid 01/18/23 06/23/24 History metformin 500 mg tablet,extended 1,000 mg PO BID Diabetes 01/18/23 06/23/24 History release 24 hr aspirin 81 mg tablet,delayed 81 mg PO DAILY #30 tabs 01/19/23 06/23/24 Rx release famotidine 20 mg tablet 20 mg PO BID 60 days #120 tabs 01/19/23 06/23/24 Rx ranolazine 1,000 mg 1,000 mg PO BID Angina #60 tabs 01/27/23 06/23/24 Rx tablet,extended release,12 hr sodium,potassium,mag sulfates 17.5 See Rx Instructions PO .COMPLEX 01/27/24 06/23/24 Rx gram-3.13 gram-1.6 gram oral soln #354 mL (Suprep Bowel Prep Kit) rosuvastatin 40 mg tablet 40 mg PO DAILY 03/13/24 06/23/24 History isosorbide mononitrate 120 mg 120 mg PO BID #60 tabs 04/20/24 06/23/24 Rx tablet,extended release 24 hr amlodipine 10 mg tablet 10 mg PO DAILY #90 tabs 06/12/24 06/23/24 Rx semaglutide 0.25 mg or 0.5 mg (2 0.25 mg SQ QWEEK 06/12/24 06/23/24 History mg/3 mL) subcutaneous pen injector (Ozempic) bisoprolol fumarate 10 mg tablet 10 mg PO BID 06/23/24 06/23/24 History furosemide 20 mg tablet 20 mg PO DAILY 06/23/24 06/23/24 History insulin NPH-regular 70-30 U-100 25 unit (0.25 mL) SQ BID #1 mL 06/23/24 Rx insulin 100 unit/mL subcutaneous pen (Novolin 70-30 FlexPen U-100 Insulin) irbesartan 150 mg tablet 150 mg PO DAILY 06/23/24 06/23/24 History pantoprazole 40 mg tablet,delayed 40 mg PO DAILY 06/23/24 06/23/24 History release New Prescriptions to Start Prescriptions: Allergies Allergy/AdvReac Type Severity Reaction Status Date / Time No Known Allergies Allergy Verified 06/22/24 13:38 Hospital Course Hospital Course Hospital Course: The patient was admitted and placed on insulin drip. His glucose improved and was 129 by the morning of 06/23/24, therefore his insulin drip was discontinued. He had already been given a prescription for insulin during his office visit at [facility], so he was stable to be discharged home and will continue the insulin and the Ozempic. The patient will follow-up in the office [facility]. The patient should have been admitted as observation from the beginning. Results Data Completed and Pending Labs on day of discharge: Labs from last 24 hours 06/23/24 06/23/24 06/23/24 10:51 10:36 08:01 VBG pH VBG pCO2 VBG pO2 VBG HCO3 VBG Total CO2 VBG O2 Saturation VBG Base Excess VBG Lactic Acid Sodium 132 L Potassium 4.4 D Chloride 105 Carbon Dioxide 22 Anion Gap 9.4 BUN 12 Creatinine 0.70 Estimated Creat Clear 78 Estimated GFR 110 Est GFR ( Amer) 133 Glucose 271 H D POC Glucose 289 H 192 H Hemoglobin A1c Lactate Calcium 8.4 Phosphorus 2.6 Magnesium 1.5 L Procalcitonin Urine Color Urine Appearance Urine pH Ur Specific [place] Urine Protein Urine Glucose (UA) Urine Ketones Urine Blood Urine Nitrate Urine Bilirubin Urine Urobilinogen Ur Leukocyte Esterase Urine RBC Urine WBC Ur Squamous Epith Cells Urine Bacteria Urine Yeast Acetone Level HCV Ab OMAR w/Rflx PCR Qn HIV Ag/Ab Combo Qual 06/23/24 06/23/24 06/23/24 06:18 05:20 05:18 VBG pH VBG pCO2 VBG pO2 VBG HCO3 VBG Total CO2 VBG O2 Saturation VBG Base Excess VBG Lactic Acid Sodium 136 Potassium 3.6 Chloride 107 Carbon Dioxide 22 Anion Gap 10.6 BUN 12 Creatinine 0.70 Estimated Creat Clear 78 Estimated GFR 110 Est GFR ( Amer) 133 Glucose 129 H POC Glucose 153 H 134 H Hemoglobin A1c Lactate Calcium 8.0 L Phosphorus 2.5 Magnesium 1.6 Procalcitonin Urine Color Urine Appearance Urine pH Ur Specific [place] Urine Protein Urine Glucose (UA) Urine Ketones Urine Blood Urine Nitrate Urine Bilirubin Urine Urobilinogen Ur Leukocyte Esterase Urine RBC Urine WBC Ur Squamous Epith Cells Urine Bacteria Urine Yeast Acetone Level HCV Ab OMAR w/Rflx PCR Qn HIV Ag/Ab Combo Qual 06/23/24 06/23/24 06/23/24 04:05 03:14 02:50 VBG pH VBG pCO2 VBG pO2 VBG HCO3 VBG Total CO2 VBG O2 Saturation VBG Base Excess VBG Lactic Acid Sodium 137 Potassium 4.0 Chloride 104 Carbon Dioxide 24 Anion Gap 13.0 BUN 14 Creatinine 0.70 Estimated Creat Clear 78 Estimated GFR 110 Est GFR ( Amer) 133 Glucose 108 H D POC Glucose 119 H 116 H Hemoglobin A1c Lactate Calcium 8.4 Phosphorus 2.4 L Magnesium 1.6 Procalcitonin Urine Color Urine Appearance Urine pH Ur Specific [place] Urine Protein Urine Glucose (UA) Urine Ketones Urine Blood Urine Nitrate Urine Bilirubin Urine Urobilinogen Ur Leukocyte Esterase Urine RBC Urine WBC Ur Squamous Epith Cells Urine Bacteria Urine Yeast Acetone Level HCV Ab OMAR w/Rflx PCR Qn HIV Ag/Ab Combo Qual 06/23/24 06/22/24 06/22/24 02:34 23:58 23:02 VBG pH VBG pCO2 VBG pO2 VBG HCO3 VBG Total CO2 VBG O2 Saturation VBG Base Excess VBG Lactic Acid Sodium Potassium Chloride Carbon Dioxide Anion Gap BUN Creatinine Estimated Creat Clear Estimated GFR Est GFR ( Amer) Glucose POC Glucose 109 152 H 181 H Hemoglobin A1c Lactate Calcium Phosphorus Magnesium Procalcitonin Urine Color Urine Appearance Urine pH Ur Specific [place] Urine Protein Urine Glucose (UA) Urine Ketones Urine Blood Urine Nitrate Urine Bilirubin Urine Urobilinogen Ur Leukocyte Esterase Urine RBC Urine WBC Ur Squamous Epith Cells Urine Bacteria Urine Yeast Acetone Level HCV Ab OMAR w/Rflx PCR Qn HIV Ag/Ab Combo Qual 06/22/24 06/22/24 06/22/24 22:53 22:28 22:04 VBG pH VBG pCO2 VBG pO2 VBG HCO3 VBG Total CO2 VBG O2 Saturation VBG Base Excess VBG Lactic Acid Sodium 136 Potassium 4.0 D Chloride 101 Carbon Dioxide 25 Anion Gap 14.0 BUN 16 Creatinine 0.80 D Estimated Creat Clear 78 Estimated GFR 94 Est GFR ( Amer) 114 D Glucose 189 H D POC Glucose 230 H Hemoglobin A1c Lactate Calcium 8.6 Phosphorus 2.3 L Magnesium 1.6 D Procalcitonin Urine Color Yellow Urine Appearance Clear Urine pH 7.0 Ur Specific [place] 1.020 Urine Protein Negative Urine Glucose (UA) 3+ Urine Ketones Negative Urine Blood Negative Urine Nitrate Negative Urine Bilirubin Negative Urine Urobilinogen 0.2 Ur Leukocyte Esterase Negative Urine RBC Occasional Urine WBC 3-5 Ur Squamous Epith Cells 3-5 Urine Bacteria 1+ Urine Yeast 1+ Acetone Level HCV Ab OMAR w/Rflx PCR Qn HIV Ag/Ab Combo Qual 06/22/24 06/22/24 06/22/24 21:27 21:10 21:08 VBG pH 7.48 H VBG pCO2 26.5 L VBG pO2 159.9 H VBG HCO3 19.2 L VBG Total CO2 20.1 L VBG O2 Saturation 99.1 H VBG Base Excess -4.3 L VBG Lactic Acid 1.7 Sodium Potassium Chloride Carbon Dioxide Anion Gap BUN Creatinine Estimated Creat Clear Estimated GFR Est GFR ( Amer) Glucose POC Glucose 296 H Hemoglobin A1c Lactate 1.4 Calcium Phosphorus Magnesium Procalcitonin Urine Color Urine Appearance Urine pH Ur Specific [place] Urine Protein Urine Glucose (UA) Urine Ketones Urine Blood Urine Nitrate Urine Bilirubin Urine Urobilinogen Ur Leukocyte Esterase Urine RBC Urine WBC Ur Squamous Epith Cells Urine Bacteria Urine Yeast Acetone Level HCV Ab OMAR w/Rflx PCR Qn HIV Ag/Ab Combo Qual 06/22/24 06/22/24 06/22/24 20:10 18:55 17:00 VBG pH VBG pCO2 VBG pO2 VBG HCO3 VBG Total CO2 VBG O2 Saturation VBG Base Excess VBG Lactic Acid Sodium 130 L 130 L Potassium 5.8 H D 4.5 Chloride 108 H 95 L Carbon Dioxide 15 L 24 Anion Gap 12.8 15.5 H BUN 16 D 22 H Creatinine 0.60 L D 0.90 Estimated Creat Clear 77 77 Estimated GFR 132 82 Est GFR ( Amer) 159 D 100 Glucose 336 H D 614 H* POC Glucose 339 H* Hemoglobin A1c 13.9 H D Lactate Calcium 6.8 L 9.9 Phosphorus 2.0 L D 3.2 Magnesium 3.3 H D 1.3 L Procalcitonin 0.054 Urine Color Urine Appearance Urine pH Ur Specific [place] Urine Protein Urine Glucose (UA) Urine Ketones Urine Blood Urine Nitrate Urine Bilirubin Urine Urobilinogen Ur Leukocyte Esterase Urine RBC Urine WBC Ur Squamous Epith Cells Urine Bacteria Urine Yeast Acetone Level Small HCV Ab OMAR w/Rflx PCR Qn Negative HIV Ag/Ab Combo Qual Negative 06/22/24 16:52 VBG pH 7.33 VBG pCO2 42.6 VBG pO2 32.9 VBG HCO3 21.7 L VBG Total CO2 23.0 VBG O2 Saturation 58.7 VBG Base Excess -4.3 L VBG Lactic Acid 2.2 H Sodium Potassium Chloride Carbon Dioxide Anion Gap BUN Creatinine Estimated Creat Clear Estimated GFR Est GFR ( Amer) Glucose POC Glucose Hemoglobin A1c Lactate Calcium Phosphorus Magnesium Procalcitonin Urine Color Urine Appearance Urine pH Ur Specific [place] Urine Protein Urine Glucose (UA) Urine Ketones Urine Blood Urine Nitrate Urine Bilirubin Urine Urobilinogen Ur Leukocyte Esterase Urine RBC Urine WBC Ur Squamous Epith Cells Urine Bacteria Urine Yeast Acetone Level HCV Ab OMAR w/Rflx PCR Qn HIV Ag/Ab Combo Qual DS: Diagnosis Discharge Diagnosis (1) Hyperglycemia due to type 2 diabetes mellitus: Status: Acute Code(s): E11.65 - Type 2 diabetes mellitus with hyperglycemia Qualifiers: Diabetes mellitus penitentiary insulin use: with superintendent [employer] use Qualified Code(s): E11.65 - Type 2 diabetes mellitus with hyperglycemia; Z79.4 - intermediate manager (current) use of insulin (2) Hypomagnesemia: Status: Acute Code(s): E83.42 - Hypomagnesemia (3) Hyponatremia: Status: Acute Code(s): E87.1 - Hypo-osmolality and hyponatremia (4) Hx of CABG: Status: Acute Code(s): Z95.1 - Presence of aortocoronary bypass graft (5) GERD (gastroesophageal reflux disease): Status: Acute Code(s): K21.9 - Gastro-esophageal reflux disease without esophagitis Qualifiers: Esophagitis presence: esophagitis presence not specified Qualified Code(s): K21.9 - Gastro-esophageal reflux disease without esophagitis (6) Type 2 diabetes mellitus: Status: Chronic Code(s): E11.9 - Type 2 diabetes mellitus without complications Qualifiers: Diabetes mellitus complication status: with other specified complication Diabetes mellitus [employer] insulin use: unspecified [employer] insulin use status Qualified Code(s): E11.69 - Type 2 diabetes mellitus with other specified complication (7) Hyperlipidemia: Status: Chronic Code(s): E78.5 - Hyperlipidemia, unspecified Qualifiers: Hyperlipidemia type: mixed hyperlipidemia Qualified Code(s): E78.2 - Mixed hyperlipidemia (8) Hypertension: Status: Chronic Code(s): I10 - Essential (primary) hypertension Qualifiers: Hypertension type: primary hypertension Qualified Code(s): I10 - Essential (primary) hypertension (9) Coronary artery disease: Status: Chronic Code(s): I25.10 - Atherosclerotic heart disease of [place] coronary artery without angina pectoris Qualifiers: Associated angina: with stable angina Coronary Disease-Associated Artery/Lesion type: [place] artery [place] vs. transplanted heart: [place] heart Qualified Code(s): I25.118 - Atherosclerotic heart disease of [place] coronary artery with other forms of angina pectoris Discharge Plan Disposition Patient Disposition: Home, Self-Care Condition: Good Discharge Order Discharge Orders: Discharge Order (Routine); Ordered 06/23/24 Ordered By: Declan Izquierdo Follow up Plan Follow up with: Declan Izquierdo MD [Primary Care Provider] - 07/07/24 9:30 am Prescriptions/Medication Reconciliation: Continued ranolazine 1,000 mg tablet extended release 12 hr 1,000 mg PO BID Qty: 60 5RF isosorbide mononitrate 120 mg tablet extended release 24 hr 120 mg PO BID Qty: 60 5RF rosuvastatin 40 mg tablet 40 mg PO DAILY Ozempic 0.25 mg or 0.5 mg (2 mg/3 mL) pen injector 0.25 mg SQ QWEEK Patient Comments: Inject 0.25mg SUBCUTANEOUSLY ONCE WEEKLY amlodipine 10 mg tablet 10 mg PO DAILY Qty: 90 3RF sodium,potassium,mag sulfates [Suprep Bowel Prep Kit] 17.5-3.13-1.6 gram recon soln See Rx Instructions PO .COMPLEX Qty: 354 0RF Rx Instructions: DILUTE; drink full amount early evening before AND next morning at least 2 hr before procedure; follow w 960 mL water PO clopidogrel 75 mg tablet 75 mg PO DAILY fenofibrate micronized 134 mg capsule 134 mg PO DAILY Patient Comments: TAKE ONE CAPSULE BY MOUTH EVERY DAY levothyroxine 75 mcg tablet 75 mcg PO DAILY metformin 500 mg tablet extended release 24 hr 1,000 mg PO BID Patient Comments: TAKE TWO TABLETS BY MOUTH TWICE DAILY aspirin 81 mg Tablet,Delayed Release (Dr/Ec) 81 mg PO DAILY Qty: 30 0RF famotidine 20 mg Tablet 20 mg PO BID 60 Days Qty: 120 0RF bisoprolol fumarate 10 mg tablet 10 mg PO BID Patient Comments: TAKE ONE TABLET BY MOUTH TWICE DAILY pantoprazole 40 mg tablet,delayed release (DR/EC) 40 mg PO DAILY Patient Comments: TAKE ONE TABLET BY MOUTH EVERY DAY FOR acid reflux furosemide 20 mg tablet 20 mg PO DAILY Patient Comments: TAKE ONE TABLET BY MOUTH EVERY DAY irbesartan 150 mg tablet 150 mg PO DAILY Patient Comments: TAKE ONE TABLET BY MOUTH EVERY DAY Changed Novolin 70-30 FlexPen U-100 100 unit/mL (70-30) insulin pen 25 unit SQ BID Qty: 1 0RF Problem Reconciliation Problems Reviewed?: Yes Patient Discharge Instructions ACTIVITY: Continue current activity DIET: continue same diet and diabetic diet Patient Instructions: DI for Diabetes Type 2, DI for Hypomagnesemia Print Language: Malay Providers Primary Care Provider: Declan Izquierdo Admit Provider: Declan Izquierdo Attending Provider: Declan Izqueirdo
--- NOTE | 2024-06-26 10:55 | SW/DCPLANNER ---
Spoke with patient on the phone. Patient stated that he is doing pretty good. Patient stated that he is aware of his upcoming appointment. Patient stated that he has no concerns or questions at this time. Basia Falcon
== END 2024-06-23 11:10 | disposition home or self-care (01) ==
LOC: ER 18:41 → ICU 06-23 05:52
PROVIDERS: Family Medicine; Physician Assistant; Admitting Provider Family Medicine; Emergency Provider Emergency Medicine; PCP Family Medicine; Visit Provider Family Medicine
DX: E11.65 Type 2 diabetes mellitus with hyperglycemia (principal); K21.9 Gastro-esophageal reflux disease without esophagitis; E78.2 Mixed hyperlipidemia; E83.42 Hypomagnesemia; E87.1 Hypo-osmolality and hyponatremia; Z79.82 Long term (current) use of aspirin; Z79.02 Long term (current) use of antithrombotics/antiplatelets; Z79.4 Long term (current) use of insulin; Z95.1 Presence of aortocoronary bypass graft; Z79.85 Long-term (current) use of injectable non-insulin antidiabetic drugs; T38.3X6A Underdosing of insulin and oral hypoglycemic [antidiabetic] drugs, initial encounter; Z91.120 Patient's intentional underdosing of medication regimen due to financial hardship; I10 Essential (primary) hypertension; I25.118 Atherosclerotic heart disease of native coronary artery with other forms of angina pectoris
CPT/HCPCS: 36415; 80048; 81001; 82009; 82803; 82962; 83036; 83605; 83735; 84100; 84145; 86803; 87081; 87389; 99291; G0378; J3475; J7030

== ENCOUNTER 2024-09-28 07:17 | Day surgery (SDC) | payer MEDICARE, OTHER, SELFPAY ==
[2024-09-26 15:55] VITALS: BMI 32.4
[2024-09-28] VITALS (7 sets, daily range): BP systolic 82–135; BP diastolic 52–76; PULSE 70–76; RESP 16–18; TEMP 36.4–36.6; O2SAT 94–100
--- NOTE | 2024-09-28 07:49 | EXP.ANES.CKL ---
[facility] Disclaimer: The information contained in this section may have been updated after the patient was seen, as this information can be updated by other users. 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 Unstable angina Angina pectoris Fusion of lumbar spine Lumbar disc disease Low back pain Cataracts, bilateral Menieres disease Gout Kidney stones Diverticulosis of colon Colon polyps Hypertriglyceridemia GERD (gastroesophageal reflux disease) Biceps tendinitis of left shoulder Atypical angina Palpitations Abnormal EKG Diastolic dysfunction Dyspnea Coronary artery disease Hyperlipidemia Hypertension Type 2 diabetes mellitus Hyperlipidemia associated with type 2 diabetes mellitus Non-ST elevated myocardial infarction Lumbar radiculopathy Surgical History Hx of CABG H/O exploratory laparotomy History of extraction of renal calculus S/P rotator cuff repair H/O cataract removal with insertion of prosthetic lens S/P lumbar fusion S/P CABG (coronary artery bypass graft) History of colonoscopy History of coronary artery stent placement Stented coronary artery Family History Other Cancer Coronary artery disease Diabetes Heart attack Hypertension Stroke Social History Smoking Status: Never smoker alcohol intake: never substance use type: denies use current occupational status: retired Travel in the last 8 weeks?: Inside the [place] household members: none housing: house 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 current occupational exposures/hazards: No caffeine: No Have you lived/traveled outside US in past 30 days?: No Contact w/someone who lives/traveled outside US past 30 days?: No Exposure to someone with infectious disease in past 14 days?: No Do you have a fever (greater than 100.4 F or 38 C)?: No Have you tested positive for COVID-19?: No Exposed to someone with COVID-19 in past 14 days?: No Do you have a sore throat?: No Do you have a cough?: No Do you have any weakness?: No Do you have any diarrhea?: No Are you experiencing any unusual bleeding?: No Do you have any muscle aches/pain?: No Do you have any abdominal pain?: No Are you experiencing loss of taste or smell?: No [facility] Anesthesia Checklist Patient Identification Patient Identification: Arm Band and Verbal (Name & ) Structural Data Admitted From: Home Planned Operative Procedure/s: EGD colonscopy Consent for Planned Operative Procedure(s) Verified: Yes Verified Documents: Surgical Consent and History and Physical NPO Status Verified Time NPO: 00:00 Additional verifications Anesthesia Reactions: No Hx Blood Transfusions: No Blood Transfusion Reaction: No Airway Assessment Mallampati Score:: Class II Dentition: Poor Dentition Neurological Assessment Level of Consciousness: Awake, Alert and Appropriate Hx Seizures: No Anesthesia Plan Anesthesia Risk discussed: Yes Anesthesia Plan: Verified ASA Class: III Anesthesia Type: MAC
[2024-09-28] MEDS: LACTATED RINGERS 1000ML 1,000 ML 50 ML IV (07:55)
--- NOTE | 2024-09-28 08:29 | P.HP_ITS ---
History of Present Illness *Admission Date: 09/28/24 *Reason for visit:: GERD/history of De Guzman's esophagus and personal history of adenomatous col *History of present illness: Mr. Dennison is a 74-year-old gentleman who is here for surveillance EGD and colonoscopy. The patient does have short segment De Guzman's esophagus and a personal history of adenomatous colon polyps. His last colonoscopy was October 2018 and he had 3 polyps (tubular adenomas x 3) which were removed. The examination is deemed medically necessary for surveillance EGD and colonoscopy. The patient has been seen, interviewed and examined prior to the procedure by both myself and the anesthesia provider. [facility] Disclaimer: The information contained in this section may have been updated after the patient was seen, as this information can be updated by other users. 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 Unstable angina Angina pectoris Fusion of lumbar spine Lumbar disc disease Low back pain Cataracts, bilateral Menieres disease Gout Kidney stones Diverticulosis of colon Colon polyps Hypertriglyceridemia GERD (gastroesophageal reflux disease) Biceps tendinitis of left shoulder Atypical angina Palpitations Abnormal EKG Diastolic dysfunction Dyspnea Coronary artery disease Hyperlipidemia Hypertension Type 2 diabetes mellitus Hyperlipidemia associated with type 2 diabetes mellitus Non-ST elevated myocardial infarction Lumbar radiculopathy Surgical History Hx of CABG H/O exploratory laparotomy History of extraction of renal calculus S/P rotator cuff repair H/O cataract removal with insertion of prosthetic lens S/P lumbar fusion S/P CABG (coronary artery bypass graft) History of colonoscopy History of coronary artery stent placement Stented coronary artery Family History Other Cancer Coronary artery disease Diabetes Heart attack Hypertension Stroke Social History (Updated 09/28/24 @ 07:52 by Karen Salas RN) Smoking Status: Former smoker tobacco type: cigarettes packs per day: 1 alcohol intake: never substance use type: denies use current occupational status: retired Travel in the last 8 weeks?: None household members: none housing: house 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 current occupational exposures/hazards: No caffeine: Yes Have you lived/traveled outside US in past 30 days?: No Contact w/someone who lives/traveled outside US past 30 days?: No Exposure to someone with infectious disease in past 14 days?: No Do you have a fever (greater than 100.4 F or 38 C)?: No Have you tested positive for COVID-19?: No Exposed to someone with COVID-19 in past 14 days?: No Do you have a sore throat?: No Do you have a cough?: No Do you have any weakness?: No Are you experiencing any nausea/vomitting?: No Do you have any diarrhea?: No Are you experiencing any unusual bleeding?: No Do you have any muscle aches/pain?: No Do you have any abdominal pain?: No Are you experiencing loss of taste or smell?: No Other Medical History Have you received the Flu Vaccine for this season: No Have you received the Pneumonia Vaccine: No Review of Systems Review of Systems Review of systems (narrative): Negative *Cardiovascular Comments: Negative *Gastrointestinal Comments: Negative *Genitourinary Comments: Negative *Musculoskeletal Comments: Negative *Neurologic Comments: Negative Meds Home Medications and Allergies Home Medications ?Medication ?Instructions ?Recorded ?Confirmed ?Type clopidogrel 75 mg tablet 75 mg PO DAILY Antiplatelet 01/18/23 09/28/24 History fenofibrate micronized 134 mg 134 mg PO DAILY High triglyceride 01/18/23 09/26/24 History capsule levothyroxine 75 mcg tablet 75 mcg PO DAILY Thyroid 01/18/23 09/26/24 History metformin 500 mg tablet,extended 1,000 mg PO BID Diabetes 01/18/23 09/28/24 History release 24 hr aspirin 81 mg tablet,delayed 81 mg PO DAILY #30 tabs 01/19/23 09/28/24 Rx release famotidine 20 mg tablet 20 mg PO BID 60 days #120 tabs 01/19/23 09/26/24 Rx ranolazine 1,000 mg 1,000 mg PO BID Angina #60 tabs 01/27/23 09/28/24 Rx tablet,extended release,12 hr sodium,potassium,mag sulfates 17.5 See Rx Instructions PO .COMPLEX 01/27/24 09/26/24 Rx gram-3.13 gram-1.6 gram oral soln #354 mL (Suprep Bowel Prep Kit) rosuvastatin 40 mg tablet 40 mg PO DAILY 10/28/24 05/15/25 History isosorbide mononitrate 120 mg 120 mg PO BID #60 tabs 04/20/24 09/26/24 Rx tablet,extended release 24 hr bisoprolol fumarate 10 mg tablet 10 mg PO BID 06/23/24 09/26/24 History furosemide 20 mg tablet 20 mg PO DAILY 06/23/24 09/26/24 History irbesartan 150 mg tablet 150 mg PO DAILY 06/23/24 09/26/24 History pantoprazole 40 mg tablet,delayed 40 mg PO DAILY 06/23/24 09/26/24 History release metoclopramide HCl 5 mg tablet 5 mg PO BID 09/19/24 09/26/24 History semaglutide 0.25 mg or 0.5 mg (2 0.5 mg SQ QWEEK 09/19/24 09/28/24 History mg/3 mL) subcutaneous pen injector (Ozempic) amlodipine 10 mg tablet 10 mg PO DAILY 09/26/24 09/26/24 History insulin NPH-regular 70-30 U-100 30 unit SQ TID 09/26/24 09/28/24 History insulin 100 unit/mL subcutaneous pen (Novolin 70-30 FlexPen U-100 Insulin) magnesium 500 mg tablet 500 mg PO BID 09/26/24 09/26/24 History New Prescriptions to Start Prescriptions: Allergies Allergy/AdvReac Type Severity Reaction Status Date / Time No Known Allergies Allergy Verified 09/28/24 07:41 Exam Data for Last 24 hours Vital signs and Labs for Last 24 Hours: Temp Pulse Resp BP Pulse Ox O2 Del Method 97.6 F 70 18 135/76 97 Room Air 09/28/24 07:45 09/28/24 07:45 09/28/24 07:45 09/28/24 07:45 09/28/24 07:45 09/28/24 07:45 I & O for Last 24 hours: Intake & Output 09/25/24 09/26/24 09/27/24 09/28/24 23:59 23:59 23:59 23:59 Weight 195 lb *Routine HEENT Exam Head: Present normocephalic Eye: Present EOMI and PERRL ENT: Present mucous membranes moist *Routine Neck Exam Neck: Present supple *Routine Respiratory Exam Respiratory: Present CTA bilaterally *Routine Cardiovascular Exam Cardiovascular: Present RRR *Routine Abdominal Exam Abdominal: Present soft and normoactive bowel sounds; Absent tenderness *Routine Rectal Exam Rectal:: deferred *Routine Genitalia Exam Genitalia:: deferred *Routine Extremities Exam Extremities: Absent cyanosis, clubbing or edema *Routine Skin Exam Skin: Present warm; Absent rash *Routine Neurological Exam Neurological: Present alert and oriented X3 Assessment and Plan *Assessment and plan (1) Personal history of adenomatous and serrated colon polyps: Status: Acute Category: Medical Code(s): Z86.0101 - Personal history of adenomatous and serrated colon polyps (2) Barretts esophagus: Status: Acute Category: Medical Code(s): K22.70 - De Guzman's esophagus without dysplasia (3) GERD (gastroesophageal reflux disease): Status: Acute Qualifiers: Esophagitis presence: esophagitis presence not specified Qualified Code(s): K21.9 - Gastro-esophageal reflux disease without esophagitis Category: Medical Code(s): K21.9 - Gastro-esophageal reflux disease without esophagitis Plan A/P: 1. Short segment De Guzman's esophagus/GERD for upper endoscopy and personal history of adenomatous colon polyps (last colonoscopy October 2018) for colonoscopy is the preprocedural diagnosis. The patient will be anesthetized/sedated using MAC sedation. The patient has been seen and examined. Cardiac and lung assessment prior to the examination is stable. Proceed with planned EGD and colonoscopy.
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
--- NOTE | 2024-09-28 08:59 | HMH.PROCNOTE ---
[facility] Procedure Note Date: 09/28/24 Time: 08:59 Procedure Note:: Colonoscopy Procedure Report: Colonoscopy with cold snare polypectomy Endoscopist: Dale Do II, MD Referring physician: Declan Izquierdo MD Date of Procedure: September 28, 2024 Equipment: Olympus 190 variable stiffness pediatric colonoscope Sedation: MAC sedation Indication: Mr. Dennison is a 74-year-old gentleman who is here for follow-up surveillance colonoscopy. He did have a colonoscopy in October 2018 and had 3 polyps (tubular adenomas x 3) which were removed. He does have a long history of irritable bowel syndrome with diarrhea predominance. He does state that his maternal grandfather maternal first cousin had colon cancer. He has had moderate bloating. He reports no rectal bleeding or weight loss. Procedure: Prior to the procedure, a history and physical exam was performed, and patient's medications and allergies were reviewed. The risks, benefits and alternatives of the sedation and procedure were discussed with the patient. All questions were answered and informed consent was obtained. The patient was brought to the procedure room. Patient identification and proposed procedure were verified by the physician and the nurse. The patient was placed in a left lateral decubitus position and the scope was passed under direct vision. Throughout the procedure, the patient's blood pressure, pulse, and oxygen saturations were monitored continuously. The colonoscopy was accomplished without difficulty. The patient tolerated the procedure well. Findings: On digital rectal examination there was normal rectal tone. There were no external hemorrhoids. The colonoscope was introduced through the anal canal to the rectum and advanced to the cecum. The ileocecal valve and appendiceal orifice were identified. The scope was advanced a short distance into the ileum which appeared grossly normal. The scope was then withdrawn into the colon. There was a larger lipoma in the ascending colon. There were 2 diminutive polyps (2 and 3 mm) in the transverse colon removed via cold snare polypectomy. There were scattered diverticuli throughout the descending and sigmoid colon (LEFT colon). The rectum itself was normal. Upon retroflexion within the rectum there were grade 2 internal hemorrhoids. The preparation was excellent throughout with [place] Preparation Score of 9. The cecal time was 12 minutes. Impression: 1. Diminutive transverse polyps x 2 2. Large ascending lipoma 3. Left-sided diverticulosis 4. Grade 2 internal hemorrhoids Plan: I will follow-up the polyp histology and recommend repeat surveillance colonoscopy again in 7 years. I would encourage psyllium bulking fiber supplementation on a maintenance basis.
[2024-09-29 12:26] LABS: POC Glucose,Bedside 138 (70-110)
[2024-10-03 16:16] LABS: Disclaimer Notes (.); Interpretation Notes (.); Lactase 20.05 (>/= 14.0); Maltase 273.22 (>/= 110.0); Palatinase 20.24 (>/= 8.5); Reference Notes (.); Sucrase 74.2 (>/= 25.0)
== END 2024-09-28 09:42 | disposition home or self-care (01) ==
PROVIDERS: PCP Family Medicine; Visit Provider Internal Medicine Gastroenterology
PROC: 0DJ08ZZ Inspection of Upper Intestinal Tract, Via Natural or Artificial Opening Endoscopic (ICD-10-PCS; CPT 45378; principal; 2024-09-28 09:00)
DX: Z12.11 Encounter for screening for malignant neoplasm of colon (principal); Z86.0101 Personal history of adenomatous and serrated colon polyps; K22.70 Barrett's esophagus without dysplasia; K21.9 Gastro-esophageal reflux disease without esophagitis; R14.0 Abdominal distension (gaseous); K58.0 Irritable bowel syndrome with diarrhea; Z80.0 Family history of malignant neoplasm of digestive organs; K44.9 Diaphragmatic hernia without obstruction or gangrene; K31.9 Disease of stomach and duodenum, unspecified; K63.5 Polyp of colon; D12.2 Benign neoplasm of ascending colon; K57.30 Diverticulosis of large intestine without perforation or abscess without bleeding; K64.1 Second degree hemorrhoids; E11.9 Type 2 diabetes mellitus without complications
CPT/HCPCS: 43239; 45385; 82657; 82962; 88305; J7120

== ENCOUNTER 2025-02-19 07:28 | Outpatient (CLI) | payer MEDICARE, OTHER, SELFPAY ==
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
--- OUTSIDE RECORDS SUMMARY | 2024-12-20 06:00 | XMS_ITS ---
Author Organization [facility] Address [address] [place] [id number] Care Team Providers Care Woodworking Bench Carpenter Name Role Phone Declan Izquierdo Primary Care Provider [phone] REASON FOR VISIT 3 months Encounters Encounter Location Date Provider Diagnosis [facility] [address] [place] [id number] 12/20/2024 Declan Izquierdo Plan Of Treatment No Information Progress Notes * KARLA CHIDOB:1950 (74 yo M)Acc No.[id number]:12/20/2024 Progress Notes Patient: KARLA LUNA Provider: Anurag Izquierdo M.D. :1950 A ge:74 Y S ex:Male Date:12/20/2024 Address:[address] [id number] Subjective: * Chief Complaints: * 1 . 3 months. * Medical History: Objective: * Vitals: Assessment: Plan: * Treatment: * Images: Billing Information: * Visit Code: * Procedure Codes: * Electronic signature of Bridget Izquierdo MD on 02/19/2025 at 07:31 AM EDT Sign off status: Pending * Provider: Anurag Izquierdo M.D. Date: 0 12/20/2024 Generated for Printi ng/Faxing/eTransmitting on: 1 07:31 AM EDT
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
--- OUTSIDE RECORDS SUMMARY | 2025-02-19 07:32 | XMS_ITS | Encounter Summary ---
Author Organization [employer] ([place], [place], [place], [place]) Address [address] [place] [address] Care Team Providers Care Sound Controller Name Role Phone Unavailable Primary Care Provider Unavailabl e Encounter Details Date Type Department Care Team (Late st Contact Info) Description 07/28/2020 Transcribed Document [facility] Family Medicine [facility] [place] [address] ProviderIsa MD [facility] [place] [address] Social History Tobacco Use Types Packs/Day Years Used Date Smoking Tobacco: Never Assessed Sex and Gender Information Value Date Recorded Sex Assigned at Not on file Legal Sex Male 6:06 PM CDT Gender Identity Not on file Sexual Orientation Not on file documented as of this encounter Miscellaneous Notes * Cerner Conversion Note - Isa ProviderMD - 07/28/2020 11:25 AM CDT Final Discharge Planning Entered On: 07/28/2020 11:25 EDT Performed On: 07/28/2020 11:25 EDT by LEONID LANGE RN-Dehydration Plant Operator Final Discharge Planning Discharge Arrangements : Patient Post-Acute Information Patient Name: KARLA CHI Gender: Male : [birth year] Age: 70 Years No Post-Acute Placement(s) Listed No Post-Acute Service(s) Listed No [place] Referral(s) Listed Important Medicare Message Reviewed With : Other: <72hrs Transportation Needs : Family/Friend Follow Up Appointment Scheduled : Yes Is Patient High/Moderate Readmission Risk? : No Patient/Family Notified of Plan : Yes Is Patient Ready for Discharge? : Yes Physician Notified Patient is Ready for Discharge? : Yes Discharge To Care Management : Home/Residential/Intermediate or Self Care - LEONID LANGE RN-Dehydration Plant Operator - 07/28/2020 11:25 EDT documented in this encounter Plan of Treatment Not on file documented as of this encounter Visit Diagnoses Not on filedocumented in this encounter
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
--- OUTSIDE RECORDS SUMMARY | 2025-02-19 07:32 | XMS_ITS | Referral Summary ---
Author Organization [employer] ([place], [place], [place], [place]) Address [address] [place] [address] Care Team Providers Care Hospice Director Name Role Phone Unavailable Primary Care Provider Unavailabl e Social History Tobacco Use Types Packs/Day Years Used Date Smoking Tobacco: Never Assessed Sex and Gender Information Value Date Recorded Sex Assigned at Not on file Legal Sex Male 6:06 PM CDT Gender Identity Not on file Sexual Orientation Not on file Plan of Treatment Not on file
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
--- OUTSIDE RECORDS SUMMARY | 2025-02-19 07:32 | XMS_ITS | Encounter Summary ---
Author Organization [employer] ([place], [place], [place], [place]) Address [address] [place] [address] Care Team Providers Care Thread Roller Name Role Phone Unavailable Primary Care Provider Unavailabl e Encounter Details Date Type Department Care Team (Late st Contact Info) Description 07/25/2020 Transcribed Document [facility] [place] Family Medicine [facility] [place] [address] ProviderIsa MD [facility] [place] [address] Social History Tobacco Use Types Packs/Day Years Used Date Smoking Tobacco: Never Assessed Sex and Gender Information Value Date Recorded Sex Assigned at Not on file Legal Sex Male 6:06 PM CDT Gender Identity Not on file Sexual Orientation Not on file documented as of this encounter Miscellaneous Notes * Cerner Conversion Note - Historical ProviderMD - 07/25/2020 12:37 PM ENGINE MONITOR UM Authorization Entered On: 07/25/2020 12:37 EST Performed On: 07/25/2020 12:37 EST by DEANNA PORTER Environmental Monitoring Technician Primary Insurance Authorization Authorization and Policy Numbers : Insurance 1 Health Plan: MEDICARE Policy Number: [id number] Authorization Number: Insurance 2 Health Plan: GENERIC COMMERCIAL Policy Number: [id number] Authorization Number: Insurance Primary Name : Medicare Authorization Status-Primary : No precert required Authorization Number-Primary : NPR for Medicare Authorized Service Begin Date-Primary : 07/26/2020 EST Authorization Comments-Primary : Pt is kareem for INPT Lumbar Fusion Posterior 3 Level on Wednesday07-26-20. Medicare: NPR Historical Authorization Comments-Primary : No Authorization Comments Found DEANNA PORTER, Environmental Monitoring Technician - 07/25/2020 12:37 EST documented in this encounter Plan of Treatment Not on file documented as of this encounter Visit Diagnoses Not on filedocumented in this encounter
--- NOTE | 2025-02-19 07:33 | CT_ITS ---
FINAL REPORT TECHNIQUE: Thin section axial images were obtained from the lung apices through the upper abdomen without contrast. This study was performed with techniques to keep radiation doses as low as reasonably achievable (ALARA). Individualized dose reduction techniques using automated exposure control or adjustment of mA and/or kV according to the patient's size were employed. CLINICAL HISTORY: plural thickening with calcifications & scarring COMPARISON: 01/18/2023 FINDINGS: There is no mediastinal, hilar, or axillary lymphadenopathy. No pleural or pericardial effusion. Evidence of prior granulomatous disease. Pleural calcifications are unchanged. No consolidations. No suspicious pulmonary nodules.. Limited, unenhanced evaluation of the upper abdomen is without acute abnormality. Changes from median sternotomy with interval widening along the lower sternal defect.. IMPRESSION: No acute intrathoracic abnormality. Stable pleural calcifications. Interval increase in widening along the lower sternal defect. Reviewed, Interpreted and Dictated by Chela Blanco MD Transcribed by Constance Salcido Authenticated and [facility]
--- OUTSIDE RECORDS SUMMARY | 2025-02-19 07:33 | XMS_ITS | Encounter Summary ---
Author Organization [employer] ([place], [place], [place], [place]) Address [address] [place] [address] Care Team Providers Care Concrete Inspector Name Role Phone Unavailable Primary Care Provider Unavailabl e Encounter Details Date Type Department Care Team (Late st Contact Info) Description 07/23/2020 Transcribed Document [facility] Family Medicine [facility] [place] [address] ProviderIsa MD [facility] [address] Social History Tobacco Use Types Packs/Day Years Used Date Smoking Tobacco: Never Assessed Sex and Gender Information Value Date Recorded Sex Assigned at Not on file Legal Sex Male 6:06 PM CDT Gender Identity Not on file Sexual Orientation Not on file documented as of this encounter Miscellaneous Notes * Cerner Conversion Note - Isa ProviderMD - 07/23/2020 10:32 AM PANTOGRAPH WATCHER PAT Adult Entered On: 07/23/2020 10:37 EST Performed On: 07/23/2020 10:32 EST by David Camarillo Rn Vital Measurements Temperature Source : Temporal artery scanning Temperature, Fahrenheit : 97.9 Deg F Clinical Temperature, C : 36.6 Deg C Pulse Method : Pulse Oximetry Peripheral Pulse Rate : 89 bpm Respiratory Rate : 18 Breaths/Min Blood Pressure Location : Arm, right upper Systolic Blood Pressure : 152 mmHg (HI) Diastolic Blood Pressure : 104 mmHg (HI) Oxygen Saturation : 98 % Oxygen Therapy Mode : Room air Tarah Ramirez Rn - 07/24/2020 8:10 EST Pain Assessment Pain Assessment : Initial assessment Pain Scale Goal : 3 Tarah Ramirez Rn - 07/24/2020 8:10 EST Height and Weight, Clinical Dosing Height Source : Measured Height Entry Format : [place] Height, Feet : 5 ft(Converted to: 152 cm, 60 Inch) Height, Inches : 5 Inch(Converted to: 0 ft 5 Inch, 12.70 cm) Clinical Height : 165.1 cm Weight Source : Standing scale Weight Entry Format : [place] Clinical Dosing Weight : 86.36 kg Weight, Pounds : 190 lb Body Surface Area (BSA) : 1.94 m2 Body Mass Index : 31.7 kg/m2 (HI) [place] Body Weight : 61 kg Tarah Ramirez Rn - 07/24/2020 8:10 EST Health Histories Smoking Status : Former smoker, quit more than 30 days ago Smokeless Tobacco Status : Never Implant/Device Type, Metallurgy Laboratory Technician and Model : possible screws in shoulders cataract surgery David Camarillo Rn - 07/23/2020 10:32 EST Social History (As Of: 07/23/2020 10:37:17 EST) Tobacco: Former smoker, quit more than 30 days ago Smoking Status. Never Smokeless Tobacco Status. None Smokeless Tobacco Use History. Last Used: quit 30 some years ago . (Last Updated: 07/23/2020 10:32:21 EST by David Camarillo Rn) Alcohol: Alcohol Use History No. Use in Last 12 Months: No. (Last Updated: 07/23/2020 10:32:21 EST by David Camarillo Rn) Substance Abuse: Drug Use Hx: No. Use in Last 12 Months: No. (Last Updated: 07/23/2020 10:32:21 EST by David Camarillo Rn) Infectious Disease History Has the patient ever been tested for COVID-19? : No, Screening today for COVID-19 Date of COVID-19 test known? : Yes Date of COVID-19 Test : 07/24/2020 EST Does patient have symptoms of COVID-19? : No COVID19 Screening : No Experiencing Infectious Disease Symptoms : No symptoms Physical contact outside [place] in the last 30 days : No Infectious Disease History : Chicken pox/Shingles Tuberculosis Symptoms : None Tarah Ramirez Rn - 07/24/2020 8:10 EST COVID19 PreProcedure Screening Is this an Emergent or Add on Procedure? : No Date PreProcedure COVID-19 test known? : Yes Date of PreProcedure COVID-19 : 07/24/2020 EST Tarah Ramirez Rn - 07/24/2020 8:10 EST Anesthesia/Transfusion History Family History of Anesthesia Reaction : No prior transfusion(s) Blood Transfusion Acceptable to Patient : Yes Transfusion History : Prior anesthesia reaction Type of Anesthesia Reaction : Excessive nausea/vomiting Family History of Anesthesia Reaction : None David Camarillo Rn - 07/23/2020 10:32 EST Functional Assessment Functional ADL Evaluation Index EBN Bathing : Independent (2) Dressing : Independent (2) Toileting : Independent (2) Transferring Bed or Chair : Independent (2) Continence : Independent (2) Feeding : Independent (2) David Camarillo Rn - 07/23/2020 10:32 EST ADL Index Score : 12 David Camarillo Rn - 07/23/2020 10:32 EST Advance Directive Patient has Advance Directive *Q : No, patient refuses Advance Directive information David Camarillo Rn - 07/23/2020 10:32 EST Spiritual/Cultural Needs Any Spiritual/Cultural Needs or Requests : Yes Spiritual/Cultural Needs Comment : 07/26/20 Taoism Preference : Quaker Spiritual/Cultural Needs Comment : 07/26/20 David Camarillo Rn - 07/23/2020 10:32 EST [place] Suicide Severity Rating Scale (C-SSRS) CSSRS Past Month Wish to be : No CSSRS Past Month Suicidal Thoughts : No CSSRS Lifetime Suicide Behavior : No Suicide Severity Rating Score : 0 Suicide Severity Rating : No Additional Care Required at this time David Camarillo Rn - 07/23/2020 10:32 EST Psychosocial History Currently in Unsafe Situation : No David Camarillo Rn - 07/23/2020 10:32 EST General Info Preferred Name : Ilon Mode of Arrival on Unit : Ambulatory Legal Guardian : Daughter Support Person/Patient Pneumatic Systems Operator : Yes Support Person/Pt Rep Name : Susan Shiv - daughter Support Person/Pt Rep Contact Information : [phone] Want Family/Rep/Phys Notified of Admit : No David Camarillo Rn - 07/23/2020 10:32 EST Emergency Contact #1 : Susan Chaney Emergency Contact #1 Emergency Contact #1 Relationship : daughter Tarah Ramirez, Rosa - 07/24/2020 8:13 EST Emergency Contact #2 : ` Emergency Contact #2 Phone Number : ` Emergency Contact #2 Relationship : ` Information Obtained From : Patient Primary Language : Beninese Communication Barrier : None Revenue Integrity Analyst Needed : No David Camarillo Rn - 07/23/2020 10:32 EST Maxwell Scale Maxwell Sensory Perception : No impairment Maxwell Moisture : Rarely moist Maxwell Activity : Walks occasionally Maxwell Mobility : Slightly limited Maxwell Nutrition : Adequate Maxwell Friction and Shear : No apparent problem Maxwell Score : 20 David Camarillo Rn - 07/23/2020 10:32 EST Sleep Apnea Risk Assmt BiPAP/CPAP Ordered for Home Use : Yes Hx of Obstructive Sleep Apnea Diagnosis : Yes BiPAP/CPAP Used at Home : No Reason BiPAP/CPAP Not Used at Home : its been like 20 years ago, but I lost a little fat in my neck so I haven't had any problems with it. Age over 50 Years Old : Yes Gender Male : Yes David Camarillo Rn - 07/23/2020 10:32 EST documented in this encounter Plan of Treatment Not on file documented as of this encounter Visit Diagnoses Not on filedocumented in this encounter
--- OUTSIDE RECORDS SUMMARY | 2025-02-19 07:33 | XMS_ITS | Encounter Summary ---
Author Organization [employer] ([place], [place], [place], [place]) Address [address] [place] [address] Care Team Providers Care Data Governance Analyst Name Role Phone Unavailable Primary Care Provider Unavailabl e Encounter Details Date Type Department Care Team (Late st Contact Info) Description 07/30/2020 Transcribed Document [facility] [place] [facility] [place] [address] ProviderIsa MD [facility] [place] [address] Social History Tobacco Use Types Packs/Day Years Used Date Smoking Tobacco: Never Assessed Sex and Gender Information Value Date Recorded Sex Assigned at Not on file Legal Sex Male 6:06 PM CDT Gender Identity Not on file Sexual Orientation Not on file documented as of this encounter Miscellaneous Notes * Cerner Conversion Note - Historical ProviderMD - 07/30/2020 9:49 AM CDT UM Authorization Entered On: 07/30/2020 9:49 EDT Performed On: 07/30/2020 9:49 EDT by Shaunna Wells Rn-Utilization Review Primary Insurance Authorization Authorization and Policy Numbers : Insurance 1 Health Plan: MEDICARE Policy Number: [id number] Authorization Number: Insurance 2 Health Plan: GENERIC COMMERCIAL Policy Number: [id number] Authorization Number: Insurance Primary Name : Medicare Authorization Status-Primary : No precert required Authorization Number-Primary : NPR for Medicare Authorized Service Begin Date-Primary : 07/26/2020 EST Historical Authorization Comments-Primary : Comment 1: Pt is kareem for INPT Lumbar Fusion Posterior 3 Level on Wednesday07-26-20. Medicare: NPR (DEANNA PORTER, Sales And Management Trainee 07/25/2020 12:37) Shaunna Wells Rn-Utilization Review - 07/30/2020 9:49 EDT Electronically signed by [facility] Conversion Glassware Selector Cerner at 08/30/2022 6:06 PM CDT documented in this encounter Plan of Treatment Not on file documented as of this encounter Visit Diagnoses Not on filedocumented in this encounter
--- OUTSIDE RECORDS SUMMARY | 2025-02-19 07:33 | XMS_ITS | Clinical Summary ---
Author Organization [employer] ([place], [place], [place], [place]) Address [address] [place] [address] Care Team Providers Care Bow Machine Operator Name Role Phone Unavailable Primary Care Provider [...]
--- OUTSIDE RECORDS SUMMARY | 2025-02-19 07:33 | XMS_ITS | Encounter Summary ---
Author Organization [employer] ([place], [place], [place], [place]) Address [address] [place] [address] Care Team Providers Care Step Down Nurse Name Role Phone Unavailable Primary Care Provider Unavailabl e Encounter Details Date Type Department Care Team (Late st Contact Info) Description 07/23/2020 Transcribed Document [facility] [place] [facility] [place] [address] ProviderIsa MD [facility] [place], [place] [id number] Social History Tobacco Use Types Packs/Day Years Used Date Smoking Tobacco: Never Assessed Sex and Gender Information Value Date Recorded Sex Assigned at Not on file Legal Sex Male 6:06 PM CDT Gender Identity Not on file Sexual Orientation Not on file documented as of this encounter Miscellaneous Notes * Cerner Conversion Note - Isa ProviderMD - 07/23/2020 10:37 AM BILLING AUDITOR Spiritual Care Assessment Entered On: 07/23/2020 17:16 EST Performed On: 07/23/2020 10:45 EST by Alejandro Sherman Chaplain-Non Cert General Information Referred by : initiated Ministry Provided to : Patient Zoroastrianism Preference : [facility] Alejandro Sherman Chaplain-Non Cert - 07/23/2020 17:15 EST Spiritual Assessment Spiritual Assessment Comment/Summary Points : Supportive pre-surgery visit with patient. Spiritual care provided. Spirital Assessment Comment/Summary Report : SPIRITUAL ASSESSMENT COMMENT/SUMMARY No qualifying data available. Alejandro Sherman Chaplain-Non Cert - 07/23/2020 17:15 EST Interventions Emotional Support : Empathic/Engaged listening Spiritual and Zoroastrianism : Spiritual/Zoroastrianism support provided Alejandro Sherman Chaplain-Non Cert - 07/23/2020 17:15 EST documented in this encounter Plan of Treatment Not on file documented as of this encounter Visit Diagnoses Not on filedocumented in this encounter
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
--- OUTSIDE RECORDS SUMMARY | 2025-02-19 07:34 | XMS_ITS | Encounter Summary ---
Author Organization [employer] ([place], [place], [place], [place]) Address [address] [place] [address] Care Team Providers Care Doubler Operator Name Role Phone Unavailable Primary Care Provider Unavailabl e Encounter Details Date Type Department Care Team (Late st Contact Info) Description 07/26/2020 Transcribed Document [facility] [place] [facility] [place] [address] ProviderIsa MD [facility] [place] [address] Social History Tobacco Use Types Packs/Day Years Used Date Smoking Tobacco: Never Assessed Sex and Gender Information Value Date Recorded Sex Assigned at Not on file Legal Sex Male 6:06 PM CDT Gender Identity Not on file Sexual Orientation Not on file documented as of this encounter Miscellaneous Notes * Cerner Conversion Note - Isa ProviderMD - 07/26/2020 6:34 AM SHOCK ABSORPTION FLOOR LAYER Admission History, Adult Entered On: 07/26/2020 16:41 EST Performed On: 07/26/2020 6:34 EST by Hannah Olivo Non Emp Student Nurse Juan J Advance Directive Patient has Advance Directive *Q : No, patient refuses Advance Directive information Hannah Olivo Non Emp Student Nurse Practitioner - 07/26/2020 16:28 EST (Not Validated) Anesthesia/Transfusion History Family History of Anesthesia Reaction : No prior transfusion(s) Blood Transfusion Acceptable to Patient : Yes Transfusion History : Prior anesthesia reaction Type of Anesthesia Reaction : Excessive nausea/vomiting Family History of Anesthesia Reaction : None Hannah Olivo Non Emp Student Nurse Practitioner - 07/26/2020 16:28 EST (Not Validated) Anticipated Discharge Needs Discharge To, Anticipated : Home Anticipated Discharge Needs at This Time : Equipment, Home care Hannah Olivo Non Emp Student Nurse Practitioner - 07/26/2020 16:28 EST (Not Validated) Functional Assessment Living Situation : Home Patient Lives With : Alone Persons Assisting Patient at Home : Alone Current Daily Living Assistance : None Sensory Deficits : None Mobility Assistance Prior to Admission : Independent VIDES Hx Falls Immediate/Within 3 Months : No Current Home Treatments : Blood glucose monitoring Hannah Olivo Non Emp Student Nurse Practitioner - 07/26/2020 16:28 EST (Not Validated) General Info Preferred Name : Lion Mode of Arrival on Unit : Ambulatory Legal Guardian : Daughter Support Person/Patient Senior Lead Java Developer : Yes Support Person/Pt Rep Name : Susan Chaney - daughter Support Person/Pt Rep Contact Information : [phone] Want Family/Rep/Phys Notified of Admit : No Emergency Contact #1 : Susan Chaney Emergency Contact #1 Emergency Contact #1 Relationship : daughter Emergency Contact #2 : ` Emergency Contact #2 Phone Number : ` Emergency Contact #2 Relationship : ` Information Obtained From : Patient Primary Language : Macedonian Communication Barrier : None Logistics Analytics Manager Needed : No Hannah Olivo Non Emp Student Nurse Practitioner - 07/26/2020 16:28 EST (Not Validated) Fall Risk Scales ABCs Fall Injury Risk Identification : Bones, Coagulation, Surgery ABC Fall Injury Risk : Moderate to high injury risk Injury Moderate to High Risk Interventions : High Risk for Fall Injury sign in place per policy, Supervise toileting as indicated, Transport methods appropriate to patient VIDES Hx Falls Immediate/Within 3 Months : No Vides Secondary Diagnosis : Yes VIDES Use of Ambulatory Aid : Bed rest/Nurse assist VIDES IV Therapy or IV Access : Yes Vides Gait/Transferring : Weak Vides Mental Status : Oriented to own ability Vides Fall Risk Score : 45 VIDES Fall Scale Risk Level : 25-45 Medium Risk [place] Fall Interventions : Adequate lighting, Assistive devices within reach, Bed in low position, Call device within reach, Frequent orientation to call device, Frequent orientation to surroundings, Hourly comfort/safety rounds, Non-slip footwear, Personal items within reach, Reinforced to call for assistance before getting out of bed, Room free of clutter/spills, Upper side-rails up, Wheels locked, Wires/Cords secured Fall Moderate to High Risk Interventions : High Risk for Fall sign in place per policy, Supervise toileting as indicated, Transport methods appropriate to patient Hannah Olivo Non Emp Student Nurse Practitioner - 07/26/2020 16:28 EST [Not Validated] Fall Risk Education Grid Alarms : Verbalizes understanding Assistive Equipment Use : Verbalizes understanding Bed Height/Stabilization : Verbalizes understanding Call light use : Verbalizes understanding Door Open : Verbalizes understanding Environmental Management : Verbalizes understanding Eyeglasses Use : Verbalizes understanding Fall Community Resources : Verbalizes understanding Fall Contract/Letter : Verbalizes understanding Fall Prevention in the Home : Verbalizes understanding Fall Prevention Protocol : Verbalizes understanding Hearing Aid Use : Verbalizes understanding Home Risk Assessment : Verbalizes understanding Need Constant Observation : Verbalizes understanding Night Light Use : Verbalizes understanding Nonskid Footwear Use : Verbalizes understanding Notification of Staff When Leaving : Verbalizes understanding Orthostatic Hypotension Precautions : Verbalizes understanding Personal Article Availability : Verbalizes understanding Prevention Responsibility Family : Verbalizes understanding Prevention Responsibility Patient : Verbalizes understanding Risk Alert Methods : Verbalizes understanding Risk Factors : Verbalizes understanding Safety Aids : Verbalizes understanding Siderails use/risks : Verbalizes understanding Special Assistive Devices : Verbalizes understanding Staff Responsiveness : Verbalizes understanding Symptom Identification & Action Plan *Q : Verbalizes understanding Symptom Reporting : Verbalizes understanding Toileting Schedule : Verbalizes understanding Transfer/Mobility Techniques : Verbalizes understanding Urinal/Bedpan Availability : Verbalizes understanding Wait for Assistance : Verbalizes understanding Wheelchair Safety : Verbalizes understanding Hannah Olivo Non Emp Student Nurse Practitioner - 07/26/2020 16:28 EST (Not Validated) Barriers to Learning : None evident Individuals Taught : Patient, Family member Readiness to Learn : Cooperative Baseline Knowledge of Topic : Good Teaching Method : Explanation Learning Style Preferences Family : Verbal explanation Learning Style Preferences Patient : None Teaching Evaluation : Verbalizes understanding Fall Risk Scale Calc Temp : 1 Hannah Olivo Non Emp Student Nurse Practitioner - 07/26/2020 16:28 EST (Not Validated) Health Histories Smoking Status : Former smoker, quit more than 30 days ago Smokeless Tobacco Status : Never Implant/Device Type, Hemodialysis Technician and Model : possible screws in shoulders cataract surgery Hannah Olivo Non Emp Student Nurse Practitioner - 07/26/2020 16:28 EST [Not Validated] Social History (As Of: 07/26/2020 16:41:19 EST) Tobacco: Former smoker, quit more than [...] 07/23/2020 10:32:21 EST by David Camarillo Rn) Height and Weight, Clinical Dosing Height Source : Measured Height Entry Format : [employer] Height, Feet : 5 ft(Converted to: 152 cm, 60 Inch) Height, Inches : 5 Inch(Converted to: 0 ft 5 Inch, 12.70 cm) Clinical Height : 165.1 cm Weight Source : Standing scale Weight Entry Format : [place] Clinical Dosing Weight : 86.36 kg Weight, Pounds : 190 lb Body Surface Area (BSA) : 1.94 m2 Body Mass Index : 31.7 kg/m2 (HI) [place] Body Weight : 61 kg Hannah Olivo Non Emp Student Nurse Practitioner - 07/26/2020 16:28 EST (Not Validated) Infectious Disease History Has the patient ever [...] : Chicken pox/Shingles Tuberculosis Symptoms : None Hannah Olivo Non Emp Student Nurse Practitioner - 07/26/2020 16:28 EST (Not Validated) Tetanus Immunization Status Previous Tetanus Immunizations : No qualifying data available. Tetanus Immunization : Less than 5 years Hannah Olivo Non Emp Student Nurse Practitioner - 07/26/2020 16:28 EST (Not Validated) Influenza Vaccine Asmt, Adult Previous Vaccines from Immunization Schedule : No qualifying data available. Influenza Immunization, Current Season : Yes Hannah Olivo Non Emp Student Nurse Practitioner - 07/26/2020 16:28 EST (Not Validated) Pneumococcal Vaccine Previous Vaccines from Immunization Schedule : No qualifying data available. Pneumonia Immunization Received : Yes Hannah Olivo Non Emp Student Nurse Practitioner - 07/26/2020 16:28 EST (Not Validated) Order Details Transport Mode Order Detail : Stretcher/Gurney Isolation Precautions Order Detail : Standard Precautions Order Detail : N/A IV Order Detail : 1 Oxygen Order Detail : 1 Nurse Collect Order Detail : 0 Lift/Transfer : Minimal Central Line Order Detail : No Room Service : Appropriate Arterial Line : No Patient Needs Meds Crushed/Liquid : No Hannah Olivo Non Emp Student Nurse Practitioner - 07/26/2020 16:28 EST (Not Validated) Nutrition History Feeding Ability : Independent Adaptive Feeding Equipment : None Adaptive Feeding Equipment : Regular Oral Medication Administration : By mouth Eating Poorly Due to Decreased Appetite : No Unplanned Weight Loss in Past 3-6 Months : No Malnutrition Screening Tool Total(mal) : 0 Malnutrition Screening Tool Risk Level : Patient not at risk Hannah Olivo Non Emp Student Nurse Practitioner - 07/26/2020 16:28 EST (Not Validated) [place] Suicide Severity Rating Scale (C-SSRS) CSSRS Past Month Wish to be : No CSSRS Past Month Suicidal Thoughts : No CSSRS Lifetime Suicide Behavior : No Suicide Severity Rating Score : 0 Suicide Severity Rating : No Additional Care Required at this time Hannah Olivo Non Emp Student Nurse Practitioner - 07/26/2020 16:28 EST (Not Validated) Psychosocial History Currently in Unsafe Situation : No Hannah Olivo Non Emp Student Nurse Practitioner - 07/26/2020 16:28 EST (Not Validated) Sleep Apnea Risk Assmt BiPAP/CPAP Ordered for [...] Old : Yes Gender Male : Yes Hannah Olivo Non Emp Student Nurse Practitioner - 07/26/2020 16:28 EST (Not Validated) Spiritual/Cultural Needs Any Spiritual/Cultural Needs or Requests : Yes Spiritual/Cultural Needs Comment : 07/26/20 Episcopal Preference : Sikhism Spiritual/Cultural Needs Comment : 07/26/20 Olivo, Hannah K, Non Emp Student Nurse Practitioner - 07/26/2020 16:28 EST (Not Validated) Valuables and Belongings Valuables and Belongings : Clothing Clothing : Common streetwear Clothing Disposition : Bedside, With patient Hannah Olivo, Non Emp Student Nurse Practitioner - 07/26/2020 16:28 EST (Not Validated) documented in this encounter Plan of Treatment Not on file documented as of this encounter Visit Diagnoses Not on filedocumented in this encounter
--- OUTSIDE RECORDS SUMMARY | 2025-02-19 07:34 | XMS_ITS | Encounter Summary ---
Author Organization [employer] ([place], [place], [place], [place]) Address [address], [place] Care Team Providers Care Principal Database Developer Name Role Phone Unavailable Primary Care Provider Unavailabl e Encounter Details Date Type Department Care Team (Late st Contact Info) Description 07/28/2020 Transcribed Document [facility] [place] [facility] [place] [address] ProviderIsa MD [facility] [place], [place] [id number] Social History Tobacco Use Types Packs/Day Years Used Date Smoking Tobacco: Never Assessed Sex and Gender Information Value Date Recorded Sex Assigned at Not on file Legal Sex Male 6:06 PM CDT Gender Identity Not on file Sexual Orientation Not on file documented as of this encounter Miscellaneous Notes * Cerner Conversion Note - Isa ProviderMD - 07/28/2020 1:53 PM CDT Discharge Summary, PT Entered On: 07/28/2020 13:55 EDT Performed On: 07/28/2020 13:53 EDT by Axel Caban PHYSICAL THERAPIST Discharge Summary Discharge Summary Provider Notified : Nursing, Physical Therapy Reason for Discharge : Discharged from hospital Discharged to, Therapy : Home, with family care Discharge Summary Comment, PT : Patient abilities AM Supervsion/set up for bed, transfers Modified Indep bed<->chair, Gait Training/Assessment, PT Weight Bearing Status Maintained : Yes Weight Bearing Status : Full Gait Assistance Level : Supervision Walking Distance : 325 feet inmcluding up/down end of halway ramp leading o elevelator Ambulatory Devices : Gait belt Axel Caban PHYSICAL THERAPIST - 07/28/2020 13:53 EDT Wedding Cake Designer Goals Mobility/Bed Mobility LTG PT Grid Goal #1 Activity : Supine to sit Assist : Independent, modified Date to Meet : 08/10/2020 EDT Goal Status : Not met Date Met : 07/28/2020 Axel Irvin, PHYSICAL THERAPIST - 07/28/2020 13:53 EDT Ambulation LTG Grid Goal #1 Distance : 300 feet Assist : Independent, complete Date to Meet : 08/10/2020 EDT Goal Status : Not met Date Met : 07/28/2020 Axel Irvin, PHYSICAL THERAPIST - 07/28/2020 13:53 EDT Electronically signed by Durga [facility] Conversion Medical Sales Associate Cerner at 08/30/2022 6:03 PM CDT documented in this encounter Plan of Treatment Not on file documented as of this encounter Visit Diagnoses Not on filedocumented in this encounter
--- OUTSIDE RECORDS SUMMARY | 2025-02-19 07:34 | XMS_ITS | Clinical Summary ---
Author Organization [facility] Address [address] [place] [address] Care Team Providers Care Quality Assistant Name Role Phone Lenin Francois MD Unavailable [phone] Declan Izquierdo MD Primary Care Provider [phone] Allergies No known active allergies Medications clopidogrel (Plavix) 75 MG tabletIndications :Acute Coronary Syndrome,Percutan eous Coronary Intervention Take 75 mg by mouth 1 (one) time each day. Active fenofibrate micronized (Lofibra) 134 MG capsule Take 134 mg by mouth 1 (one) time each day with breakfast. Active metFORMIN (Glucophage) 1000 MG tablet Take 1,000 mg by mouth 2 (two) times a day with meals. Active pantoprazole (Protonix) 40 MG EC tablet Take 40 mg by mouth 1 (one) time each day. Do not crush, chew, or split. Active aspirin 81 MG EC tablet Take 1 tablet (81 mg total) by mouth 1 (one) time each day. 90 tablet 3 3 Active rosuvastatin (Crestor) 40 MG tablet Take 1 tablet (40 mg total) by mouth 1 (one) time each day. 90 tablet 3 3 Active acetaminophen (Tylenol) 325 MG tablet Take 2 tablets (650 mg total) by mouth every 6 (six) hours if needed for pain. 100 tablet 3 Active docusate sodium 100 MG capsule Take 100 mg by mouth 2 (two) times a day if needed for constipation. 20 capsule 3 Active ferrous sulfate 324 MG tablet delayed-release Take 1 tablet (324 mg total) by mouth 1 (one) time each day with breakfast. Do not crush, chew, or split. 30 tablet 3 Active metoprolol tartrate 37.5 MG tablet Take 37.5 mg by mouth every 8 (eight) hours. 90 tablet 3 3 Active methocarbamol (Robaxin) 750 MG tablet Take 1 tablet (750 mg total) by mouth 4 (four) times a day for 10 days. 40 tablet 3 Active Insulin Syringe-Needle U-100 30G X 5/16 0.3 ML misc Use as directed with insulin. 100 each 3 3 Active Insulin Syringe-Needle U-100 30G X 5/16 0.3 ML misc Use as directed with insulin. 100 each 11 3 Active Insulin Lispro (Admelog, HumaLOG) 100 UNIT/ML injection vial Inject 0-0.1 mL (0-10 Units total) under the skin 3 (three) times a day with meals. 10 mL 3 3 Active furosemide (Lasix) 40 MG tablet Take 1 tablet (40 mg) by mouth 1 (one) time each day for 5 days. 5 tablet 3 Active levothyroxine (Synthroid, Levoxyl) 50 MCG tablet Take 1 tablet (50 mcg) by mouth 1 (one) time each day in the morning. 30 tablet 3 3 Active Active Problems Problem Noted Date Diagnosed Date Obesity (BMI 30.0-34.9) 09/08/2022 Acute blood loss as cause of postoperative anemi a 09/06/2022 Gastroesophageal reflux disease 09/01/2022 Kidney stone 09/01/2022 Abnormal thyroid function test 08/29/2022 Hyperlipidemia 08/29/2022 Hypertriglyceridemia 08/29/2022 Hypertension 08/29/2022 Coronary artery disease due to calcified coronar y lesion 08/28/2022 Hyperthyroidism 08/27/2022 Type II diabetes mellitus 08/27/2022 Resolved Problems Problem Noted Date Diagnosed Date Resolved Date Acute kidney injury 09/05/2022 09/09/19 [place] (myocardial infarction) 09/01/2022 0 09/08/2022 Acute respiratory failure with hypoxia 09/01/2022 09/06/2022 Overview (09/05/2022): - S/p CABG - Extubated on 09/01 - Wean O2 as tolerated; diuresis to manage oxygen goals; encourage ambulation - encourage pulm toileting, IS, flutter valve - 40mg po lasix daily Unstable angina 08/31/2022 09/08/2022 Hyponatremia 08/30/2022 09/08/2022 Blunt abdominal trauma 02/23/202008/27 Hemoperitoneum 02/23/2020 08/27/2022 Contact with juanis dorsey, initial encounter 08/30/2022 Orthopnea 09/08/2022 Immunizations Immunization Administration Dates Next Due Influenza, injectable, quadrivalent, preservativ e free 02/08/2021 Keith COVID-19 Vaccine (Blue Cap) 18+ 09/20/19 21 Pneumococcal Polysaccharide PPV23 09/01/2018 Family History Medical History Relation Name Comments Diabetes Mother Other cancer Other Relation Name Status Comments Mother Other Social History Tobacco Use Types Packs/Day Years Used Date Smoking Tobacco: Never Passive Smoke Exposure: Never Smokeless Tobacco: Never Tobacco Cessation:Counseling Given: Not Answered Alcohol Use Standard Drinks/Week Comments No 0 (1 standard drink = 0.6 oz pur e alcohol) AUDIT-C Answer Date Recorded Q1: How often do you have a drink containing alcohol? Never 09/30/2022 Q2: How many drinks containi ng alcohol do you have on a typical day when you are drinking? Patient does not drink Q3: How often do you have si x or more drinks on one occasion? Never 09/30/2022 CAGE ASSESSMENT Answer Date Recorded Cage unable to access Not on file 08/28/2022 Cage max number of drinks Not on file 2022 Cage Beverages a week Not on file 08/28/2022 Have you ever felt you should CUT down on your d rinking? 0 08/28/2022 Have you been ANNOYED by people criticizing your drinking? 0 08/28/2022 Have you felt GUILTY about your drinking? 0 08/28/2022 Have you had a drink first t hai in the morning (EYE-GEOPHYSICAL ENGINEER) to steady your nerves or to get rid of a hangover? 0 08/28/2022 CAGE Questionnaire Score 0 04/14/2 023 Sex and Gender Information Value Date Recorded Sex Assigned at Male 08/28/2022 9:57 PM EDT Legal Sex Male 8:40 PM EDT Gender Identity Male 08/28/2022 9:57 PM EDT Sexual Orientation Straight 08/28/2022 9: 57 PM EDT Last Filed Vital Signs Vital Sign Reading Time Taken Comments Blood Pressure 130/75 05/04/2023 12:41 AM EST Pulse 64 05/04/2023 12:41 AM EST Temperature 36.7 C (98.1 F) 05/04/2023 12:41 AM EST Respiratory Rate 17 05/04/2023 12:41 AM EST Oxygen Saturation 95% 05/04/2023 12:41 AM EST Inhaled Oxygen Concentration - - Weight 86.2 kg (190 lb) 05/03/2023 8:16 PM EST Height 162.6 cm (5' 4 ) 05/03/2023 8:16 PM EST Body Mass Index 32.61 05/03/2023 8:16 PM EST Plan of Treatment Health Maintenance Due Date Last Done Comments [facility]-Depression Screening 1950 [facility]-Medicare Annual Wellness (AWV) 1950 [facility]-Infant/Child/Adol SDOH Screenings 1950 Diabetes: Dental Exam 1960 [facility]- SDOH Screenings 1968 [facility]-Adult SDOH Screenings 1968 [facility]-DTaP,Tdap,and Td Vaccine s (1 - Tdap) 1969 CT Colonography 1995 Colonoscopy 1995 FIT-DNA 1995 FIT 1995 FOBT 1995 Sigmoidoscopy 1995 [facility]-Colorectal Cancer Screening 1995 [facility]-Zoster Vaccines (1 of 2) 2000 [facility]-Diabetes: Hemoglobin A1C 02/25/2023, 04/22/2022 [id number] Vaccine (2 - 2024- season) 2025 09/19/2020 [facility]-Influenza Vaccine (#1) 2025 02/08/2021 [facility]-RSV Vaccine: 60+ Years o r (1 - 1-dose 75+ series) 2025 [facility]-Hepatitis C Screening Completed 02/07/2020 [facility]-Obesity Intervention Completed 09/30/2022 [facility]-Pneumococcal Vaccine: 50 + Years Completed 02/22/2023, 09/01/2018 HPV Vaccines Aged Out No longer eligi ble based on patient's age to complete this topic [facility]-HIB Vaccines Aged Out No longer e ligible based on patient's age to complete this topic [facility]-Hepatitis A Vaccines Aged Out No longer eligible based on patient's age to complete this topic [facility]-IPV Vaccines Aged Out No longer e ligible based on patient's age to complete this topic [facility]-Rotavirus Vaccines Aged Out No lo nger eligible based on patient's age to complete this topic Procedures Procedure Name Priority Date/Time Associated Diagnosis Comments HEMOGLOBIN A1C Routine 08/28/2022 11:48 PM EDT HEPATITIS C ANTIBODY - ED W/REFLEX TO HCV QUANT PCR Routine 02/07/2020 5:26 AM EDT from Last 3 Months or Most Recently Relevant to Health Maintenance Results * (ABNORMAL) Hemoglobin A1c (08/28/2022 11:48 PM EDT) Hemoglobin A1c 9.6(H) <5.7 % 08/29/2022 1:33 AM EDT [facility] Blood Venous blood specimen / Unknown Venipuncture / Unknown 08/28/2022 11:48 PM EDT 08/29/2022 12:41 AM EDT Narrative [facility] - 08/29/2022 1:33 AM EDT HA1C Interpretive Data: Diagnosis of Diabetes: Diabetic > or = 6.5% Pre-diabetic 5.7 to 6.4% Non-diabetic < or = 5.6% Glycemic Targets for Type I and Type II Diabetics: Non- Adults <7.0% Adults <6.0% Children and Adolescents <7.5% Source: [place] [employer]. Standards of medical care in diabetes,2017. Diabetes Care.2017:40 (suppl 1):S1-S135. HbA1c assay performed by an ion-exchange chromatography method that is certified traceable to the DCCT. us Solange Phan MD LAB BLOOD ORDERABLES Final Res [facility] [address] [place] [address] * [place] Hepatitis C Antibody (02/07/2020 5:26 AM EDT) [place] Hepatitis C Ab NEGATIVE Reference Range: Negative [facility]QUEST 02/07/2020 5:26 AM EDT 02/07/2020 5:41 AM EDT Nader Callahan MD LAB BLOOD ORDERABLES Final Resul t SUNQUEST from Last 3 Months or Most Recently Relevant to Health Maintenance Insurance MEDICARE Member Subscriber Plan / Payer (Ef fective 2015-Present) Name:Lion Dennison Member ID:[id number] Relation to Subscriber:Self Name:Lion Dennison Subscriber ID:[id number] Payer ID:MEDICARE Group ID:Not on file Type:Medicare Address: [address] [place] Advance Directives * Full Code (Latest Code Status on File) Date Activated Date Inactivated Comments 09/01/2022 8:06 PM 09/07/2022 7:06 PM Question Answer Comments Patient has decision-making capacity? Yes * Full Code Date Activated Date Inactivated Comments 08/28/2022 10:28 PM 09/01/2022 8:06 PM Question Answer Comments Patient has decision-making capacity? Yes Healthcare Agents on File Name Relationship Healthcare Agent Joaoor zana Communication Alissa Dennison Spouse Health Care Agent Care Teams Quality Assistant Relationship Specialty Start Date End Date Declan Izquierdo MD [address] [address] PCP - General 08/29/21 Lenin Francois MD [address] [place] [facility] [address] [place] [address] Referring Physician Cardiology 08/27/22
--- OUTSIDE RECORDS SUMMARY | 2025-02-19 07:34 | XMS_ITS | Encounter Summary ---
Author Organization [employer] ([place], [place], [place], [place]) Address [address] [place] [address] Care Team Providers Care Sales Enablement Manager Name Role Phone Unavailable Primary Care Provider Unavailabl e Encounter Details Date Type Department Care Team (Late st Contact Info) Description 07/28/2020 Transcribed Document [facility] [place] [address] ProviderIsa MD [facility] [place] [address] Social History Tobacco Use Types Packs/Day Years Used Date Smoking Tobacco: Never Assessed Sex and Gender Information Value Date Recorded Sex Assigned at Not on file Legal Sex Male 6:06 PM CDT Gender Identity Not on file Sexual Orientation Not on file documented as of this encounter Miscellaneous Notes * Cerner Conversion Note - Isa Orozco MD - 07/28/2020 1:[address] [facility] [place] [address] KARLA CHI :1950 Visit Time:07/26/2020 Your Visit Summary Your Care Team Admitting Physician - VENECIA PADILLA MD-SNU Attending Physician - VENECIA PADLILA MD-SNU Primary Care Physician - VIRGIL BHAGAT (REF), -[facility] Referring Physician - VENECIA PADILLA MD-SNU Your Diagnosis Spondylolisthesis Other spondylosis with myelopathy, lumbar region, Other spondylosis with myelopathy, lumbar region Discharge Vitals Heart Rate (Monitored) 107 Blood Pressure 149/78 What to do next Follow-Up Appointments Follow Up with VENECIA PADILLA MD-SNU When 08/27/2020 02:15 AM EDT Comments Appointment has been made, 1:30pm for x-ray, and 2:15pm for appointment with Dr. Padilla Where: [address] [address]- Follow Up with VENECIA PADILLA When 08/13/2020 03:00 AM EDT Comments Appointment has been made Where: [address] [address]- Business (1) Medications What How Much When Instructions Next Dose acetaminophen-oxyCODONE (Percocet 7.5 mg-325 mg oral tablet) 1 Tablet(s) Oral Every 6 Hours as needed for as needed for pain 07/28 cyclobenzaprine (cyclobenzaprine 10 mg oral tablet) 1 Tablet(s) Oral Three Times A Day as needed for as needed for spasm Refills: 1 07/28 docusate (docusate sodium 250 mg oral capsule) 1 Capsule(s) Oral Two Times A Day as needed for as needed for constipation available zqqy-kbk-wcklofl take while taking pain medication take with plenty of water 07/28 atorvastatin (atorvastatin 10 mg oral tablet) 1 Tablet(s) Oral Every Day 07/29 empagliflozin (Jardiance 25 mg oral tablet) 1 Tablet(s) Oral Every Day 07/29 fenofibrate (fenofibrate 134 mg oral capsule) 1 Capsule(s) Oral Every Day 07/29 gabapentin (gabapentin 300 mg oral capsule) 1 Capsule(s) Oral Two Times A Day 07/28 glimepiride (glimepiride 4 mg oral tablet) 1 Tablet(s) Oral Every Day 07/29 levothyroxine (levothyroxine 75 mcg (0.075 mg) oral tablet) 1 Tablet(s) Oral Every Day 07/29 metFORMIN (metFORMIN 500 mg oral tablet) 1 Tablet(s) Oral Two Times A Day 07/28 omeprazole 20 Milligram(s) Oral Every Day 07/29 pioglitazone (pioglitazone 30 mg oral tablet) 1 Tablet(s) Oral Every Day 07/29 Take your medications faithfully. Do NOT skip medication. Do NOT stop taking medications without the direction of a physician. Carry a list of your medications with you at all times, and take this medication list with you to your first follow up visit. Report any side effects. Avoid herbal remedies unless discussed with your physician. As part of your treatment plan, your physician may have prescribed a limited course of a controlled substance. This medication may be given to help people with moderate or severe pain or for other medical conditions, but there are risks involved with treatment. Common side effects may include nausea, constipation, drowsiness, sweating, itching, dry mouth, and rash. More serious side effects may include cognitive and motor impairment, like problems with thinking, concentrating, alertness, and movement (e.g. slowed reflexes), and driving and operating heavy machinery can be dangerous. It is important for you to talk to your physician if you have these side effects or questions. These controlled substances can produce physical dependence and be habit-forming if taken for an extended period of time, which means that the body has gotten used to them and may experience withdrawal symptoms if they are abruptly stopped. Withdrawal symptoms can include runny nose, sweating, goose bumps, diarrhea, abdominal cramping, rapid heartbeat, difficulty sleeping, and nervousness. Please dispose of unused and medications per your retail pharmacy guidance. Allergies No Known Allergies Immunizations This Visit No Immunizations Found Education Materials Spinal Fusion, Adult, Care After This sheet gives you information about how to care for yourself after your procedure. Your health care provider may also give you more specific instructions. If you have problems or questions, contact your health care provider. What can I expect after the procedure? After the procedure, it is common to have: ??? Back pain and stiffness. ??? Pain in the incision area. Follow these instructions at home: Medicines ??? Take sexl-kzo-pioxlkn and prescription medicines only as told by your health care provider. These include any pain medicines or blood thinning medicines (anticoagulants). ??? If you were prescribed an antibiotic medicine, take it as told by your health care provider. Do not stop taking the antibiotic even if you start to feel better. ??? Do not drive for 24 hours if you received a medicine to help you relax (sedative). ??? Do not drive or use heavy machinery while taking prescription pain medicine. If you have a brace: ??? Wear the brace as told by your health care provider. Remove it only as told by your health care provider. ??? Keep the brace clean. Managing pain, stiffness, and swelling ??? If directed, put ice on the injured area: ? If you have a removable brace, remove it as told by your health care provider. ? Put ice in a plastic bag. ? Place a towel between your skin and the bag. ? Leave the ice on for 20 minutes, 2-3 times a day. Incision care ??? Follow instructions from your health care provider about how to take care of your incision. Make sure you: ? Wash your hands with soap and water before you change your bandage (dressing). If soap and water are not available, use hand grant coordinator. ? Change your dressing as told by your health care provider. ? Leave stitches (sutures), skin glue, or adhesive strips in place. These skin closures may need to be in place for 2 weeks or longer. If adhesive strip edges start to loosen and curl up, you may trim the loose edges. Do not remove adhesive strips completely unless your health care provider tells you to do that. ??? Keep your incision clean and dry. Do not take baths, swim, or use a hot tub until your health care provider approves. ??? Check your incision area every day for signs of infection. Check for: ? More redness, swelling, or pain. ? Fluid or blood. ? Warmth. ? Pus or a bad smell. Physical activity ??? Rest and protect your back as much as possible. ??? Follow instructions from your health care provider about how to move and use good posture to help your spine heal. ??? Do not lift anything that is heavier than 8 lb (3.6 kg) or as told by your health care provider. ??? Do not twist or bend at the waist until your health care provider approves. ??? Avoid: ? Pushing and pulling motions. ? Lifting anything over your head. ? Sitting or lying down in the same position for long periods of time. ??? Do not exercise until your health care provider approves. Once your health care provider has approved exercise, ask him or her what kinds of exercises you can do to make your back stronger (physical therapy). General instructions ??? Wear compression stockings and walk at least every few hours as told by your health care provider. Doing this will help to prevent blood clots and reduce swelling in your legs. ??? Do not use any products that contain nicotine or tobacco, such as cigarettes and e-cigarettes. These can delay bone healing. If you need help quitting, ask your health care provider. ??? To prevent or treat constipation while you are taking prescription pain medicine, your health care provider may recommend that you: ? Drink enough fluid to keep your urine clear or pale yellow. ? Take kcfk-wbf-ycetqdj or prescription medicines. ? Eat foods that are high in fiber, such as fresh fruits and vegetables, whole grains, and beans. ? Limit foods that are high in fat and processed sugars, such as fried and sweet foods. ??? Keep all follow-up visits as told by your health care provider. This is important. Contact a health care provider if: ??? You have pain that gets worse or does not get better with medicine. ??? Your legs or feet become painful or swollen. ??? You have more redness, swelling, or pain around your incision. ??? You have fluid or blood coming from your incision. ??? Your incision feels warm to the touch. ??? You have pus or a bad smell coming from your incision. ??? You have a fever. ??? You vomit or feel nausea. ??? You have weakness or numbness in your legs that is new or getting worse. ??? You have trouble controlling urination or bowel movements. Get help right away if: ??? You have severe pain. ??? You have chest pain. ??? You have trouble breathing. ??? You develop a cough. These symptoms may represent a serious problem that is an emergency. Do not wait to see if the symptoms will go away. Get medical help right away. Call your local emergency services (911 in the [place] Do not drive yourself to the hospital. Summary ??? It is common to have pain at the back and incision area. ??? Icing and pain medicines may help to control the pain. Follow directions from your health care provider. ??? Rest and protect your back as much as possible. Do not twist or bend at the waist. Get up and walk at least every few hours as told by your health care provider. This information is not intended to replace advice given to you by your health care provider. Make sure you discuss any questions you have with your health care provider. Document Released: 11/20/2005 Document Revised: 01/21/2019 Document Reviewed: 04/21/2017 [employer] Patient Education ?? 2020 [employer] Laminectomy, Care After This sheet gives you information about how to care for yourself after your procedure. Your health care provider may also give you more specific instructions. If you have problems or questions, contact your health care provider. What can I expect after the procedure? After the procedure, it is common to have: ??? Some pain around your incision area. ??? Muscle tightening (spasms) across the back. Follow these instructions at home: Incision care ??? Follow instructions from your health care provider about how to take care of your incision area. Make sure you: ? Wash your hands with soap and water before and after you apply medicine to the area or change your bandage (dressing). If soap and water are not available, use hand grant coordinator. ? Change your dressing as told by your health care provider. ? Leave stitches (sutures), skin glue, or adhesive strips in place. These skin closures may need to stay in place for 2 weeks or longer. If adhesive strip edges start to loosen and curl up, you may trim the loose edges. Do not remove adhesive strips completely unless your health care provider tells you to do that. ??? Check your incision area every day for signs of infection. Check for: ? More redness, swelling, or pain. ? More fluid or blood. ? Warmth. ? Pus or a bad smell. Medicines ??? Take bnrm-gho-lqoqmgx and prescription medicines only as told by your health care provider. ??? If you were prescribed an antibiotic medicine, use it as told by your health care provider. Do not stop using the antibiotic even if you start to feel better. Bathing ??? Do not take baths, swim, or use a hot tub for 2 weeks, or until your incision has healed completely. ??? If your health care provider approves, you may take showers after your dressing has been removed. Activity ??? Return to your normal activities as told by your health care provider. Ask your health care provider what activities are safe for you. ??? Avoid bending or twisting at your waist. Always bend at your knees. ??? Do not sit for more than 20???30 minutes at a time. Lie down or walk between periods of sitting. ??? Do not lift anything that is heavier than 10 lb (4.5 kg) or the limit that your health care provider tells you, until he or she says that it is safe. ??? Do not drive for 2 weeks after your procedure or for as long as your health care provider tells you. ??? Do not drive or use heavy machinery while taking prescription pain medicine. General instructions ??? To prevent or treat constipation while you are taking prescription pain medicine, your health care provider may recommend that you: ? Drink enough fluid to keep your urine clear or pale yellow. ? Take qogi-azv-escpuqi or prescription medicines. ? Eat foods that are high in fiber, such as fresh fruits and vegetables, whole grains, and beans. ? Limit foods that are high in fat and processed sugars, such as fried and sweet foods. ??? Do breathing exercises as told. ??? Keep all follow-up visits as told by your health care provider. This is important. Contact a health care provider if: ??? You have more redness, swelling, or pain around your incision area. ??? Your incision feels warm to the touch. ??? You are not able to return to activities or do exercises as told by your health care provider. Get help right away if: ??? You have: ? More fluid or blood coming from your incision area. ? Pus or a bad smell coming from your incision area. ? Chills or a fever. ? Episodes of dizziness or fainting while standing. ??? You develop a rash. ??? You develop shortness of breath or you have difficulty breathing. ??? You cannot control when you urinate or have a bowel movement. ??? You become weak. ??? You are not able to use your legs. Summary ??? After the procedure, it is common to have some pain around your incision area. You may also have muscle tightening (spasms) across the back. ??? Follow instructions from your health care provider about how to care for your incision. ??? Do not lift anything that is heavier than 10 lb (4.5 kg) or the limit that your health care provider tells you, until he or she says that it is safe. ??? Contact your health care provider if you have more redness, swelling, or pain around your incision area or if your incision feels warm to the touch. These can be signs of infection. This information is not intended to replace advice given to you by your health care provider. Make sure you discuss any questions you have with your health care provider. Document Released: 11/20/2005 Document Revised: 04/15/2018 Document Reviewed: 10/18/2016 [employer] Patient Education ?? 2020 [employer] Type 2 Diabetes Mellitus, Self Care, Adult When you have type 2 diabetes (type 2 diabetes mellitus), you must make sure your blood sugar (glucose) stays in a healthy range. You can do this with: ??? Nutrition. ??? Exercise. ??? Lifestyle changes. ??? Medicines or insulin, if needed. ??? Support from your doctors and others. How to stay aware of blood sugar ??? Check your blood sugar level every day, as often as told. ??? Have your A1c (hemoglobin A1c) level checked two or more times a year. Have it checked more often if your doctor tells you to. Your doctor will set personal treatment goals for you. Generally, you should have these blood sugar levels: ??? Before meals (preprandial): 80???130 mg/dL (4.4???7.2 mmol/L). ??? After meals (postprandial): below 180 mg/dL (10 mmol/L). ??? A1c level: less than 7%. How to manage high and low blood sugar Signs of high blood sugar High blood sugar is called hyperglycemia. Know the signs of high blood sugar. Signs may include: ??? Feeling: ? Thirsty. ? Hungry. ? Very tired. ??? Needing to pee (urinate) more than usual. ??? Blurry vision. Signs of low blood sugar Low blood sugar is called hypoglycemia. This is when blood sugar is at or below 70 mg/dL (3.9 mmol/L). Signs may include: ??? Feeling: ? Hungry. ? Worried or nervous (anxious). ? Sweaty and clammy. ? Confused. ? Dizzy. ? Sleepy. ? Sick to your stomach (nauseous). ??? Having: ? A fast heartbeat. ? A headache. ? A change in your vision. ? Jerky movements that you cannot control (seizure). ? Tingling or no feeling (numbness) around your mouth, lips, or tongue. ??? Having trouble with: ? Moving (coordination). ? Sleeping. ? Passing out (fainting). ? Getting upset easily (irritability). Treating low blood sugar To treat low blood sugar, eat or drink something sugary right away. If you can think clearly and swallow safely, follow the 15:15 rule: ??? Take 15 grams of a fast-acting carb (carbohydrate). Talk with your doctor about how much you should take. ??? Some fast-acting carbs are: ? Sugar tablets (glucose pills). Take 3???4 pills. ? 6???8 pieces of hard candy. ? 4???6 oz (120???150 mL) of fruit juice. ? 4???6 oz (120???150 mL) of regular (not diet) soda. ? 1 Tbsp (15 mL) honey or sugar. ??? Check your blood sugar 15 minutes after you take the carb. ??? If your blood sugar is still at or below 70 mg/dL (3.9 mmol/L), take 15 grams of a carb again. ??? If your blood sugar does not go above 70 mg/dL (3.9 mmol/L) after 3 tries, get help right away. ??? After your blood sugar goes back to normal, eat a meal or a snack within 1 hour. Treating very low blood sugar If your blood sugar is at or below 54 mg/dL (3 mmol/L), you have very low blood sugar (severe hypoglycemia). This is an emergency. Do not wait to see if the symptoms will go away. Get medical help right away. Call your local emergency services (911 in the [place] If you have very low blood sugar and you cannot eat or drink, you may need a glucagon shot (injection). A family member or friend should learn how to check your blood sugar and how to give you a glucagon shot. Ask your doctor if you need to have a glucagon shot kit at home. Follow these instructions at home: Medicine ??? Take insulin and diabetes medicines as told. ??? If your doctor says you should take more or less insulin and medicines, do this exactly as told. ??? Do not run out of insulin or medicines. Having diabetes can raise your risk for other long-term conditions. These include heart disease and kidney disease. Your doctor may prescribe medicines to help you not have these problems. Food ??? Make healthy food choices. These include: ? Chicken, fish, egg whites, and beans. ? Oats, whole wheat, bulgur, brown rice, quinoa, and millet. ? Fresh fruits and vegetables. ? Low-fat dairy products. ? Nuts, avocado, olive oil, and canola oil. ??? Meet with a event specialist food demonstrator (dietitian). He or she can help you make an eating plan that is right for you. ??? Follow instructions from your doctor about what you cannot eat or drink. ??? Drink enough fluid to keep your pee (urine) pale yellow. ??? Keep track of carbs that you eat. Do this by reading food labels and learning food serving sizes. ??? Follow your sick day plan when you cannot eat or drink normally. Make this plan with your doctor so it is ready to use. Activity ??? Exercise 3 or more times a week. ??? Do not go more than 2 days without exercising. ??? Talk with your doctor before you start a new exercise. Your doctor may need to tell you to change: ? How much insulin or medicines you take. ? How much food you eat. Lifestyle ??? Do not use any tobacco products. These include cigarettes, chewing tobacco, and e-cigarettes. If you need help quitting, ask your doctor. ??? Ask your doctor how much alcohol is safe for you. ??? Learn to deal with stress. If you need help with this, ask your doctor. Body care ??? Stay up to date with your shots (immunizations). ??? Have your eyes and feet checked by a doctor as often as told. ??? Check your skin and feet every day. Check for cuts, bruises, redness, blisters, or sores. ??? Mobile your teeth and gums two times a day. Floss one or more times a day. ??? Go to the dentist one or more times every 6 months. ??? Stay at a healthy weight. General instructions ??? Take pwmc-dzw-faklydm and prescription medicines only as told by your doctor. ??? Share your diabetes care plan with: ? Your work or school. ? People you live with. ??? Carry a card or wear jewelry that says you have diabetes. ??? Keep all follow-up visits as told by your doctor. This is important. Questions to ask your doctor ??? Do I need to meet with a measurement coordinator? Where can I find a support group for people with diabetes? Where to find more information To learn more about diabetes, visit: ??? [place] [employer]: www.diabetes.org ??? [place]: www.diabeteseducator.org Summary ??? When you have type 2 diabetes, you must make sure your blood sugar (glucose) stays in a healthy range. ??? Check your blood sugar every day, as often as told. ??? Having diabetes can raise your risk for other conditions. Your doctor may prescribe medicines to help you not have these problems. ??? Keep all follow-up visits as told by your doctor. This is important. This information is not intended to replace advice given to you by your health care provider. Make sure you discuss any questions you have with your health care provider. Document Released: 08/24/2016 Document Revised: 10/24/2018 Document Reviewed: 06/05/2016 [employer] Patient Education ?? 2020 [employer] Diabetes Action Plan Following a diabetes action plan is a way for you to manage your diabetes (diabetes mellitus) symptoms. The plan is color-coded to help you understand what actions you need to take based on any symptoms you are having. ??? If you have symptoms in the red zone, you need medical care right away. ??? If you have symptoms in the yellow zone, it means you are having problems. ??? If you have symptoms in the green zone, you are doing well. Learning about and understanding diabetes can take time. Follow the plan that you develop with your health care provider. Know the target range for your blood sugar (glucose) level, and review your treatment plan with your health care provider at each visit. The target range for my blood sugar level is mg/dL. Red zone Get medical help right away if you have any of the following symptoms: ??? A blood sugar test result that is below 54 mg/dL (3 mmol/L). ??? A blood sugar test result that is at or above 240 mg/dL (13.3 mmol/L) for 2 days in a row. ??? Confusion or trouble thinking clearly. ??? Difficulty breathing. ??? Sickness or a fever for 2 or more days that is not getting better. ??? Moderate or large ketone levels in your urine. If you have any red zone symptoms, call emergency services (911 in the [place] or go to the nearest emergency room. If you have severely low blood sugar (severe hypoglycemia) and you cannot eat or drink, you may need an injection of glucagon. Make sure a family member or close friend knows how to check your blood sugar and how to give you a glucagon injection. You may need to be treated in a hospital for this condition. Yellow zone If you have any of the following symptoms, your diabetes is not under control and you may need to make some changes: ??? Blood sugar test results that are below 70 mg/dL (3.9 mmol/L). ??? Other symptoms of hypoglycemia, such as: ? Shaking or feeling light-headed. ? Confusion or irritability. ? Feeling hungry. ? Having a fast heartbeat. ??? A blood sugar test result that is higher than 240 mg/dL (13.3 mmol/L) for 2 days in a row. ??? A fever. ??? Feeling tired, or not having any energy. If you have any yellow zone symptoms: ??? Treat your low blood sugar (hypoglycemia) by eating or drinking 15 grams of a rapid-acting carbohydrate. Follow the 15:15 rule: ? Take 15 grams of a rapid-acting carbohydrate, such as: ? 1 tube of glucose gel. ? 3 glucose pills. ? 6???8 pieces of hard candy. ? 4 oz (120 mL) of fruit juice. ? 4 oz (120 mL) of regular (not diet) soda. ? Check your blood sugar 15 minutes after you take the carbohydrate. ? If the repeat blood sugar test is still at or below 70 mg/dL (3.9 mmol/L), take 15 grams of a carbohydrate again. ? If your blood sugar does not increase above 70 mg/dL (3.9 mmol/L) after 3 tries, get medical help right away. ? After your blood sugar returns to normal, eat a meal or a snack within 1 hour. ??? Keep taking your daily medicines as directed. ??? Check your blood sugar more often than you normally would. ? Write down your results. ? Call your health care provider if you have trouble keeping your blood sugar in your target range. Green zone These signs mean you are doing well and you can continue what you are doing to manage your diabetes: ??? Your blood sugar is within your personal target range. For most people, a blood sugar level before a meal (preprandial) should be 80???130 mg/dL. ??? You feel well, and you are able to do daily activities. If you are in the green zone, continue to manage your diabetes as directed. To do this: ??? Eat a healthy diet. ??? Exercise regularly. ??? Check your blood sugar as directed. ??? Take your medicines as directed. Where to find more information You can find more information about diabetes from: ??? [place] [employer] (ADA): www.diabetes.org ??? [place] [employer] (AADE): www.diabeteseducator.org Summary ??? Following a diabetes action plan is a way for you to manage your diabetes symptoms. The plan is color-coded to help you understand what actions you need to take based on any symptoms you are having. ??? Follow the plan that you develop with your health care provider. Make sure you know your personal target blood sugar level. ??? Review your treatment plan with your health care provider at each visit. This information is not intended to replace advice given to you by your health care provider. Make sure you discuss any questions you have with your health care provider. Document Released: 02/23/2018 Document Revised: 07/01/2018 Document Reviewed: 02/23/2018 Else[employer] Patient Education ?? 2020 [employer] Diabetes Basics Diabetes (diabetes mellitus) is a long-term (chronic) disease. It occurs when the body does not properly use sugar (glucose) that is released from food after you eat. Diabetes may be caused by one or both of these problems: ??? Your pancreas does not make enough of a hormone called insulin. ??? Your body does not react in a normal way to insulin that it makes. Insulin lets sugars (glucose) go into cells in your body. This gives you energy. If you have diabetes, sugars cannot get into cells. This causes high blood sugar (hyperglycemia). Follow these instructions at home: How is diabetes treated? You may need to take insulin or other diabetes medicines daily to keep your blood sugar in balance. Take your diabetes medicines every day as told by your doctor. List your diabetes medicines here: Diabetes medicines ??? Name of medicine: ? Amount (dose): Time (a.m./p.m.): Notes: ??? Name of medicine: ? Amount (dose): Time (a.m./p.m.): Notes: ??? Name of medicine: ? Amount (dose): Time (a.m./p.m.): Notes: If you use insulin, you will learn how to give yourself insulin by injection. You may need to adjust the amount based on the food that you eat. List the types of insulin you use here: Insulin ??? Insulin type: ? Amount (dose): Time (a.m./p.m.): Notes: ??? Insulin type: ? Amount (dose): Time (a.m./p.m.): Notes: ??? Insulin type: ? Amount (dose): Time (a.m./p.m.): Notes: ??? Insulin type: ? Amount (dose): Time (a.m./p.m.): Notes: ??? Insulin type: ? Amount (dose): Time (a.m./p.m.): Notes: How do I manage my blood sugar? Check your blood sugar levels using a blood glucose monitor as directed by your doctor. Your doctor will set treatment goals for you. Generally, you should have these blood sugar levels: ??? Before meals (preprandial): 80???130 mg/dL (4.4???7.2 mmol/L). ??? After meals (postprandial): below 180 mg/dL (10 mmol/L). ??? A1c level: less than 7%. Write down the times that you will check your blood sugar levels: Blood sugar checks ??? Time: Notes: ??? Time: Notes: ??? Time: Notes: ??? Time: Notes: ??? Time: Notes: ??? Time: Notes: What do I need to know about low blood sugar? Low blood sugar is called hypoglycemia. This is when blood sugar is at or below 70 mg/dL (3.9 mmol/L). Symptoms may include: ??? Feeling: ? Hungry. ? Worried or nervous (anxious). ? Sweaty and clammy. ? Confused. ? Dizzy. ? Sleepy. ? Sick to your stomach (nauseous). ??? Having: ? A fast heartbeat. ? A headache. ? A change in your vision. ? Tingling or no feeling (numbness) around the mouth, lips, or tongue. ? Jerky movements that you cannot control (seizure). ??? Having trouble with: ? Moving (coordination). ? Sleeping. ? Passing out (fainting). ? Getting upset easily (irritability). Treating low blood sugar To treat low blood sugar, eat or drink something sugary right away. If you can think clearly and swallow safely, follow the 15:15 rule: ??? Take 15 grams of a fast-acting carb (carbohydrate). Talk with your doctor about how much you should take. ??? Some fast-acting carbs are: ? Sugar tablets (glucose pills). Take 3???4 glucose pills. ? 6???8 pieces of hard candy. ? 4???6 oz (120???150 mL) of fruit juice. ? 4???6 oz (120???150 mL) of regular (not diet) soda. ? 1 Tbsp (15 mL) honey or sugar. ??? Check your blood sugar 15 minutes after you take the carb. ??? If your blood sugar is still at or below 70 mg/dL (3.9 mmol/L), take 15 grams of a carb again. ??? If your blood sugar does not go above 70 mg/dL (3.9 mmol/L) after 3 tries, get help right away. ??? After your blood sugar goes back to normal, eat a meal or a snack within 1 hour. Treating very low blood sugar If your blood sugar is at or below 54 mg/dL (3 mmol/L), you have very low blood sugar (severe hypoglycemia). This is an emergency. Do not wait to see if the symptoms will go away. Get medical help right away. Call your local emergency services (911 in the [place] Do not drive yourself to the hospital. Questions to ask your health care provider ??? Do I need to meet with a measurement coordinator? What equipment will I need to care for myself at home? What diabetes medicines do I need? When should I take them? How often do I need to check my blood sugar? What number can I call if I have questions? When is my next doctor's visit? Where can I find a support group for people with diabetes? Where to find more information ??? [place] [employer] Association: www.diabetes.org ??? [place] [employer]: www.diabeteseducator.org/patient-resources Contact a doctor if: ??? Your blood sugar is at or above 240 mg/dL (13.3 mmol/L) for 2 days in a row. ??? You have been sick or have had a fever for 2 days or more, and you are not getting better. ??? You have any of these problems for more than 6 hours: ? You cannot eat or drink. ? You feel sick to your stomach (nauseous). ? You throw up (vomit). ? You have watery poop (diarrhea). Get help right away if: ??? Your blood sugar is lower than 54 mg/dL (3 mmol/L). ??? You get confused. ??? You have trouble: ? Thinking clearly. ? Breathing. Summary ??? Diabetes (diabetes mellitus) is a long-term (chronic) disease. It occurs when the body does not properly use sugar (glucose) that is released from food after digestion. ??? Take insulin and diabetes medicines as told. ??? Check your blood sugar every day, as often as told. ??? Keep all follow-up visits as told by your doctor. This is important. This information is not intended to replace advice given to you by your health care provider. Make sure you discuss any questions you have with your health care provider. Document Released: 08/05/2018 Document Revised: 06/23/2019 Document Reviewed: 08/05/2018 [employer] Patient Education ?? 2020 [employer] Carbohydrate Counting for Diabetes Mellitus, Adult Carbohydrate counting is a method of keeping track of how many carbohydrates you eat. Eating carbohydrates naturally increases the amount of sugar (glucose) in the blood. Counting how many carbohydrates you eat helps keep your blood glucose within normal limits, which helps you manage your diabetes (diabetes mellitus). It is important to know how many carbohydrates you can safely have in each meal. This is different for every person. A diet and nutrition partner (registered dietitian) can help you make a meal plan and calculate how many carbohydrates you should have at each meal and snack. Carbohydrates are found in the following foods: ??? Grains, such as breads and cereals. ??? Dried beans and soy products. ??? Starchy vegetables, such as potatoes, peas, and corn. ??? Fruit and fruit juices. ??? Milk and yogurt. ??? Sweets and snack foods, such as cake, cookies, candy, chips, and soft drinks. How do I count carbohydrates? There are two ways to count carbohydrates in food. You can use either of the methods or a combination of both. Reading Nutrition Facts on packaged food The Nutrition Facts list is included on the labels of almost all packaged foods and beverages in the [place] It includes: ??? The serving size. ??? Information about nutrients in each serving, including the grams (g) of carbohydrate per serving. To use the ???Nutrition Facts : ??? Decide how many servings you will have. ??? Multiply the number of servings by the number of carbohydrates per serving. ??? The resulting number is the total amount of carbohydrates that you will be having. Learning standard serving sizes of other foods When you eat carbohydrate foods that are not packaged or do not include Nutrition Facts on the label, you need to measure the servings in order to count the amount of carbohydrates: ??? Measure the foods that you will eat with a food scale or measuring cup, if needed. ??? Decide how many standard-size servings you will eat. ??? Multiply the number of servings by 15. Most carbohydrate-rich foods have about 15 g of carbohydrates per serving. ? For example, if you eat 8 oz (170 g) of strawberries, you will have eaten 2 servings and 30 g of carbohydrates (2 servings x 15 g = 30 g). ??? For foods that have more than one food mixed, such as soups and casseroles, you must count the carbohydrates in each food that is included. The following list contains standard serving sizes of common carbohydrate-rich foods. Each of these servings has about 15 g of carbohydrates: ? hamburger bun or ?? Uzbek muffin. ? oz (15 mL) syrup. ? oz (14 g) jelly. ??? 1 slice of bread. ??? 1 six-inch tortilla. ??? 3 oz (85 g) cooked rice or pasta. ??? 4 oz (113 g) cooked dried beans. ??? 4 oz (113 g) starchy vegetable, such as peas, corn, or potatoes. ??? 4 oz (113 g) hot cereal. ??? 4 oz (113 g) mashed potatoes or ?? of a large baked potato. ??? 4 oz (113 g) canned or frozen fruit. ??? 4 oz (120 mL) fruit juice. ??? 4???6 crackers. ??? 6 chicken nuggets. ??? 6 oz (170 g) unsweetened dry cereal. ??? 6 oz (170 g) plain fat-free yogurt or yogurt sweetened with artificial sweeteners. ??? 8 oz (240 mL) milk. ??? 8 oz (170 g) fresh fruit or one small piece of fruit. ??? 24 oz (680 g) popped popcorn. Example of carbohydrate counting Sample meal ??? 3 oz (85 g) chicken breast. ??? 6 oz (170 g) brown rice. ??? 4 oz (113 g) corn. ??? 8 oz (240 mL) milk. ??? 8 oz (170 g) strawberries with sugar-free whipped topping. Carbohydrate calculation 1. Identify the foods that contain carbohydrates: ??? Rice. ??? Newberry. ??? Milk. ??? Strawberries. 2. Calculate how many servings you have of each food: ??? 2 servings rice. ??? 1 serving corn. ??? 1 serving milk. ??? 1 serving strawberries. 3. Multiply each number of servings by 15 g: ??? 2 servings rice x 15 g = 30 g. ??? 1 serving corn x 15 g = 15 g. ??? 1 serving milk x 15 g = 15 g. ??? 1 serving strawberries x 15 g = 15 g. 4. Add together all of the amounts to find the total grams of carbohydrates eaten: ??? 30 g + 15 g + 15 g + 15 g = 75 g of carbohydrates total. Summary ??? Carbohydrate counting is a method of keeping track of how many carbohydrates you eat. ??? Eating carbohydrates naturally increases the amount of sugar (glucose) in the blood. ??? Counting how many carbohydrates you eat helps keep your blood glucose within normal limits, which helps you manage your diabetes. ??? A diet and nutrition partner (registered dietitian) can help you make a meal plan and calculate how many carbohydrates you should have at each meal and snack. This information is not intended to replace advice given to you by your health care provider. Make sure you discuss any questions you have with your health care provider. Document Released: 05/03/2006 Document Revised: 11/25/2017 Document Reviewed: 10/14/2016 [employer] Patient Education ?? 2020 [employer] Blood Glucose Monitoring, Adult Monitoring your blood sugar (glucose) is an important part of managing your diabetes (diabetes mellitus). Blood glucose monitoring involves checking your blood glucose as often as directed and keeping a record (log) of your results over time. Checking your blood glucose regularly and keeping a blood glucose log can: ??? Help you and your health care provider adjust your diabetes management plan as needed, including your medicines or insulin. ??? Help you understand how food, exercise, illnesses, and medicines affect your blood glucose. ??? Let you know what your blood glucose is at any time. You can quickly find out if you have low blood glucose (hypoglycemia) or high blood glucose (hyperglycemia). Your health care provider will set individualized treatment goals for you. Your goals will be based on your age, other medical conditions you have, and how you respond to diabetes treatment. Generally, the goal of treatment is to maintain the following blood glucose levels: ??? Before meals (preprandial): 80???130 mg/dL (4.4???7.2 mmol/L). ??? After meals (postprandial): below 180 mg/dL (10 mmol/L). ??? A1c level: less than 7%. Supplies needed: ??? Blood glucose meter. ??? Test strips for your meter. Each meter has its own strips. You must use the strips that came with your meter. ??? A needle to prick your finger (lancet). Do not use a lancet more than one time. ??? A device that holds the lancet (lancing device). ??? A journal or log book to write down your results. How to check your blood glucose 1. Wash your hands with soap and water. 2. Prick the side of your finger (not the tip) with the lancet. Use a different finger each time. 3. Gently rub the finger until a small drop of blood appears. 4. Follow instructions that come with your meter for inserting the test strip, applying blood to the strip, and using your blood glucose meter. 5. Write down your result and any notes. Some meters allow you to use areas of your body other than your finger (alternative sites) to test your blood. The most common alternative sites are: ??? Forearm. ??? Thigh. ??? Palm of the hand. If you think you may have hypoglycemia, or if you have a history of not knowing when your blood glucose is getting low (hypoglycemia unawareness), do not use alternative sites. Use your finger instead. Alternative sites may not be as accurate as the fingers, because blood flow is slower in these areas. This means that the result you get may be delayed, and it may be different from the result that you would get from your finger. Follow these instructions at home: Blood glucose log ??? Every time you check your blood glucose, write down your result. Also write down any notes about things that may be affecting your blood glucose, such as your diet and exercise for the day. This information can help you and your health care provider: ? Look for patterns in your blood glucose over time. ? Adjust your diabetes management plan as needed. ??? Check if your meter allows you to download your records to a computer. Most glucose meters store a record of glucose readings in the meter. If you have type 1 diabetes: ??? Check your blood glucose 2 or more times a day. ??? Also check your blood glucose: ? Before every insulin injection. ? Before and after exercise. ? Before meals. ? 2 hours after a meal. ? Occasionally between 2:00 a.m. and 3:00 a.m., as directed. ? Before potentially dangerous tasks, like driving or using heavy machinery. ? At bedtime. ??? You may need to check your blood glucose more often, up to 6???10 times a day, if you: ? Use an insulin pump. ? Need multiple daily injections (MDI). ? Have diabetes that is not well-controlled. ? Are ill. ? Have a history of severe hypoglycemia. ? Have hypoglycemia unawareness. If you have type 2 diabetes: ??? If you take insulin or other diabetes medicines, check your blood glucose 2 or more times a day. ??? If you are on intensive insulin therapy, check your blood glucose 4 or more times a day. Occasionally, you may also need to check between 2:00 a.m. and 3:00 a.m., as directed. ??? Also check your blood glucose: ? Before and after exercise. ? Before potentially dangerous tasks, like driving or using heavy machinery. ??? You may need to check your blood glucose more often if: ? Your medicine is being adjusted. ? Your diabetes is not well-controlled. ? You are ill. General tips ??? Always keep your supplies with you. ??? If you have questions or need help, all blood glucose meters have a 24-hour hotline phone number that you can call. You may also contact your health care provider. ??? After you use a few boxes of test strips, adjust (calibrate) your blood glucose meter by following instructions that came with your meter. Contact a health care provider if: ??? Your blood glucose is at or above 240 mg/dL (13.3 mmol/L) for 2 days in a row. ??? You have been sick or have had a fever for 2 days or longer, and you are not getting better. ??? You have any of the following problems for more than 6 hours: ? You cannot eat or drink. ? You have nausea or vomiting. ? You have diarrhea. Get help right away if: ??? Your blood glucose is lower than 54 mg/dL (3 mmol/L). ??? You become confused or you have trouble thinking clearly. ??? You have difficulty breathing. ??? You have moderate or large ketone levels in your urine. Summary ??? Monitoring your blood sugar (glucose) is an important part of managing your diabetes (diabetes mellitus). ??? Blood glucose monitoring involves checking your blood glucose as often as directed and keeping a record (log) of your results over time. ??? Your health care provider will set individualized treatment goals for you. Your goals will be based on your age, other medical conditions you have, and how you respond to diabetes treatment. ??? Every time you check your blood glucose, write down your result. Also write down any notes about things that may be affecting your blood glucose, such as your diet and exercise for the day. This information is not intended to replace advice given to you by your health care provider. Make sure you discuss any questions you have with your health care provider. Document Released: 05/05/2004 Document Revised: 02/24/2019 Document Reviewed: 10/12/2016 [employer] Patient Education ?? 2020 [employer] Diabetes Mellitus and Nutrition, Adult When you have diabetes (diabetes mellitus), it is very important to have healthy eating habits because your blood sugar (glucose) levels are greatly affected by what you eat and drink. Eating healthy foods in the appropriate amounts, at about the same times every day, can help you: ??? Control your blood glucose. ??? Lower your risk of heart disease. ??? Improve your blood pressure. ??? Reach or maintain a healthy weight. Every person with diabetes is different, and each person has different needs for a meal plan. Your health care provider may recommend that you work with a diet and nutrition partner (dietitian) to make a meal plan that is best for you. Your meal plan may vary depending on factors such as: ??? The calories you need. ??? The medicines you take. ??? Your weight. ??? Your blood glucose, blood pressure, and cholesterol levels. ??? Your activity level. ??? Other health conditions you have, such as heart or kidney disease. How do carbohydrates affect me? Carbohydrates, also called carbs, affect your blood glucose level more than any other type of food. Eating carbs naturally raises the amount of glucose in your blood. Carb counting is a method for keeping track of how many carbs you eat. Counting carbs is important to keep your blood glucose at a healthy level, especially if you use insulin or take certain oral diabetes medicines. It is important to know how many carbs you can safely have in each meal. This is different for every person. Your dietitian can help you calculate how many carbs you should have at each meal and for each snack. Foods that contain carbs include: ??? Bread, cereal, rice, pasta, and crackers. ??? Potatoes and corn. ??? Peas, beans, and lentils. ??? Milk and yogurt. ??? Fruit and juice. ??? Desserts, such as cakes, cookies, ice cream, and candy. How does alcohol affect me? Alcohol can cause a sudden decrease in blood glucose (hypoglycemia), especially if you use insulin or take certain oral diabetes medicines. Hypoglycemia can be a life-threatening condition. Symptoms of hypoglycemia (sleepiness, dizziness, and confusion) are similar to symptoms of having too much alcohol. If your health care provider says that alcohol is safe for you, follow these guidelines: ??? Limit alcohol intake to no more than 1 drink per day for non women and 2 drinks per day for men. One drink equals 12 oz of beer, 5 oz of wine, or 1?? oz of hard liquor. ??? Do not drink on an empty stomach. ??? Keep yourself hydrated with water, diet soda, or unsweetened iced tea. ??? Keep in mind that regular soda, juice, and other mixers may contain a lot of sugar and must be counted as carbs. What are tips for following this plan? Reading food labels ??? Start by checking the serving size on the Nutrition Facts label of packaged foods and drinks. The amount of calories, carbs, fats, and other nutrients listed on the label is based on one serving of the item. Many items contain more than one serving per package. ??? Check the total grams (g) of carbs in one serving. You can calculate the number of servings of carbs in one serving by dividing the total carbs by 15. For example, if a food has 30 g of total carbs, it would be equal to 2 servings of carbs. ??? Check the number of grams (g) of saturated and trans fats in one serving. Choose foods that have low or no amount of these fats. ??? Check the number of milligrams (mg) of salt (sodium) in one serving. Most people should limit total sodium intake to less than 2,300 mg per day. ??? Always check the nutrition information of foods labeled as low-fat or nonfat . These foods may be higher in added sugar or refined carbs and should be avoided. ??? Talk to your dietitian to identify your daily goals for nutrients listed on the label. Shopping ??? Avoid buying canned, premade, or processed foods. These foods tend to be high in fat, sodium, and added sugar. ??? Shop around the outside edge of the grocery store. This includes fresh fruits and vegetables, bulk grains, fresh meats, and fresh dairy. Cooking ??? Use low-heat cooking methods, such as baking, instead of high-heat cooking methods like deep frying. ??? Cook using healthy oils, such as olive, canola, or sunflower oil. ??? Avoid cooking with butter, cream, or high-fat meats. Meal planning ??? Eat meals and snacks regularly, preferably at the same times every day. Avoid going long periods of time without eating. ??? Eat foods high in fiber, such as fresh fruits, vegetables, beans, and whole grains. Talk to your dietitian about how many servings of carbs you can eat at each meal. ??? Eat 4???6 ounces (oz) of lean protein each day, such as lean meat, chicken, fish, eggs, or tofu. One oz of lean protein is equal to: ? 1 oz of meat, chicken, or fish. ? 1 egg. ? ?? cup of tofu. ??? Eat some foods each day that contain healthy fats, such as avocado, nuts, seeds, and fish. Lifestyle ??? Check your blood glucose regularly. ??? Exercise regularly as told by your health care provider. This may include: ? 150 minutes of moderate-intensity or vigorous-intensity exercise each week. This could be brisk walking, biking, or water aerobics. ? Stretching and doing strength exercises, such as yoga or weightlifting, at least 2 times a week. ??? Take medicines as told by your health care provider. ??? Do not use any products that contain nicotine or tobacco, such as cigarettes and e-cigarettes. If you need help quitting, ask your health care provider. ??? Work with a counselor or measurement coordinator to identify strategies to manage stress and any emotional and social challenges. Questions to ask a health care provider ??? Do I need to meet with a measurement coordinator? Do I need to meet with a dietitian? What number can I call if I have questions? When are the best times to check my blood glucose? Where to find more information: ??? [place] [employer]: diabetes.org ??? Academy of Nutrition and Dietetics: www.eatright.org ??? National [place] of Diabetes and Digestive and Kidney Diseases (NIH): www.niddk.nih.gov Summary ??? A healthy meal plan will help you control your blood glucose and maintain a healthy lifestyle. ??? Working with a diet and nutrition partner (dietitian) can help you make a meal plan that is best for you. ??? Keep in mind that carbohydrates (carbs) and alcohol have immediate effects on your blood glucose levels. It is important to count carbs and to use alcohol carefully. This information is not intended to replace advice given to you by your health care provider. Make sure you discuss any questions you have with your health care provider. Document Released: 01/28/2006 Document Revised: 04/15/2018 Document Reviewed: 06/07/2017 [employer] Patient Education ?? 2020 [employer] Spinal Fusion, Adult Spinal fusion is a procedure to make two or more of the bones in the spinal column (vertebrae) grow together (fuse). This procedure stops the vertebrae from moving and rubbing against each other. The goal of this procedure is to relieve pain and prevent deformity and weakening of the spine. During a spinal fusion procedure, bone material (graft) is put in between the two vertebrae to help them fuse. Hardware such as rods, screws, metal plates, or cages can be inserted to stabilize the vertebrae while they heal. This procedure is used to treat conditions, including: ??? Spinal injury. ??? Herniated disk. ??? Abnormal curvatures of the spine, such as scoliosis or kyphosis. ??? Infections or tumors in the spine. ??? Spondylolisthesis. This is when one vertebra slips on top of another. ??? Spinal stenosis. This is a narrowing of the spine. Tell a health care provider about: ??? Any allergies you have. ??? All medicines you are taking, including vitamins, herbs, eye drops, creams, and fwve-pvk-czatlha medicines. ??? Any problems you or family members have had with anesthetic medicines. ??? Any blood disorders you have. ??? Any surgeries you have had. ??? Any medical conditions you have. ??? Whether you are or may be . What are the risks? Generally, this is a safe procedure. However, problems may occur, including: ??? Infection. ??? Bleeding. ??? Allergic reactions to medicines or dyes. ??? Damage to other structures or organs, such as nerves near the spine. ??? Spinal fluid leakage. ??? Blood clots. ??? Trouble controlling urination or bowel movements. ??? Pseudoarthrosis. This is when the vertebrae do not fuse together completely. What happens before the procedure? Staying hydrated Follow instructions from your health care provider about hydration, which may include: ??? Up to 2 hours before the procedure ??? you may continue to drink clear liquids, such as water, clear fruit juice, black coffee, and plain tea. Eating and drinking restrictions Follow instructions from your health care provider about eating and drinking, which may include: ??? 8 hours before the procedure ??? stop eating heavy meals or foods such as meat, fried foods, or fatty foods. ??? 6 hours before the procedure ??? stop eating light meals or foods, such as toast or cereal. ??? 6 hours before the procedure ??? stop drinking milk or drinks that contain milk. ??? 2 hours before the procedure ??? stop drinking clear liquids. Medicines ??? Ask your health care provider about: ? Changing or stopping your regular medicines. This is especially important if you are taking diabetes medicines or blood thinners. ? Taking medicines such as aspirin and ibuprofen. These medicines can thin your blood. Do not take these medicines before your procedure if your health care provider instructs you not to. ??? You may be given antibiotic medicine to help prevent infection. General instructions ??? Ask your health care provider how your surgical site will be marked or identified. ??? You will have blood and urine samples taken. ??? You may have imaging tests, such as: ? X-rays. ? CT scan. ? MRI. ??? Plan to have someone take you home from the hospital or clinic. ??? If you will be going home right after the procedure, plan to have someone with you for 24 hours. ??? Do not use any tobacco products, including cigarettes, chewing tobacco, or electronic cigarettes. If you need help quitting, ask your health care provider. Tobacco and nicotine products can delay healing after your surgery. What happens during the procedure? To reduce your risk of infection: ? Your health care team will wash or sanitize their hands. ? Your skin will be washed with soap. ? Hair may be removed from the surgical area. ??? An IV tube will be inserted into one of your veins. ??? You will be given one or more of the following: ? A medicine to help you relax (sedative). ? A medicine to make you fall asleep (general anesthetic). ??? If bone from another part of your body (autogenous bone) is being used to fill the space between your vertebrae: ? An incision will be made over the site of the bone graft. Often, the bone is taken from the hip (pelvic) bone. ? A small part of the bone will be removed. ??? An incision will be made over the vertebrae that will be fused. This incision may be on your back, abdomen, or side. ??? The muscles will be moved aside so the surgeon can see the vertebrae. ??? If you are having this procedure to treat a herniated disk, part of the disk will be removed. ??? The space between the vertebrae will be filled with autogenous bone, bone from a bone donor (allograft bone), or artificial bone material. ??? Screws and rods or metal plates may be used to stabilize the vertebrae while they fuse. ??? The muscles will be moved back into place. ??? A small tube (drain) may be placed near one of the incisions to help drain extra fluid from your surgical site. ??? Your incision(s) will be closed. ??? A bandage (dressing) may be used to cover your incision(s). The procedure may vary among health care providers and hospitals. What happens after the procedure? You will be given medicine as needed for pain. ??? Electronically signed by Durga [facility] Conversion Staff Electrical Engineer Cerner at 08/30/2022 6:00 PM CDT documented in this encounter Plan of Treatment Not on file documented as of this encounter Visit Diagnoses Not on filedocumented in this encounter
--- OUTSIDE RECORDS SUMMARY | 2025-02-19 07:34 | XMS_ITS | Encounter Summary ---
Author Organization [employer] ([place], [place], [place], [place]) Address [address] [place] [address] Care Team Providers Care Cloth Painter Name Role Phone Unavailable Primary Care Provider Unavailabl e Encounter Details Date Type Department Care Team (Late st Contact Info) Description 07/28/[address] [facility] [place] Family Medicine [facility] [place] [address] ProviderIsa MD [facility] [place], [place] [id number] Social History Tobacco Use Types Packs/Day Years Used Date Smoking Tobacco: Never Assessed Sex and Gender Information Value Date Recorded Sex Assigned at Not on file Legal Sex Male 6:06 PM CDT Gender Identity Not on file Sexual Orientation Not on file documented as of this encounter Miscellaneous Notes * [employer]ner Conversion Note - Historical ProviderMD - 07/28/2020 12:42 PM CDT Nursing Discharge Summary Entered On: 07/28/2020 12:42 EDT Performed On: 07/28/2020 12:42 EDT by Miranda Mancilla owner spa director Documentation Discharge Date/Time : 07/28/2020 13:25 EDT Miranda Mancilla RN - 07/28/2020 14:00 EDT Patient Disposition, General : Discharge Discharge To : Home with ambulatory/outpatient follow-up IV Discontinued : Yes Prescriptions Given to Patient : Yes Number of Prescriptions Given : 2 Miranda Mancilla RN - 07/28/2020 12:42 EDT documented in this encounter Plan of Treatment Not on file documented as of this encounter Visit Diagnoses Not on filedocumented in this encounter
--- OUTSIDE RECORDS SUMMARY | 2025-02-19 07:34 | XMS_ITS | Encounter Summary ---
Author Organization [employer] ([place], [place], [place], [place]) Address [address] [place] [address] Care Team Providers Care Manager Php Name Role Phone Unavailable Primary Care Provider Unavailabl e Encounter Details Date Type Department Care Team (Late st Contact Info) Description 07/26/2020 Transcribed Document [facility] [place] Family Medicine [facility] [place] [address] ProviderIsa MD [facility] [place] [address] Social History Tobacco Use Types Packs/Day Years Used Date Smoking Tobacco: Never Assessed Sex and Gender Information Value Date Recorded Sex Assigned at Not on file Legal Sex Male 6:06 PM CDT Gender Identity Not on file Sexual Orientation Not on file documented as of this encounter Miscellaneous Notes * [employer] Conversion Note - Isa ProviderMD - 07/26/2020 2:58 PM MARKETING PROPOSAL SPECIALIST Evaluation, Physical Therapy Entered On: 07/27/2020 11:05 EST Performed On: 07/27/2020 10:59 EST by Axel Caban PHYSICAL THERAPIST General Information, PT General Information Comment, PT : s/p L4-5 PLIF on 07/26/20. PMH: DM II OA, HTN, sleep apnea, Migraines Axel Caban PHYSICAL THERAPIST - 07/27/2020 11:16 EST Visit Type, PT : Initial evaluation Patient Orders : Order Date Order Ordering 07/26/2020 14:58 Physical Therapy Eval and Treat Ordered By: VENECIA PADILLA MD-[facility] Active Diagnoses : No Qualifying Diagnoses Admission Date : 07/26/2020 06:35 Co-treated by, PT : Occupational Therapist Personal Devices : Personal Devices No Devices Recorded Assistive Devices : Assistive Devices No Devices Recorded Axel Caban PHYSICAL THERAPIST - 07/27/2020 10:59 EST General Status Patient Received Status : Long sitting in bed Treatment Start Time : 07/27/2020 10:07 EST Patient Left Status : Up in chair, RN/PCT informed, All needs met and within reach RN/PCT Informed Comment : Nurse Ojeda Treatment End Time : 07/27/2020 10:30 EST Treatment Time : 23 Minute(s) Actual Treatment Time : 23 Minute(s) Axel Caban PHYSICAL THERAPIST - 07/27/2020 10:59 EST History and Environment Living Situation, Therapy : Home Patient Lives With : Alone Persons Assisting Patient at Home : Alone Professional Skilled Services : None Home Equipment Therapy, PT : Cane Home Setup : One story Laundry Room Location : Main level Bedroom Location : Main level Bathroom #1 Location : Main level Bathroom #1 Features : Toilet, Tub/Shower Stairs : No Axel Caban PHYSICAL THERAPIST - 07/27/2020 10:59 EST Prior Level of Function PT GRID Prior LOF Ambulation, Household : Independent Prior LOF Ambulation, Community : Independent Prior LOF Bed Mobility : Independent Prior LOF Toileting : Independent Prior LOF Transfer : Independent Axel Caban PHYSICAL THERAPIST - 07/27/2020 10:59 EST Prior LOF Assist with ADL Comment : Indep all IADL's including driving priro to Sx Axel Caban PHYSICAL THERAPIST - 07/27/2020 10:59 EST Upper Extremity Right UE Active ROM : WFL Right UE Strength : WFL Left UE Active ROM : WFL Left UE Strength : WFL Right UE Strength : WFL Left UE Strength : WFL Axel Caban PHYSICAL THERAPIST - 07/27/2020 10:59 EST Lower Extremity RLE Active ROM : WFL Right LE Strength : Impaired LLE Active ROM : WFL Left LE Strength : Impaired Lower Extremity Comment : Hips 3+/5 rest legs 4+/5 Axel Caban PHYSICAL THERAPIST - 07/27/2020 10:59 EST Functional Mobility Mobility Grid Bed Roll Left : Rehab Minimal assistance Bed Roll Right : Rehab Minimal assistance Supine to Sit : Rehab Minimal assistance Sit to Stand : Supervision/set-up Bed to Chair : Supervision/set-up Stand to Sit : Supervision/set-up Axel Caban PHYSICAL THERAPIST - 07/27/2020 10:59 EST Gait Training/Assessment, PT Weight Bearing Status : Full Gait Assistance Level : Supervision Walking Distance : Bed tp bathroom rolling walker, patient was lifting and carry walker, Gait assessment no AD walked 200 feet Ambulatory Devices : Gait belt Axel Caban PHYSICAL THERAPIST - 07/27/2020 10:59 EST Cognition Assessment, PT Orientation : Oriented x 4 Axel Caban PHYSICAL THERAPIST - 07/27/2020 10:59 EST Edu Topics Physical Therapy Education Grid Bed Mobility Training : Needs further teaching Gait Training : Needs further teaching Safety : Needs further teaching Therapeutic Exercises : Needs further teaching Transfer Training : Needs reinforcement Axel Caban PHYSICAL THERAPIST - 07/27/2020 10:59 EST Teaching/Learning Assessment Barriers To Learning : None evident Learning Style Preferences Patient : Verbal explanation Learning Style Preferences Family : Verbal explanation Axel Caban PHYSICAL THERAPIST - 07/27/2020 10:59 EST Indication Assesessment, PT Physical Therapy Indicated : Yes Axel Caban PHYSICAL THERAPIST - 07/27/2020 10:59 EST Plan of Care, PT PT Tx Plan/Goals Established w Patient : Yes PT Frequency Rehab : Daily PT Treatments Planned : Bed mobility training, Gait training, Safety education, Therapeutic exercises, Transfer training Axel Caban PHYSICAL THERAPIST - 07/27/2020 10:59 EST [facility] Goals Mobility/Bed Mobility LTG PT Grid Goal #1 Activity : Supine to sit Assist : Independent, modified Date to Meet : 08/10/2020 EDT Goal Status : Intial Goal Axel Caban PHYSICAL THERAPIST - 07/27/2020 10:59 EST Ambulation LTG Grid Goal #1 Distance : 300 feet Assist : Independent, complete Date to Meet : 08/10/2020 EDT Goal Status : Intial Goal Axel Caban PHYSICAL THERAPIST - 07/27/2020 10:59 EST Treatment Note Subjective Comment : He si agreeable to Therapy, would liek to use bathroom when up. Assessment : No increased pain with gait. Plan for Treatment : per POC. Axel Caban PHYSICAL THERAPIST - 07/27/2020 10:59 EST Pain Assessment Pain Scaled Used : 0-10 Pain scale Duration : 8 Location : Back, lower Axel Caban PHYSICAL THERAPIST - 07/27/2020 10:59 EST Image 1 - Images currently included in the form version of this document have not been included in the text rendition version of the form. Anticipated Discharge Needs, OT/PT Anticipated Discharge to : Home, with home health (Comment: S1 - initioal PT home assessment ensure safety and mobility in home. [Axel Caban PHYSICAL THERAPIST - 07/27/2020 10:59 EST] ) Recommend Continued Therapy at Discharge : Yes Axel Caban PHYSICAL THERAPIST - 07/27/2020 10:[address] [facility] PT Harithaal Low Complexity : 1 Axel Caban PHYSICAL THERAPIST - 07/27/2020 10:59 EST Electronically signed by Durga, [facility] Conversion Clothespin Drier Operator Cerner at 08/30/2022 6:14 PM CDT documented in this encounter Plan of Treatment Not on file documented as of this encounter Visit Diagnoses Not on filedocumented in this encounter
--- OUTSIDE RECORDS SUMMARY | 2025-02-19 07:34 | XMS_ITS | Encounter Summary ---
Author Organization [employer] ([place], [place], [place], [place]) Address [address] [place] [address] Care Team Providers Care Translator/Interpreter Name Role Phone Unavailable Primary Care Provider Unavailabl e Encounter Details Date Type Department Care Team (Late st Contact Info) Description 07/27/2020 Transcribed Document [facility] [address] [facility] [address] [place] [address] [place] [address] [place] [address] [address] [place] [id number] Social History Tobacco Use Types Packs/Day Years Used Date Smoking Tobacco: Never Assessed Sex and Gender Information Value Date Recorded Sex Assigned at Not on file Legal Sex Male 6:06 PM CDT Gender Identity Not on file Sexual Orientation Not on file documented as of this encounter Miscellaneous Notes * [employer] Conversion Note - Venecia Padilla Jr., MD - 07/27/2020 12:26 PM EST Patient: KARLA CHI Age: 70 years Sex: Male : 1950 Associated Diagnoses: None Author: VENECIA PADILLA MD-[facility] af vss isra [address] serosanguinous 09/18 c/d/i in chair no headache looks great goal is dc drain tomorrow. home w/ home health p.t. tomorrow or next day documented in this encounter Plan of Treatment Not on file documented as of this encounter Visit Diagnoses Not on filedocumented in this encounter
--- OUTSIDE RECORDS SUMMARY | 2025-02-19 07:34 | XMS_ITS | Encounter Summary ---
Author Organization [employer] ([place], [place], [place], [place]) Address [address] [place] [id number] Care Team Providers Care Steel Tier Name Role Phone Unavailable Primary Care Provider Unavailabl e Encounter Details Date Type Department Care Team (Late st Contact Info) Description 07/26/2020 Transcribed Document [facility] [place] [facility] [place] [address] ProviderIsa MD [facility] [place] [id number] Social History Tobacco Use Types Packs/Day Years Used Date Smoking Tobacco: Never Assessed Sex and Gender Information Value Date Recorded Sex Assigned at Not on file Legal Sex Male 6:06 PM CDT Gender Identity Not on file Sexual Orientation Not on file documented as of this encounter Miscellaneous Notes * [employer] Conversion Note - Isa ProviderMD - 07/26/2020 4:19 PM PACKAGE REINSPECTOR Meds to Bed Enrollment Entered On: 07/28/2020 15:31 EDT Performed On: 07/26/2020 16:19 EST by ROMELIA TEJADA PHARMACIST-MEDICATION RECON Meds to Bed Enrollment Patient Enrollment Decision: : No/do not enroll in meds to bed program Reason for Declining Meds to Bed Program: : Other: weekend dc ROMELIA TEJADA PHARMACIST-MEDICATION RECON - 07/28/2020 15:31 EDT documented in this encounter Plan of Treatment Not on file documented as of this encounter Visit Diagnoses Not on filedocumented in this encounter
--- OUTSIDE RECORDS SUMMARY | 2025-02-19 07:34 | XMS_ITS | Encounter Summary ---
Author Organization [employer] ([place], [place], [place], [place]) Address [address] [place] [id number] Care Team Providers Care Base Filler Name Role Phone Unavailable Primary Care Provider Unavailabl e Encounter Details Date Type Department Care Team (Late st Contact Info) Description 07/26/2020 Transcribed Document [facility] [place] Medicine [facility] [place] [address] ProviderIsa [place] [address] Social History Tobacco Use Types Packs/Day Years Used Date Smoking Tobacco: Never Assessed Sex and Gender Information Value Date Recorded Sex Assigned at Not on file Legal Sex Male 6:06 PM CDT Gender Identity Not on file Sexual Orientation Not on file documented as of this encounter Miscellaneous Notes * Cerner Conversion Note - Isa ProviderMD - 07/26/2020 1:09 PM ATOMIC FUEL ASSEMBLER [facility] Main OR IntraOp Summary Primary Physician: VENECIA PADILLA MD-SNU Finalized Date/Time: 07/27/20 16:20:51 Pt. Name: KARLA CHI /Sex: 1950 Male Med Rec #: [id number] Physician: VENECIA PADILLA MD-SNU Financial #: [id number] Pt. Type: I Room/Bed: [facility]/ Admit/Disch: 07/26/20 06:35:00 - Institution: [facility] IntraOp Case Attendance Entry 1 Entry 2 Entry 3 Case Attendee VENECIA PADILLA MD-SNU Byrd, Charlie D, RN WASSON, SANDRA D, RN Role Performed Surgeon/Proceduralist, Log Pond Worker, First Log Pond Worker, Second First Time In 07/26/20 12:44:00 07/26/20 12:44:00 07/26/20 12:44:00 Time Out 07/26/20 14:49:00 07/26/20 14:49:00 07/26/20 12:45:00 Procedure Lumbar Fusion Posterior Lumbar Fusion Posterior Lumbar Fusion Posterior 3 Level 3 Level 3 Level Other Attendee Superficial Wound Closed By: Last Modified By: Kg Bronson, Kg Lara, Kg Lara, RN 07/26/20 14:52:29 07/26/20 14:52:29 07/26/20 14:52:29 Entry 4 Entry 5 Entry 6 Case Attendee CHIP VYAS, LUIS A LEVY, [place] Cramer CRNA Role Performed Scrub, First Physician event sales assistant OFFLINE CUTTER/Nurse Associate Professor Of Kinesiology Time In 07/26/20 12:44:00 07/26/20 12:44:00 07/26/20 12:44:00 Time Out 07/26/20 14:49:00 07/26/20 14:49:00 07/26/20 14:49:00 Procedure Lumbar Fusion Posterior Lumbar Fusion Posterior Lumbar Fusion Posterior 3 Level 3 Level 3 Level Other Attendee Superficial Wound Closed By: Last Modified By: Kg Bronson RN Byrd, Charlie D, Kg Lara RN 07/26/20 14:52:29 07/26/20 14:52:29 07/26/20 14:52:29 Entry 7 Entry 8 Entry 9 Case Attendee RUTH ANN LIRA SHELTON, CLARA S OTHER, ATTENDEE #1 MD-ANS Role Performed Anesthesiologist of Staff Accountant Vendor Record Time In 07/26/20 12:44:00 07/26/20 12:44:00 07/26/20 12:44:00 Time Out 07/26/20 14:49:00 07/26/20 14:49:00 07/26/20 14:49:00 Procedure Lumbar Fusion Posterior Lumbar Fusion Posterior Lumbar Fusion Posterior 3 Level 3 Level 3 Level Other Attendee KATHERINE ARTHUR Superficial Wound Closed By: Last Modified By: Kg Bronson, Kg Lara, Kg Lara, RN 07/26/20 14:52:29 07/26/20 14:52:29 07/26/20 14:52:29 Entry 10 Case Attendee YI LEIVA RN Role Performed Log Pond Worker, First Time In 07/26/20 13:50:00 Time Out 07/26/20 14:00:00 Procedure Lumbar Fusion Posterior 3 Level Other Attendee RN BREAK RELIEF Superficial Wound Closed By: Last Modified By: Kg Bronson RN 07/26/20 14:52:29 [facility] IntraOp Case Attendance Audit 07/26/20 14:52:29 Thermit Welding Machine Operator: [email or web address] Modifier: [email or web address] 1 <+> Time Out 1 <*> Procedure Lumbar Fusion Posterior 3 Level 2 <+> Time Out 2 <*> Procedure Lumbar Fusion Posterior 3 Level 3 <*> Procedure Lumbar Fusion Posterior 3 Level 4 <+> Time Out 4 <*> Procedure Lumbar Fusion Posterior 3 Level 5 <+> Time Out 5 <*> Procedure Lumbar Fusion Posterior 3 Level 6 <+> Time Out 6 <*> Procedure Lumbar Fusion Posterior 3 Level 7 <+> Time Out 7 <*> Procedure Lumbar Fusion Posterior 3 Level 8 <+> Time Out 8 <*> Procedure Lumbar Fusion Posterior 3 Level 9 <+> Time Out 9 <*> Procedure Lumbar Fusion Posterior 3 Level 10 <*> Procedure Lumbar Fusion Posterior 3 Level 07/26/20 13:50:32 Thermit Welding Machine Operator: [email or web address] Modifier: [email or web address] 3 <+> Time Out 3 <*> Procedure Lumbar Fusion Posterior 3 Level <+> 10 Case Attendee <+> 10 Role Performed <+> 10 Time In <+> 10 Time Out <+> 10 Procedure <+> 10 Other Attendee 07/26/20 13:17:03 [employer]mit Welding Machine Operator: [email or web address] Modifier: [email or web address] 1 <*> Procedure Lumbar Fusion Posterior 3 Level 2 <+> Time In 2 <*> Procedure Lumbar Fusion Posterior 3 Level 3 <+> Time In 3 <*> Procedure Lumbar Fusion Posterior 3 Level 4 <+> Time In 4 <*> Procedure Lumbar Fusion Posterior 3 Level 5 <+> Time In 5 <*> Procedure Lumbar Fusion Posterior 3 Level 6 <+> Time In 6 <*> Procedure Lumbar Fusion Posterior 3 Level 7 <+> Time In 7 <*> Procedure Lumbar Fusion Posterior 3 Level 8 <+> Time In 8 <*> Procedure Lumbar Fusion Posterior 3 Level 9 <+> Time In 9 <*> Procedure Lumbar Fusion Posterior 3 Level [facility] IntraOp Case Times Entry 1 Patient In Room Time 07/26/20 12:44:00 Out Room Time 07/26/20 14:49:00 Anesthesia Start Time 07/26/20 12:44:00 Stop Time 07/26/20 14:49:00 Surgery / Procedure Times Start Time 07/26/20 13:09:00 Stop Time 07/26/20 14:34:00 Last Modified By: Kg Bronson RN 07/26/20 14:52:28 [facility] IntraOp Case Times Audit 07/26/20 14:52:28 Thermit Welding Machine Operator: [email or web address] Modifier: [email or web address] <+> 1 Out Room Time <+> 1 Stop Time 07/26/20 14:34:15 Thermit Welding Machine Operator: [email or web address] Modifier: [email or web address] <+> 1 Stop Time [facility] IntraOp Cautery Entry 1 Entry 2 ESU Identification Cautery Type Monopolar ESU BiPolar ESU Cautery Type Comments ID Number [id number] ID Type Hospital Number Hospital Number Cautery Settings Cut Setting 45 8 Coag Setting 45 45 Blend Setting Bipolar Setting Argon Setting Argon Ledezma ESU Grounding Pad Ground Pad Type Adult Grounding Pad Type Comment Grounding Pad Site Right thigh Grounding Pad Site Comment Grounding Pad Kg Bronson RN Applied By Grounding Pad Site Warm, dry and intact Skin Condition Before Cautery Site Skin Condition Before Comment Grounding Pad Site Unchanged Skin Condition After Cautery Site Skin Condition After Comment Last Modified By: Kg Bronson RN Byrd, Charlie D, RN 07/26/20 13:13:37 07/26/20 13:13:37 [facility] IntraOp Communication Entry 1 Communication To Family/Significant other Comment START - NO ANSWER Communication By Kg Bronson RN Date and Time 07/26/20 13:12:00 Last Modified By: Kg Bronson RN 07/26/20 13:12:45 [facility] IntraOp Counts Verification Entry 1 Procedure Lumbar Fusion Posterior 3 Level Count Info Count Type Sponge, Sharps, Miscellaneous Counts Verification Baseline/pre-procedure Sequence Count Results Not Applicable Counts Performed By Count Performed By CHIP VYAS ST (Scrub) Count Performed By CALI, YI D, RN (RN) Last Modified By: Kg Bronson RN 07/26/20 13:13:51 [facility] IntraOp Counts Verification Audit 07/26/20 13:13:51 Thermit Welding Machine Operator: [email or web address] Modifier: [email or web address] <+> 1 Count Type <+> 1 Counts Verification Sequence <+> 1 Count Results <+> 1 Count Performed By (Scrub) <+> 1 Count Performed By (RN) [facility] IntraOp Counts Final Entry 1 Procedure Lumbar Fusion Posterior 3 Level Final Count Info Count Type Sponge, Sharps, Miscellaneous Counts Verification Skin Closure/end of Sequence procedure Count Results Correct, surgeon notified Counts Performed By Count Performed By CHIP VYAS ST (Scrub) Count Performed By Kg Bronson RN (RN) Last Modified By: Kg Bronson RN 07/26/20 14:33:21 [facility] IntraOp Departure from OR Entry 1 Integumentary Assessment Integumentary WDL Assessment WDL Transfer/Handoff Transfer to PACU Phase I Handoff Method Bedside/Face to face, Phone call Post-op Transport Stretcher/Darrellney Via Patient Transport [place] Reyes CRNA, Accompanied by LUIS A MORENO PA Last Modified By: Kg Bronson RN 07/26/20 13:14:02 [facility] IntraOp Drains and Tubes Entry 1 Device Type Adalberto Leone round drain Size 15 FR Drain/Tube Activity Inserted Drain/Tube Suction Bulb Drain/Tube Drainage Serosanguineous Device Location OP SITE Method of Drainage Compression Last Modified By: Kg Bronson RN 07/26/20 14:24:55 [facility] IntraOp Dressing and Packing Entry 1 Type Dressing Location back Wound Dressing Item Occlusive dressing, Skin adhesive, Other Applied By LUIS A MORENO PA Last Modified By: Kg Bronson RN 07/26/20 14:24:23 [facility] IntraOp Fire Risk Assessment Entry 1 Fire Info Surgical Site or 0- No Incision Above the Xyphoid Open O2 Source 0- No (Mask or Cannula) Available Ignition 1- Yes (ESU, Laser, Light Source) Fire Risk 1 Assessment Score Fire Score Fire Risk Yes Assessment Complete Fire Risk Kg Bronson RN Assessment Verified By Fire Risk 07/26/20 12:43:00 Assessment Verified Date/Time Fire Risk Standard Fire Yes Safety Precautions Followed Last Modified By: Kg Bronson RN 07/26/20 13:14:14 [facility] IntraOp General Case Faculty Head 1 Case Information OR OR 10 [facility] Case Level 1 Room Verified Yes Wound Class I - Clean Specialty SN Neurosurgery Anesthesia Type General ASA Class 3 Diagnosis Preop Diagnosis LUMBAR RADICULOPATHY, LUMBAR SPONDYLOSIS Postop Same As Preop No Postop Diagnosis SEE MD POST OP NOTE Last Modified By: Kg Bronson RN 07/26/20 13:15:05 [facility] IntraOp Implant Log Entry 1 Entry 2 Entry 3 Type Tissue Implant Implant (Synthetic) Implant (Synthetic) (Biologic) Implant Log Implant Type Hardware Hardware Tissue Implant Type Bone Implant BONE VIVIGEN FORMABLE [id number] EIT T/PLIF, H SCR SPNE RADHA FIX Identification CELL [id number] 14MM 22/9 CAGE [id number] Description Implant Quantity 1 1 2 Implant Site OP SITE OP SITE OP SITE Implant [id number] Identification Model Number Implant Identification Serial Number Implant [id number] Identification Lot Number Implant Lifenet:Lifenet J&J:Depuy:Depuy Spine Identification Transplant Srv Electrical Technology Instructor Name: Implant [id number] Identification Catalog Number Implant Size Implant Has an Yes Yes Expiration Date Implant Expiration 07/04/21 12/14/24 Date Wasted Radioactive Material Time Implanted Tissue Implant Continue for Tissue Implant Documentation Tissue Identification Number Graft Prep Per Electrical Technology Instructor Instructions: Tissue Preparation Method: Reconstitution Solution: Reconstitution Solution Lot Number Reconstitution Solution Expiration Date: Thawing Solution Thawing Solution Lot Number Thawing Solution Expiration Date Preparation Materials, Other Preparation Materials, Other Lot Number Preparation Materials, Other Expiration Date Tissue Prepared/Processed By Electrical Technology Instructor Paperwork Completed Implant Type Comment Last Modified By: Kg Bronson RN Byrd, Charlie D, RN Byrd, Charlie D, RN 07/26/20 13:39:36 07/26/20 14:08:06 07/26/20 14:17:51 Entry 4 Entry 5 Entry 6 Type Implant (Synthetic) Implant (Synthetic) Implant (Synthetic) Implant Log Implant Type Hardware Hardware Hardware Tissue Implant Type Implant MIS SUJATHA PLY SCRW SET LOR PRE LOAD [id number] SCR SPNE RADHA FIX Identification [id number] Description Implant Quantity 4 2 2 Implant Site OP SITE OP SITE OP SITE Implant Identification Model Number Implant Identification Serial Number Implant Identification Lot Number Implant J&J:Depuy:Depuy Spine J&J:Depuy:Depuy Spine J&J:Depuy:Depuy Spine Identification Electrical Technology Instructor Name: Implant [id number] Identification Catalog Number Implant Size Implant Has an Expiration Date Implant Expiration Date Wasted Radioactive Material Time Implanted Tissue Implant Continue for Tissue Implant Documentation Tissue Identification Number Graft Prep Per Electrical Technology Instructor Instructions: Tissue Preparation Method: Reconstitution Solution: Reconstitution Solution Lot Number Reconstitution Solution Expiration Date: Thawing Solution Thawing Solution Lot Number Thawing Solution Expiration Date Preparation Materials, Other Preparation Materials, Other Lot Number Preparation Materials, Other Expiration Date Tissue Prepared/Processed By Electrical Technology Instructor Paperwork Completed Implant Type Comment Last Modified By: Kg Bronson RN Byrd, Charlie D, RN Byrd, Charlie D, RN 07/26/20 14:17:51 07/26/20 14:17:51 07/26/20 14:17:51 [facility] IntraOp Implant Log Audit 07/26/20 14:17:51 Thermit Welding Machine Operator: LINDY Modifier: LINDY <+> 3 Implant Identification Description <+> 3 Implant Identification Electrical Technology Instructor Name: <+> 3 Implant Site <+> 3 Implant Quantity <+> 3 Implant Identification Catalog Number <+> 3 Implant Type <+> 3 Type <+> 4 Implant Identification Description <+> 4 Implant Identification Electrical Technology Instructor Name: <+> 4 Implant Site <+> 4 Implant Quantity <+> 4 Implant Identification Catalog Number <+> 4 Implant Type <+> 4 Type <+> 5 Implant Identification Description <+> 5 Implant Identification Electrical Technology Instructor Name: <+> 5 Implant Site <+> 5 Implant Quantity <+> 5 Implant Identification Catalog Number <+> 5 Implant Type <+> 5 Type <+> 6 Implant Identification Description <+> 6 Implant Identification Electrical Technology Instructor Name: <+> 6 Implant Site <+> 6 Implant Quantity <+> 6 Implant Identification Catalog Number <+> 6 Implant Type <+> 6 Type 07/26/20 14:08:06 Thermit Welding Machine Operator: LINDY Modifier: LINDY <+> 2 Implant Identification Description <+> 2 Implant Identification Lot Number <+> 2 Implant Expiration Date <+> 2 Implant Site <+> 2 Implant Quantity <+> 2 Implant Type <+> 2 Implant Has an Expiration Date <+> 2 Type [facility] IntraOp Intraoperative Assessment Entry 1 Handoff Method Online nursing summary Valid History / Yes Physical in Chart Preoperative Yes Checklist Reviewed/Evaluated Allergies Reviewed Yes Patient is Latex No Sensitive Isolation Not applicable Precautions Noted Level of WDL Consciousness (WDL = Alert, Oriented to Person, Place, and Time) Skin Assessment No Verified Present Upon IVs Arrival to OR Last Modified By: Kg Bronson RN 07/26/20 13:15:17 [facility] IntraOp Intraoperative Equipment Entry 1 Type Equipment Equipment Equipment Jayro Suction System ID Number [id number] Setting 200 MM HG Intraop Monitoring Electrocardiogram Five lead placement (ECG) Electrode Placement Blood Pressure Non-Invasive BP Device Source Blood Pressure Arm, right upper Location Pulse Oximeter Hand, left Probe Site Antiembolic Devices Antiembolic Devices Sequential compression device, knee high Antiembolic Device Bilateral Location Antiembolic Device [id number] ID Number Antiembolic Device standard Setting Scopes Photo/Video Documentation Photo No Video No Last Modified By: Kg Bronson RN 07/26/20 13:15:43 [facility] IntraOp Medication Admin Entry 1 Entry 2 Entry 3 Medication/Irrigant thrombin 5000units SEALR AQUAMANTYS BIPLR Neosporin 15Gm ointment topical powder - 6.0-121501 - [id number] Combo Med List Time Administered Route of TOPICAL OTHER TOPICAL Administration Dose Dose 5000 1 Unit of Measure units pkt Volume Administered By VENECIA PADILLA MD-VENECIA DICK MD-SNVENECIA CONLEY MD-SNU Procedure Irrigation Irrigant Volume In Irrigant Volume Out Last Modified By: Kg Bronson, RN Kg Bronson, RN Kg Bronson, RN 07/26/20 13:16:22 07/26/20 13:16:22 07/26/20 13:16:22 Entry 4 Entry 5 Entry 6 Medication/Irrigant SPNG SURGFOAM SEALANT DURASL SPINE MATRIX FLOSEAL HEMO [id number] [id number] Combo Med List Time Administered Route of TOPICAL TOPICAL TOPICAL Administration Dose Dose 1 5 10 Unit of Measure pkt ml ml Volume Administered By VENECIA PADILLA MD-SNU OWEN, ROBERT D, MD-SNU OWEN, ROBERT D, MD-SNU Procedure Irrigation Irrigant Volume In Irrigant Volume Out Last Modified By: Kg Bronson RN Byrd, Charlie D, RN Byrd, Charlie D, RN 07/26/20 13:16:22 07/26/20 13:45:16 07/26/20 13:54:12 [facility] IntraOp Medication Admin Audit 07/26/20 13:54:12 Thermit Welding Machine Operator: [email or web address] Modifier: [email or web address] <+> 6 Medication/Irrigant <+> 6 Route of Administration <+> 6 Administered By <+> 6 Dose <+> 6 Unit of Measure 07/26/20 13:45:16 Thermit Welding Machine Operator: [email or web address] Modifier: [email or web address] <+> 5 Medication/Irrigant <+> 5 Route of Administration <+> 5 Administered By <+> 5 Dose <+> 5 Unit of Measure [facility] IntraOp Patient Positioning Entry 1 Procedure Lumbar Fusion Posterior 3 Level Body Position Prone Left Arm Position Secured on padded arm board Right Arm Position Secured on padded arm board Left Leg Position Elevated Right Leg Position Elevated Feet Uncrossed Yes Pressure Points Yes Checked Positioning Devices Head Rest, Pad, Elbow, Pillows, Safety Strap, Thighs, Table, Spinal Device Position PRONE ON TRUMPF T3 FRAME WITH CHEST, HIP, AND THIGH PADS Positioned By Kg Bronson RN, [place] Reyes CRNA, VENECIA PADILLA MD-BELÉN, LUIS A MORENO PA Position Verified Positioning Yes Verified by Anesthesia Positioning Yes Verified by Surgeon Last Modified By: Kg Bronson RN 07/26/20 13:16:51 [facility] IntraOp Sign In Entry 1 Patient, Site, Yes Procedure Identified Surgical Consent Yes Confirmed Relevant Surgical Yes Documents Available Surgical Site N/A Marked by person performing procedure Anesthesia Machine Yes Check Completed Medication Checks Yes Completed Allergies Yes Airway Difficult No Airway/Aspiration Risk Difficult Yes Airway/Aspiration Intervention Equipment Available Blood Loss Risk No Blood Loss Yes Intervention Equipment Prepared and Ready Blood Identifiers Not applicable Verified Per Policy Hypothermia Risk Yes Warming Measures Yes Taken Last Modified By: Kg Bronson RN 07/26/20 13:17:01 [facility] IntraOp Sign Out Entry 1 RN Confirmation Surgical Yes Procedure(s) Identified Instrument, Sponge Yes and Sharps Counts Correct/Documented Equipment Problems N/A Documented Specimen Labeled N/A Correctly Urinary Catheter N/A Documented in IView Qu[place]ñones Patient Yes Recovery Concerns Reviewed with Anesthesia Provider, Surgeon and RN [place] Patient Yes Management Concerns Reviewed with Anesthesia Provider, Surgeon and RN Safety Checklist Yes Elements Complete? RN Sign Out Kg Bronson, RN Signature RN Sign Out 07/26/20 14:52:00 Signature Date/Time Plan of Care Outcome - Fire Risk OUTCOME STATEMENT: Goal met Patient is free from injury related to surgical fire Plan of Care Outcome - Pt Positioning OUTCOME STATEMENT: Goal met Absence of signs and symptoms of positioning injury. Plan of Care Outcome - Skin Prep OUTCOME STATEMENT: Goal met Intraoperative care is consistent with measures to prevent infection Plan of Care Outcome - Xray/Images OUTCOME STATEMENT: Goal met Absence of observable signs or symptoms of radiation injury Plan of Care Outcome - Counts OUTCOME STATEMENT: Goal met Absence of signs and symptoms of injury related to extraneous objects Last Modified By: Kg Bronson RN 07/26/20 14:52:32 [facility] IntraOp Sign Out Audit 07/26/20 14:52:32 Thermit Welding Machine Operator: LINDY Modifier: [email or web address] <+> 1 RN Sign Out Signature Date/Time [facility] IntraOp Skin Prep Entry 1 Procedure Lumbar Fusion Posterior 3 Level Prescribed Yes Pre-Surgical Prep Completed Prep Area back Intraop Prep Integumentary WDL Assessment WDL Prep Agents DuraPrep Prep by Kg Bronson, RN Hair Removal Methods Clipper/Scissors Hair Removal Site OP SITE Hair Removal By VENECIA PADILLA MD-SNU Last Modified By: Kg Bronson RN 07/26/20 13:13:09 [facility] IntraOp Surgical Procedures Entry 1 Procedure Lumbar Fusion Posterior 3 Level Additional (L4-5 FUSION USING AIRO) Procedure Description Primary Procedure Yes Primary Surgeon VENECIA PADILLA MD-SNU Start 07/26/20 13:09:00 Stop 07/26/20 14:34:00 Anesthesia Type General Specialty SN Neurosurgery Wound Class I - Clean Last Modified By: Kg Bronson RN 07/26/20 14:34:19 [facility] IntraOp Surgical Procedures Audit 07/26/20 14:34:19 Thermit Welding Machine Operator: LINDY Modifier: LINDY <+> 1 Stop [facility] IntraOp Temp Regulation Devices Entry 1 Temp Regulation Temperature Forced Air Warming Regulation Device device, Warm blankets Temperature 94155 Regulation Device Serial/Unit Number Temperature Upper body Regulation Site Temperature Device 43 C Setting Temperature [place] ReyesHERNANDEZ Regulation Device Applied by Last Modified By: Kg Bronson RN 07/26/20 13:12:56 [facility] IntraOP Time Out Entry 1 Procedure to be Lumbar Fusion Posterior Performed 3 Level Time Out Time Out Pause Time 07/26/20 13:08:00 All activity Yes suspended (unless life threatening emergency) Team Verbally Correct patient Confirms Information identity, Correct side and site are marked, Consent form is present and accurate, Agreement on the procedure to be done, Correct patient position, Relevant images/results properly labeled/appropriately displayed, Confirm antibiotics have been administered, Confirm the skin prep has dried, Confirm prosthesis/implant/devic e is present, Performed in location of procedure after prepped/draped Antibiotic Yes Prophylaxis Administered Or In Progress Within the Last 60 Minutes Beta Lynne N/A Administered Venous Yes Thromboembolism Prophylaxis Required Anticipated Critical Events Surgeon None expected Anesthesia Provider None expected Nursing Assures Sterility of instruments, Equipment concerns or issues, Implant Availability Essential Imaging Yes Labeled and Displayed Last Modified By: Kg Bronson RN 07/26/20 13:10:09 [facility] IntraOp X-Ray and Images Entry 1 X-Ray/Imaging Type Other Fluoroscopy Type Other Site back Hydro Station Supervisor Name GIORGIO BARRETT Protective Devices Yes Used X-Ray and Imaging brainlab intraoperative Comment ct scanner Last Modified By: Kg Bronson RN 07/26/20 13:11:34 Case Comments <None> Finalized By: TAJ LEDEZMA Document Signatures Signed By: Kg Bronson RN 07/26/20 14:52 TAJ LEDEZMA 07/27/20 16:20 Unfinalized History Date/Time Username Reason for Unfinalizing Freetext Reason for Unfinalizing 07/27/20 16:17 [id number] Correct Billing Electronically signed by [facility] Conversion Director Metabolism Cerner at 08/30/2022 6:14 PM CDT documented in this encounter Plan of Treatment Not on file documented as of this encounter Visit Diagnoses Not on filedocumented in this encounter
--- OUTSIDE RECORDS SUMMARY | 2025-02-19 07:34 | XMS_ITS | Encounter Summary ---
Author Organization [employer] ([place], [place], [place], [place]) Address [address] [place] [id number] Care Team Providers Care Acquisition Lead Name Role Phone Unavailable Primary Care Provider Unavailabl e Encounter Details Date Type Department Care Team (Late st Contact Info) Description 07/26/2020 Transcribed Document [facility] [place] [facility] [place] [address] ProviderIsa MD [facility] [place] [address] Social History Tobacco Use Types Packs/Day Years Used Date Smoking Tobacco: Never Assessed Sex and Gender Information Value Date Recorded Sex Assigned at Not on file Legal Sex Male 6:06 PM CDT Gender Identity Not on file Sexual Orientation Not on file documented as of this encounter Miscellaneous Notes * Cerner Conversion Note - Isa ProviderMD - 07/26/2020 1:09 PM HELICOPTER SPECIALIST [facility] Main OR PACU Summary Primary Physician: VENECIA PADILLA MD-[facility] Finalized Date/Time: 07/26/20 17:24:45 Pt. Name: KARLA CHIO.B./Sex: 1950 Male Med Rec #: [id number] Physician: VENECIA PADILLA MD-[facility]NU Financial #: [id number] Pt. Type: I Room/Bed: 5/1 Admit/Disch: 07/26/20 06:35:00 - Institution: [facility] Main OR PACU I Case Times Entry 1 In PACU I 07/26/20 14:50:00 Ready for PACU 07/26/20 16:07:00 Discharge Discharge from PACU 07/26/20 16:07:00 I Last Modified By: MATT MAYES RN 07/26/20 17:24:37 Finalized By: MATT MAYES RN Document Signatures Signed By: MATT MAYES RN 07/26/20 17:24 documented in this encounter Plan of Treatment Not on file documented as of this encounter Visit Diagnoses Not on filedocumented in this encounter
--- OUTSIDE RECORDS SUMMARY | 2025-02-19 07:34 | XMS_ITS | Encounter Summary ---
Author Organization [employer] ([place], [place], [place], [place]) Address [address] [place] [address] Care Team Providers Care Machine Biller Name Role Phone Unavailable Primary Care Provider Unavailabl e Encounter Details Date Type Department Care Team (Late st Contact Info) Description 07/26/2020 Transcribed Document [facility] [address] [facility] [address] [place] [address] [place] [address] [place] [address] [address] [place] [id number] Social History Tobacco Use Types Packs/Day Years Used Date Smoking Tobacco: Never Assessed Sex and Gender Information Value Date Recorded Sex Assigned at Not on file Legal Sex Male 6:06 PM CDT Gender Identity Not on file Sexual Orientation Not on file documented as of this encounter Miscellaneous Notes * Cerner Conversion Note - Venecia Padilla Jr., MD - 07/26/2020 4:02 PM EST Patient: KARLA CHI Age: 70 Years Sex: Male : 1950 *Operation L4-5 plif Anesthesia Type General RUTH ANN LIRA MD-ANS (Anesthesiologist of Record) *Preoperative Diagnosis LUMBAR RADICULOPATHY, LUMBAR SPONDYLOSIS *Postoperative Diagnosis SEE MD POST OP NOTE *Surgeon(s) Primary Surgeon VENECIA PADILLA MD-SNU (Surgeon/Proceduralist, First) *Estimated Blood Loss <300 *Findings expected *Specimen(s) disc Complications none Date of Service Date/Time of Service SN - Proc - Start Time: 07/26/20 13:09:00 (07/26/20 13:12:57) documented in this encounter Plan of Treatment Not on file documented as of this encounter Visit Diagnoses Not on filedocumented in this encounter
--- OUTSIDE RECORDS SUMMARY | 2025-02-19 07:34 | XMS_ITS | Encounter Summary ---
Author Organization [employer] ([place], [place], [place], [place]) Address [address] [place] [address] Care Team Providers Care Golf Ball Inspector Name Role Phone Unavailable Primary Care Provider Unavailabl e Encounter Details Date Type Department Care Team (Late st Contact Info) Description 07/27/2020 Transcribed Document [facility] [place] [facility] [place] [address] ProviderIsa MD [address] [place] [address] Social History Tobacco Use Types Packs/Day Years Used Date Smoking Tobacco: Never Assessed Sex and Gender Information Value Date Recorded Sex Assigned at Not on file Legal Sex Male 6:06 PM CDT Gender Identity Not on file Sexual Orientation Not on file documented as of this encounter Miscellaneous Notes * Cerner Conversion Note - Isa ProviderMD - 07/27/2020 11:05 AM CORNICE MAKER Treatment Intervention, PT Entered On: 07/28/2020 8:46 EDT Performed On: 07/28/2020 8:43 EDT by Axel Caban PHYSICAL KARINA General Information, PT Visit Type, PT : Treatment Note Patient Orders : Order Date Order Ordering 07/26/2020 14:58 Physical Therapy Eval and Treat Ordered By: VENECIA PADILLA MD-SNU 07/27/2020 11:05 PT Additional Treatment Ordered By: Axel Caban PHYSICAL THERAPIST Active Diagnoses : No Qualifying Diagnoses Admission Date : 07/26/2020 06:35 Personal Devices : Personal Devices No Devices Recorded Assistive Devices : Assistive Devices No Devices Recorded Precautions in Place : Fall prevention measures Axel Caban PHYSICAL THERAPIST - 07/28/2020 8:43 EDT General Status Patient Received Status : Supine in bed Treatment Start Time : 07/28/2020 8:12 EDT Patient Left Status : Up in chair, RN/PCT informed, All needs met and within reach RN/PCT Informed Comment : Nurse Miranda Treatment End Time : 07/28/2020 8:35 EDT Treatment Time : 23 Minute(s) Actual Treatment Time : 23 Minute(s) Axel Caban PHYSICAL THERAPIST - 07/28/2020 8:43 EDT Therapeutic Exercises Therapeutic Exercise Comment, PT : Bilat AROM with tactile and verbal cues: AP, Hip Abd/Add, Fig 4 hip Abd, Heel slides all 15xeach/leg, ending heel cord stretch Axel Caban PHYSICAL THERAPIST - 07/28/2020 8:43 EDT Gait Training/Assessment, PT Weight Bearing Status Maintained : Yes Weight Bearing Status : Full Gait Assistance Level : Supervision Walking Distance : 325 feet inluding up/down end of halway ramp leading o elevelator Ambulatory Devices : Gait belt Axel Caban PHYSICAL THERAPIST - 07/28/2020 8:43 EDT Cognitive Treatment, PT Orientation : Oriented x 4 Axel Caban PHYSICAL THERAPIST - 07/28/2020 8:43 EDT Edu Topics Physical Therapy Education Grid Bed Mobility Training : Needs further teaching Gait Training : Needs reinforcement Therapeutic Exercises : Needs further teaching Transfer Training : Needs reinforcement Axel Caban PHYSICAL THERAPIST - 07/28/2020 8:43 EDT Teaching/Learning Assessment Barriers To Learning : None evident Learning Style Preferences Patient : Verbal explanation Learning Style Preferences Family : Verbal explanation Axel Caban PHYSICAL THERAPIST - 07/28/2020 8:43 EDT Indication Assesessment, PT Physical Therapy Indicated : Yes Axel Caban PHYSICAL THERAPIST - 07/28/2020 8:43 EDT Plan of Care, PT PT Tx Plan/Goals Established w Patient : Yes Axel Caban PHYSICAL THERAPIST - 07/28/2020 8:43 EDT Rolling Mill Plugger Goals Mobility/Bed Mobility LTG PT Grid Goal #1 Activity : Supine to sit Assist : Independent, modified Date to Meet : 08/10/2020 EDT Goal Status : Progressing, continue Axel Caban PHYSICAL THERAPIST - 07/28/2020 8:43 EDT Ambulation LTG Grid Goal #1 Distance : 300 feet Assist : Independent, complete Date to Meet : 08/10/2020 EDT Goal Status : Progressing, continue (Comment: At distance level [Axel Caban PHYSICAL THERAPIST - 07/28/2020 8:43 EDT] ) Axel Caban PHYSICAL THERAPIST - 07/28/2020 8:43 EDT Treatment Note Subjective Comment : he states still has not had bowel moveemnt has belly swollen, Back hurts Assessment : Despite pain improved mobility adn gait Plan for Treatment : continue POC anticiapate dischareg home tomorrow Axle Caban, PHYSICAL THERAPIST - 07/28/2020 8:43 EDT Pain Assessment Pain Scaled Used : 0-10 Pain scale Duration : 8 Location : Back, lower Axel Caban PHYSICAL THERAPIST - 07/28/2020 8:43 EDT Image 1 - Images currently included in the form version of this document have not been included in the text rendition version of the form. [place] PT Charges PT Therap. Exercise 15 min : 1 Gait Training Each 15 Min : 1 Axel Caban PHYSICAL THERAPIST - 07/28/2020 8:43 EDT Electronically signed by Jovan Calixto Conversion Tinware Lithograph Press Operator Cerner at 08/30/2022 5:57 PM CDT documented in this encounter Plan of Treatment Not on file documented as of this encounter Visit Diagnoses Not on filedocumented in this encounter
--- OUTSIDE RECORDS SUMMARY | 2025-02-19 07:34 | XMS_ITS | Encounter Summary ---
Author Organization [employer] ([place], [place], [place], [place]) Address [address] [place] [address] Care Team Providers Care Adjunct History Instructor Name Role Phone Unavailable Primary Care Provider Unavailabl e Encounter Details Date Type Department Care Team (Late st Contact Info) Description 07/28/2020 Transcribed Document [facility] [place] [facility] [place] [address] ProviderIsa MD [facility] [place] [address] Social History Tobacco Use Types Packs/Day Years Used Date Smoking Tobacco: Never Assessed Sex and Gender Information Value Date Recorded Sex Assigned at Not on file Legal Sex Male 6:06 PM CDT Gender Identity Not on file Sexual Orientation Not on file documented as of this encounter Miscellaneous Notes * Cerner Conversion Note - Isa ProviderMD - 07/28/2020 11:22 AM CDT Initial Discharge Planning Entered On: 07/28/2020 11:25 EDT Performed On: 07/28/2020 11:22 EDT by LEONID LANGE RN-Public Policy Professor Initial Assessment I Previously Documented Living Environment : No qualifying data available. Living Situation : Home Patient Lives With : Alone Is the Patient a Caregiver at Home? : No Emergency Contact #1 : Susan Shiv Emergency Contact #1 Emergency Contact #1 Relationship : daughter Emergency Contact #2 : ` Emergency Contact #2 Phone Number : ` Emergency Contact #2 Relationship : ` Enter Doctors Name : VIRGIL BHAGAT (REF) T Does Patient have PCP Listed? : Yes LEONID LANGE RN-Public Policy Professor - 07/28/2020 11:22 EDT Initial Assessment II Sensory and Motor Deficits : None Current Home Treatments and Equipment : Cane Does the Patient have a Floor to SNF Benefit? : Yes LEONID LANGE RN-Public Policy Professor - 07/28/2020 11:22 EDT Discharge Needs I Anticipated Discharge Date : 07/28/2020 EST Anticipated Discharge To, CM : Home with family care Current Home Treatment/Equipment : Current Home Treatment/Equipment No qualifying data available. Post Acute/Home Treatments : None Documentation Status Complete : Yes LEONID LANGE RN-Public Policy Professor - 07/28/2020 11:22 EDT Discharge Needs II Professional Skilled Services : Professional Skilled Services No qualifying data available. Needs Assistance with Transportation : No LEONID LANGE RN-Public Policy Professor - 07/28/2020 11:22 EDT Narrative Note Narrative Note : 70yo male pt s/p L4-5 PLIF. Pt ambulated 200ft POD 0 and 325ft POD 1 independently without use of AD. No CM needs noted. Pt dc'd home with family. LEONID LANGE RN-Public Policy Professor - 07/28/2020 11:22 EDT documented in this encounter Plan of Treatment Not on file documented as of this encounter Visit Diagnoses Not on filedocumented in this encounter
--- OUTSIDE RECORDS SUMMARY | 2025-02-19 07:34 | XMS_ITS | Encounter Summary ---
Author Organization [employer] ([place], [place], [place], [place]) Address [address] [place] [address] Care Team Providers Care Ekg Manager Name Role Phone Unavailable Primary Care Provider Unavailabl e Encounter Details Date Type Department Care Team (Late st Contact Info) Description 07/26/2020 Transcribed Document [facility] Neurology - [address] [facility] [address] [place] [address] Korey Mars Jr., MD [address] [facility] [address] [place] [id number] Social History Tobacco Use Types Packs/Day Years Used Date Smoking Tobacco: Never Assessed Sex and Gender Information Value Date Recorded Sex Assigned at Not on file Legal Sex Male 6:06 PM CDT Gender Identity Not on file Sexual Orientation Not on file documented as of this encounter Miscellaneous Notes * Cerner Conversion Note - Korey Mars Jr., MD - 07/26/2020 4:09 PM EST DATE OF PROCEDURE: 07/26/2020 SURGEON: Korey Mars Jr, MD PREOPERATIVE DIAGNOSIS: Lumbar spondylosis with left greater than right lower extremity radiculopathy. POSTOPERATIVE DIAGNOSIS: Lumbar spondylosis with left greater than right lower extremity radiculopathy. PROCEDURE PERFORMED: L4-5 posterior lumbar interbody fusion using Airo intraoperative CT scan and Brain[employer] navigation. RESORT KEEPER: MILTON Maria PA-C, assisted through the entire operation with tasks such as suctioning, soft tissue retraction, instrumentation placement, nerve root retraction, and wound closure. ANESTHESIA: General endotracheal anesthesia. BLOOD LOSS: Less than 300 mL. COMPLICATIONS: None. SPECIMEN: Disk. CONDITION: Stable to PACU. DRAINS: Prevertebral 15-Bahraini round SEBASTIAN drain to bulb suction. FINDINGS: An incidental durotomy was noted on the dorsal lateral dura on the left side, closed primarily with 6-0 prolene. INDICATION FOR PROCEDURE: Mr. Dennison is a 70-year-old gentleman, with refractory back and left greater than right radicular leg pain getting into the calf and at times into the feet. I saw him and he had significant lateral recess stenosis and foraminal stenosis at L4-5. I thought he was a candidate for the above-mentioned procedure. Indication, risks, and benefits were explained. He wanted to proceed. I met with him and his daughter and went over everything again today. DESCRIPTION OF PROCEDURE: After informed consent was obtained, the patient was brought to the operating room. General endotracheal anesthesia was induced routinely. He was carefully turned prone on the Airo CT scan table using the chest hip and thigh pads. Arms were abducted and flexed. All pressure points were padded and protected and he was secured to the bed with straps per routine. The midline of the back was marked out. The back was prepped and draped in usual fashion. Prophylactic antibiotics were given. A reference array was Steri-Stripped to the gluteal area. We took a low-dose scan. This allowed me to place Steinmann pins in the right posterior iliac crest through 2 separate stab incisions using the Learn It Live drill under navigation. Once the pins were placed, the permanent reference array base was clamped across and the construct was nice and stable. The initial pointer and scan were used to localize an incision. It was between 2 and 3 inches long in the midline over L4-5. It was made with a 10 blade scalpel. Bovie cautery was used to dissect down to the fascia and a subperiosteal dissection was performed exposing the L4 and L5 lamina and the L3-4, L4-5 facet complexes. Suzan retractors were used to hold the wound open transversely. We took a scan for navigational purposes. I used a pointer and selected an entry point trajectory in the right L5 pedicle. I drilled the pedicle, advanced a gearshift probe and then tapped with a 6.0 tap. I placed a 7.0 x 45 screw on the right at L5, then on the left and then bilaterally at L4. Prior to placing each screw, I palpated inside the pedicle to make sure there was no breach. There was no difficulty placing pedicle screws. Bone purchase was very good. The spinous process of L4 and the superior aspect of L5 were removed with Leksell rongeur. The lamina were thinned out with a matchstick drill bit and the laminectomy was completed with Kerrison punches. Off on the left side we went on to decompressing the dorsal lateral dura. There was little ligamentum flavum adherent to the dura. I encountered a durotomy here about 3 mm long. I worked out to expose the lateral recess better and then a nice dorsal opening and then easily closed with this running 6-0 Prolene suture. The closure was watertight. There was no CSF leakage after this point. I opened the lateral recess bilaterally and was visualizing both L4 and L5 nerve roots. As expected on the left side, there was mid foraminal stenosis causing severe L4 nerve root compression. There is moderate to severe left-sided lateral recess stenosis and severe right-sided lateral recess stenosis from ligamentum flavum hypertrophy compressing the L5 nerve roots. The L4 foraminal stenosis on the right was more in the moderate range. I addressed the foraminal stenosis by decompressing the nerve root dorsally by undercutting the facet complex and pars. Once I confirmed all nerve roots were free, then I retracted the thecal sac from left to right and incised the disk space and I used 8, 9, 10, 11, 12, and 13 mm endplate rajinder. I placed it conduit titanium mesh cage packed with allograft ViviGen and autograft bone from the laminectomy. The cage was short and 14 mm tall. It was tamped in the disk space as the nerve roots were carefully retracted and protected. I turned it 90 degrees to engage it in the endplates and then tamped it anteriorly. The rest of the way using a pointer with an extension tip to gauge the depth. A doris was placed on each side, first on the left and on the right. Prior to tightening and torquing the set screws, I compressed. Once all four set screws were torqued, I decorticated the posterolateral elements and laid allograft and autograft bone. I palpated all the foramen again. Some FloSeal was placed in the lateral recess region and washed away. Once I confirmed that everything was nice and dry, I layered some DuraSeal over the durotomy line. We took a scan which showed an appropriate appearing construct. The fixation pins were removed. The inferior stab incision was used to tunnel a 15-Bahraini round epidural SEBASTIAN drain. A drain stitch was applied at skin level. The drain was cut to the appropriate length and placed in the epidural region. The muscle fascia, Ellen layer, and the dermis were closed with interrupted Vicryl sutures and the skin was closed with carson. The bulb was fixed to the drain and the drain was functional. Dressing was applied and the patient went to the recovery room in good condition. /[id number] Korey Mars Jr, MD RDO/AQ / RDO / MODL /[id number] documented in this encounter Plan of Treatment Not on file documented as of this encounter Visit Diagnoses Not on filedocumented in this encounter
--- OUTSIDE RECORDS SUMMARY | 2025-02-19 07:34 | XMS_ITS | Clinical Summary ---
Author Organization [facility] Address [address] [place] [address] Care Team Providers Care Cancer Registrar Name Role Phone Declan Izquierdo MD Primary Care Provider + [phone] Allergies No known active allergies Medications Ranolazine ER 1000 MG pack Take 1,000 mg by mouth 2 (Two) Times a Day. Active clopidogrel (PLAVIX) 75 MG tablet Take 1 tablet by mouth Daily. Active isosorbide mononitrate (IMDUR) 60 MG 24 hr tablet Take 1 tablet by mouth Daily. Active levothyroxine (SYNTHROID, LEVOTHROID) 75 MCG tablet Take 1 tablet by mouth Every Morning. Active fenofibrate micronized (LOFIBRA) 134 MG capsule Take 1 capsule by mouth Every Morning Before Breakfast. Active glimepiride (AMARYL) 4 MG tablet Take 2 tablets by mouth Every Morning Before Breakfast. Active irbesartan (AVAPRO) 75 MG tablet Take 1 tablet by mouth Every Night. Active pioglitazone (ACTOS) 30 MG tablet Take 1 tablet by mouth Daily. Active insulin glargine (LANTUS, SEMGLEE) 100 UNIT/ML injection Inject 22 Units under the skin into the appropriate area as directed Daily. Active aspirin 81 MG EC tablet Take 1 tablet by mouth Daily. Active aspirin-acetamin ophen-caffeine (EXCEDRIN MIGRAINE) 250-250-65 MG per tablet Take 1 tablet by mouth Every 6 (Six) Hours As Needed for Headache (migraine). 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 90 tablet 1 2 Active metFORMIN (GLUCOPHAGE) 500 MG tabletIndication s:Type 2 diabetes mellitus with hyperglycemia, with long-term current use of insulin Take 2 tablets by mouth 2 (Two) Times a Day With Meals. 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 Francois (06/05/2021): 100% occlusion of first OM treated with HA. Severe stenosis of mid to distal LAD treated with HA. Severe stenosis and large OM treated with HA? Echo (07/27/2021): LVEF 55% MPS (11/13/2021): Unable to complete test due to shortness of breath and chest tightness. Reportedly 2 repeat cardiac caths with multiple PCI's. Data deficit Cardiac catheterization for angina (04/23/2022): Severe 2-vessel CAD involving small jailed first diagonal branch of the LAD and highly calcified stenosis in small caliber RCA GERD without esophagitis 04/23/2022 Hypothyroidism (acquired) 04/23/2022 Essential hypertension 04/23/2022 Overview (04/23/2022): Target blood pressure <130/80 mmHg Hyperlipidemia LDL goal <70 04/23/2022 Overview (04/23/2022): High intensity statin therapy indicated given the presence of CAD Resolved Problems Problem Noted Date Diagnosed Date Resolved Date Unstable angina 04/23/2022 04/23/2022 Social History Tobacco Use Types Packs/Day Years Used Date Smoking Tobacco: Former Cigarettes Q uit: 1984 Smokeless Tobacco: Never Tobacco Cessation:Counseling Given: Not Answered Alcohol Use Standard Drinks/Week Comments Not Currently 0 (1 standard drink = 0.6 oz pur e alcohol) AUDIT-C Answer Date Recorded Q1: How often do you have a drink containing alcohol? Never 04/23/2022 Q2: How many drinks containi ng alcohol do you have on a typical day when you are drinking? Patient does not drink Q3: How often do you have si x or more drinks on one occasion? Never 04/23/2022 Abuse Screen Answer Date Recorded Feels Unsafe at Home or Work/School no 09/13/2023 Feels Threatened by Someone no 08/16 Does Anyone Try to Keep You From Having Contact with Others or Doing Things Outside Your Home? no 09/13/2023 Physical Signs of Abuse Present no 09/13/2023 Housing Stability Answer Date Recorded Current Living Arrangements Not on file 01/2023 Potentially Unsafe Housing Conditions Not on srinath e 04/24/2023 Family and Community Support Answer Trey e Recorded Help with Day-to-Day Activities Not on file 02/22/2023 Lonely or Isolated Not on file 02/22/2023 Employment Answer Date Recorded Do you want help finding or keeping work or a bharathi b? Not on file 02/22/2023 Disabilities Answer Date Recorded Concentrating, Remembering, or Making Decisions Difficulty Not on file 04/24/2023 Doing Errands Independently Difficulty Not on fi le 04/24/2023 Education Answer Date Recorded Help with school or training? Not on file Preferred Language Danish 09/13/2023 Sex and Gender Information Value Date Recorded Sex Assigned at Not on file Legal Sex Male 10:02 AM EDT Gender Identity Not on file Sexual Orientation Not on file Last Filed Vital Signs Vital Sign Reading Time Taken Comments Blood Pressure 135/80 04/24/2022 11:00 AM EST Pulse 78 04/24/2022 11:00 AM EST Temperature 36.6 C (97.9 F) 04/24/2022 11:00 AM EST Respiratory Rate 20 04/24/2022 11:0 0 AM EST Oxygen Saturation 96% 04/24/2022 3:00 AM EST Inhaled Oxygen Concentration - - Weight 89.8 kg (197 lb 15.6 oz) 024 12:29 PM EDT Height 165.1 cm (5' 5 ) 09/13/2023 12:2 9 PM EDT Body Mass Index 32.94 09/13/2023 12:29 PM EDT Plan of Treatment Health Maintenance Due Date Last Done Comments TDAP/TD VACCINES (1 - Tdap) 1969 COLOGUARD 1995 COLON CANCER SCREENING 5 YEA R SIGMOIDOSCOPY 1995 COLONOSCOPY 1995 [address]AL CANCER SCREENING 1995 CT COLONOGRAPHY 1995 FECAL OCCULT BLOOD TEST 1995 FIT Testing (1 year) 1995 ZOSTER VACCINE (1 of 2) 2000 AAA SCREEN ONCE 2015 ANNUAL PHYSICAL 10/10/2019 HEPATITIS C SCREENING 10/10/2019 PT PLAN OF CARE 10/10/2019 LIPID PANEL 08/29/2023 08/28/2022, 04/22/2022 INFLUENZA VACCINE 12/15/2024 02/08/2021, , 03/02/2019 COVID-19 Vaccine (2 - 2024-2 6 season) 2025 09/19/2020 Pneumococcal Vaccine 50+ Completed 02/22/2023, 08/15 HEMOGLOBIN A1C Discontinued 09/13/2023, 08/15, 04/22/2022 Procedures Procedure Name Priority Date/Time Associated Diagnosis Comments HEMOGLOBIN A1C Routine 09/13/2023 12:08 PM EDT LIPID PANEL Add-On 04/22/2022 11:17 PM EST from Last 3 Months or Most Recently Relevant to Health Maintenance Results * (ABNORMAL) Hemoglobin A1c (09/13/2023 12:08 PM EDT) Hemoglobin A1C 9.50(H) 4.80 - 5.60 % 09/13/2023 12:52 PM EDT [facility] Blood Venipuncture / Unknown 09/13/2023 12:08 PM EDT 09/13/2023 12:25 PM EDT [facility] - 09/13/2023 12:52 PM EDT Hemoglobin A1C Ranges: Increased Risk for Diabetes 5.7% to 6.4% Diabetes >= 6.5% Diabetic Goal < 7.0% Rocco Cordero MD LAB BLOOD ORDERABLES Marita l Result [facility]
[address] [phone] * (ABNORMAL) Lipid Panel (04/22/2022 11:17 PM EST) Total Cholesterol 228(H) 0 - 200 mg/dL 04/23/2022 1:17 AM EST [facility] Triglycerides 430(H) 0 - 150 mg/dL 04/23/2022 1:17 AM EST [facility] HDL Cholesterol 46 40 - 60 mg/dL 04/23/2022 1:17 AM EST [facility] LDL Cholesterol 108(H) 0 - 100 mg/dL 04/23/2022 1:17 AM EST [facility] VLDL Cholesterol 74(H) 5 - 40 mg/dL 04/23/2022 1:17 AM EST [facility] LDL/HDL Ratio 2.09 04/23/2022 1:17 AM EST [facility] Blood Venipuncture / Unknown 04/22/2022 11:17 PM EST 04/22/2022 11:32 PM EST [facility] - 04/23/2022 1:17 AM EST Cholesterol Reference Ranges (U.S. Department of Health and Human Services ATP III Classifications) Desirable <200 mg/dL Borderline High 200-239 mg/dL High Risk >240 mg/dL Triglyceride Reference Ranges (U.S. Department of Health and Human Services ATP III Classifications) Normal <150 mg/dL Borderline High 150-199 mg/dL High 200-499 mg/dL Very High >500 mg/dL HDL Reference Ranges (U.S. Department of Health and Human Services ATP III Classifications) Low <40 mg/dl (major risk factor for CHD) High >60 mg/dl ('negative' risk factor for CHD) LDL Reference Ranges (U.S. Department of Health and Human Services ATP III Classifications) Optimal <100 mg/dL Near Optimal 100-129 mg/dL Borderline High 130-159 mg/dL High 160-189 mg/dL Very High >189 mg/dL [facility] Angelique DO LAB BLOOD ORDERABLES Final Resu lt [facility]
[address] [place] [address], from Last 3 Months or Most Recently Relevant to Health Maintenance Insurance MEDICARE A & B [facility] Advance Directives * CPR (Attempt to Resuscitate) (Latest Code Status on File) Date Activated Date Inactivated Comments 04/23/2022 3:28 PM 04/24/2022 3:47 PM Question Answer Comments Code Status (Patient has no pulse and is not breathing): CPR (Attempt to Resuscitate) Medical Interventions (Patie nt has pulse or is breathing): Full Support Release to patient: Routine Release * CPR (Attempt to Resuscitate) Date Activated Date Inactivated Comments 04/23/2022 2:19 AM 04/23/2022 3:28 PM Question Answer Comments Code Status (Patient has no pulse and is not breathing): CPR (Attempt to Resuscitate) Medical Interventions (Patie nt has pulse or is breathing): Full Support Care Teams Cancer Registrar Relationship Specialty Start Date End Date Declan Izquierdo MD [facility] [address] [facility] [address] [place] [address] PCP - General Family Medicine 10/10/19
--- OUTSIDE RECORDS SUMMARY | 2025-02-19 07:34 | XMS_ITS | Encounter Summary ---
Author Organization [employer] ([place], [place], [place], [place]) Address [address] [place] [address] Care Team Providers Care Jawbone Breaker Name Role Phone Unavailable Primary Care Provider Unavailabl e Encounter Details Date Type Department Care Team (Late st Contact Info) Description 07/28/2020 Transcribed Document [facility] [place] [facility] [place] [address] ProviderIsa [place] [facility] [place] [address] Social History Tobacco Use Types Packs/Day Years Used Date Smoking Tobacco: Never Assessed Sex and Gender Information Value Date Recorded Sex Assigned at Not on file Legal Sex Male 6:06 PM CDT Gender Identity Not on file Sexual Orientation Not on file documented as of this encounter Miscellaneous Notes * Cerner Conversion Note - Isa Orozco MD - 07/28/2020 9:29 AM CDT Patient: KARLA CHI Age: 70 years Sex: Male : 1950 Associated Diagnoses: None Author: BELLA HAN MD No flatus, patient feels bloated, back pain is well controlled, participating well with physical therapy Vitals Signs (last 24 hrs) Last Charted Minimum Maximum Temp 99 (JUL 28 04:03) 97.8 (JUL 27 10:29) 99 (JUL 28 04:03) Mon HR 110 (JUL 28 04:03) 92 (JUL 27 15:06) 111 (JUL 28 00:12) Resp Rate 16 (JUL 28 04:03) 16 (JUL 27 21:01) 16 (JUL 27 21:01) SBP 132 (JUL 28 04:03) 106 (JUL 27 10:29) H 147 (JUL 28 00:12) DBP 78 (JUL 28 04:03) 64 (JUL 27 10:29) 78 (JUL 28 00:12) MAP 92 (JUL 28 04:03) 75 (JUL 27 10:29) 93 (JUL 28 00:12) SpO2 95 (JUL 28 00:12) L 90 (JUL 27 10:29) 95 (JUL 28 00:12) af vss aaox3 pleasant sitting up chair incision clean maew exam stable abd full but soft SEBASTIAN 140 JUL 28 03:37 136 103 17 / H 179 3.7 24 1.20 \ JUL 28 03:37 \ L 12.6 / 8.8 167 / L 38.3 \ s/p Lumbar fusion The patient is making expected improvements. Back pain is well controlled. Ambulating well. Still concerned about the fact the patient is not had any flatus abdomen is slightly distended. We will put discharge orders pending abdominal issues Electronically signed by Jovan Calixto Conversion Metal Spraying Machine Operator Navin at 08/30/2022 6:02 PM CDT documented in this encounter Plan of Treatment Not on file documented as of this encounter Visit Diagnoses Not on filedocumented in this encounter
--- OUTSIDE RECORDS SUMMARY | 2025-02-19 07:34 | XMS_ITS | Encounter Summary ---
Author Organization [employer] ([place], [place], [place], [place]) Address [address] [place] [address] Care Team Providers Care Meat Department Manager Name Role Phone Unavailable Primary Care Provider Unavailabl e Encounter Details Date Type Department Care Team (Late st Contact Info) Description 07/26/2020 Transcribed Document [facility] [place] [address] ProviderIsa [place] [address] Social History Tobacco Use Types Packs/Day Years Used Date Smoking Tobacco: Never Assessed Sex and Gender Information Value Date Recorded Sex Assigned at Not on file Legal Sex Male 6:06 PM CDT Gender Identity Not on file Sexual Orientation Not on file documented as of this encounter Miscellaneous Notes * Cerner Conversion Note - Historical ProviderMD - 07/26/2020 11:45 PM MOLDING PROCESS TECHNICIAN Pain Assessment Entered On: 07/27/2020 5:34 EST Performed On: 07/27/2020 0:46 EST by JOEL EDMONDSON LPN Intervention Information: oxyCODONE Performed by JOEL DEMONDSON LPN on 07/26/2020 23:46:00 EST oxyCODONE,10mg Oral,Pain (Moderate 4-6) Pain Assessment Pain Assessment : Follow-up assessment Pain Scale Goal : 3 Pain Scale Used : 0-10 Scale JOEL EDMONDSON LPN - 07/27/2020 5:34 EST Pain Scale Intensity : 2 JOEL EDMONDSON LPN - 07/27/2020 5:34 EST Image 4 - Images currently included in the form version of this document have not been included in the text rendition version of the form. documented in this encounter Plan of Treatment Not on file documented as of this encounter Visit Diagnoses Not on filedocumented in this encounter
--- OUTSIDE RECORDS SUMMARY | 2025-02-19 07:34 | XMS_ITS | Encounter Summary ---
Author Organization [employer] ([place], [place], [place], [place]) Address [address] [place] [address] Care Team Providers Care Bilingual Account Manager Name Role Phone Unavailable Primary Care Provider Unavailabl e Encounter Details Date Type Department Care Team (Late st Contact Info) Description 07/28/2020 Transcribed Document [facility] [place] [facility] [place] [address] ProviderIsa MD [address] [place] [address] Social History Tobacco Use Types [...] Orozco MD - 07/28/2020 1:09 PM CDT Patient Education Materials Follows: Type 2 Diabetes Mellitus, Self Care, Adult [...] blood sugar levels: ??? Before meals (preprandial): 80?130 mg/dL (4.4?7.2 mmol/L). ??? After meals (postprandial): below 180 [...] are: ? Sugar tablets (glucose pills). Take 3?4 pills. ? 6?8 pieces of hard candy. ? 4?6 oz (120?150 mL) of fruit juice. ? 4?6 oz (120?150 mL) of regular (not diet) soda. ? [...] and canola oil. ??? Meet with a seafood processor (dietitian). He or she can help you [...] cuts, bruises, redness, blisters, or sores. ??? [place] your teeth and gums two times a day. Floss one or more times a day. ??? Go to the dentist one or more times every 6 months. ??? Stay at a healthy weight. General instructions ??? Take glgu-ujo-rctoyzd and prescription medicines only as told by [...] Do I need to meet with a educator senior clinical? Where can I find a support group for people with diabetes? Where to find more information To learn more about diabetes, visit: ??? [place] Diabetes Association: www.diabetes.org ??? [place] Association of Diabetes Educators: www.diabeteseducator.org Summary ??? [...] 08/24/2016 Document Revised: 10/24/2018 Document Reviewed: 06/05/2016 [employer] Patient Education ? 2020 [employer] Diabetes Action Plan Following a diabetes [...] glucose gel. ? 3 glucose pills. ? 6?8 pieces of hard candy. ? 4 oz [...] level before a meal (preprandial) should be 80?130 mg/dL. ??? You feel well, and you [...] find more information about diabetes from: ??? [place] Diabetes Association (ADA): www.diabetes.org ??? [place] Association of Diabetes Educators (AADE): www.diabeteseducator.org Summary [...] 02/23/2018 Document Revised: 07/01/2018 Document Reviewed: 02/23/2018 [employer] Patient Education ? 2020 [employer]. Diabetes Basics Diabetes (diabetes mellitus) is a [...] blood sugar levels: ??? Before meals (preprandial): 80?130 mg/dL (4.4?7.2 mmol/L). ??? After meals (postprandial): below 180 [...] are: ? Sugar tablets (glucose pills). Take 3?4 glucose pills. ? 6?8 pieces of hard candy. ? 4?6 oz (120?150 mL) of fruit juice. ? 4?6 oz (120?150 mL) of regular (not diet) soda. ? [...] Do I need to meet with a educator senior clinical? What equipment will I need to care [...] diabetes? Where to find more information ??? [place] Diabetes Association: www.diabetes.org ??? [place] Association of Diabetes Educators: www.diabeteseducator.org/patient-resources Contact a [...] 08/05/2018 Document Revised: 06/23/2019 Document Reviewed: 08/05/2018 [employer] Patient Education ? 2020 [employer] Carbohydrate Counting for Diabetes Mellitus, Adult [...] different for every person. A diet and nutritional chemist (registered dietitian) can help you make a [...] of carbohydrate per serving. To use the ?Nutrition Facts : ??? Decide how many servings [...] g of carbohydrates: ? hamburger bun or ? Bulgarian muffin. ? oz (15 mL) syrup. ? [...] 4 oz (113 g) mashed potatoes or ? of a large baked potato. ??? 4 oz (113 g) canned or frozen fruit. ??? 4 oz (120 mL) fruit juice. ??? 4?6 crackers. ??? 6 chicken nuggets. ??? 6 [...] foods that contain carbohydrates: ??? Rice. ??? [place]. ??? Milk. ??? Strawberries. 2. Calculate how [...] manage your diabetes. ??? A diet and nutritional chemist (registered dietitian) can help you make a meal plan and calculate how many carbohydrates you should have at each meal and snack. This information is not intended to replace advice given to you by your health care provider. Make sure you discuss any questions you have with your health care provider. Document Released: 05/03/2006 Document Revised: 11/25/2017 Document Reviewed: 10/14/2016 [employer] Patient Education ? 2020 [employer] Blood Glucose Monitoring, Adult Monitoring your [...] blood glucose levels: ??? Before meals (preprandial): 80?130 mg/dL (4.4?7.2 mmol/L). ??? After meals (postprandial): below 180 [...] your blood glucose more often, up to 6?10 times a day, if you: ? Use [...] 05/05/2004 Document Revised: 02/24/2019 Document Reviewed: 10/12/2016 [employer] Patient Education ? 2020 [employer] Diabetes Mellitus and Nutrition, Adult When [...] that you work with a diet and nutritional chemist (dietitian) to make a meal plan that [...] of beer, 5 oz of wine, or 1? oz of hard liquor. ??? Do not [...] can eat at each meal. ??? Eat 4?6 ounces (oz) of lean protein each day, such as lean meat, chicken, fish, eggs, or tofu. One oz of lean protein is equal to: ? 1 oz of meat, chicken, or fish. ? 1 egg. ? ? cup of tofu. ??? Eat some foods [...] provider. ??? Work with a counselor or educator senior clinical to identify strategies to manage stress and any emotional and social challenges. Questions to ask a health care provider ??? Do I need to meet with a educator senior clinical? Do I need to meet with a dietitian? What number can I call if I have questions? When are the best times to check my blood glucose? Where to find more information: ??? [place] Diabetes Association: diabetes.org ??? Academy of Nutrition and Dietetics: www.eatright.org ??? National [place] of Diabetes and Digestive and Kidney Diseases (NIH): www.niddk.nih.gov Summary ??? A healthy meal plan will help you control your blood glucose and maintain a healthy lifestyle. ??? Working with a diet and nutritional chemist (dietitian) can help you make a meal [...] 01/28/2006 Document Revised: 04/15/2018 Document Reviewed: 06/07/2017 [employer] Patient Education ? 2020 [employer]. Orthopedics Spinal Fusion, Adult, Care After This sheet [...] these instructions at home: Medicines ??? Take njzd-uje-sgbatsy and prescription medicines only as told by [...] and water are not available, use hand otc clerk. ? Change your dressing as told by [...] urine clear or pale yellow. ? Take qfvx-eup-tmpopgn or prescription medicines. ? Eat foods that [...] 11/20/2005 Document Revised: 01/21/2019 Document Reviewed: 04/21/2017 [employer] Patient Education ? 2020 [employer] Laminectomy, Care After This sheet gives [...] and water are not available, use hand otc clerk. ? Change your dressing as told by [...] or a bad smell. Medicines ??? Take whct-cgf-njcccxa and prescription medicines only as told by [...] ??? Do not sit for more than 20?30 minutes at a time. Lie down or [...] urine clear or pale yellow. ? Take ejvg-tcl-bdrpdjx or prescription medicines. ? Eat foods that [...] 11/20/2005 Document Revised: 04/15/2018 Document Reviewed: 10/18/2016 [employer] Patient Education ? 2020 [employer] Spinal Fusion, Adult Spinal fusion is [...] including vitamins, herbs, eye drops, creams, and jqci-avr-rgnaxxl medicines. ??? Any problems you or family [...] Up to 2 hours before the procedure ? you may continue to drink clear liquids, such as water, clear fruit juice, black coffee, and plain tea. Eating and drinking restrictions Follow instructions from your health care provider about eating and drinking, which may include: ??? 8 hours before the procedure ? stop eating heavy meals or foods such as meat, fried foods, or fatty foods. ??? 6 hours before the procedure ? stop eating light meals or foods, such as toast or cereal. ??? 6 hours before the procedure ? stop drinking milk or drinks that contain milk. ??? 2 hours before the procedure ? stop drinking clear liquids. Medicines ??? Ask [...] given medicine as needed for pain. ??? You will continue to receive fluids and medicines through an IV tube. ??? Your blood pressure, heart rate, breathing rate, and blood oxygen level will be monitored until the medicines you were given have worn off. ??? You may be given a brace to wear while you heal. ??? You may have to wear compression stockings. These stockings help to prevent blood clots and reduce swelling in your legs. ??? You will be taught how to move correctly and how to stand and walk. While in bed, you will be instructed to turn frequently without twisting the back (log rolling technique). ??? Do not drive for 24 hours if you received a sedative. Summary ??? Spinal fusion is a procedure to make two or more of the bones in the spinal column (vertebrae) grow together (fuse). ??? Follow instructions from your healthcare provider about what to eat, what to drink, and what medicines to take. ??? After surgery, you will be instructed to turn frequently without twisting the back (log rolling technique) while in bed. You will also be taught how to move correctly and how to stand and walk. This information is not intended to replace advice given to you by your health care provider. Make sure you discuss any questions you have with your health care provider. Document Released: 01/30/2004 Document Revised: 04/15/2018 Document Reviewed: 04/20/2017 [employer] Patient Education ? 2020 [employer] documented in this encounter Plan of Treatment Not on file documented as of this encounter Visit Diagnoses Not on filedocumented in this encounter
--- OUTSIDE RECORDS SUMMARY | 2025-02-19 07:34 | XMS_ITS | Encounter Summary ---
Author Organization [employer] ([place], [place], [place], [place]) Address [address] [place] [id number] Care Team Providers Care Press Set Up Person Name Role Phone Unavailable Primary Care Provider Unavailabl e Encounter Details Date Type Department Care Team (Late st Contact Info) Description 07/27/2020 Transcribed Document [facility] [address] [place] [address] Ilya Kapoor MD [address] [place] [id number] Social History Tobacco Use Types Packs/Day Years Used Date Smoking Tobacco: Never Assessed Sex and Gender Information Value Date Recorded Sex Assigned at Not on file Legal Sex Male 6:06 PM CDT Gender Identity Not on file Sexual Orientation Not on file documented as of this encounter Miscellaneous Notes * Cerner Conversion Note - Ilya Kapoor MD - 07/27/2020 9:46 AM EST Patient: KARLA CHI Age: 70 years Sex: Male : 1950 Associated Diagnoses: None Author: ERIC CLARKE PA-NORMA 07/27/2020 cc: medical management awaiting L4-[address] Mars S: Pt is doing ok. No f'/c/s. No n/v/d. (-) gas, (-) BM. No CP, SOA, palpitations. No cough or sputum. +post op pain. Using incentive spirometer. Has not worked with therapy yet. HPI: Patient is a 70 yo male admitted to [facility] per Dr. Mars for an L4-5 [...] 30 mg = 1 Tab, Oral, Daily Vitals Signs (last 24 hrs) Last Charted Minimum Maximum Temp 98.3 (JUL 27 05:31) 97.6 (JUL 27 00:00) 98.3 (JUL 27:31) Mon HR 94 (JUL 27:31) 76 (JUL 26 20:00) 134 (JUL 26 14:55) Resp Rate 16 (JUL 27:31) 14 (JUL 26 15:25) 18 (JUL 26 09:00) SBP H 146 (JUL 27:) 119 (JUL 27 00:00) H 158 (JUL 26 09:00) DBP 83 (JUL 27:) 62 (JUL 26 20:00) 86 (JUL 26 09:00) MAP 99 (JUL 27 05:) 93 (JUL 26 15:55) 113 (JUL 26 14:50) SpO2 96 (JUL 27 00:00) L 92 (JUL 26 14:50) 99 (JUL 26 15:40) GEN: Alert, awake, NAD CV: S1S2, no murmur. No LE edema Resp: CTAB, NL; no wheezes or rhonchi. Abd: Soft, NT, ND +BS more prominent in lower abd. Skin: no rashes on inspection and palpation. Ext: No LE edema. No joint edema, erythema. Neuro: A&O x 3 Data: Labs Most Recent Last 28 days CBC Results-Most Recent Last 28 Days Event Name Event Result Date/Time WBC 7.9 K/uL 07/27/20 02:53:00 RBC 4.07 Million/uL Low 07/27/20 02:53:00 Hgb 12.4 g/dL Low 07/27/20 02:53:00 Hct 38.3 % Low 07/27/20 02:53:00 MCV 94.1 fL 07/27/20 02:53:00 MCH 30.5 pg 07/27/20 02:53:00 MCHC 32.4 Gram/dL 07/27/20 02:53:00 Platelet Count 153 K/uL Low 07/27/20 02:53:00 MPV 11.6 fL 07/27/20 02:53:00 RDW 13.5 % 07/27/20 02:53:00 Slide Review No 07/27/20 02:53:00 BMP Results (Most Recent Last 28 Days) Event Name Event Result Date/Time Sodium Level 138 mmol/L 07/27/20 02:53:00 Potassium Level 4.1 mmol/L 07/27/20 02:53:00 Chloride Level 104 mmol/L 07/27/20 02:53:00 Carbon Dioxide Level 26 mmol/L 07/27/20 02:53:00 Anion Gap 12 07/27/20 02:53:00 Glucose Level 218 mg/dL High 07/27/20 02:53:00 Blood Urea Nitrogen 17 mg/dL 07/27/20 02:53:00 Creatinine Level 1.1 mg/dL 07/27/20 02:53:00 eGFR >60 07/27/20 02:53:00 eGFR NonAfrican >60 07/27/20 02:53:00 Bun/Creatinine 15.5 07/27/20 02:53:00 Calcium Level 8.5 mg/dL 07/27/20 02:53:00 Other Lab Results (Most Recent Last 28 Days) Event Name Event Result Date/Time Albumin Level 3.6 Gram/dL 07/24/20 08:59:00 Impression: spondylolisthesis Lspine -s/pL4-[address] Mars at risk for sleep apnea obesity DM II HTN Hx hypothyroid Hx peripheral neuropathy Hx RLS Plan: typically hold oral DM, but they are currently continued and pt has already taken today. His renal fxn was stable this AM. Will continue to monitor renal fxn and glucose levels. Monitor HTN; add PRN's, hold parameters bowel regimen incentive spirometer PT/OT DVT prophylaxis noted Pain management deferred to surgeon will monitor hb/hct daily for signs of ongoing acute blood loss will monitor bun/cr daily for signs of dehydration, prerenal azotemia will monitor for signs/symptoms of post-op wound infection or hospital acquired infectious process resume outpatient medication regimen for comorbidities Assessment and treatment plan made in conjunction with Jp Newsome MD Scribed by Shanika Gray documented in this encounter Plan of Treatment Not on file documented as of this encounter Visit Diagnoses Not on filedocumented in this encounter
--- OUTSIDE RECORDS SUMMARY | 2025-02-19 07:34 | XMS_ITS | Encounter Summary ---
Author Organization [employer] ([place], [place], [place], [place]) Address [address] [place] [address] Care Team Providers Care Termite Inspector Name Role Phone Unavailable Primary Care Provider Unavailabl e Encounter Details Date Type Department Care Team (Late st Contact Info) Description 07/26/2020 Transcribed Document [facility] [facility] [place] [address] ProviderIsa MD [facility] [place] [address] Social History Tobacco Use Types Packs/Day Years Used Date Smoking Tobacco: Never Assessed Sex and Gender Information Value Date Recorded Sex Assigned at Not on file Legal Sex Male 6:06 PM CDT Gender Identity Not on file Sexual Orientation Not on file documented as of this encounter Miscellaneous Notes * Cerner Conversion Note - Isa ProviderMD - 07/26/2020 1:09 PM ARCHITECTURAL ENGINEER [facility] Main OR Preop Summary Primary Physician: VENECIA PADILLA [facility] Finalized Date/Time: 07/26/20 14:16:55 Pt. Name: KARLA CHIO.B./Sex: 1950 Male Med Rec #: [id number] Physician: VENECIA PADILLA [facility] Financial #: [id number] Pt. Type: I Room/Bed: ASA/1 Admit/Disch: 07/26/20 06:35:00 - Institution: [facility] PreOp Case Times Entry 1 In Preop 07/26/20 09:47:00 Ready for Holding n/a Room Patient Ready for 07/26/20 11:00:00 Surgery Patient Out of Preop 07/26/20 12:42:00 Patient Out of n/a Holding Room Last Modified By: PRECIOUS JAUREGUI RN 07/26/20 14:15:04 [facility] PreOp Case Times Audit 07/26/20 14:15:04 Race Engine Builder: YORDY Modifier: JUAN MIGUEL <+> 1 Patient Out of Preop Finalized By: PRECIOUS JAUREGUI RN Document Signatures Signed By: PRECIOUS JAUREGUI RN 07/26/20 14:16 Electronically signed by Durga [facility] Conversion Vice President Business Development Cerner at 08/30/2022 6:11 PM CDT documented in this encounter Plan of Treatment Not on file documented as of this encounter Visit Diagnoses Not on filedocumented in this encounter
--- OUTSIDE RECORDS SUMMARY | 2025-02-19 07:34 | XMS_ITS | Encounter Summary ---
Author Organization [employer] ([place], [place], [place], [place]) Address [address] [place] [address] Care Team Providers Care Power Engineer Name Role Phone Unavailable Primary Care Provider Unavailabl e Encounter Details Date Type Department Care Team (Late st Contact Info) Description 07/28/2020 Transcribed Document [facility] [place] [facility] [place] [address] ProviderIsa MD [facility] [place] [address] Social History Tobacco Use Types Packs/Day Years Used Date Smoking Tobacco: Never Assessed Sex and Gender Information Value Date Recorded Sex Assigned at Not on file Legal Sex Male 6:06 PM CDT Gender Identity Not on file Sexual Orientation Not on file documented as of this encounter Miscellaneous Notes * Cerner Conversion Note - Isa ProviderMD - 07/28/2020 11:17 AM CDT Patient: KARLA CHI Age: 70 years Sex: Male : 1950 Associated Diagnoses: None Author: ERIC CLAKRE PA-FAM 07/28/2020 cc: medical management S: Pt is doing ok. No f'/c/s. No n/v/d. (+) gas, (+) BM. No CP, SOA, palpitations. No cough or sputum. Urinating well. +post op pain. Using incentive spirometer. states he just started Jardiance last week. Does not want to take insulin. His glucose levels have been in the 200s. He states they are typically 190s at home. HPI: Patient is a 70 yo male admitted to [facility] per Dr. Mars for an L4-5 [...] No Known Allergies None Documented Home Medications (12) Active atorvastatin 10 mg oral tablet 10 mg = 1 Tab, Oral, Daily cyclobenzaprine 10 mg oral tablet 10 mg = 1 Tab, PRN, Oral, TID docusate sodium 250 mg oral capsule 250 mg = 1 Cap, PRN, Oral, BID fenofibrate 134 mg oral capsule 134 mg [...] Oral, BID omeprazole 20 mg, Oral, Daily Percocet 7.5 mg-325 mg oral tablet 1 Tab, PRN, Oral, Q6H pioglitazone 30 mg oral tablet 30 mg = 1 Tab, Oral, Daily Vitals Signs (last 24 hrs) Last Charted Minimum Maximum Temp 98.8 (JUL 28 10:00) 98.8 (JUL 28 10:00) 99 (JUL 28 04:03) Mon HR 107 (JUL 28 10:00) 92 (JUL 27 15:06) 111 (JUL 28 00:12) Resp Rate 16 (JUL 28 04:03) 16 (JUL 27 21:01) 16 (JUL 27:01) SBP H 149 (JUL 28 10:00) 132 (JUL 28 04:03) H 149 (JUL 28 10:00) DBP 78 (JUL 28 10:00) 71 (JUL 27:) 78 (JUL 28 00:12) MAP 92 (JUL 28 10:00) 84 (JUL 27:01) 93 (JUL 28 00:12) SpO2 L 93 (JUL 28 10:00) L 92 (JUL 27:) 95 (JUL 28 00:12) GEN: Alert, awake, NAD CV: S1S2, no murmur. No LE edema Resp: CTAB, NL; no wheezes or rhonchi. Abd: Soft, NT, ND +BS Skin: no rashes on inspection and palpation. Ext: No LE edema. No joint edema, erythema. no calf tenderness Neuro: A&O x 3 Data: Labs Most Recent Last 28 days CBC Results-Most Recent Last 28 Days Event Name Event Result Date/Time WBC 8.8 K/uL 07/28/20 03:37:00 RBC 4.07 Million/uL Low 07/28/20 03:37:00 Hgb 12.6 g/dL Low 07/28/20 03:37:00 Hct 38.3 % Low 07/28/20 03:37:00 MCV 94.1 fL 07/28/20 03:37:00 MCH 31 pg 07/28/20 03:37:00 MCHC 32.9 Gram/dL 07/28/20 03:37:00 Platelet Count 167 K/uL 07/28/20 03:37:00 MPV 11.5 fL 07/28/20 03:37:00 RDW 13.5 % 07/28/20 03:37:00 Slide Review No 07/27/20 02:53:00 BMP Results (Most Recent Last 28 Days) Event Name Event Result Date/Time Sodium Level 136 mmol/L 07/28/20 03:37:00 Potassium Level 3.7 mmol/L 07/28/20 03:37:00 Chloride Level 103 mmol/L 07/28/20 03:37:00 Carbon Dioxide Level 24 mmol/L 07/28/20 03:37:00 Anion Gap 13 07/28/20 03:37:00 Glucose Level 179 mg/dL High 07/28/20 03:37:00 Blood Urea Nitrogen 17 mg/dL 07/28/20 03:37:00 Creatinine Level 1.2 mg/dL 07/28/20 03:37:00 eGFR >60 07/28/20 03:37:00 eGFR NonAfrican 60 mL/min/1.73m2 07/28/20 03:37:00 Bun/Creatinine 14.2 07/28/20 03:37:00 Calcium Level 8.9 mg/dL 07/28/20 03:37:00 Other Lab Results (Most Recent Last 28 Days) Event Name Event Result Date/Time Albumin Level 3.6 Gram/dL 07/24/20 08:59:00 Impression: spondylolisthesis Lspine -s/pL4-[address] Mars at risk for sleep apnea obesity DM II --- FSBS are uncontrolled. HTN Hx hypothyroid Hx peripheral neuropathy Hx RLS Plan: add A1c --- lab said would not come back until tomorrow D/w pt importance of glucose control diabetes nsg educator not in today nsg is going to print off sheets to help discuss diet. pt will look into someone close to home to discuss diet. Recommended taking glimepiride 4 mg 1/2 tab qhs if glucose level is over 200. I think given time jardiance will help lower glucose levels d/w pt that some pts have insulin resistance and may require higher doses. He says glucose levels are never different at the hospital when he takes insulin either. He may benefit from practice business asst referral if glucose levels do not improve with jardiance. OK to discharge from IM standpoint pain meds per surgery bowel regimen at home IS at home Assessment and treatment plan made in conjunction with Jp Newsome MD Scribed by Shanika Gray Electronically signed by Durga, [facility] Conversion Interactive Developer Cerner at 08/30/2022 6:04 PM CDT documented in this encounter Plan of Treatment Not on file documented as of this encounter Visit Diagnoses Not on filedocumented in this encounter
== END 2025-02-19 23:59 | disposition home or self-care (01) ==
LOC: RAD 07:30
PROVIDERS: PCP Family Medicine; Visit Provider Internal Medicine Pulmonary Disease
DX: J98.4 Other disorders of lung (principal); R91.1 Solitary pulmonary nodule; Z98.890 Other specified postprocedural states
CPT/HCPCS: 71250

== ENCOUNTER 2025-04-10 12:38 | Emergency (ER) | payer MEDICARE, SELFPAY ==
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
--- OUTSIDE RECORDS SUMMARY | 2024-05-19 06:45 | XMS_ITS ---
Author Organization [facility] Address [address] [place] [id number] Care Team Providers Care Business Administrator Name Role Phone Declan Izquierdo Primary Care Provider REASON FOR VISIT dizziness Encounters Encounter Location Date Provider Diagnosis [facility] [address] [place] [phone] 05/19/2024 Declan Izquierdo Plan Of Treatment No Information Progress Notes * KARLA CHIDOB:1950 (74 yo M)Acc No.[id number]:05/19/2024 Progress Notes Patient: KARLA LUNA Provider: Anurag Izquierdo M.D. :1950 A ge:73 Y S ex:Male Date:05/19/2024 Address:[address] [id number] Subjective: * Chief Complaints: * 1 . Dizziness. * Medical History: Objective: * Vitals: Assessment: Plan: * Treatment: * Images: Billing Information: * Visit Code: * Procedure Codes: * Electronic signature of Bridget Izquierdo MD on 04/10/2025 at 12:53 PM EST Sign off status: Pending * Provider: Anurag Izquierdo M.D. Date: 0 05/19/2024 Generated for Vicentei karen/Reynaldo/eTransmitting on: 06/10/2024 12:53 PM EST
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
--- OUTSIDE RECORDS SUMMARY | 2024-12-20 05:00 | XMS_ITS ---
Author Organization [facility] Address [address] [place] [phone] Care Team Providers Care Machine Maintenance Technician Name Role Phone Declan Izquierdo Primary Care Provider REASON FOR VISIT 3 months Encounters Encounter Location Date Provider Diagnosis [facility] [address] [place] [id number] 12/20/2024 Declan Izquierdo Plan Of Treatment No Information Progress Notes * KARLA CHIDOB:1950 (74 yo M)Acc No.[id number]:12/20/2024 Progress Notes Patient: KARLA LUNA Provider: Anurag Izquierdo M.D. :1950 A ge:74 Y S ex:Male Date:12/20/2024 Address:[address] [id number] Subjective: * Chief Complaints: * 1 . 3 months. * Medical History: Objective: * Vitals: Assessment: Plan: * Treatment: * Images: Billing Information: * Visit Code: * Procedure Codes: * Electronic signature of Bridget Izquierdo MD on 04/10/2025 at 12:51 PM EST Sign off status: Pending * Provider: Anurag Izquierdo M.D. Date: 0 12/20/2024 Generated for Printi ng/Faxing/eTransmitting on: 1 06/10/2024 12:51 PM EST
--- OUTSIDE RECORDS SUMMARY | 2025-03-14 08:15 | XMS_ITS | Encounter Summary ---
Author Organization Healthcare Address [address] 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 Never 09/30/2022 PHQ-2 Answer Date Recorded Patient Health Questionnaire-2 Score 0 03/14/2025 CAGE ASSESSMENT Answer Date Recorded Cage unable [...] drink first t hai in the morning (EYE-FOCUSING MACHINE OPERATOR) to steady your nerves or to get rid of a hangover? 0 08/28/2022 CAGE Questionnaire Score 0 023 Sex and Gender Information Value Date Recorded Sex Assigned at Male 08/28/2022 9:57 PM EDT Legal Sex Male 8:40 PM EDT Gender Identity Male 08/28/2022 9:57 PM EDT Sexual Orientation Straight 08/28/2022 9: 57 PM EDT documented as of this encounter Last Filed Vital Signs Vital Sign Reading Time Taken Comments Blood Pressure 110/70 03/14/2025 9:24 AM EDT Pulse 77 03/14/2025 9:24 AM EDT Temperature - - Respiratory Rate - - Oxygen Saturation 97% 03/14/2025 9:24 AM EDT Inhaled Oxygen Concentration - - Weight 88.9 kg (195 lb 15.8 oz) 03/14/2025 9:24 AM EDT Height 165.1 cm (5' 5 ) 03/14/2025 9:24 AM EDT Body Mass Index 32.61 03/14/2025 9:24 AM EDT documented in this encounter Functional Status * Over the past 2 weeks, how often have you been bothered by any of the following problems? 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 male who is s/p CABG x4 on 09/01/[address] Dow. He has gone onto have several stents placed since his surgery. He has had several episodes of chest pain recentlywhich were not felt to be cardiac in nature after evaluation at his local ER. He was being worked up for pulmonary issues and had a CT chest which showed some space in the area of the sternotomy. He presents to clinic today for evaluation of these findings. Smoking Cessation: Nonsmoker Active Problems: Patient Active Problem List Diagnosis Date Noted BMI 32.0-32.9,adult 03/14/2025 Obesity (BMI 30.0-34.9) 09/08/2022 Acute blood loss as cause of postoperative anemia 09/06/2022 Gastroesophageal reflux disease 09/01/2022 Kidney stone 09/01/2022 Abnormal thyroid function test 08/29/2022 Hyperlipidemia 08/29/2022 Hypertriglyceridemia 08/29/2022 Hypertension 08/29/2022 Coronary artery disease due to calcified coronary lesion 08/28/2022 Hyperthyroidism 08/27/2022 Type II diabetes mellitus 08/27/2022 Medical History: Past Medical History Pertinent Negatives[1] Surgical History: Surgical History[2] Social History: Tobacco: Tobacco Use: Low Risk (03/14/2025) Patient History Smoking Tobacco Use: Never Smokeless Tobacco Use: Never Passive Exposure: Never Alcohol: Alcohol Use: Not At Risk (09/30/2022) AUDIT-C Frequency of Alcohol Consumption: Never Average Number of Drinks: Patient does not drink Frequency of Binge Drinking: Never Illicit drug use: Social History Substance and Sexual Activity Drug Use Never Family History: family history includes Diabetes in his mother; Other cancer in an other family member. Allergies: Allergies[3] Medications: Prior to Admission medications Medication Sig Start Date End Date Taking? Authorizing Provider acetaminophen (Tylenol) 325 MG tablet Take 2 tablets (650 mg total) by mouth every 6 (six) hours ifneeded for pain. 09/07/22 Yes Crescencio Coley PA amLODIPine (Norvasc) 10 MG tablet Take 1 tablet by mouth daily. 01/20/25 Yes Provider, Historical bisoprolol (Zebeta) 10 MG tablet Take 1 tablet by mouth 2 times a day. 12/07/24 Yes Provider, Historical clopidogrel (Plavix) 75 MG tablet Take 75 mg by mouth 1 (one) time each day. Yes Provider, Historical fenofibrate micronized (Lofibra) 134 MG capsule Take 134 mg by mouth 1 (one) time each day with breakfast. Yes Provider, Historical furosemide (Lasix) 20 MG tablet Take 1 tablet by mouth daily. 02/06/25 Yes Provider, Historical Insulin Syringe-Needle U-100 30G X 5/16 0.3 ML misc Use as directed with insulin. 09/07/22 Yes Crescencio Coley PA Insulin Syringe-Needle U-100 30G X 5/16 0.3 ML misc Use as directed with insulin. 09/07/22 Yes Crescencio Coley PA isosorbide mononitrate ER (Imdur) 120 MG 24 hr tablet Take 1 tablet by mouth 2 times a day. 02/19/25Yes Provider, Historical Jardiance 10 MG Take 1 tablet by mouth daily. 02/19/25 Yes Provider, Historical levothyroxine (Synthroid, Levoxyl) 75 MCG tablet Take 1 tablet by mouth daily. 02/09/25 Yes Provider, Historical magnesium oxide (Mag-Ox) 400 (240 Mg) MG tablet Take 1 tablet by mouth 2 times a day. 09/20/24 Yes Provider, Historical metFORMIN (Glucophage) 1000 MG tablet Take 1,000 mg by mouth 2 (two) times a day with meals. Yes Provider, Historical metoclopramide (Reglan) 5 MG tablet Take 1 tablet by mouth 2 times a day. Yes Provider, Historical metoprolol tartrate 37.5 MG tablet Take 37.5 mg by mouth every 8 (eight) hours. 09/07/22 Yes Crescencio Coley PA Ozempic, 1 MG/DOSE, 4 MG/3ML solution pen-injector Inject 1 mg under the skin 1 time per week. Yes Provider, Historical pantoprazole (Protonix) 40 MG EC tablet Take 40 mg by mouth 1 (one) time each day. Do not crush, chew, or split. Yes Provider, Historical rosuvastatin (Crestor) 40 MG tablet Take 1 tablet (40 mg total) by mouth 1 (one) time each day. 09/07/22 Yes Crescencio Coley PA Tresiba FlexTouch 100 UNIT/ML injection pen Inject 40 Units under the skin 2 times a day. Yes Provider, Historical aspirin 81 MG EC tablet Take 1 tablet (81 mg total) by mouth 1 (one) time each day. Patient not taking: Reported on 03/14/2025 09/07/22 Crescencio Coley PA docusate sodium 100 MG capsule Take 100 mg by mouth 2 (two) times a day if needed for constipation. Patient not taking: Reported on 03/14/2025 09/07/22 Crescencio Coley PA ferrous sulfate 324 MG tablet delayed-release Take 1 tablet (324 mg total) by mouth 1 (one) time each day with breakfast. Do not crush, chew, or split. Patient not taking: Reported on 03/14/2025 09/08/22 Crescencio Coley PA Insulin Lispro (Admelog, HumaLOG) 100 UNIT/ML injection vial Inject 0-0.1 mL (0- 10 Units total) under the skin 3 (three) times a day with meals. Patient not taking: Reported on 03/14/2025 09/07/22 01/18/23 Crescencio Coley PA methocarbamol (Robaxin) 750 MG tablet Take 1 tablet (750 mg total) by mouth 4 (four) times a day for 10 days. Patient not taking: Reported on 03/14/2025 09/07/22 09/17/22 Crescencio Coley PA Physical exam: Visit Vitals BP 110/70 Pulse 77 Ht 1.651 m (5' 5 ) Wt 88.9 kg (195 lb 15.8 oz) SpO2 97% BMI 32.61 kg/m?? Review of Systems Cardiovascular: Positive for chest pain. Musculoskeletal: Positive for myalgias. All other systems reviewed and are negative. Physical Exam Vitals reviewed. Constitutional: Appearance: Normal appearance. He is obese. HENT: Head: Normocephalic and atraumatic. Right Ear: External ear normal. Left Ear: External ear normal. Nose: Nose normal. Mouth/Throat: Pharynx: Oropharynx is clear. Eyes: Pupils: Pupils are equal, round, and reactive to light. Cardiovascular: Rate and Rhythm: Normal rate. Pulses: Normal pulses. Heart sounds: Normal heart sounds. Pulmonary: Effort: Pulmonary effort is normal. Breath sounds: Normal breath sounds. Abdominal: Palpations: Abdomen is soft. Genitourinary: Comments: Deferred Musculoskeletal: General: Normal range of motion. Cervical back: Normal range of motion and neck supple. Skin: General: Skin is warm and dry. Capillary Refill: Capillary refill takes less than 2 seconds. Neurological: General: No focal deficit present. Mental Status: He is alert and oriented to person, place, and time. Mental status is at baseline. Psychiatric: Mood and Affect: Mood normal. Behavior: Behavior normal. Thought Content: Thought content normal. Judgment: Judgment normal. Imaging: CT chest with contrast imaging from 02/19/2025 OSH: reviewed with Dr. Dow, no read found Cardiac Cath Results: None Impression: Lion Dennison is a 74 y.o. male who is s/p CABG x4 on 09/01/[address] Dow. Hewas being worked up for pulmonary issues and had a CT chest which showed some space in the area of the sternotomy. He presents to clinic today for evaluation of these findings. Plan: - Dr. Dow explained that surgical intervention for the sternal nonunion would carry higher risks and rewards and he doesn't recommend any intervention - Weight loss is recommended as it would lessen the strain on his sternal union and prevent furtherwidening of the space - No specific lifting restriction but patient counseled he should employ moderation in lifting heavy objects and avoid anything that involves excessive straining to lift or move [1] Past Medical History: Diagnosis Date Acute kidney injury 09/05/2022 Blunt abdominal trauma 02/23/2020 Contact with [facility], initial encounter Accident caused by [facility] Diabetes mellitus Elevated HDL Hemoperitoneum 02/23/2020 Hypertension Hyponatremia 08/30/2022 ID (myocardial infarction) 09/01/2022 Orthopnea Unstable angina (CMS/HCC) 08/31/2022 [2] Past Surgical History: Procedure Laterality Date ANKLE SURGERY N/A CARDIAC CATHETERIZATION 08/27/2022 [facility] CATARACT EXTRACTION N/A CORONARY ARTERY BYPASS GRAFT 09/01/2022 Coronary artery bypass grafting x4 with [facility] to LAD, reverse saphenous vein graft to diagonal 1, reverse saphenous vein graft to obtuse marginal 1, and reverse saphenous vein graft to PDA. (Dr Irby - , [facility]) OTHER SURGICAL HISTORY N/A exp lap OTHER SURGICAL HISTORY N/A Omentectomy SHOULDER SURGERY N/A [3] No Known Allergies Cosigned by Josefina Dow MD at 03/18/2025 12:53 PM EST Associated attestation - Josefina Dow MD - 03/18/2025 12:53 PM EST Seen and examined and records reviewed and discussed with Mrs. Cortez I agree with the note and plan. 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
[2025-04-10 12:42] VITALS: BP 117/62; PULSE 78; RESP 18; TEMP 36.5; O2SAT 97; BMI 31.6
[2025-04-10 12:43] VITALS: BP 117/62; PULSE 78; O2SAT 96
[2025-04-10 12:45] VITALS: BP 121/69; PULSE 75; O2SAT 97
--- OUTSIDE RECORDS SUMMARY | 2025-04-10 12:52 | XMS_ITS | Encounter Summary ---
Author Organization [employer] ([place], [place], [place], [place], [place]) Address [address] [place] [address] Care Team Providers Care Neuropsychology Division Chief Name Role Phone Unavailable Primary Care Provider Unavailabl e Encounter Details Date Type Department Care Team (Late st Contact Info) Description 07/28/2020 Transcribed Document [facility] [place] Family Medicine [facility] [place] [address] ProviderIsa MD [facility] [place] [address] Social History Tobacco Use Types Packs/Day Years Used Date Smoking Tobacco: Never Assessed Sex and Gender Information Value Date Recorded Sex Assigned at Not on file Legal Sex Male 6:06 PM CDT Gender Identity Not on file Sexual Orientation Not on file documented as of this encounter Miscellaneous Notes * Cerner Conversion Note - Isa Orozco MD - 07/28/2020 11:25 AM CDT Final Discharge Planning Entered On: 07/28/2020 11:25 EDT Performed On: 07/28/2020 11:25 EDT by LEONID LANGE RN-High School Vice Principal Final Discharge Planning Discharge Arrangements : Patient [...] : Yes Discharge To Care Management : Home/Residential/Alf or Self Care - LEONID LANGE RN-High School Vice Principal - 07/28/2020 11:25 EDT documented in this encounter Plan of Treatment Not on file documented as of this encounter Visit Diagnoses Not on filedocumented in this encounter
--- OUTSIDE RECORDS SUMMARY | 2025-04-10 12:52 | XMS_ITS | Encounter Summary ---
Author Organization [facility] Address [address] [place] [address] Care Team Providers Care Gravure Press Set Up Operator Name Role Phone Lenin Francois MD Unavailable [phone] Declan Izquierdo MD Primary Care Provider + [phone] Encounter Details Date Type Department Care Team (Latest Contact Info) Description 03/14/2025 Travel Social History Tobacco Use Types Packs/Day Years [...] drink first t hai in the morning (EYE-JAVA APPLICATION DEVELOPER) to steady your nerves or to get rid of a hangover? 0 08/28/2022 CAGE Questionnaire Score 0 023 Sex and Gender Information Value Date Recorded Sex Assigned at Male 08/28/2022 9:57 PM EDT Legal Sex Male 8:40 PM EDT Gender Identity Male 08/28/2022 9:57 PM EDT Sexual Orientation Straight 08/28/2022 9: 57 PM EDT documented as of this encounter Functional Status * Over the [...] Genie Shook documented as of this encounter Plan of Treatment Not on file documented as of this encounter Visit Diagnoses Not on filedocumented in this encounter Additional Health Concerns Assessment Noted Time A fall risk assessment has been complete d for the patient 03/14/2025 9:41 AM EDT A Body Mass Index follow-up plan has been documented for the patient 03/14/2025 10:45 AM EDT documented as of this encounter Care Teams Gravure Press Set Up Operator Relationship Specialty Start Date End Date Declan Izquierdo MD [address] [place] [address] PCP - General 08/29/21 Lenin Francois MD [address] [place] [address] Referring Physician Cardiology 08/27/22 documented as of this encounter
--- OUTSIDE RECORDS SUMMARY | 2025-04-10 12:52 | XMS_ITS | Referral Summary ---
Author Organization [employer] ([place], [place], [place], [place], [place]) Address [address] [place] [address] Care Team Providers Care Inspection Machine Tender Name Role Phone Unavailable Primary Care Provider [...]
--- OUTSIDE RECORDS SUMMARY | 2025-04-10 12:52 | XMS_ITS | Encounter Summary ---
Author Organization [employer] ([place], [place], [place], [place], [place]) Address [address] [place] [address] Care Team Providers Care Mud Jack Nozzleman Name Role Phone Unavailable Primary Care Provider Unavailabl e Encounter Details Date Type Department Care Team (Late st Contact Info) Description 07/26/2020 Transcribed Document [facility] [place] [facility] [address] ProviderIsa [place] [address] Social History Tobacco Use Types Packs/Day Years Used Date Smoking Tobacco: Never Assessed Sex and Gender Information Value Date Recorded Sex Assigned at Not on file Legal Sex Male 6:06 PM CDT Gender Identity Not on file Sexual Orientation Not on file documented as of this encounter Miscellaneous Notes * Cerner Conversion Note - Isa ProviderMD - 07/26/2020 2:58 PM ECONOMETRICIAN Evaluation, Occupational Therapy Entered On: 07/27/2020 13:32 EST Performed On: 07/27/2020 10:35 EST by ANDRAE ARAUJO, OTR/L General Information, OT Visit Type, OT : Initial evaluation Patient Orders : Order Date Order Ordering 07/26/2020 14:58 Occupational Therapy Evaluation and Treatme Ordered By: VENECIA PADILLA MD-SNU Active Diagnoses : No Qualifying Diagnoses Therapy [...] 3/fair RadialDeviation 0-20 : 3/fair ANDRAE ARAUJO OTR/L - 07/27/2020 13:07 EST Left Upper Extremity [...] 3/fair RadialDeviation 0-20 : 3/fair ANDRAE ARAUJO OTR/L - 07/27/2020 13:07 EST Hand Interior Design Program Chair Test : WFL Fine Motor Coordination Impaired [...] Device : Belt, gait ANDRAE ARAUJO OTR/Amanuel - 07/27/2020 13:07 EST Cognition Assessment, OT Orientation [...] 07/27/2020 13:07 EST Electronically signed by Durga, [facility] Conversion Medical Lab Technician Cerner at 08/30/2022 5:55 PM CDT documented in this encounter Plan of Treatment Not on file documented as of this encounter Visit Diagnoses Not on filedocumented in this encounter
--- OUTSIDE RECORDS SUMMARY | 2025-04-10 12:52 | XMS_ITS | Encounter Summary ---
Author Organization [facility] Address [address] [place] [address] Care Team Providers Care High Court Justice Name Role Phone Lenin Francois MD Unavailable [phone] Declan Izquierdo MD Primary Care Provider + [phone] Encounter Details Date Type Department Care Team (Late st Contact Info) Description 02/19/2025 Orders Only External Location [address] [place] [address] Provider, External Social History Tobacco Use Types Packs/Day Years [...] drink first t hai in the morning (EYE-RESEARCH PHYSICIST) to steady your nerves or to get rid of a hangover? 0 08/28/2022 CAGE Questionnaire Score 0 023 Sex and Gender Information Value Date Recorded Sex Assigned at Male 08/28/2022 9:57 PM EDT Legal Sex Male 8:40 PM EDT Gender Identity Male 08/28/2022 9:57 PM EDT Sexual Orientation Straight 08/28/2022 9: 57 PM EDT documented as of this encounter Plan of Treatment Not on file documented as of this encounter Procedures Procedure Name Priority Date/Time Associated Diagnosis Comments CT THORACIC OUTSIDE IMAGES 02/19/2025 7:37 AM EDT documented in this encounter Results * CT THORACIC OUTSIDE IMAGES (02/19/2025 7:37 AM EDT) Anatomical Region Laterality Modality Computed Tomogra phy 02/19/2025 7:37 AM EDT us External Provider IMG CT PROCEDURES Edited Resul t - Final documented in this encounter Visit Diagnoses Not on filedocumented in this encounter Additional Health Concerns Assessment Noted Time A fall risk assessment has been complete d for the patient 09/30/2022 11:19 AM EDT A Body Mass Index follow-up plan has been documented for the patient 09/30/2022 12:29 PM EDT documented as of this encounter Care Teams High Court Justice Relationship Specialty Start Date End Date Declan Izquierdo MD [address] [place] [address] PCP - General 08/29/21 Lenin Francois MD [address] [place] [address] Referring Physician Cardiology 08/27/22 documented as of this encounter
--- OUTSIDE RECORDS SUMMARY | 2025-04-10 12:52 | XMS_ITS | Encounter Summary ---
Author Organization [employer] ([place], [place], [place], [place], [place]) Address [address] [place] [address] Care Team Providers Care Automatic Bow Maker Machine Tender Name Role Phone Unavailable Primary Care Provider Unavailabl e Encounter Details Date Type Department Care Team (Late st Contact Info) Description 07/26/2020 Transcribed Document [facility] Radiology [address] [place] [address] Ilya Kapoor MD [facility] [address] [address] Social History Tobacco Use Types Packs/Day [...] is a 70 yo male admitted to [facility] per Dr. Mars for an L4-5 fusion. [...] Last Charted Minimum Maximum Temp 97.1 (JUL 26:00) 97.1 (JUL 26:) 97.1 (JUL 26:) Mon [...]
--- OUTSIDE RECORDS SUMMARY | 2025-04-10 12:52 | XMS_ITS | Encounter Summary ---
Author Organization [employer] ([place], [place], [place], [place], [place]) Address [address] [place] [address] Care Team Providers Care Metropolitan Editor Name Role Phone Unavailable Primary Care Provider Unavailabl e Encounter Details Date Type Department Care Team (Late st Contact Info) Description 07/25/2020 Transcribed Document [facility] [place] [address] [place] [address] ProviderIsa MD [address] [place] [address] Social History Tobacco Use Types Packs/Day Years Used Date Smoking Tobacco: Never Assessed Sex and Gender Information Value Date Recorded Sex Assigned at Not on file Legal Sex Male 6:06 PM CDT Gender Identity Not on file Sexual Orientation Not on file documented as of this encounter Miscellaneous Notes * Cerner Conversion Note - Isa ProviderMD - 07/25/2020 12:37 PM UPPER DOUBLER UM Authorization Entered On: 07/25/2020 12:37 EST Performed On: 07/25/2020 12:37 EST by DEANNA PORTER Hospital Pharmacy Director Primary Insurance Authorization Authorization and Policy Numbers : Insurance 1 Health Plan: MEDICARE Policy Number: [id number] Authorization Number: Insurance 2 Health Plan: GENERIC COMMERCIAL Policy Number: [id number] Authorization Number: Insurance Primary Name : Medicare Authorization Status-Primary : No precert required Authorization Number-Primary : NPR for Medicare Authorized Service Begin Date-Primary : 07/26/2020 EST Authorization Comments-Primary : Pt is kareem for INPT Lumbar Fusion Posterior 3 Level on Wednesday07-26-20. Medicare: NPR Historical Authorization Comments-Primary : No Authorization Comments Found DEANNA PORTER, Hospital Pharmacy Director - 07/25/2020 12:37 EST documented in this encounter Plan of Treatment Not on file documented as of this encounter Visit Diagnoses Not on filedocumented in this encounter
--- OUTSIDE RECORDS SUMMARY | 2025-04-10 12:52 | XMS_ITS | Data Portability ---
Author Organization [employer] [facility] Address [address] [facility] [address] [place] [address] Care Team Providers Care Signal Repairer Name Role Phone DEION COY Referring Provider [phone] VIRGIL BHAGAT Primary Care Provider [phone] Assessment Encounter Date Assessment Date Assessment LastModified [...] for staple removal. Incision is well healed. [place] were removed. Pt tolerated procedure. [email or web address] Not [...] with voice recognition technology and may include medical transcription errors. Not available 11/26/2020 11:54:01 03/11/2021 03/11/2021 [...] spine , 2 or 3 view [facility] [address] [place] [address] Dora quesada Name: KARLA quesada : Dora [...] Stephanie Lala MD on 021 2:[address] Radiology [facility] [address] [place] [address], [phone], 09/03/2020 14:25:47 11/27/1911/26/2020 XR, lumbo sacra l spine , 2 or 3 [facility] [address] [place] [address] Dora quesada Name: KARLA quesada : Dora [...] Stephanie Lala MD on 021 3:[email or web address] Radiology [facility] [address] [place] [address], [phone], 12/17/2020 09:47:32 03/11/20 21 03/11/2021 XR, lumbo sacra l spine , 2 or 3 view [facility] ton [facility] [address] [place] [address], [place] [address] Patien t Name: KARLA quesada : 9[address] [...] Stephanie Lala MD on 2020 10:[email or web address] Radiology [facility] [address] [place], [address], 04/01/2021 13:26:14 03/12/20 21 03/12/2021 MRI, lumba r spine , w/wo contr ast [facility] [address] [facility] [place] [address] Dora quesada Name: KARLA quesada : 9[address] [...] natasha, interb jaime graft, aristides ctomy and steam powerplant supervisor ior fusion at L4-L5. There is parama gnetic artifa ct from the pedicl e screws and steam powerplant supervisor ior fusion hardwa re. There is [...] strati on of [address] ([facility] [address]25-0 2), there is normal postsu rgical [...] Signed By: Kristen padilla MD on 2020 11:09 AM [email or web address] [facility] Radiology [address], [address], 04/17/2021 09:16:16 03/12/20 21 03/12/2021 CT, lumba r spine , w/o contr ast [address] [address] Patiaby t Name: KARLA quesada : [address] [...] natasha, interb jaime graft, aristides ctomy and steam powerplant supervisor ior fusion at L4-L5. There is beam harden ing artifa ct from the pedicl e screws and steam powerplant supervisor ior fusion hardwa re. There is [...] padilla MD on 2020 11:12 AM [email or web address] [facility] Radiology [address], [address], 04/17/2021 09:16:15 Result Notes Documentation Provider Name and Address Organization Details Recorded Time Xr, Lumbosacral Spine, 2 Or 3 View : [address] [address] Patient Name: KARLA CHI Patient : 1950 [...] José Antonio Lala MD CIA PADILLA MD [address] [place] [address], [phone], [facility] 09/03/2020 14:25:47 Xr, Lumbosacral Spine, 2 Or 3 View : [address] [address] Patient Name: KARLA CHI Patient : 1950 [...] José Antonio Lala MD CIA PADILLA MD [address] [place] [address], [phone], [facility] 12/17/2020 09:47:32 Xr, Lumbosacral Spine, 2 Or 3 View : [place] [address] Patient Name: KARLA CHI Patient : 1950 [...] at other levels. Interpreted By: José Antonio Llaa MD CIA PADILLA MD [address] [place] [address], [phone], [facility] 04/01/2021 13:26:14 Mri, Lumbar Spine, W/wo Contrast : [address] [address] Patient Name: KARLA CHI Patient : 1950 [...] After intravenous administration of 10 mL Gadavist ([facility] [address]-23), there is normal postsurgical enhancement at L4-L5. IMPRESSION: 1. The patient is status post PLIF at L4-L5. There is no evidence of complication. There is mild neural foraminal narrowing at this level. 2. There is mild left neural foraminal narrowing at L3-L4 and L5-S1. Interpreted By: Tristin Mccracken MD CIA PADILLA MD [address] [place] [address], [phone], [facility] 04/17/2021 09:16:16 Ct, Lumbar Spine, W/o Contrast : [facility] [address] [place] [address] Patient Name: KARLA CHI Patient : 1950 [...] By: Tristin Mccracken MD CIA PADILLA MD [address] [place] [address], [phone], [facility] 04/17/2021 09:16:15 Procedures Surgical History Date Name Laterality Status Provider Name and Address Organization Details Recorded Time procedure on shoulder completed [facility] 07/09/2020 08:24:29 laparotomy completed [facility] 07/09/2020 08:25:49 Unlisted px leg/ankle completed [facility] 07/09/2020 08:25:58 Imaging Results None recorded. Procedure [...] Updated DateTime 08/27/2020 162.56 cm 32.6 kg/m2 23061.55 g 134/82 mm[Hg] Alejandra Shafer [facility] 08/27/2020 13:47:07 Date Recorded Body height Body mass index (BMI) Body weight Systolic And Diastolic Provider Name and Address Organization Details Last Updated DateTime 11/26/2020 162.56 cm 32.6 kg/m2 81450.55 g 126/82 mm[Hg] [facility] 11/26/2020 10:51:53 Date Recorded Body height Body mass index (BMI) Body weight Systolic And Diastolic Provider Name and Address Organization Details Last Updated DateTime 03/11/2021 162.56 cm 32.6 kg/m2 49374.55 g 140/80 mm[Hg] [facility] 03/11/2021 11:01:44 Social History None recorded. Functional [...] Not available 08:23:55 Medical History Condition Response Diabetes Y Arthritis Y Hypothyroidism Y Kidney Disease Y High Cholesterol Y Past Encounters Encounter ID Performer Location Encounter Start Date Encounter Closed Date Diagnosis/Indication Diagnosis SNOMED-CT Code Diagnosis ICD10 Code Diagnosis IMO Codes Diagnosis Note [id number] LUIS A MORENO PA-C [facility] [address] [place] [address] 07/09/2020 08:02:42 07/10/2020 11:12:46 Lumbar radiculopathy 468310991 M54.16 Lumbar spondylosis [address] 0009 M47.963 [id number] RENETTA VILLANUEVA PA-C [facility] [address] [place] [address] 08/06/2020 14:48:08 08/08/2020 13:46:25 Postoperative care [id number] Z48.89 [id number] VENECIA PADILLA MD SURGERY SCHEDULE [address] [place] [address] 08/07/2020 08:31:42 08/07/2020 13:35:48 [id number] VENECIA PADILLA MD [facility] [address] [place] [address] 08/13/2020 14:44:19 08/22/2020 14:39:23 [id number] VENECIA PADILLA MD [facility] [address] [place] [address] 08/27/2020 13:34:16 08/30/2020 16:06:11 Lumbar spondylosis 697676607 M47.457 [id number] RENETTA VILLANUEVA PA-C [facility] [address] [place] [address] 11/26/2020 10:31:17 11/26/2020 13:35:16 Lumbar spondylosis 272528053 M47.761 [id number] LUIS A MORENO PA-C [facility] [address] [place] [address] 03/11/2021 10:05:08 03/12/2021 08:43:56 Lumbar radiculopathy 092647546 M54.16 Health Concerns Section Related Observation LastModified by Organization Detai ls LastModified Time None Recorded Concern Status LastModified by Organization Details LastModified Time None Recorded Advance Directives Directive None Recorded Payers Insurance Date Sequence Insurance Name Policy Number Policy Mae Covered Member ID Mae Member ID Guarantor Name 07/20/2018 1 *SELF PAY* Gl meghan Chi 03/08/2021 2 [place] (MEDICARE SUPPLEMENT) Karla Chi [id number] Karla Chi 03/08/2021 1 [place] Karla Chi [id number] Karla Chi Notes Date Note Type Note [...] of the wound. RENETTA VILLANUEVA PA-C [address] [place], [address], [facility] 08/06/2020 16:41:38 08/27/2020 text/html I saw [...] is doing well. VENECIA PADILLA MD [address] [place], [address], [facility] 08/27/2020 14:03:24 11/26/2020 text/html ROS as [...] it at this time. RENETTA VILLANUEVA PA-C [address] [place], [address], [facility] 11/26/2020 11:54:17 03/11/2021 text/html ROS as [...] to improve. LUIS A MORENO PA-C [address] [place], [address], [facility] 03/11/2021 11:10:20
--- OUTSIDE RECORDS SUMMARY | 2025-04-10 12:52 | XMS_ITS | Encounter Summary ---
Author Organization [facility] Address [address] [place] [address] Care Team Providers Care Frame Runner Name Role Phone Lenin Francois MD Unavailable [phone] Declan Izquierdo MD Primary Care Provider + [phone] Encounter Details Date Type Department Care Team (Late st Contact Info) Description 02/19/2025 Orders Only External Location [address] [place] [address] Jayme Sterling MD [address] [facility] [address] [place] [address] Social History Tobacco Use Types Packs/Day Years [...] drink first t hai in the morning (EYE-TURN LASTER) to steady your nerves or to get [...] Name Priority Date/Time Associated Diagnosis Comments CT OUTSIDE IMAGES 02/19/2025 7:37 AM EDT documented in this encounter Results * CT OUTSIDE IMAGES (02/19/2025 7:37 AM EDT) Anatomical Region Laterality Modality Computed Tomogra phy 02/19/2025 7:37 AM EDT Jayme Sterling MD IMG CT PROCEDURES Edited Resu lt - Final documented in this encounter Visit Diagnoses Not on filedocumented in this encounter Additional Health Concerns Assessment Noted Time A fall risk assessment has been complete d for the patient 09/30/2022 11:19 AM EDT A Body Mass Index follow-up plan has been documented for the patient 09/30/2022 12:29 PM EDT documented as of this encounter Care Teams Frame Runner Relationship Specialty Start Date End Date Declan Izquierdo MD [address] [place] [address] PCP - General 08/29/21 Lenin Francois MD [address] [place] [address] Referring Physician Cardiology 08/27/22 documented as of this encounter
--- OUTSIDE RECORDS SUMMARY | 2025-04-10 12:53 | XMS_ITS | Encounter Summary ---
Author Organization [employer] ([place], [place], [place], [place], [place]) Address [address] [place] [address] Care Team Providers Care Feller Buncher Operator Name Role Phone Unavailable Primary Care Provider Unavailabl e Encounter Details Date Type Department Care Team (Late st Contact Info) Description 07/23/2020 Transcribed Document [facility] [place] [facility] [place] [address] ProviderIsa [place] [address] Social History Tobacco Use Types Packs/Day Years Used Date Smoking Tobacco: Never Assessed Sex and Gender Information Value Date Recorded Sex Assigned at Not on file Legal Sex Male 6:06 PM CDT Gender Identity Not on file Sexual Orientation Not on file documented as of this encounter Miscellaneous Notes * Cerner Conversion Note - Isa ProviderMD - 07/23/2020 10:32 AM LINING STITCHER PAT Adult Entered On: 07/23/2020 10:37 EST [...] Source : Measured Height Entry Format : [place] Height, Feet : 5 ft(Converted to: 152 cm, 60 Inch) Height, Inches : 5 Inch(Converted to: 0 ft 5 Inch, 12.70 cm) Clinical Height : 165.1 cm Weight Source : Standing scale Weight Entry Format : [place] Clinical Dosing Weight : 86.36 kg Weight, Pounds : 190 lb Body Surface Area (BSA) : 1.94 m2 Body Mass Index : 31.7 kg/m2 (HI) Sherman Body Weight : 61 kg Tarah Ramirez Rn - 07/24/2020 8:10 EST Health Histories Smoking Status : Former smoker, quit more than 30 days ago Smokeless Tobacco Status : Never Implant/Device Type, Agricultural Inspector and Model : possible screws in shoulders [...] : Yes Spiritual/Cultural Needs Comment : 07/26/20 Buddhist Preference : Hinduism Spiritual/Cultural Needs Comment : 07/26/20 David Camarillo Rn - 07/23/2020 10:32 EST Gem Suicide Severity Rating Scale (C-SSRS) CSSRS Past [...] 10:32 EST General Info Preferred Name : Lion Mode of Arrival on Unit : Ambulatory Legal Guardian : Daughter Support Person/Patient Regional Business Manager : Yes Support Person/Pt Rep Name : Susan Shiv - daughter Support Person/Pt Rep Contact Information : [phone] Want Family/Rep/Phys Notified of Admit : No David Camarillo Rn - 07/23/2020 10:32 EST Emergency Contact #1 : Susan Chaney Emergency Contact #1 Emergency Contact #1 Relationship : daughter Tarah RamirezRosa - 07/24/2020 8:13 EST Emergency Contact #2 : ` Emergency Contact #2 Phone Number : ` Emergency Contact #2 Relationship : ` Information Obtained From : Patient Primary Language : Turkish Communication Barrier : None Quote Clerk Needed : No David Camarillo Rn - [...]
--- NOTE | 2025-04-10 12:54 | CT_ITS ---
FINAL REPORT TECHNIQUE: Thin section axial images are obtained through the brain after intravenous contrast injection. Multiplanar reconstructions were obtained from the axial data. Exam was performed using dose reduction techniques such as automated exposure control, adjustment of the mA and kV according to patient size, and use of iterative reconstruction technique. CLINICAL HISTORY: severe left sided head/neck pain COMPARISON: None FINDINGS: Exam is limited due to poor contrast bolus timing. The intracerebral portions of the carotid arteries are patent. The anterior and middle cerebral arteries are patent without stenosis or occlusion. The posterior cerebral arteries are patent. The basilar artery is patent. The vertebral arteries are patent. Within limitations of the exam, there is no significant stenosis, aneurysm, or AVM. IMPRESSION: Technically limited exam with no evidence of large vessel occlusion. Reviewed, Interpreted and Dictated by Chela Blanco MD Transcribed by Constance Salcido Authenticated and [facility]
--- NOTE | 2025-04-10 12:54 | CT_ITS ---
FINAL REPORT TECHNIQUE: Thin section axial images were obtained from the aortic arch to the skull base after intravenous contrast injection per CTA protocol. Multiplanar reconstruction images were obtained. Exam was performed using dose reduction techniques and the ALARA principle. CLINICAL HISTORY: severe left sided head/neck pain COMPARISON: None FINDINGS: CTA NECK: There is suboptimal opacification of the arteries. Aortic arch: There is a bovine configuration to the aortic arch. There is no significant stenosis of the great vessels at their origins. Right carotid artery: Calcified plaque at the right carotid bulb with less than 50% stenosis. Right internal carotid artery appears patent to the skull base. Left carotid artery: Calcified plaque in the proximal internal carotid artery with less than 50% stenosis. Remainder is patent to the skull base. Vertebral arteries: The vertebral arteries are patent. No significant stenosis. Other soft tissues: . IMPRESSION: Limited exam due to poor contrast bolus timing. Within limitations of the exam, there is less than 50% stenosis of the carotid arteries bilaterally. Vertebral arteries are patent. Reviewed, Interpreted and Dictated by Chela Blanco MD Transcribed by Constance Salcido Authenticated and [facility]
--- NOTE | 2025-04-10 12:54 | CT_ITS ---
FINAL REPORT TECHNIQUE: Thin section axial images were obtained from skull base to vertex without contrast. Coronal reconstruction images were obtained from the axial data. Exam was performed using dose reduction techniques such as automated exposure control, adjustment of the mA and kV according to patient size, and use of iterative reconstruction technique. CLINICAL HISTORY: severe left sided head/neck pain COMPARISON: none FINDINGS: There is no mass effect or midline shift. There is no hydrocephalus. There is no intracranial hemorrhage. Atrophy is noted. CSF attenuation collection anterior to the left frontal lobe could be an arachnoid cyst. The posterior fossa is without acute abnormality. There is a small amount of fluid in the bilateral maxillary sinuses. Soft tissues are otherwise unremarkable. No acute osseous abnormality is identified. IMPRESSION: No evidence of intracranial hemorrhage or large cortical infarct. Small fluid in the bilateral maxillary sinuses consistent with sinusitis. Reviewed, Interpreted and Dictated by Chela Blanco MD Transcribed by Constance Salcido Authenticated and . [facility]
--- OUTSIDE RECORDS SUMMARY | 2025-04-10 12:54 | XMS_ITS | Encounter Summary ---
Author Organization [employer] ([place], [place], [place], [place], [place]) Address [address] [place] [address] Care Team Providers Care Case Repairer Name Role Phone Unavailable Primary Care Provider Unavailabl e Encounter Details Date Type Department Care Team (Late st Contact Info) Description 07/30/2020 Transcribed Document [facility] Family Medicine [address] [place] [address] ProviderIsa MD [address] [place] [address] Social History Tobacco Use Types Packs/Day Years Used Date Smoking Tobacco: Never Assessed Sex and Gender Information Value Date Recorded Sex Assigned at Not on file Legal Sex Male 6:06 PM CDT Gender Identity Not on file Sexual Orientation Not on file documented as of this encounter Miscellaneous Notes * Cerner Conversion Note - Isa ProviderMD - 07/30/2020 9:49 AM CDT UM Authorization Entered On: 07/30/2020 9:49 EDT Performed On: 07/30/2020 9:49 EDT by Shaunna Wells Rn-Utilization Review Primary Insurance Authorization Authorization and Policy Numbers : Insurance 1 Health Plan: MEDICARE Policy Number: [id number] Authorization Number: Insurance 2 Health Plan: GENERIC COMMERCIAL Policy Number: [id number] Authorization Number: Insurance Primary Name : Medicare Authorization Status-Primary : No precert required Authorization Number-Primary : NPR for Medicare Authorized Service Begin Date-Primary : 07/26/2020 EST Historical Authorization Comments-Primary : Comment 1: Pt is kareem for INPT Lumbar Fusion Posterior 3 Level on Wednesday07-26-20. Medicare: NPR (DEANNA PORTER, Metal Container Maker 07/25/2020 12:37) Shaunna Wells Rn-Utilization Review - 07/30/2020 9:49 EDT Electronically signed by Durga [facility] Conversion Quality Assurance Engineer Cerner at 08/30/2022 6:06 PM CDT documented in this encounter Plan of Treatment Not on file documented as of this encounter Visit Diagnoses Not on filedocumented in this encounter
--- OUTSIDE RECORDS SUMMARY | 2025-04-10 12:54 | XMS_ITS | Clinical Summary ---
Author Organization [employer] ([place], [place], [place], [place], [place]) Address [address] [place] [address] Care Team Providers Care Space Operations Officer Name Role Phone Unavailable Primary Care Provider [...]
--- OUTSIDE RECORDS SUMMARY | 2025-04-10 12:54 | XMS_ITS | Encounter Summary ---
Author Organization [email or web address] ([place], [place], [place], [place], [place]) Address [address] [place] [address] Care Team Providers Care Box Spinner Name Role Phone Unavailable Primary Care Provider Unavailabl e Encounter Details Date Type Department Care Team (Late st Contact Info) Description 07/23/2020 Transcribed Document [facility] [place] [facility] [place] [address] ProviderIsa MD [facility] [place] [address] Social History Tobacco Use Types Packs/Day Years Used Date Smoking Tobacco: Never Assessed Sex and Gender Information Value Date Recorded Sex Assigned at Not on file Legal Sex Male 6:06 PM CDT Gender Identity Not on file Sexual Orientation Not on file documented as of this encounter Miscellaneous Notes * Cerner Conversion Note - Isa ProviderMD - 07/23/2020 10:37 AM ELECTRONIC ENGINEERING TECHNICIAN Spiritual Care Assessment Entered On: 07/23/2020 17:16 EST Performed On: 07/23/2020 10:45 EST by Alejandro Sherman Chaplain-Non Cert General Information Referred by : initiated Ministry Provided to : Patient Temple Preference : Hindu Alejandro Sherman Chaplain-Non Cert - 07/23/2020 17:15 EST Spiritual Assessment Spiritual Assessment Comment/Summary Points : Supportive pre-surgery visit with patient. Spiritual care provided. Spirital Assessment Comment/Summary Report : SPIRITUAL ASSESSMENT COMMENT/SUMMARY No qualifying data available. Alejandro Sherman Chaplain-Non Cert - 07/23/2020 17:15 EST Interventions Emotional Support : Empathic/Engaged listening Spiritual and Temple : Spiritual/Temple support provided Alejandro Sherman Chaplain-Non Cert - 07/23/2020 17:15 EST Electronically signed by Durga [facility] Conversion Correctional Counselor/Case Manager Cerner at 08/30/2022 6:11 PM CDT documented in this encounter Plan of Treatment Not on file documented as of this encounter Visit Diagnoses Not on filedocumented in this encounter
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
--- OUTSIDE RECORDS SUMMARY | 2025-04-10 12:55 | XMS_ITS | Clinical Summary ---
Author Organization [facility] Address [address] [place] [address] Care Team Providers Care Foreign Collection Clerk Name Role Phone Lenin Francois MD Unavailable [phone] Declan Izquierdo MD Primary Care Provider [phone] Allergies No known active allergies Medications clopidogrel (Plavix) 75 MG tabletIndication s:Acute Coronary Syndrome,Percuta neous Coronary Intervention Take 75 mg by mouth [...] each day. 90 tablet 3 3 Active Additional Information Patient not taking.Reported on 03/14/2025 rosuvastatin (Crestor) 40 MG tablet Take 1 [...] needed for constipation. 20 capsule 3 Active Additional Information Patient not taking.Reported on 03/14/2025 ferrous sulfate 324 MG tablet delayed-release Take 1 tablet (324 mg total) by mouth 1 (one) time each day with breakfast. Do not crush, chew, or split. 30 tablet 3 Active Additional Information Patient not taking.Reported on 03/14/2025 metoprolol tartrate 37.5 MG tablet Take 37.5 mg by mouth every 8 (eight) hours. 90 tablet 3 3 Active methocarbamol (Robaxin) 750 MG tablet Take 1 tablet (750 mg total) by mouth 4 (four) times a day for 10 days. 40 tablet 3 Active Additional Information Patient not taking.Reported on 03/14/2025 Insulin Syringe-Needle U-100 30G X 5/16 0.3 [...] with meals. 10 mL 3 3 Active Additional Information Patient not taking.Reported on 03/14/2025 Ozempic, 1 MG/DOSE, 4 MG/3ML solution pen-injector Inject 1 mg under the skin 1 time per week. Active isosorbide mononitrate ER (Imdur) 120 MG 24 hr tablet Take 1 tablet by mouth 2 times a day. 5 Active Tresiba FlexTouch 100 UNIT/ML injection pen Inject 40 Units under the skin 2 times a day. Active bisoprolol (Zebeta) 10 MG tablet Take 1 tablet by mouth 2 times a day. 5 Active furosemide (Lasix) 20 MG tablet Take 1 tablet by mouth daily. 5 Active magnesium oxide (Mag-Ox) 400 (240 Mg) MG tablet Take 1 tablet by mouth 2 times a day. 5 Active metoclopramide (Reglan) 5 MG tablet Take 1 tablet by mouth 2 times a day. Active amLODIPine (Norvasc) 10 MG tablet Take 1 tablet by mouth daily. Active levothyroxine (Synthroid, Levoxyl) 75 MCG tablet Take 1 tablet by mouth daily. Active Jardiance 10 MG Take 1 tablet by mouth daily. 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 Travel 02/19/2025 Orders Only External Location [address] [place] [address] Jayme Sterling MD 02/19/2025 Orders Only External Location [address] [place] [id number] Provider, External from Last 3 Months Immunizations Immunization Administration Dates Next Due Influenza, [...] drink first t hai in the morning (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-AFTERSCHOOL BABYSITTER) to steady your nerves or to get [...] Pulse 77 03/14/2025 9:24 AM EDT Temperature 36.7 C (98.1 F) 05/04/2023 12:41 AM EST Respiratory Rate 17 05/04/2023 12:4 1 AM EST Oxygen Saturation 97% 03/14/2025 9:24 AM EDT Inhaled Oxygen Concentration - - Weight 88.9 kg (195 lb 15.8 oz) 03/14/2025 9:24 AM EDT Height 165.1 cm (5' 5 ) 03/14/2025 9:24 AM EDT Body Mass Index 32.61 03/14/2025 9:24 AM EDT Plan of Treatment Health Maintenance Due Date Last Done Comments [facility]-Medicare Annual Wellness (AWV) 1950 [facility]-Infant/Child/Adol SDOH Screenings 1950 Diabetes: Dental Exam 1960 [facility]- SDOH Screenings 1968 [facility]-Adult SDOH Screenings 1968 [facility]-DTaP,Tdap,and Td Vaccine s (1 - Tdap) 1969 CT Colonography 1995 Colonoscopy 1995 FIT-DNA 1995 FIT 1995 FOBT 1995 Sigmoidoscopy 1995 [facility]-Colorectal Cancer Screening 1995 [facility]-Zoster Vaccines (1 of 2) 2000 [facility]-RSV Vaccine: 60+ Years o r (1 - Risk 60-74 years 1-dose series) 2010 [id number]-QTDBV-51 Vaccine (2 - Keith risk series) 10/17/2020 09/19/2020 [facility]-Diabetes: Hemoglobin A1C 12/13/2023, 08/28/2022, 04/22/2022 [facility]-Influenza Vaccine (#1) 01/15/202502/08, 03/21/2020, 03/02/2019 [facility]-Depression Screening 03/14/2026 03/14/2025 [facility]-Hepatitis C Screening Completed 02/07/2020 [facility]-Pneumococcal Vaccine: 50 + Years Completed 02/22/2023, 09/01/2018, 03/09/2016 [facility]-Obesity Intervention Completed 025, 09/30/2022 HPV Vaccines Aged Out No longer eligi [...] Associated Diagnosis Comments CT OUTSIDE IMAGES 02/19/2025 7:[address] THORACIC OUTSIDE IMAGES 02/19/2025 7:37 AM EDT HEMOGLOBIN A1C Routine 08/28/2022 11:48 PM EDT HEPATITIS C ANTIBODY - ED W/REFLEX TO HCV QUANT PCR Routine 02/07/2020 5:26 AM EDT from Last 3 Months or Most Recently Relevant to Health Maintenance Results * CT THORACIC OUTSIDE IMAGES (02/19/2025 7:37 AM EDT) Anatomical Region Laterality Modality Computed Tomogra phy 02/19/2025 7:37 AM EDT us External Provider IMG CT PROCEDURES Edited Resul t - Final * CT OUTSIDE IMAGES (02/19/2025 7:37 AM EDT) Anatomical Region Laterality Modality Computed Tomogra phy 02/19/2025 7:37 AM EDT Jayme Sterling MD IMG CT PROCEDURES Edited Resu lt - Final * (ABNORMAL) Hemoglobin A1c (08/28/2022 11:48 PM EDT) Hemoglobin A1c 9.6(H) <5.7 % 08/29/2022 1:33 AM EDT [facility] Blood Venous blood specimen / Unknown Venipuncture / Unknown 08/28/2022 11:48 PM EDT 08/29/2022 12:41 AM EDT Narrative [facility] - 08/29/2022 1:33 AM EDT HA1C Interpretive Data: Diagnosis of Diabetes: Diabetic > or = 6.5% Pre-diabetic 5.7 to 6.4% Non-diabetic < or = 5.6% Glycemic Targets for Type I and Type II Diabetics: Non- Adults <7.0% Adults <6.0% Children and Adolescents <7.5% Source: [place] Diabetes Association. Standards of medical care in diabetes,2017. Diabetes Care.2017:40 (suppl 1):S1-S135. HbA1c assay performed by an ion-exchange chromatography method that is certified traceable to the DCCT. Solange Phan MD LAB BLOOD ORDERABLES Final Res ult Performing Organization Address City/[facility]/ZIP Co de Phone Number [facility]ARE [facility] [address] [place] [address] * Lee Hepatitis C Antibody (02/07/2020 5:26 AM EDT) Lee Hepatitis C Ab NEGATIVE Reference Range: Negative SUNQUEST 02/07/2020 5:26 AM EDT 02/07/2020 5:41 AM EDT Nader Callahan MD LAB BLOOD ORDERABLES Final Resul t Performing Organization Address City/[facility] Co de Phone Number SUNQUEST from Last 3 Months or Most Recently Relevant to Health Maintenance Insurance MEDICARE GENERIC COMMERCIAL Advance Directives * Full Code (Latest Code Status on File) Date Activated Date Inactivated Comments 09/01/2022 8:06 PM 09/07/2022 7:06 PM Question Answer Comments Patient has decision-making capacity? Yes * Full Code Date Activated Date Inactivated Comments 08/28/2022 10:28 PM 09/01/2022 8:06 PM Question Answer Comments Patient has decision-making capacity? Yes Care Teams Foreign Collection Clerk Relationship Specialty Start Date End Date Declan Izquierdo MD [address] [place] [address] PCP - General 08/29/21 Lenin Francois MD [address] [place] [address] Referring Physician Cardiology 08/27/22
--- OUTSIDE RECORDS SUMMARY | 2025-04-10 12:55 | XMS_ITS | Encounter Summary ---
Author Organization [employer] ([place], [place], [place], [place], [place]) Address [address] [place] [address] Care Team Providers Care Licensing Director Name Role Phone Unavailable Primary Care Provider Unavailabl e Encounter Details Date Type Department Care Team (Late st Contact Info) Description 07/28/2020 Transcribed Document [facility] Family Medicine [facility] [place] [address] ProviderIsa MD [address] [place] [address] Social History Tobacco Use [...] 1950 Associated Diagnoses: None Author: ERIC CLARKE PA-FAM 07/28/2020 cc: medical management S: Pt [...] is a 70 yo male admitted to [facility] per Dr. Mars for an L4-5 [...] DBP 78 (JUL 28 10:00) 71 (JUL 27:01) 78 (JUL 28 00:12) MAP 92 (JUL [...] takes insulin either. He may benefit from streetsweeper operator referral if glucose levels do not improve with jardiance. OK to discharge from IM standpoint pain meds per surgery bowel regimen at home IS at home Assessment and treatment plan made in conjunction with Jp Newsome MD Scribed by Shanika Malinally signed by Durga, Rip Conversion Concession Manager Cerner at 08/30/2022 6:04 PM CDT documented in this encounter Plan of Treatment Not on file documented as of this encounter Visit Diagnoses Not on filedocumented in this encounter
--- OUTSIDE RECORDS SUMMARY | 2025-04-10 12:55 | XMS_ITS | Encounter Summary ---
Author Organization [employer] ([place], [place], [place], [place], [place]) Address [address] [place] [address] Care Team Providers Care Environmental Projects Advisor Name Role Phone Unavailable Primary Care Provider Unavailabl e Encounter Details Date Type Department Care Team (Late st Contact Info) Description 07/28/2020 Transcribed Document [facility] Family Medicine [address] [place] [address] ProviderIsa MD [address] [place] [address] Social History Tobacco Use Types [...] Orozco MD - 07/28/2020 1:09 PM CDT [facility] [place] [address] KARLA CHI :1950 Visit Time:07/26/2020 Your Visit Summary Your Care Team Admitting Physician - VENECIA PADILLA MD-SNU Attending Physician - VENECIA PADILLA MD-SNU Primary Care Physician - VIRGIL BHAGAT (REF), [facility] Referring Physician - VENECIA PADILLA MD-SNU Your [...] for appointment with Dr. Padilla Where: [address] [address]- Follow Up with VENECIA PADILLA When 08/13/2020 03:00 AM EDT Comments Appointment has been made Where: [address] [address]- Business (1) Medications What How [...] needed for as needed for constipation available lxsh-ysy-dkczckw take while taking pain medication take with [...] these instructions at home: Medicines ??? Take pvma-vkq-gnwhxsf and prescription medicines only as told by [...] and water are not available, use hand executive vice president and chief financial officer. ? Change your dressing as told by [...] urine clear or pale yellow. ? Take gygn-azx-pgfcfju or prescription medicines. ? Eat foods that [...] 11/20/2005 Document Revised: 01/21/2019 Document Reviewed: 04/21/2017 [employer] Patient Education ?? 2020 [employer] Laminectomy, Care After This sheet gives [...] and water are not available, use hand executive vice president and chief financial officer. ? Change your dressing as told by [...] or a bad smell. Medicines ??? Take cvio-rcv-pvgxvpu and prescription medicines only as told by [...] urine clear or pale yellow. ? Take jfin-wuv-rwhfpbv or prescription medicines. ? Eat foods that [...] 11/20/2005 Document Revised: 04/15/2018 Document Reviewed: 10/18/2016 [employer] Patient Education ?? 2020 [employer] Type 2 Diabetes Mellitus, Self Care, [...] and canola oil. ??? Meet with a food service representative (dietitian). He or she can help you [...] cuts, bruises, redness, blisters, or sores. ??? [place] your teeth and gums two times a day. Floss one or more times a day. ??? Go to the dentist one or more times every 6 months. ??? Stay at a healthy weight. General instructions ??? Take igss-wfy-kjnhrks and prescription medicines only as told by [...] Do I need to meet with a post framer? Where can I find a support group for people with diabetes? Where to find more information To learn more about diabetes, visit: ??? [place] Diabetes Association: www.diabetes.org ??? [place] Association of Diabetes Educators: www.diabeteseducator.org Summary ??? [...] 08/24/2016 Document Revised: 10/24/2018 Document Reviewed: 06/05/2016 [employer] Patient Education ?? 2020 [employer] Diabetes Action Plan Following a diabetes [...] find more information about diabetes from: ??? [place] Diabetes Association (ADA): www.diabetes.org ??? [place] Association of Diabetes Educators (AADE): www.diabeteseducator.org Summary [...] Do I need to meet with a post framer? What equipment will I need to care [...] diabetes? Where to find more information ??? [place] Diabetes Association: www.diabetes.org ??? [place] Association of Diabetes Educators: www.diabeteseducator.org/patient-resources Contact a [...] 08/05/2018 Document Revised: 06/23/2019 Document Reviewed: 08/05/2018 [employer] Patient Education ?? 2020 [employer] Carbohydrate Counting for Diabetes Mellitus, Adult [...] for every person. A diet and nutritional health coach (registered dietitian) can help you make a [...] of carbohydrates: ? hamburger bun or ?? Indonesian muffin. ? oz (15 mL) syrup. ? [...] foods that contain carbohydrates: ??? Rice. ??? [place]. ??? Milk. ??? Strawberries. 2. Calculate how [...] your diabetes. ??? A diet and nutritional health coach (registered dietitian) can help you make a meal plan and calculate how many carbohydrates you should have at each meal and snack. This information is not intended to replace advice given to you by your health care provider. Make sure you discuss any questions you have with your health care provider. Document Released: 05/03/2006 Document Revised: 11/25/2017 Document Reviewed: 10/14/2016 [employer] Patient Education ?? 2020 [employer] Blood Glucose Monitoring, Adult Monitoring your [...] 05/05/2004 Document Revised: 02/24/2019 Document Reviewed: 10/12/2016 [employer] Patient Education ?? 2020 [employer] Diabetes Mellitus and Nutrition, Adult When [...] you work with a diet and nutritional health coach (dietitian) to make a meal plan that [...] provider. ??? Work with a counselor or post framer to identify strategies to manage stress and any emotional and social challenges. Questions to ask a health care provider ??? Do I need to meet with a post framer? Do I need to meet with a dietitian? What number can I call if I have questions? When are the best times to check my blood glucose? Where to find more information: ??? [place] Diabetes Association: diabetes.org ??? Academy of Nutrition and Dietetics: www.eatright.org ??? National [place] of Diabetes and Digestive and Kidney Diseases (NIH): www.niddk.nih.gov Summary ??? A healthy meal plan will help you control your blood glucose and maintain a healthy lifestyle. ??? Working with a diet and nutritional health coach (dietitian) can help you make a meal [...] 01/28/2006 Document Revised: 04/15/2018 Document Reviewed: 06/07/2017 [employer] Patient Education ?? 2020 [employer] Spinal Fusion, Adult Spinal fusion is [...] including vitamins, herbs, eye drops, creams, and wgxp-ihb-tbjhjwp medicines. ??? Any problems you or family [...] given medicine as needed for pain. ??? documented in this encounter Plan of Treatment Not on file documented as of this encounter Visit Diagnoses Not on filedocumented in this encounter
--- OUTSIDE RECORDS SUMMARY | 2025-04-10 12:55 | XMS_ITS | Encounter Summary ---
Author Organization [employer] ([place], [place], [place], [place], [place]) Address [address] [place] [address] Care Team Providers Care Application Design Engineer Name Role Phone Unavailable Primary Care Provider Unavailabl e Encounter Details Date Type Department Care Team (Late st Contact Info) Description 07/28/2020 Transcribed Document [facility] Family Medicine [address] [place] [address] ProviderIsa MD [address] [place] [address] Social History Tobacco Use Types [...] canola oil. ??? Meet with a food services manager (dietitian). He or she can help you [...] cuts, bruises, redness, blisters, or sores. ??? [place] your teeth and gums two times a day. Floss one or more times a day. ??? Go to the dentist one or more times every 6 months. ??? Stay at a healthy weight. General instructions ??? Take osbx-ypz-svoehwn and prescription medicines only as told by [...] Do I need to meet with a family life educator? Where can I find a support group for people with diabetes? Where to find more information To learn more about diabetes, visit: ??? [place] Diabetes Association: www.diabetes.org ??? [place] Association of Diabetes Educators: www.diabeteseducator.org Summary ??? [...] 08/24/2016 Document Revised: 10/24/2018 Document Reviewed: 06/05/2016 [employer] Patient Education ? 2020 [employer] Diabetes Action Plan Following a diabetes [...] find more information about diabetes from: ??? [place] Diabetes Association (ADA): www.diabetes.org ??? [place] Association of Diabetes Educators (AADE): www.diabeteseducator.org Summary [...] 02/23/2018 Document Revised: 07/01/2018 Document Reviewed: 02/23/2018 [employer] Patient Education ? 2019 [employer] Diabetes Basics Diabetes (diabetes mellitus) is a [...] Do I need to meet with a family life educator? What equipment will I need to care [...] diabetes? Where to find more information ??? [place] Diabetes Association: www.diabetes.org ??? [place] Association of Diabetes Educators: www.diabeteseducator.org/patient-resources Contact a [...] 08/05/2018 Document Revised: 06/23/2019 Document Reviewed: 08/05/2018 [employer] Patient Education ? 2020 [employer] Carbohydrate Counting for Diabetes Mellitus, Adult [...] different for every person. A diet and food and nutrition professor (registered dietitian) can help you make a [...] of carbohydrates: ? hamburger bun or ? Japanese muffin. ? oz (15 mL) syrup. ? [...] foods that contain carbohydrates: ??? Rice. ??? [place]. ??? Milk. ??? Strawberries. 2. Calculate how [...] manage your diabetes. ??? A diet and food and nutrition professor (registered dietitian) can help you make a meal plan and calculate how many carbohydrates you should have at each meal and snack. This information is not intended to replace advice given to you by your health care provider. Make sure you discuss any questions you have with your health care provider. Document Released: 05/03/2006 Document Revised: 11/25/2017 Document Reviewed: 10/14/2016 [employer] Patient Education ? 2020 [employer] Blood Glucose Monitoring, Adult Monitoring your [...] 05/05/2004 Document Revised: 02/24/2019 Document Reviewed: 10/12/2016 [employer] Patient Education ? 2020 [employer] Diabetes Mellitus and Nutrition, Adult When [...] that you work with a diet and food and nutrition professor (dietitian) to make a meal plan that [...] provider. ??? Work with a counselor or family life educator to identify strategies to manage stress and any emotional and social challenges. Questions to ask a health care provider ??? Do I need to meet with a family life educator? Do I need to meet with a dietitian? What number can I call if I have questions? When are the best times to check my blood glucose? Where to find more information: ??? [place] Diabetes Association: diabetes.org ??? Academy of Nutrition and Dietetics: www.eatright.org ??? National [place] of Diabetes and Digestive and Kidney Diseases (NIH): www.niddk.nih.gov Summary ??? A healthy meal plan will help you control your blood glucose and maintain a healthy lifestyle. ??? Working with a diet and food and nutrition professor (dietitian) can help you make a meal [...] 01/28/2006 Document Revised: 04/15/2018 Document Reviewed: 06/07/2017 [employer] Patient Education ? 2020 [employer]. Orthopedics Spinal Fusion, Adult, Care After This [...] these instructions at home: Medicines ??? Take gdsx-fxb-wmdnwws and prescription medicines only as told by [...] and water are not available, use hand talent specialist. ? Change your dressing as told by [...] urine clear or pale yellow. ? Take zube-vdj-hzxtnig or prescription medicines. ? Eat foods that [...] 11/20/2005 Document Revised: 01/21/2019 Document Reviewed: 04/21/2017 [employer] Patient Education ? 2020 [employer] Laminectomy, Care After This sheet gives [...] and water are not available, use hand talent specialist. ? Change your dressing as told by [...] or a bad smell. Medicines ??? Take nhsm-aju-vumjasz and prescription medicines only as told by [...] urine clear or pale yellow. ? Take dpqv-ljg-zlkooej or prescription medicines. ? Eat foods that [...] 11/20/2005 Document Revised: 04/15/2018 Document Reviewed: 10/18/2016 [employer] Patient Education ? 2020 [employer] Spinal Fusion, Adult Spinal fusion is [...] including vitamins, herbs, eye drops, creams, and bjnv-qbj-dqwtynq medicines. ??? Any problems you or family [...] 01/30/2004 Document Revised: 04/15/2018 Document Reviewed: 04/20/2017 [employer] Patient Education ? 2020 [employer] documented in this encounter Plan of Treatment Not on file documented as of this encounter Visit Diagnoses Not on filedocumented in this encounter
--- OUTSIDE RECORDS SUMMARY | 2025-04-10 12:55 | XMS_ITS | Encounter Summary ---
Author Organization [employer] ([place], [place], [place], [place], [place]) Address [address] [place] [address] Care Team Providers Care Outpatient Coding Specialist Name Role Phone Unavailable Primary Care Provider Unavailabl e Encounter Details Date Type Department Care Team (Late st Contact Info) Description 07/28/2020 Transcribed Document [facility] Family Medicine [address] [place] [address] ProviderIsa MD [address] [place] [address] Social History Tobacco Use Types [...] issues Electronically signed by Jovan Calixto Conversion Packaging Machine Supplies Distributor Navin at 08/30/2022 6:02 PM CDT documented in this encounter Plan of Treatment Not on file documented as of this encounter Visit Diagnoses Not on filedocumented in this encounter
--- OUTSIDE RECORDS SUMMARY | 2025-04-10 12:55 | XMS_ITS | Encounter Summary ---
Author Organization [employer] ([place], [place], [place], [place], [place]) Address [address] [place] [address] Care Team Providers Care Computer Operations Supervisor Name Role Phone Unavailable Primary Care Provider Unavailabl e Encounter Details Date Type Department Care Team (Late st Contact Info) Description 07/28/2020 Transcribed Document [facility] Family Medicine [facility] [place] [address] ProviderIsa MD [facility] [place] [address] Social History Tobacco Use Types [...] [place]an PHYSICAL THERAPIST - 07/28/2020 13:53 EDT [facility] Goals Mobility/Bed Mobility LTG PT Grid Goal [...] 07/28/2020 13:53 EDT Electronically signed by Durga [facility] Conversion Manager Rehab Cerner at 08/30/2022 6:03 PM CDT documented in this encounter Plan of Treatment Not on file documented as of this encounter Visit Diagnoses Not on filedocumented in this encounter
--- OUTSIDE RECORDS SUMMARY | 2025-04-10 12:55 | XMS_ITS | Encounter Summary ---
Author Organization [email or web address] ([place], [place], [place], [place], [place]) Address [address] [place] [address] Care Team Providers Care Electronic Page Makeup System Operator Name Role Phone Unavailable Primary Care Provider Unavailabl e Encounter Details Date Type Department Care Team (Late st Contact Info) Description 07/28/2020 Transcribed Document [facility] [place] [facility] [place] [address] ProviderIsa MD [facility] [place] [address] Social History Tobacco Use Types [...] On: 07/28/2020 11:22 EDT by LEONID LANGE RN-Telecommunications Field Engineer Initial Assessment I Previously Documented Living Environment [...] have PCP Listed? : Yes LEONID LANGE RN-Telecommunications Field Engineer - 07/28/2020 11:22 EDT Initial Assessment II Sensory and Motor Deficits : None Current Home Treatments and Equipment : Cane Does the Patient have a Floor to SNF Benefit? : Yes LEONID LANGE RN-Telecommunications Field Engineer - 07/28/2020 11:22 EDT Discharge Needs I Anticipated Discharge Date : 07/28/2020 EST Anticipated Discharge To, CM : Home with family care Current Home Treatment/Equipment : Current Home Treatment/Equipment No qualifying data available. Post Acute/Home Treatments : None Documentation Status Complete : Yes LEONID LANGE RN-Telecommunications Field Engineer - 07/28/2020 11:22 EDT Discharge Needs II Professional Skilled Services : Professional Skilled Services No qualifying data available. Needs Assistance with Transportation : No LEONID LANGE RN-Telecommunications Field Engineer - 07/28/2020 11:22 EDT Narrative Note Narrative Note : 70yo male pt s/p L4-5 PLIF. Pt ambulated 200ft POD 0 and 325ft POD 1 independently without use of AD. No CM needs noted. Pt dc'd home with family. LEONID LANGE RN-Telecommunications Field Engineer - 07/28/2020 11:22 EDT documented in this encounter Plan of Treatment Not on file documented as of this encounter Visit Diagnoses Not on filedocumented in this encounter
--- OUTSIDE RECORDS SUMMARY | 2025-04-10 12:55 | XMS_ITS | Clinical Summary ---
Author Organization [facility] Address [address] [place] [address] Care Team Providers Care Salvage Inspector Name Role Phone Declan Izquierdo MD Primary Care Provider + [phone] Allergies No known active allergies Medications Ranolazine [...] 10 MG tabletIndication s:Coronary artery disease involving [place] coronary artery of [place] heart with unstable angina pectoris,Essenti al hypertension Take 1 tablet by mouth Daily. 90 tablet 1 2 Active metFORMIN (GLUCOPHAGE) 500 MG tabletIndication s:Type 2 diabetes mellitus with hyperglycemia, with long-term current use of insulin Take 2 tablets by mouth 2 (Two) Times a Day With Meals. 2 Active metoprolol succinate XL (TOPROL-XL) 50 MG 24 hr tabletIndication s:Coronary artery disease involving [place] coronary artery of [place] heart with unstable angina pectoris Take 1 tablet by mouth Daily. 90 tablet 1 2 Active nitroglycerin (NITROSTAT) 0.4 MG SL tabletIndication s:Coronary artery disease involving [place] coronary artery of [place] heart with unstable angina pectoris 1 under [...] insulin 04/23/2022 Coronary artery disease invo lving [place] coronary artery of [place] heart with angina pectoris 04/23/2022 Overview (04/23/2022): [...] or training? Not on file Preferred Language South Korean 09/13/2023 Sex and Gender Information Value Date [...] - 5.60 % 09/13/2023 12:52 PM EDT [facility] Blood Venipuncture / Unknown 09/13/2023 12:08 PM EDT 09/13/2023 12:25 PM EDT [facility] - 09/13/2023 12:52 PM EDT Hemoglobin A1C Ranges: Increased Risk for Diabetes 5.7% to 6.4% Diabetes >= 6.5% Diabetic Goal < 7.0% Rocco Cordero MD LAB BLOOD ORDERABLES Marita l Result [facility]
[address] [phone] * (ABNORMAL) Lipid Panel (04/22/2022 11:17 PM EST) Total Cholesterol 228(H) 0 - 200 mg/dL 04/23/2022 1:17 AM EST [facility] Triglycerides 430(H) 0 - 150 mg/dL 04/23/2022 1:17 AM EST [facility] HDL Cholesterol 46 40 - 60 mg/dL 04/23/2022 1:17 AM EST [facility] LDL Cholesterol 108(H) 0 - 100 mg/dL 04/23/2022 1:17 AM EST [facility] VLDL Cholesterol 74(H) 5 - 40 mg/dL 04/23/2022 1:17 AM EST [facility] LDL/HDL Ratio 2.09 04/23/2022 1:17 AM EST [facility] Blood Venipuncture / Unknown 04/22/2022 11:17 PM EST 04/22/2022 11:32 PM EST [facility] - 04/23/2022 1:17 AM EST Cholesterol [...] High 160-189 mg/dL Very High >189 mg/dL [facility] Angelique DO LAB BLOOD ORDERABLES Final Resu lt [facility]
[address] [place] [address], from Last 3 Months or Most Recently Relevant to Health Maintenance Insurance MEDICARE A & B [facility] Advance Directives * CPR (Attempt to [...] or is breathing): Full Support Care Teams Salvage Inspector Relationship Specialty Start Date End Date Declan Izquierdo MD [facility] [address] [facility] [address] [place] [address] PCP - General Family Medicine 10/10/19
--- OUTSIDE RECORDS SUMMARY | 2025-04-10 12:55 | XMS_ITS | Encounter Summary ---
Author Organization [employer] ([place], [place], [place], [place], [place]) Address [address] [place] [address] Care Team Providers Care Litigation Legal Assistant Name Role Phone Unavailable Primary Care Provider Unavailabl e Encounter Details Date Type Department Care Team (Late st Contact Info) Description 07/27/2020 Transcribed Document [facility] Radiology 1 [place] [address] Ilya Kapoor MD [address] [address] Social History Tobacco Use Types [...] a 70 yo male [address] to [facility] per Dr. Mars for an L4-5 [...] Last Charted Minimum Maximum Temp 98.3 (JUL 27:31) 97.6 (JUL 27 00:00) 98.3 (JUL 27:31) Mon HR 94 (JUL 27:) 76 (JUL 26 20:00) 134 (JUL 26 14:55) Resp Rate 16 (JUL 27:31) 14 (JUL 26 15:25) 18 (JUL 26 09:00) SBP H 146 (JUL 27:) 119 (JUL 27 00:00) H 158 (JUL 26 09:00) DBP 83 (JUL 27:) 62 (JUL 26 20:00) 86 (JUL 26 09:00) MAP 99 (JUL 27:) 93 (JUL 26 15:55) 113 (JUL 26 [...]
--- OUTSIDE RECORDS SUMMARY | 2025-04-10 12:55 | XMS_ITS | Encounter Summary ---
Author Organization [employer] ([place], [place], [place], [place], [place]) Address [address] [place] [address] Care Team Providers Care Sheetmetal Trades Worker Name Role Phone Unavailable Primary Care Provider Unavailabl e Encounter Details Date Type Department Care Team (Late st Contact Info) Description 07/28/2020 Transcribed Document [facility] [place] [address] [place] [address] ProviderIsa MD [address] [place] [address] Social History Tobacco Use Types [...] On: 07/28/2020 12:42 EDT by Miranda Mancilla optical instrument specialist Documentation Discharge Date/Time : 07/28/2020 13:25 EDT [...]
--- OUTSIDE RECORDS SUMMARY | 2025-04-10 12:55 | XMS_ITS | Encounter Summary ---
Author Organization [employer] ([place], [place], [place], [place], [place]) Address [address] [place] [address] Care Team Providers Care Yoga Coordinator Name Role Phone Unavailable Primary Care Provider Unavailabl e Encounter Details Date Type Department Care Team (Late st Contact Info) Description 07/27/2020 Transcribed Document [facility] Neurology - [address] [facility] [address] [place] [address] [place] [address] [place] [address] [address] [place] [id number] Social History Tobacco Use Types Packs/Day Years [...] PADILLA MD-SNU af vss isra 120 serosanguinous 5/ c/d/i in chair no headache looks great goal is dc drain tomorrow. home w/ home health p.t. tomorrow or next day documented in this encounter Plan of Treatment Not on file documented as of this encounter Visit Diagnoses Not on filedocumented in this encounter
--- OUTSIDE RECORDS SUMMARY | 2025-04-10 12:56 | XMS_ITS | Encounter Summary ---
Author Organization [employer] ([place], [place], [place], [place], [place]) Address [address] [place] [address] Care Team Providers Care Lean Leader Name Role Phone Unavailable Primary Care Provider Unavailabl e Encounter Details Date Type Department Care Team (Late st Contact Info) Description 07/26/2020 Transcribed Document [facility] [place] Family Medicine [address] [place] [address] ProviderIsa MD [address] [place] [address] Social History Tobacco Use Types Packs/Day Years Used Date Smoking Tobacco: Never Assessed Sex and Gender Information Value Date Recorded Sex Assigned at Not on file Legal Sex Male 6:06 PM CDT Gender Identity Not on file Sexual Orientation Not on file documented as of this encounter Miscellaneous Notes * Cerner Conversion Note - Isa ProviderMD - 07/26/2020 1:09 PM TANNING WHEEL FILLER [facility] Main OR PACU Summary Primary Physician: VENECIA PADILLA MD-SN Finalized Date/Time: 07/26/20 17:24:45 Pt. Name: KARLA CHI D.O.B./Sex: 1950 Male Med Rec #: [id number] Physician: VENECIA PADILLA MD-SNU Financial #: [id number] Pt. Type: I Room/Bed: [facility]/1 Admit/Disch: 07/26/20 06:35:00 - Institution: [facility] Main OR PACU I Case Times Entry [...]
--- OUTSIDE RECORDS SUMMARY | 2025-04-10 12:56 | XMS_ITS | Encounter Summary ---
Author Organization [employer] ([place], [place], [place], [place], [place]) Address [address] [place] [address] Care Team Providers Care Logistics/Shipper Name Role Phone Unavailable Primary Care Provider Unavailabl e Encounter Details Date Type Department Care Team (Late st Contact Info) Description 07/26/2020 Transcribed Document [facility] [place] [facility] [place] [address] ProviderIsa MD [facility] [place] [address] Social History Tobacco Use Types Packs/Day Years Used Date Smoking Tobacco: Never Assessed Sex and Gender Information Value Date Recorded Sex Assigned at Not on file Legal Sex Male 6:06 PM CDT Gender Identity Not on file Sexual Orientation Not on file documented as of this encounter Miscellaneous Notes * Cerner Conversion Note - Isa ProviderMD - 07/26/2020 6:34 AM LUMBER CUTTER Admission History, Adult Entered On: 07/26/2020 16:41 [...] Home Treatments : Blood glucose monitoring Hannah Olivo, Gina Emp Student Nurse Practitioner - 07/26/2020 16:28 EST (Not Validated) General Info Preferred Name : Lion Mode of Arrival on Unit : Ambulatory Legal Guardian : Daughter Support Person/Patient Vacuum Pan Tender : Yes Support Person/Pt Rep Name : Susan Chaney - daughter Support Person/Pt Rep Contact Information : [phone] Want Family/Rep/Phys Notified of Admit : No Emergency Contact #1 : Susan Chaney Emergency Contact #1 Emergency Contact #1 Relationship : daughter Emergency Contact #2 : ` Emergency Contact #2 Phone Number : ` Emergency Contact #2 Relationship : ` Information Obtained From : Patient Primary Language : Burkinan Communication Barrier : None I&C Technician Needed : No Hannah Olivo Non Emp [...] Scale Risk Level : 25-45 Medium Risk [place] Fall Interventions : Adequate lighting, Assistive devices [...] Smokeless Tobacco Status : Never Implant/Device Type, Piano Instructor and Model : possible screws in shoulders cataract surgery Hnanah Olivo Non Emp Student Nurse Practitioner - 07/26/2020 16:28 EST [Not Validated] Social History (As Of: 07/26/2020 16:41:19 EST) Tobacco: Former smoker, quit more than 30 days ago Smoking Status. Never Smokeless Tobacco Status. None Smokeless Tobacco Use History. Last Used: quit 30 some years ago . (Last Updated: 07/23/2020 10:32:21 EST by David Camarillo, Rosa) Alcohol: Alcohol Use History No. Use in Last 12 Months: No. (Last Updated: 07/23/2020 10:32:21 EST by David Camarillo, Rn) Substance Abuse: Drug Use Hx: No. Use in Last 12 Months: No. (Last Updated: 07/23/2020 10:32:21 EST by David Camarillo Rn) Height and Weight, Clinical Dosing Height Source : Measured Height Entry Format : Lindsay Height, Feet : 5 ft(Converted to: 152 cm, 60 Inch) Height, Inches : 5 Inch(Converted to: 0 ft 5 Inch, 12.70 cm) Clinical Height : 165.1 cm Weight Source : Standing scale Weight Entry Format : Lindsay Clinical Dosing Weight : 86.36 kg Weight, Pounds : 190 lb Body Surface Area (BSA) : 1.94 m2 Body Mass Index : 31.7 kg/m2 (HI) [place] Body Weight : 61 kg Hannah Olivo [...] Practitioner - 07/26/2020 16:28 EST (Not Validated) [place] Suicide Severity Rating Scale (C-SSRS) CSSRS Past [...] : Yes Spiritual/Cultural Needs Comment : 07/26/20 Mormon Preference : Adventist Spiritual/Cultural Needs Comment : 07/26/20 Olivo, Hannah [...]
--- OUTSIDE RECORDS SUMMARY | 2025-04-10 12:56 | XMS_ITS | Encounter Summary ---
Author Organization [employer] ([place], [place], [place], [place], [place]) Address [address] [place] [address] Care Team Providers Care Staff Accountant Name Role Phone Unavailable Primary Care Provider Unavailabl e Encounter Details Date Type Department Care Team (Late st Contact Info) Description 07/26/2020 Transcribed Document [facility] [place] Family Medicine [address] [place] [address] ProviderIsa MD [address] [place] [address] Social History Tobacco Use Types Packs/Day Years Used Date Smoking Tobacco: Never Assessed Sex and Gender Information Value Date Recorded Sex Assigned at Not on file Legal Sex Male 6:06 PM CDT Gender Identity Not on file Sexual Orientation Not on file documented as of this encounter Miscellaneous Notes * Cerner Conversion Note - Isa ProviderMD - 07/26/2020 1:09 PM PATCH SETTER [facility] Main OR Preop Summary Primary Physician: VENECIA PADILLA MD-BELÉN Finalized Date/Time: 07/26/20 14:16:55 Pt. Name: KARLA CHIO.B./Sex: 1950 Male Med Rec #: [id number] Physician: VENECIA PADILLA MD-BELÉN Financial #: [id number] Pt. Type: I Room/Bed: ASA/1 Admit/Disch: 07/26/20 06:35:00 - Institution: [facility] PreOp Case Times Entry 1 In Preop 07/26/20 09:47:00 Ready for Holding n/a Room Patient Ready for 07/26/20 11:00:00 Surgery Patient Out of Preop 07/26/20 12:42:00 Patient Out of n/a Holding Room Last Modified By: PRECIOUS JAUREGUI RN 07/26/20 14:15:04 [facility] PreOp Case Times Audit 07/26/20 14:15:04 Handicapper Harness Racing: YORDY Modifier: JUAN MIGUEL <+> 1 Patient Out of Preop Finalized By: PRECIOUS JAUREGUI RN Document Signatures Signed By: PRECIOUS JAUREGUI RN 07/26/20 14:16 Electronically signed by [facility] Conversion Medical Psychotherapist Cerner at 08/30/2022 6:11 PM CDT documented in this encounter Plan of Treatment Not on file documented as of this encounter Visit Diagnoses Not on filedocumented in this encounter
--- OUTSIDE RECORDS SUMMARY | 2025-04-10 12:56 | XMS_ITS | Encounter Summary ---
Author Organization [employer] ([place], [place], [place], [place], [place]) Address [address] [place] [address] Care Team Providers Care Crusher And Binder Operator Name Role Phone Unavailable Primary Care Provider Unavailabl e Encounter Details Date Type Department Care Team (Late st Contact Info) Description 07/26/2020 Transcribed Document [facility] [place] [facility] [place] [address] ProviderIsa MD [place] [address] Social History Tobacco Use Types Packs/Day Years Used Date Smoking Tobacco: Never Assessed Sex and Gender Information Value Date Recorded Sex Assigned at Not on file Legal Sex Male 6:06 PM CDT Gender Identity Not on file Sexual Orientation Not on file documented as of this encounter Miscellaneous Notes * Cerner Conversion Note - Historical ProviderMD - 07/26/2020 11:45 PM HYDRAULIC PUNCH PRESS OPERATOR Pain Assessment Entered On: 07/27/2020 5:34 EST Performed On: 07/27/2020 0:46 EST by JOEL EDMONDSON LPN Intervention Information: oxyCODONE Performed by JOEL EDMONDSON LPN on 07/26/2020 23:46:00 EST oxyCODONE,10mg Oral,Pain [...]
--- OUTSIDE RECORDS SUMMARY | 2025-04-10 12:56 | XMS_ITS | Encounter Summary ---
Author Organization [employer] ([place], [place], [place], [place], [place]) Address [address] [place] [address] Care Team Providers Care Federal Court Of Appeals Law Clerk Name Role Phone Unavailable Primary Care Provider Unavailabl e Encounter Details Date Type Department Care Team (Late st Contact Info) Description 07/26/2020 Transcribed Document [facility] [place] [facility] [place] [address] ProviderIsa MD [place] [address] Social History Tobacco Use Types Packs/Day Years Used Date Smoking Tobacco: Never Assessed Sex and Gender Information Value Date Recorded Sex Assigned at Not on file Legal Sex Male 6:06 PM CDT Gender Identity Not on file Sexual Orientation Not on file documented as of this encounter Miscellaneous Notes * Cerner Conversion Note - Isa ProviderMD - 07/26/2020 2:58 PM CASHIER PAYMENTS RECEIVED Evaluation, Physical Therapy Entered On: 07/27/2020 11:05 EST Performed On: 07/27/2020 10:59 EST by Axel Caban PHYSICAL THERAPIST General Information, PT General Information Comment, PT : s/p L4-5 PLIF on 07/26/20. PMH: DM II OA, HTN, sleep apnea, Migraines Axel Caban PHYSICAL THERAPIST - 07/27/2020 11:16 EST Visit Type, PT : Initial evaluation Patient Orders : Order Date Order Ordering MD 07/26/2020 14:58 Physical Therapy Eval and Treat Ordered By: VENECIA PADILLA MD-[facility] Active Diagnoses : No Qualifying Diagnoses Admission [...] Caban PHYSICAL THERAPIST - 07/27/2020 10:59 EST Art Manager Goals Mobility/Bed Mobility LTG PT Grid Goal [...] PHYSICAL THERAPIST - 07/27/2020 10:[address] [facility] PT Charges PT Eval Low Complexity : 1 Axel Caban PHYSICAL THERAPIST - 07/27/2020 10:59 EST Electronically signed by [facility] Conversion Continuous Washer Operator Cerner at 08/30/2022 6:14 PM CDT documented in this encounter Plan of Treatment Not on file documented as of this encounter Visit Diagnoses Not on filedocumented in this encounter
--- OUTSIDE RECORDS SUMMARY | 2025-04-10 12:56 | XMS_ITS | Encounter Summary ---
Author Organization [employer] ([place], [place], [place], [place], [place]) Address [address] [place] [address] Care Team Providers Care Manager Of Photography Name Role Phone Unavailable Primary Care Provider Unavailabl e Encounter Details Date Type Department Care Team (Late st Contact Info) Description 07/26/2020 Transcribed Document [facility] Neurology - [address] [facility] [address] [place] [address] [place] [address] [place] [address] [address] [place] [address] Social History Tobacco Use Types Packs/Day [...]
--- OUTSIDE RECORDS SUMMARY | 2025-04-10 12:56 | XMS_ITS | Encounter Summary ---
Author Organization [employer] ([place], [place], [place], [place], [place]) Address [address] [place] [address] Care Team Providers Care Basket Bottom Machine Operator Name Role Phone Unavailable Primary Care Provider Unavailabl e Encounter Details Date Type Department Care Team (Late st Contact Info) Description 07/26/2020 Transcribed Document [facility] [place] [address] [place] [address] ProviderIsa MD [address] [place] [address] Social History Tobacco Use Types Packs/Day Years Used Date Smoking Tobacco: Never Assessed Sex and Gender Information Value Date Recorded Sex Assigned at Not on file Legal Sex Male 6:06 PM CDT Gender Identity Not on file Sexual Orientation Not on file documented as of this encounter Miscellaneous Notes * Cerner Conversion Note - Isa ProviderMD - 07/26/2020 1:09 PM MAINTENANCE REPAIRMAN [facility] Main OR IntraOp Summary Primary Physician: VENECIA PADILLA MD-SNU Finalized Date/Time: 07/27/20 16:20:51 Pt. Name: KARLA CHIO.B./Sex: 1950 Male Med Rec #: [id number] Physician: VENECIA PADILLA MD-SNU Financial #: [id number] Pt. Type: I Room/Bed: [facility] Admit/Disch: 07/26/20 06:35:00 - Institution: [facility] IntraOp Case Attendance Entry 1 Entry 2 Entry 3 Case Attendee VENECIA PADILLA MD-SNU Byrd, Charlie D, RN WASSON, SANDRA D, RN Role Performed Surgeon/Proceduralist, Balance Screwhead Polisher, First Balance Screwhead Polisher, Second First Time In 07/26/20 12:44:00 07/26/20 12:44:00 07/26/20 12:44:00 Time Out 07/26/20 14:49:00 07/26/20 14:49:00 07/26/20 12:45:00 Procedure Lumbar Fusion Posterior Lumbar Fusion Posterior Lumbar Fusion Posterior 3 Level 3 Level 3 Level Other Attendee Superficial Wound Closed By: Last Modified By: Kg Bronson, Kg Lara, Kg Lara, ROJELIO 07/26/20 14:52:29 07/26/20 14:52:29 07/26/20 14:52:29 Entry 4 Entry 5 Entry 6 Case Attendee CHIP VYAS ST SIEGRIST, MEGHAN, PA Gordon, Mark, CLERK MANAGER Role Performed Scrub, First Physician assistant counsel CLERK MANAGER/Nurse Customer Sales Advisor Time In 07/26/20 12:44:00 07/26/20 12:44:00 07/26/20 [...] LIRA SHELTON, CLARA S OTHER, ATTENDEE #1 -ANS Role Performed Anesthesiologist of Hand Embroiderer Vendor Record Time In 07/26/20 12:44:00 07/26/20 [...] Case Attendee YI LEIVA RN Role Performed Balance Screwhead Polisher, First Time In 07/26/20 13:50:00 Time Out 07/26/20 14:00:00 Procedure Lumbar Fusion Posterior 3 Level Other Attendee RN BREAK RELIEF Superficial Wound Closed By: Last Modified By: Kg Bronson RN 07/26/20 14:52:29 [facility] IntraOp Case Attendance Audit 07/26/20 14:52:29 Home Service Technician: [email or web address] Modifier: [email or web address] 1 <+> Time Out [...] Lumbar Fusion Posterior 3 Level 07/26/20 13:50:32 Home Service Technician: [email or web address] Modifier: [email or web address] 3 <+> Time Out 3 <*> Procedure Lumbar Fusion Posterior 3 Level <+> 10 Case Attendee <+> 10 Role Performed <+> 10 Time In <+> 10 Time Out <+> 10 Procedure <+> 10 Other Attendee 07/26/20 13:17:03 Home Service Technician: [email or web address] Modifier: [email or web address] 1 <*> Procedure Lumbar [...] <*> Procedure Lumbar Fusion Posterior 3 Level [facility] IntraOp Case Times Entry 1 Patient In Room Time 07/26/20 12:44:00 Out Room Time 07/26/20 14:49:00 Anesthesia Start Time 07/26/20 12:44:00 Stop Time 07/26/20 14:49:00 Surgery / Procedure Times Start Time 07/26/20 13:09:00 Stop Time 07/26/20 14:34:00 Last Modified By: Kg Bronson RN 07/26/20 14:52:28 [facility] IntraOp Case Times Audit 07/26/20 14:52:28 Home Service Technician: [email or web address] Modifier: [email or web address] <+> 1 Out Room Time <+> 1 Stop Time 07/26/20 14:34:15 Home Service Technician: [email or web address] Modifier: [email or web address] <+> 1 Stop Time [facility] IntraOp Cautery Entry 1 Entry 2 ESU Identification Cautery Type Monopolar ESU BiPolar ESU Cautery Type Comments ID Number [id number] ID Type Hospital Number Hospital Number Cautery [...] Charlie D, RN 07/26/20 13:13:37 07/26/20 13:13:37 [facility] IntraOp Communication Entry 1 Communication To Family/Significant other Comment START - NO ANSWER Communication By Kg Bronson RN Date and Time 07/26/20 13:12:00 Last Modified By: Kg Bronson RN 07/26/20 13:12:45 [facility] IntraOp Counts Verification Entry 1 Procedure Lumbar Fusion Posterior 3 Level Count Info Count Type Sponge, Sharps, Miscellaneous Counts Verification Baseline/pre-procedure Sequence Count Results Not Applicable Counts Performed By Count Performed By CHIP VYAS ST (Scrub) Count Performed By YI LEIVA RN (RN) Last Modified By: Kg Bronson RN 07/26/20 13:13:51 [facility] IntraOp Counts Verification Audit 07/26/20 13:13:51 Home Service Technician: [email or web address] Modifier: LINDY <+> 1 Count Type <+> 1 Counts Verification Sequence <+> 1 Count Results <+> 1 Count Performed By (Scrub) <+> 1 Count Performed By (RN) [facility] IntraOp Counts Final Entry 1 Procedure Lumbar Fusion Posterior 3 Level Final Count Info Count Type Sponge, Sharps, Miscellaneous Counts Verification Skin Closure/end of Sequence procedure Count Results Correct, surgeon notified Counts Performed By Count Performed By CHIP VYAS ST (Scrub) Count Performed By Kg Bronson RN (RN) Last Modified By: Kg Bronson RN 07/26/20 14:33:21 [facility] IntraOp Departure from OR Entry 1 Integumentary Assessment Integumentary WDL Assessment WDL Transfer/Handoff Transfer to PACU Phase I Handoff Method Bedside/Face to face, Phone call Post-op Transport Stretcher/Darrellney Via Patient Transport [place] Reyes CRNA, Accompanied by LUIS A MORENO PA Last Modified By: Kg Bronson RN 07/26/20 13:14:02 [facility] IntraOp Drains and Tubes Entry 1 Device Type Adalberto Leone round drain Size 15 FR Drain/Tube Activity Inserted Drain/Tube Suction Bulb Drain/Tube Drainage Serosanguineous Device Location OP SITE Method of Drainage Compression Last Modified By: Kg Bronson RN 07/26/20 14:24:55 [facility] IntraOp Dressing and Packing Entry 1 Type Dressing Location back Wound Dressing Item Occlusive dressing, Skin adhesive, Other Applied By LUIS A MORENO PA Last Modified By: Kg Bronson RN 07/26/20 14:24:23 [facility] IntraOp Fire Risk Assessment Entry 1 Fire [...] Modified By: Kg Bronson RN 07/26/20 13:14:14 [facility] IntraOp General Case Curriculum Director 1 Case Information OR OR 10 [facility] Case Level 1 Room Verified Yes Wound Class I - Clean Specialty SN Neurosurgery Anesthesia Type General ASA Class 3 Diagnosis Preop Diagnosis LUMBAR RADICULOPATHY, LUMBAR SPONDYLOSIS Postop Same As Preop No Postop Diagnosis SEE MD POST OP NOTE Last Modified By: Kg Bronson RN 07/26/20 13:15:05 [facility] IntraOp Implant Log Entry 1 Entry 2 Entry 3 Type Tissue Implant Implant (Synthetic) Implant (Synthetic) (Biologic) Implant Log Implant Type Hardware Hardware Tissue Implant Type Bone Implant BONE VIVIGEN FORMABLE [id number] EIT T/PLIF, H SCR SPNE RADHA FIX Identification [id number] [id number] 14MM 22/9 CAGE [id number] Description Implant Quantity 1 1 2 Implant Site OP SITE OP SITE OP SITE Implant [id number] Identification Model Number Implant Identification Serial Number Implant [id number] Identification Lot Number Implant Lifenet:Lifenet J&J:Depuy:Depuy Spine Identification Transplant Srv Government Employee Name: Implant [id number] Identification Catalog Number Implant Size Implant Has an Yes Yes Expiration Date Implant Expiration 07/04/21 12/14/24 Date Wasted Radioactive Material Time Implanted Tissue Implant Continue for Tissue Implant Documentation Tissue Identification Number Graft Prep Per Government Employee Instructions: Tissue Preparation Method: Reconstitution Solution: Reconstitution Solution Lot Number Reconstitution Solution Expiration Date: Thawing Solution Thawing Solution Lot Number Thawing Solution Expiration Date Preparation Materials, Other Preparation Materials, Other Lot Number Preparation Materials, Other Expiration Date Tissue Prepared/Processed By Government Employee Paperwork Completed Implant Type Comment Last Modified By: Kg Bronson RN Byrd, Charlie D, RN Byrd, Charlie D, RN 07/26/20 13:39:36 07/26/20 14:08:06 07/26/20 14:17:51 Entry 4 Entry 5 Entry 6 Type Implant (Synthetic) Implant (Synthetic) Implant (Synthetic) Implant Log Implant Type Hardware Hardware Hardware Tissue Implant Type Implant MIS SUJATHA PLY SCRW SET LOR PRE LOAD [id number] SCR SPNE RADHA FIX Identification [id number] Description Implant Quantity 4 2 2 Implant Site OP SITE OP SITE OP SITE Implant Identification Model Number Implant Identification Serial Number Implant Identification Lot Number Implant J&J:Depuy:Depuy Spine J&J:Depuy:Depuy Spine J&J:Depuy:Depuy Spine Identification Government Employee Name: Implant [id number] Identification Catalog Number Implant Size Implant Has an Expiration Date Implant Expiration Date Wasted Radioactive Material Time Implanted Tissue Implant Continue for Tissue Implant Documentation Tissue Identification Number Graft Prep Per Government Employee Instructions: Tissue Preparation Method: Reconstitution Solution: Reconstitution Solution Lot Number Reconstitution Solution Expiration Date: Thawing Solution Thawing Solution Lot Number Thawing Solution Expiration Date Preparation Materials, Other Preparation Materials, Other Lot Number Preparation Materials, Other Expiration Date Tissue Prepared/Processed By Government Employee Paperwork Completed Implant Type Comment Last Modified By: Kg Bronson RN Byrd, Charlie D, RN Byrd, Charlie D, RN 07/26/20 14:17:51 07/26/20 14:17:51 07/26/20 14:17:51 [facility] IntraOp Implant Log Audit 07/26/20 14:17:51 Home Service Technician: LINDY Modifier: LINDY <+> 3 Implant Identification Description <+> 3 Implant Identification Government Employee Name: <+> 3 Implant Site <+> 3 Implant Quantity <+> 3 Implant Identification Catalog Number <+> 3 Implant Type <+> 3 Type <+> 4 Implant Identification Description <+> 4 Implant Identification Government Employee Name: <+> 4 Implant Site <+> 4 Implant Quantity <+> 4 Implant Identification Catalog Number <+> 4 Implant Type <+> 4 Type <+> 5 Implant Identification Description <+> 5 Implant Identification Government Employee Name: <+> 5 Implant Site <+> 5 Implant Quantity <+> 5 Implant Identification Catalog Number <+> 5 Implant Type <+> 5 Type <+> 6 Implant Identification Description <+> 6 Implant Identification Government Employee Name: <+> 6 Implant Site <+> 6 Implant Quantity <+> 6 Implant Identification Catalog Number <+> 6 Implant Type <+> 6 Type 07/26/20 14:08:06 Home Service Technician: LINDY Modifier: [email or web address] <+> 2 Implant Identification Description <+> 2 Implant Identification Lot Number <+> 2 Implant Expiration Date <+> 2 Implant Site <+> 2 Implant Quantity <+> 2 Implant Type <+> 2 Implant Has an Expiration Date <+> 2 Type [facility] IntraOp Intraoperative Assessment Entry 1 Handoff Method [...] Modified By: Kg Bronson RN 07/26/20 13:15:17 [facility] IntraOp Intraoperative Equipment Entry 1 Type Equipment Equipment Equipment Jayro Suction System ID Number [id number] Setting 200 MM HG Intraop Monitoring Electrocardiogram Five lead placement (ECG) Electrode Placement Blood Pressure Non-Invasive BP Device Source Blood Pressure Arm, right upper Location Pulse Oximeter Hand, left Probe Site Antiembolic Devices Antiembolic Devices Sequential compression device, knee high Antiembolic Device Bilateral Location Antiembolic Device [id number] ID Number Antiembolic Device standard Setting Scopes Photo/Video Documentation Photo No Video No Last Modified By: Kg Bronson RN 07/26/20 13:15:43 [facility] IntraOp Medication Admin Entry 1 Entry 2 Entry 3 Medication/Irrigant thrombin 5000units SEALR AQUAMANTYS BIPLR Neosporin 15Gm ointment topical powder - [id number] - [id number] Combo Med List Time Administered Route of TOPICAL OTHER TOPICAL Administration Dose Dose 5000 1 Unit of Measure units pkt Volume Administered By VENECIA PADILLA MD-VENECIA DICK MD-SNVENECIA CONLEY MD-SNAncelmo Procedure Irrigation Irrigant Volume In Irrigant Volume Out Last Modified By: Kg Bronson, RN Kg Bronson, RN Kg Bornson, RN 07/26/20 13:16:22 07/26/20 13:16:22 07/26/20 13:16:22 Entry 4 Entry 5 Entry 6 Medication/Irrigant SPNG SURGFOAM SEALANT DURASL SPINE MATRIX FLOSEAL HEMO [id number] 5ML-[id number] 10ML [id number] Combo Med List Time Administered Route of [...] RN 07/26/20 13:16:22 07/26/20 13:45:16 07/26/20 13:54:12 [facility] IntraOp Medication Admin Audit 07/26/20 13:54:12 Home Service Technician: [email or web address] Modifier: [email or web address] <+> 6 Medication/Irrigant <+> 6 Route of Administration <+> 6 Administered By <+> 6 Dose <+> 6 Unit of Measure 07/26/20 13:45:16 Home Service Technician: [email or web address] Modifier: [email or web address] <+> 5 Medication/Irrigant <+> 5 Route of Administration <+> 5 Administered By <+> 5 Dose <+> 5 Unit of Measure [facility] IntraOp Patient Positioning Entry 1 Procedure Lumbar [...] Reyes CRNA, VENECIA PADILLA MD-BELÉN, LUIS A MORENO, REESE Position Verified Positioning Yes Verified by Anesthesia Positioning Yes Verified by Surgeon Last Modified By: Kg Bronson RN 07/26/20 13:16:51 [facility] IntraOp Sign In Entry 1 Patient, Site, [...] Modified By: Kg Bronson RN 07/26/20 13:17:01 [facility] IntraOp Sign Out Entry 1 RN Confirmation [...] Modified By: Kg Bronson RN 07/26/20 14:52:32 [facility] IntraOp Sign Out Audit 07/26/20 14:52:32 Home Service Technician: LINDY Modifier: [email or web address] <+> 1 RN Sign Out Signature Date/Time [facility] IntraOp Skin Prep Entry 1 Procedure Lumbar Fusion Posterior 3 Level Prescribed Yes Pre-Surgical Prep Completed Prep Area back Intraop Prep Integumentary WDL Assessment WDL Prep Agents DuraPrep Prep by Kg Bronson, RN Hair Removal Methods Clipper/Scissors Hair Removal Site OP SITE Hair Removal By VENECIA PADILLA MD-SNU Last Modified By: Kg Bronson RN 07/26/20 13:13:09 [facility] IntraOp Surgical Procedures Entry 1 Procedure Lumbar Fusion Posterior 3 Level Additional (L4-5 FUSION USING AIRO) Procedure Description Primary Procedure Yes Primary Surgeon VENECIA PADILLA MD-SNU Start 07/26/20 13:09:00 Stop 07/26/20 14:34:00 Anesthesia Type General Specialty SN Neurosurgery Wound Class I - Clean Last Modified By: Kg Bronson RN 07/26/20 14:34:19 [facility] IntraOp Surgical Procedures Audit 07/26/20 14:34:19 Home Service Technician: LINDY Modifier: LINDY <+> 1 Stop [facility] IntraOp Temp Regulation Devices Entry 1 Temp Regulation Temperature Forced Air Warming Regulation Device device, Warm blankets Temperature 33769 Regulation Device Serial/Unit Number Temperature Upper body Regulation Site Temperature Device 43 C Setting Temperature [place] ReyesHERNANDEZ Regulation Device Applied by Last Modified By: Kg Bronson RN 07/26/20 13:12:56 [facility] IntraOP Time Out Entry 1 Procedure to [...] Modified By: Kg Bronson RN 07/26/20 13:10:09 [facility] IntraOp X-Ray and Images Entry 1 X-Ray/Imaging Type Other Fluoroscopy Type Other Site back Cooker Meal Name GIORGIO BARRETT Protective Devices Yes Used X-Ray and Imaging brainlab intraoperative Comment ct scanner Last Modified By: Kg Bronson RN 07/26/20 13:11:34 Case Comments <None> Finalized By: TAJ LEDEZMA Document Signatures Signed By: Kg Bronson RN 07/26/20 14:52 TAJ LEDEZMA 07/27/20 16:20 Unfinalized History Date/Time Username Reason for Unfinalizing Freetext Reason for Unfinalizing 07/27/20 16:17 [email or web address] Correct Billing Electronically signed by Durga [facility] Conversion Aviation Warfare Systems Operator Cerner at 08/30/2022 6:14 PM CDT documented in this encounter Plan of Treatment Not on file documented as of this encounter Visit Diagnoses Not on filedocumented in this encounter
--- OUTSIDE RECORDS SUMMARY | 2025-04-10 12:56 | XMS_ITS | Encounter Summary ---
Author Organization [employer] ([place], [place], [place], [place], [place]) Address [address] [place] [address] Care Team Providers Care Pot Pusher Name Role Phone Unavailable Primary Care Provider Unavailabl e Encounter Details Date Type Department Care Team (Late st Contact Info) Description 07/26/2020 Transcribed Document [facility] Neurology - [address] [place] [address] Korey Mars Jr., MD [address] [facility] [address] [place] [address] Social History Tobacco Use Types [...] Airo intraoperative CT scan and BrainLAB navigation. ROLLER TURNER: MILTON Maria PA-C, assisted through the entire operation with tasks such as suctioning, soft tissue retraction, instrumentation placement, nerve root retraction, and wound closure. ANESTHESIA: General endotracheal anesthesia. BLOOD LOSS: Less than 300 mL. COMPLICATIONS: None. SPECIMEN: Disk. CONDITION: Stable to PACU. DRAINS: Prevertebral 15-Somali round SEBASTIAN drain to bulb suction. FINDINGS: [...] through 2 separate stab incisions using the [employer] drill under navigation. Once the pins were [...] stab incision was used to tunnel a 15-Somali round epidural SEBASTIAN drain. A drain stitch [...] to the recovery room in good condition. /[id number] Korey Mars Jr, MD RDO/AQ / RDO / MODL /[id number] documented in this encounter Plan of Treatment Not on file documented as of this encounter Visit Diagnoses Not on filedocumented in this encounter
--- OUTSIDE RECORDS SUMMARY | 2025-04-10 12:56 | XMS_ITS | Encounter Summary ---
Author Organization [email or web address] ([place], [place], [place], [place], [place]) Address [address] [place] [address] Care Team Providers Care Pastoral Counselor Name Role Phone Unavailable Primary Care Provider Unavailabl e Encounter Details Date Type Department Care Team (Late st Contact Info) Description 07/27/2020 Transcribed Document [facility] [place] Family Medicine [facility] [place] [address] ProviderIsa MD [facility] [place] [address] Social History Tobacco Use Types Packs/Day Years Used Date Smoking Tobacco: Never Assessed Sex and Gender Information Value Date Recorded Sex Assigned at Not on file Legal Sex Male 6:06 PM CDT Gender Identity Not on file Sexual Orientation Not on file documented as of this encounter Miscellaneous Notes * Cerner Conversion Note - Isa ProviderMD - 07/27/2020 11:05 AM DAYLIGHT DRILLER Treatment Intervention, PT Entered On: 07/28/2020 8:46 [...] within reach RN/PCT Informed Comment : Nurse Jean Treatment End Time : 07/28/2020 8:35 EDT [...] Caban PHYSICAL THERAPIST - 07/28/2020 8:43 EDT Biomedical Scientist Goals Mobility/Bed Mobility LTG PT Grid Goal [...] : continue POC anticiapate dischareg home tomorrow Axel Caban, PHYSICAL THERAPIST - 07/28/2020 8:43 EDT Pain Assessment Pain Scaled Used : 0-10 Pain scale Duration : 8 Location : Back, lower Axel Caban PHYSICAL THERAPIST - 07/28/2020 8:43 EDT Image 1 - Images currently included in the form version of this document have not been included in the text rendition version of the form. [facility] Charges PT Therap. Exercise 15 min : 1 Gait Training Each 15 Min : 1 Axel Caban PHYSICAL THERAPIST - 07/28/2020 8:43 EDT Electronically signed by Jovan [employer] Conversion Window Shade Cutter And Mounter Cerner at 08/30/2022 5:57 PM CDT documented in this encounter Plan of Treatment Not on file documented as of this encounter Visit Diagnoses Not on filedocumented in this encounter
--- OUTSIDE RECORDS SUMMARY | 2025-04-10 12:56 | XMS_ITS | Encounter Summary ---
Author Organization [employer] ([place], [place], [place], [place], [place]) Address [address] [place] [address] Care Team Providers Care Biology Specialist Name Role Phone Unavailable Primary Care Provider Unavailabl e Encounter Details Date Type Department Care Team (Late st Contact Info) Description 07/26/2020 Transcribed Document [facility] [place] [address] [place] [address] ProviderIsa MD [address] [place], [place] [address] Social History Tobacco Use Types Packs/Day Years Used Date Smoking Tobacco: Never Assessed Sex and Gender Information Value Date Recorded Sex Assigned at Not on file Legal Sex Male 6:06 PM CDT Gender Identity Not on file Sexual Orientation Not on file documented as of this encounter Miscellaneous Notes * [employer]ner Conversion Note - Isa ProviderMD - 07/26/2020 4:19 PM NURSING STAFFING COORDINATOR Meds to Bed Enrollment Entered On: 07/28/2020 15:31 EDT Performed On: 07/26/2020 16:19 EST by ROMELIA TEAJDA PHARMACIST-MEDICATION RECON Meds to Bed Enrollment Patient [...]
[2025-04-10 13:00] VITALS: BP 119/66; PULSE 76; RESP 14; O2SAT 96
--- NOTE | 2025-04-10 13:01 | HMH.ITSTN ---
labs pending at this time for ct
[2025-04-10 13:03] LABS: Hematocrit 43.0 % (42.0-52.0); Hemoglobin 14.3 g/dL (14.1-18.0); Immature Granulocytes % 0.5 %; Mean Corpuscular HGB Conc 33.3 g/dL (31.8-35.4); Mean Corpuscular Hemoglobin 30.0 pg (27.0-31.2); Mean Corpuscular Volume 90.1 fl (80-94); Nucleated Red Blood Cells % 0 %; Platelet Count 162 K/mm3 (142-424); Red Blood Count 4.77 M/mm3 (4.60-6.20); Red Cell Distribution Width-SD 43.3 fL; White Blood Count 7.6 K/mm3 (4.8-10.8)
--- NOTE | 2025-04-10 13:07 | HMH.EDGENADL ---
Discharge Plan Disposition Patient Disposition: Home, Self-Care Prescriptions Prescriptions: No Action ranolazine 1,000 mg tablet extended release 12 hr 1,000 mg PO BID Qty: 60 5RF Creon 36,000-114,000- 180,000 unit capsule,delayed release(DR/EC) PO Patient Comments: TAKE ONE CAPSULE BY MOUTH with meals and/or snacks Airsupra 90-80 mcg/actuation HFA aerosol inhaler 2 inh inhalation Q6H PRN (Reason: shortness of breath or wheezing) Qty: 10.7 3RF Ozempic 2 mg/dose (8 mg/3 mL) pen injector 2 mg SQ WEEKLY Qty: 3 6RF Rx Instructions: Take 2mg weekly Jardiance 10 mg tablet 10 mg PO DAILY Qty: 90 3RF metformin 1,000 mg tablet 1,000 mg PO BID Qty: 120 4RF insulin degludec [Tresiba FlexTouch U-100] 100 unit/mL (3 mL) insulin pen 80 unit SQ Q24H Qty: 30 3RF Rx Instructions: Take 80 units daily insulin lispro 100 unit/mL insulin pen See Rx Instructions SQ .COMPLEX Qty: 30 3RF Rx Instructions: Take 20 units for lunch, 24 units for dinner and 15 units for snacks BID, Max TDD of 90 units subcutaneously; subcutaneously; rosuvastatin 40 mg tablet 40 mg PO DAILY metoclopramide HCl 5 mg tablet 5 mg PO BID Patient Comments: TAKE ONE TABLET BY MOUTH TWICE DAILY BEFORE meals magnesium oxide 400 mg (241.3 mg magnesium) tablet 400 mg PO DAILY Patient Comments: TAKE ONE TABLET BY MOUTH TWICE DAILY WITH FOOD Metamucil Fiber (aspartame) 3.4 gram powder in packet 3.4 g PO TID irbesartan 150 mg tablet See Rx Instructions .ROUTE .COMPLEX Qty: 90 3RF Dose Instruction: TAKE ONE TABLET BY MOUTH EVERY DAY Rx Instructions: TAKE ONE TABLET BY MOUTH EVERY DAY bisoprolol fumarate 10 mg tablet See Rx Instructions .ROUTE .COMPLEX Qty: 180 3RF Dose Instruction: TAKE ONE TABLET BY MOUTH TWICE DAILY Rx Instructions: TAKE ONE TABLET BY MOUTH TWICE DAILY isosorbide mononitrate 120 mg tablet extended release 24 hr 120 mg PO BID Qty: 60 5RF clopidogrel 75 mg tablet 75 mg PO DAILY fenofibrate micronized 134 mg capsule 134 mg PO DAILY Patient Comments: TAKE ONE CAPSULE BY MOUTH EVERY DAY levothyroxine 75 mcg tablet 75 mcg PO DAILY aspirin 81 mg Tablet,Delayed Release (Dr/Ec) 81 mg PO DAILY Qty: 30 0RF famotidine 20 mg Tablet 20 mg PO BID 60 Days Qty: 120 0RF pantoprazole 40 mg tablet,delayed release (DR/EC) 40 mg PO DAILY Patient Comments: TAKE ONE TABLET BY MOUTH EVERY DAY FOR acid reflux furosemide 20 mg tablet 20 mg PO DAILY Patient Comments: TAKE ONE TABLET BY MOUTH EVERY DAY amlodipine 10 mg tablet 10 mg PO DAILY Referrals Follow up/Referrals: Declan Izquierdo MD [Primary Care Provider, Medical] - See instructions Activity Restrictions/Add. Instructions Additional Instructions/Restrictions: There is no definitive evidence of any acute life-threatening condition identified within your head of the cervical vessels or the blood vessels running through your brain. There remains some uncertainty as to exactly what is the cause of your headache but no life-threatening causes identified today this is most likely musculoskeletal in nature. You may continue take Tylenol and ibuprofen as needed for your symptoms. Return to the emergency room with any acute neurologic symptoms such as numbness weakness in your extremities or changes in coordination or visions or other concerns. Clinical Impressions Clinical Impression: Headache Print Language Print Language: Turkmen Discharge ED Provider: Doreen Soni General Adult HPI General Chief complaint: PAIN Stated complaint: Lt side neck pain Time Seen by Provider: 04/10/25 12:48 History of Present Illness HPI narrative: Patient is a 74-year-old gentleman with a past medical history of coronary artery disease status post CABG from several years ago with wound internal dehiscence presents today with left-sided and posterior head and neck pain that is intermittent but severe. Has been ongoing for 3 days without any significant improvement. No neurologic symptoms no weakness changes in coordination changes in vision sensory deficits etc. Does state the pain radiates from his head down the lateral aspect of his left side of his neck and into the superior component of his chest but no primary chest pain exertional symptoms etc. Related Data Home Medications ?Medication ?Instructions ?Recorded ?Confirmed clopidogrel 75 mg tablet 75 mg PO DAILY Antiplatelet 01/18/23 03/28/25 fenofibrate micronized 134 mg 134 mg PO DAILY High triglyceride 01/18/23 03/28/25 capsule levothyroxine 75 mcg tablet 75 mcg PO DAILY Thyroid 01/18/23 03/28/25 rosuvastatin 40 mg tablet 40 mg PO DAILY 03/13/24 03/28/25 furosemide 20 mg tablet 20 mg PO DAILY 06/23/24 03/28/25 pantoprazole 40 mg tablet,delayed 40 mg PO DAILY 06/23/24 03/28/25 release metoclopramide HCl 5 mg tablet 5 mg PO BID 09/19/24 03/28/25 amlodipine 10 mg tablet 10 mg PO DAILY 09/26/24 03/28/25 magnesium oxide 400 mg (241.3 mg 400 mg PO DAILY 12/28/24 03/28/25 magnesium) tablet psyllium husk 3.4 gram oral powder 3.4 g PO TID 12/28/24 03/28/25 packet (Metamucil Fiber (aspartame)) [id number]-[id number]-gzagmer cap PO 02/22/25 03/28/25 (pork)36,000-114,000-180k unit capsule,del rel (Creon) Previous Rx's ?Medication ?Instructions ?Recorded aspirin 81 mg tablet,delayed 81 mg PO DAILY #30 tabs 01/19/23 release famotidine 20 mg tablet 20 mg PO BID 60 days #120 tabs 01/19/23 ranolazine 1,000 mg 1,000 mg PO BID Angina #60 tabs 01/27/23 tablet,extended release,12 hr irbesartan 150 mg tablet See Rx Instructions .Route 11/22/24 .COMPLEX #90 tabs bisoprolol fumarate 10 mg tablet See Rx Instructions .Route 12/07/24 .COMPLEX #180 tabs isosorbide mononitrate 120 mg 120 mg PO BID #60 tabs 02/19/25 tablet,extended release 24 hr albuterol 90 mcg-budesonide 80 2 inh inhalation Q6H PRN shortness 02/22/25 mcg/actuation HFA aerosol inhaler of breath or wheezing #10.7 grams (Airsupra) Jardiance 10 mg tablet 10 mg PO DAILY #90 tabs 03/28/25 (empagliflozin) Tresiba FlexTouch U-100 100 80 unit (0.8 mL) SQ Q24H #30 mL 03/28/25 unit/mL (3 mL) subcutaneous pen (insulin degludec) insulin lispro 100 unit/mL See Rx Instructions SQ .COMPLEX 03/28/25 subcutaneous pen #30 mL metformin 1,000 mg tablet 1,000 mg PO BID #120 tabs 03/28/25 semaglutide 2 mg/dose (8 mg/3 mL) 2 mg (0.75 mL) SQ WEEKLY #3 mL 03/28/25 subcutaneous pen injector (Ozempic) Allergies Allergy/AdvReac Type Severity Reaction Status Date / Time No Known Allergies Allergy Verified 03/28/25 09:57 [facility] Disclaimer: The information contained in this section may have been updated after the patient was seen, as this information can be updated by other users. 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 Unstable angina Angina pectoris Fusion of lumbar spine Lumbar disc disease Low back pain Cataracts, bilateral Menieres disease Gout Kidney stones Diverticulosis of colon Colon polyps Hypertriglyceridemia GERD (gastroesophageal reflux disease) Biceps tendinitis of left shoulder Atypical angina Palpitations Abnormal EKG Diastolic dysfunction Dyspnea Coronary artery disease Hyperlipidemia Hypertension Type 2 diabetes mellitus Hyperlipidemia associated with type 2 diabetes mellitus Non-ST elevated myocardial infarction Lumbar radiculopathy Surgical History (Updated 04/10/25 @ 13:04 by Citlaly Guardado RN) Hx of CABG Hx of CABG H/O exploratory laparotomy History of extraction of renal calculus S/P rotator cuff repair H/O cataract removal with insertion of prosthetic lens S/P lumbar fusion S/P CABG (coronary artery bypass graft) History of colonoscopy History of coronary artery stent placement Stented coronary artery Family History Other Cancer Coronary artery disease Diabetes Heart attack Hypertension Stroke Social History (Updated 04/10/25 @ 13:04 by Citlaly Guardado RN) Smoking Status: Never smoker alcohol intake: never substance use type: denies use current occupational status: retired Travel in the last 8 weeks?: None household members: none housing: house 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 current occupational exposures/hazards: No caffeine: Yes Have you lived/traveled outside [place] in past 30 days?: No Contact w/someone who lives/traveled outside [place] past 30 days?: No Exposure to someone with infectious disease in past 14 days?: No Do you have a fever (greater than 100.4 F or 38 C)?: No Have you tested positive for COVID-19?: No Exposed to someone with COVID-19 in past 14 days?: No Do you have a sore throat?: No Do you have a cough?: No Do you have any weakness?: No Do you have any diarrhea?: No Are you experiencing any unusual bleeding?: No Do you have any muscle aches/pain?: No Do you have any abdominal pain?: No Are you experiencing loss of taste or smell?: No Other Medical History Have you received the Flu Vaccine for this season: No Have you received the Pneumonia Vaccine: No ROS Obtained: Yes All systems reviewed & no additional complaints except as documented Physical Exam General General appearance: alert Head Head exam: atraumatic and normocephalic Neck Neck exam: Present normal inspection and full ROM; Absent tenderness, meningismus or lymphadenopathy Respiratory Respiratory exam: Present normal lung sounds bilaterally Cardiovascular Cardiovascular exam: Present regular rate and normal rhythm Neurological Exam Neurological exam: Present alert, oriented X3, CN II-XII intact, normal gait and other; Absent motor sensory deficit Medical Decision Making Medical Records Screening: Per USPSTF and CDC recommendations, given the prevalence of disease in our region, it is our hospital?s policy to screen for HIV and viral Hepatitis for all patients aged 18 and over and those with ongoing risk factors. Arron Inquiry Pt receiving controlled substance: No Vital Signs: 04/10/25 12:42 04/10/25 12:43 04/10/25 12:45 Temperature 97.7 F Temperature Source Oral Pulse Rate 78 75 Pulse Rate [Right Brachial] 78 Respiratory Rate 18 Blood Pressure 117/62 121/69 Blood Pressure [Left Arm] 117/62 Blood Pressure Mean [Left Arm] 80 Blood Pressure Source [Left Arm] Automatic Cuff 02 Sat by Pulse Oximetry 97 96 97 Oxygen Delivery Method Room Air Room Air Room Air 04/10/25 13:00 04/10/25 13:15 Temperature Temperature Source Pulse Rate 76 78 Pulse Rate [Right Brachial] Respiratory Rate 14 21 Blood Pressure 119/66 104/69 L Blood Pressure [Left Arm] Blood Pressure Mean [Left Arm] Blood Pressure Source [Left Arm] 02 Sat by Pulse Oximetry 96 96 Oxygen Delivery Method Room Air Room Air Lab Data Lab results reviewed: Yes I reviewed the patient's lab results. Lab Results 04/10/25 12:50: WBC 7.6, RBC 4.77, Hgb 14.3, Hct 43.0, MCV 90.1, MCH 30.0, MCHC 33.3, RDW 13.2, Plt Count 162, MPV 11.5 H, Neut % (Auto) 58.8, Lymph % (Auto) 27.3, [place] % (Auto) 11.5 H, Eos % (Auto) 1.6, Baso % (Auto) 0.3, Neut # (Auto) 4.5, Lymph # (Auto) 2.1, [place] # (Auto) 0.9, Eos # (Auto) 0.1, Baso # (Auto) 0.0, ESR 18, Sodium 139, Potassium 4.3, Chloride 107, Carbon Dioxide 24, Anion Gap 12.3, BUN 23 H, Creatinine 1.40 H, Estimated Creat Clear 56, Estimated GFR 50 L, Est GFR ( Amer) 60, Glucose 106 H, Calcium 9.9, Total Bilirubin 0.5, AST 38, ALT 33, Alkaline Phosphatase 44, Troponin I < 0.01, C-Reactive Protein 5.9 H, Total Protein 7.8, Albumin 4.8, Globulin 3.0, Albumin/Globulin Ratio 1.6 04/10/25 12:50 04/10/25 12:50 Orders (Tests/Meds): ED MEDICATIONS Discontinued Medications Generic Name Dose Route Start Last Admin Trade Name Freq PRN Reason Stop Dose Admin Diphenhydramine HCl 25 mg 04/10/25 12:53 04/10/25 13:31 Diphenhydramine 50mg/Ml Vial IV 04/10/25 12:54 25 mg ONCE ONE Administration Lactated Ringer's 1,000 mls @ 999 mls/hr 04/10/25 13:00 04/10/25 14:33 Lactated Ringer's 1000 Ml Bag IV 04/10/25 14:00 Infused .Q1H1M SWATHI Infusion Iopamidol 80 ml 04/10/25 13:54 04/10/25 13:55 Iopamidol-370 (76%);100ml Bottle IV 04/10/25 13:55 80 ml ONCE ONE Administration Ketorolac Tromethamine 15 mg 04/10/25 12:53 04/10/25 13:31 Ketorolac 30mg/Ml Vial IV 04/10/25 12:54 15 mg ONCE ONE Administration Prochlorperazine Edisylate 10 mg 04/10/25 12:53 04/10/25 13:32 Prochlorperazine 10mg/2ml Vial IV 04/10/25 12:54 10 mg ONCE ONE Administration Sodium Chloride 10 ml 04/10/25 13:54 04/10/25 13:55 Sodium Chloride 0.9% 10ml Syr (Rad Only) IV 04/10/25 13:55 10 ml ONCE ONE Administration Sodium Chloride 50 ml 04/10/25 13:54 04/10/25 13:54 0.9 % Sodium Chloride 50 Ml Vial IV 04/10/25 13:55 50 ml ONCE ONE Administration ORDERS Category Date Time Status CT angio head Stat Cat Scan 04/10/25 12:[address] angio neck Stat Cat Scan 04/10/25 12:[address] head/brain wo con Stat Cat Scan 04/10/25 12:54 Completed CBC w/Auto Diff [Complete Blood Count Auto Diff] Stat Lab 04/10/25 12:50 Completed CMP [Comprehensive Metabolic Panel] Stat Lab 04/10/25 12:50 Completed CRP [C-Reactive Protein] Stat Lab 04/10/25 12:50 Completed ESR [Erythrocyte Sedimentation Rate] Stat Lab 04/10/25 12:50 Completed Trop I [Troponin I] Stat Lab 04/10/25 12:50 Completed Troponin I Q3H Lab 04/10/25 16:15 Ordered Troponin I Q3H Lab 04/10/25 19:15 Ordered Medical Decision Narrative: 74-year-old above history physical presenting today with intermittent but severe posterior head and neck discomfort unlikely be acute coronary syndrome but will get an EKG and a troponin. Differential includes aneurysm vascular dissection vasculitis musculoskeletal discomfort etc. Given his age and the severity of his symptoms we will get a noncontrasted CT scan of his head as well as angiography of his head and neck to rule out any vascular pathology. In the meantime migraine cocktail has been administered and will reassess. Reassessment 2:[address] scans performed which I personally interpreted showed no acute neurovascular emergency clinically patient is feeling much better serial neurologic exams are normal awaiting final radiology read for disposition. Reassessment 3:02 PM radiology reads consistent with my interpretation as well patient discharged in improved and stable condition return precautions emphasized. Critical Care Critical Care Time Critical Care Time: No
[2025-04-10 13:14] LABS: Alanine Aminotransferase 33 U/L (12-78); Albumin Level 4.8 g/dl (3.5-5.0); Albumin/Globulin Ratio 1.6 (1.1-1.8); Alkaline Phosphatase 44 U/L (38-126); Anion Gap 12.3 mEq/L (5-15); Aspartate Amino Transferase 38 U/L (17-59); Bilirubin,Total 0.5 mg/dl (0.2-1.3); Blood Urea Nitrogen 23 mg/dl (9-20); Calcium 9.9 mg/dl (8.4-10.2); Carbon Dioxide 24 mmol/L (22.0-30.0); Chloride 107 mmol/L (98-107); Creatinine Clearance Estimated 56 mL/min (50-200); Creatinine,Serum 1.40 mg/dl (0.66-1.25); Estimated Glomerular Filt Rate 50 ml/min (>60); GFR (African American) 60 ML/MIN (>60); Globulin 3.0 g/dL (1.3-3.2); Glucose 106 mg/dl (74-100); Potassium 4.3 mmoL/L (3.5-5.1); Sodium 139 mmol/L (136-145); Total Protein,Serum 7.8 g/dl (6.3-8.2)
[2025-04-10 13:15] VITALS: BP 104/69; PULSE 78; RESP 21; O2SAT 96
--- NOTE | 2025-04-10 13:17 | ECG_ITS ---
APPROVED REPORT Exam: Resting ECG HR:79 bpm ECG Measurements Heart Rate 79 AXES CO 179 P 47 QRSd 93 QRS 2 QT 363 T 112 QTc 398 Conclusion SINUS RHYTHM INFERIOR MYOCARDIAL INFARCTION , PROBABLY OLD [40+ ms Q WAVE AND/OR ST/T ABNORMALITY IN II/aVF] MODERATE T-WAVE ABNORMALITY, CONSIDER ANTEROLATERAL ISCHEMIA [-0.1+ mV T-WAVE IN V3-V6] ABNORMAL ECG UNCONFIRMED REPORT Electronically signed by : Ho Soni, 04/10/2025 15:22:22
[2025-04-10 13:20] LABS: C-Reactive Protein 5.9 mg/L (0-4)
[2025-04-10] MEDS: KETOROLAC 30MG/ML VIAL 15 MG IV (13:31)
[2025-04-10] MEDS: LACTATED RINGERS 1000ML 1,000 ML 999 ML IV (13:31)
[2025-04-10] MEDS: PROCHLORPERAZINE 10MG/2ML VIAL 10 MG IV (13:32)
[2025-04-10] MEDS: 0.9 % SODIUM CHLORIDE 50 ML VIAL IV (13:54)
[2025-04-10] MEDS: IOPAMIDOL-370 (76%);100ML BOTTLE 80 ML IV (13:55)
[2025-04-10] MEDS: SODIUM CHLORIDE 0.9% 10ML SYR (RAD ONLY) 10 ML IV (13:55)
[2025-04-10 14:12] LABS: Troponin I < 0.01 ng/ml (0.00-0.034)
[2025-04-10 15:03] VITALS: BP 130/67; PULSE 79; RESP 16; TEMP 36.7; O2SAT 96
== END 2025-04-10 15:08 | disposition home or self-care (01) ==
PROVIDERS: Emergency Provider Student in an Organized Health Care Education/Training Program; PCP Family Medicine
DX: R51.9 Headache, unspecified (principal); M54.2 Cervicalgia; I10 Essential (primary) hypertension; E78.5 Hyperlipidemia, unspecified; E11.9 Type 2 diabetes mellitus without complications; Z86.79 Personal history of other diseases of the circulatory system; Z95.1 Presence of aortocoronary bypass graft
CPT/HCPCS: 70450; 70496; 70498; 80053; 84484; 85025; 85651; 86140; 93005; 96361; 96374; 96375; 99285; J0780; J1200; J1885; J7120; Q9967